=== PATIENT | male | born 1945 | race Caucasian/White ===

== ENCOUNTER 2017-01-02 07:23 | Inpatient (IN) | payer MEDICARE, OTHER ==
[~2017-01-02] VITALS: Ht 172.7 cm; Wt 106.6 kg
[2017-01-02] MEDS ORDERED: ONDANSETRON 4MG/2ML VIAL (J2405) As Ordered ONE (08:03)
[2017-01-02] MEDS ORDERED: KETOROLAC 30 MG/ML VIAL (J1885) As Ordered ONE (08:03)
[2017-01-02 08:34] LABS: BASO % 0.1 % (0.0-1.0); EOS # 0.1 K/mm3 (0.0-0.50); EOS % 0.4 % (0.0-3.0); LARGE UNSTAINED CELL # 0.1 K/mm3 (0.0-0.4); LARGE UNSTAINED CELL % 0.6 % (0.0-4.0); LYMPH # 1.7 K/mm3 (1.5-4.5); LYMPH % 7.5 % (24.0-44.0); MEAN CORPUSCULAR HEMOGLOBIN 30.2 pg (27.0-33.0); MEAN CORPUSCULAR HGB CONC 33.6 g/dl (32.0-36.5); MEAN CORPUSCULAR VOLUME 89.8 fl (80.0-96.0); MONO # 1.2 K/mm3 (0.0-0.8); MONO % 5.8 % (0.0-5.0); NEUTROPHILS # 17.9 K/mm3 (1.8-7.7); NEUTROPHILS % 85.6 % (36.0-66.0); PLATELET COUNT, AUTOMATED 173 k/mm3 (150-450); RED CELL DISTRIBUTION WIDTH 12.9 % (11.5-14.5); WHITE BLOOD COUNT 20.9 K/mm3 (4.0-10.0)
[2017-01-02] MEDS ORDERED: HEPARIN SOD (PORCINE) 5000 UNITS/ML VIAL SC SCH (09:00)
[2017-01-02 09:10] LABS: ALBUMIN 3.9 GM/DL (3.2-5.2); ALBUMIN/GLOBULIN RATIO 1.03 (1.00-1.93); ALKALINE PHOSPHATASE 72 U/L (45-117); ALT/SGPT 16 U/L (12-78); ANION GAP 11 MEQ/L (8-16); AST/SGOT 15 U/L (15-37); BILIRUBIN,DIRECT 0.5 MG/DL (0.0-0.2); BILIRUBIN,TOTAL 2.1 MG/DL (0.2-1.0); BLOOD UREA NITROGEN 15 MG/DL (7-18); CALCIUM LEVEL 9.3 MG/DL (8.8-10.2); CARBON DIOXIDE LEVEL 29 MEQ/L (21-32); CHLORIDE LEVEL 98 MEQ/L (98-107); CREATININE FOR GFR 0.97 MG/DL (0.70-1.30); GLOMERULAR FILTRATION RATE > 60.0 (>42); GLUCOSE, FASTING 150 MG/DL (83-110); MAGNESIUM LEVEL 1.6 MG/DL (1.8-2.4); POTASSIUM SERUM 3.4 MEQ/L (3.5-5.1); SODIUM LEVEL 138 MEQ/L (136-145); TOTAL PROTEIN 7.7 GM/DL (6.4-8.2)
[2017-01-02] MEDS ORDERED: ISOVUE-370 76% 100ML VIAL (Q9967) As Ordered ONE (09:25)
--- NOTE | 2017-01-02 09:57 | REP ---
Clinical: Abdominal pain. Technique: Axial contrast enhanced images from the thoracic inlet to the upper abdomen using 100 ml Isovue 370 intravenous contrast material with coronal and sagittal re-formations. Findings: Moderate peripancreatic inflammatory stranding is appreciated consistent with acute pancreatitis. Pancreatic tissue demonstrates normal homogeneous enhancement without evidence for necrosis and no associated fluid collection or pseudocyst. 3 cm hepatic cyst. Spleen, gallbladder, bilateral adrenal glands and kidneys are normal. 2.8 cm left renal cyst. The enteric system demonstrates diverticulosis without acute diverticulitis and no evidence for bowel obstruction or acute inflammatory process. Normal terminal ileum identified in the right lower quadrant. Pelvis demonstrates partially collapsed bladder and wall thickening cannot be excluded. Mild prominence to the prostate gland is also appreciated. No pelvic fluid. No ascites. No intraperitoneal or retroperitoneal adenopathy. Atherosclerotic changes of the aorta noted without aneurysm or dissection. Musculoskeletal structures demonstrate age-related changes without focal osseous abnormality. Lung bases clear. Cardiomegaly. Impression: 1. Acute pancreatitis without pseudocyst, free fluid, or drainable collection/abscess. 2. Solitary simple appearing hepatic and left renal cysts. 3. Scattered colonic diverticula without acute diverticulitis. 4. Asymmetric wall thickening to the bladder and mild prominence to the prostate gland cannot be excluded and may warrant urology consultation. Signed by Dustin Padilla MD 01/02/2017 09:48 A
[2017-01-02] MEDS ORDERED: METO50TA9 PO (10:22)
[2017-01-02] MEDS ORDERED: AMLO5TAB2 PO (10:22)
[2017-01-02] MEDS ORDERED: VITA500T88 PO (10:22)
[2017-01-02] MEDS ORDERED: ALBU17IN INH (10:22)
[2017-01-02] MEDS ORDERED: CALCTAB43 PO (10:22)
[2017-01-02] MEDS ORDERED: VITA20008 PO (10:22)
[2017-01-02] MEDS ORDERED: ASPI1TAB PO (10:22)
[2017-01-02] MEDS ORDERED: PRAV40TA2 PO (10:22)
[2017-01-02] MEDS ORDERED: BISACODYL 10 MG SUPP PR PRN (11:15)
[2017-01-02] MEDS ORDERED: ACETAMINOPHEN 650 MG SUPP PR PRN (11:15)
[2017-01-02] MEDS ORDERED: ONDANSETRON 4MG/2ML VIAL (J2405) IV PRN (11:15)
[2017-01-02] MEDS ORDERED: POTASSIUM CHLORIDE 10 MEQ SR TABLET As Ordered ONE (11:23)
[2017-01-02] MEDS ORDERED: MAGNESIUM OXIDE 400 MG TAB (MAG-OX) As Ordered ONE (11:24)
[2017-01-02] MEDS ORDERED: MAG SULF 1GM/100ML (MAG RUN) 1 GM in APPROPRIATE DILUENT 1 EA IV ONE (11:30)
[2017-01-02] MEDS ORDERED: ALBUTEROL 90 MCG/ACT 8GM HFA INHALER INH PRN (11:30)
--- NOTE | 2017-01-02 11:51 | HPE ---
DATE OF ADMISSION: 01/02/2017 HISTORY OF PRESENT ILLNESS: This is a 71-year-old male who had been vomiting with nausea over the last 24-36 hours. Also had some experience with diarrhea. Brought himself to the emergency room today. Workup proved patient had an elevated lipase indicating diagnosis of pancreatitis. CT abdomen and pelvis obtained shows acute pancreatitis with pseudocyst, free fluid or drainable collection abscess. Patient has an elevated white count of 20,000. Also noted to have some solitary simple appearing hepatic and left renal cysts, colonic diverticula without diverticulitis and asymmetric wall thickening to the bladder and mild prominence of the prostate gland cannot be excluded. Family Medicine Service was subsequently contacted to admit patient. His primary care physician is Carole Altman. PAST MEDICAL HISTORY: Significant for: Diet controlled diabetes with hemoglobin A1c last drawn shows 6.6. Hypertension. History of asthma. Nocturnal hypoxemia. Aortic valve disorder. Elevated liver enzymes with nonalcoholic steatohepatitis. Hyperlipidemia. Hypertension. Vitamin D deficiency. PAST SURGICAL HISTORY: Significant for: Colonoscopy [address] Kush Hess. Had multiple small and large amount diverticula in the entire colon. Two small polyps in the rectum. ALLERGIES: ATORVASTATIN, however, patient has tolerated pravastatin fine. CURRENT MEDICATIONS: - vitamin D3 2000 international units daily. - albuterol inhaler HFA two puffs every 4 hours as needed. - pravastatin 40 mg one by mouth daily - metoprolol with hydrochlorothiazide combination 50/25 mg, he takes half tablet daily - amlodipine 5 mg by mouth daily - aspirin 81 mg by mouth daily - calcium with vitamin D3 600/200 mg daily - vitamin C 500 mg daily - patient uses oxygen 2 liters nightly for what he states is low oxygen levels during sleep. PHYSICAL EXAMINATION: Vital signs are stable. Patient has been without a fever. Labs show white blood cell count 20,000, hemoglobin and hematocrit of 14 and 42, platelet count of 173 is noted. Urine does show 2+ protein, 1+ glucose, 2+ ketones. Urine ketones 2+ without hyperglycemia. CMP shows a sodium of 138 with potassium of 3.4. Patient also has a low magnesium level of 1.6. Total bilirubin is 2.1, direct bilirubin 0.5, AST and ALT are normal. Troponin negative. EKG shows questionable atrial fibrillation. PHYSICAL EXAMINATION: HEENT: Neck is supple without lymphadenopathy or jugular venous distention (JVD ). CARDIOVASCULAR: Heart rate and rhythm are regular. LUNGS: Clear to auscultation bilaterally. ABDOMEN: Distended. Positive bowel sounds throughout. Positive pain throughout the abdomen on palpation. ASSESSMENT: 1. Pancreatitis. 2. Hypokalemia. 3. Hypomagnesemia. 4. Hyperbilirubinemia. 5. Diabetes. 6. New onset atrial fibrillation. 7. Hypertension. 8. Hyperlipidemia. 9. Asymmetric wall thickening to the bladder. 10. History of asthma. 11. Nocturnal hypoxemia. PLAN: Patient will be admitted for at least two midnights. He will be admitted to progressive care unit (PCU) for further monitoring. Diet is nothing by mouth. Activity is as tolerated. We will maintain intravenous (IV) fluids with normal saline at 100 mL/hour. Routine medications were maintained. Heparin 5000 units subcutaneous twice a day was ordered. Attending physician is Dr. Lennox Escobar. Magnesium and potassium will be replaced. Labs will be repeated. Hemoglobin A1c, thyroid stimulating hormone (TSH), and lipid were also ordered for further evaluation of cause of pancreatitis, however it does appear that there is a pseudocyst. We will consider interventional consult as indicated as well. Patient verbalized understanding and agreement with plan and Dr. Escobar concurs with stated plan. Edited 01/02/2017 [facility] 1320 MTDD
[2017-01-02 11:57] VITALS: BP 159/75
[2017-01-02] MEDS ORDERED: amLODIPine 5 MG TAB PO ONE (12:00)
[2017-01-02] MEDS ORDERED: hydroCHLOROthiazide 12.5 MG CAPSULE PO ONE (12:00)
[2017-01-02] MEDS ORDERED: METOPROLOL SUCC *XL* 25MG TAB (TopROL *XL*) PO ONE (12:00)
[2017-01-02] MEDS ORDERED: GLUCAGON FOR INJ 1 MG VIAL (J1610) SC PRN ×2 (12:45→19:45)
[2017-01-02] MEDS ORDERED: GLUCOSE 4 GM CHEW TABLET PO PRN ×2 (12:45→19:45)
[2017-01-02] MEDS ORDERED: DEXTROSE 50% 50 ML SYRINGE IV PRN ×2 (12:45→19:45)
[2017-01-02] MEDS ORDERED: KCL 10MEQ IN 100ML SWI (KRUN) 10 MEQ in APPROPRIATE DILUENT 1 EA IV SCH ×4 (13:00)
[2017-01-02] MEDS ORDERED: KCL 10MEQ IN STERILE WATER 100ML As Ordered ONE (13:07)
--- NOTE | 2017-01-02 13:07 | REP ---
Clinical: Pancreatitis with elevated liver function tests . Technique: [place] scale ultrasound using curved array transducer. Findings: The liver is normal in contour, size, and echogenicity without focal hepatic lesion identified. Incidental hepatic cyst measures 3 cm and unchanged compared to 04/01/2015. The gallbladder is normal without gallstones, wall thickening or pericholecystic fluid. No biliary ductal dilatation is appreciated, and the common bile duct measures 2.7 mm diameter. The right kidney is normal in reniform shape without hydronephrosis and measures 12.7 x 5.2 x 5.6 cm cm. No ascites. Visualized portions of the abdominal aorta normal. Impression: Normal right upper quadrant and gallbladder abdominal ultrasound. Signed by Dustin Padilla MD 01/02/2017 12:59 P
[2017-01-02] MEDS ORDERED: HEPARIN 25,000 UNITS/250 ML D5W BAG (100 UNITS/ML) As Ordered ONE (13:36)
[2017-01-02] MEDS ORDERED: amLODIPine 5 MG TAB As Ordered ONE (13:39)
[2017-01-02] MEDS ORDERED: METOPROLOL SUCC *XL* 25MG TAB (TopROL *XL*) As Ordered ONE (13:40)
[2017-01-02] MEDS ORDERED: hydroCHLOROthiazide 12.5 MG CAPSULE As Ordered ONE (13:40)
[2017-01-02 13:41] LABS: MEAN CORPUSCULAR HEMOGLOBIN 30.6 pg (27.0-33.0); MEAN CORPUSCULAR HGB CONC 33.4 g/dl (32.0-36.5); MEAN CORPUSCULAR VOLUME 91.7 fl (80.0-96.0); RED CELL DISTRIBUTION WIDTH 12.9 % (11.5-14.5); WHITE BLOOD COUNT 16.8 K/mm3 (4.0-10.0)
[2017-01-02 13:51] LABS: ANION GAP 11 MEQ/L (8-16); BLOOD UREA NITROGEN 13 MG/DL (7-18); CALCIUM LEVEL 8.8 MG/DL (8.8-10.2); CARBON DIOXIDE LEVEL 29 MEQ/L (21-32); CHLORIDE LEVEL 99 MEQ/L (98-107); CREATININE FOR GFR 0.86 MG/DL (0.70-1.30); GLOMERULAR FILTRATION RATE > 60.0 (>42); GLUCOSE, FASTING 108 MG/DL (83-110); POTASSIUM SERUM 3.8 MEQ/L (3.5-5.1); SODIUM LEVEL 139 MEQ/L (136-145)
[2017-01-02 14:00] LABS: MAGNESIUM LEVEL 1.8 MG/DL (1.8-2.4)
[2017-01-02 14:19] VITALS: BP 163/88
--- NOTE | 2017-01-02 14:19 | EDDOCDS ---
Nurse's Notes [facility] Name: Bolivar Sharma Age: 71 yrs Sex: Male : 1945 Arrival Date: 01/02/2017 Time: 07:23 Bed 18 Private MD: Diagnosis: Acute pancreatitis;Hypokalemia;Hypomagnesemia;Nausea and vomiting Presentation: 01/02 07:36 Presenting complaint: Patient states: he has not felt good since Monday - yesterday kcs started vomiting and having abdominal pain. Today feels very weak. Adult Sepsis Screening: The patient does not have new or worsening altered mentation. Suicide/Homicide risk assessment- the patient denies having any suicidal and/or homicidal ideations and does not present with any other emotional, behavioral or mental health complaints. Status: Patient is not a construction services technician or dependent. Transition of care: patient was not received from another setting of care. 07:36 Acuity: LULU Level 3 kcs 07:36 Method Of Arrival: Walkin/Carried/Asstd kcs 07:45 Adult Sepsis Screening: Patient has a respiratory rate of greater than or equal to 22 kcs (1 point). Systolic blood pressure is greater than 100. Patient has a qSOFA score of 1- Negative Sepsis Screen. Triage Assessment: 07:45 General: Appears ill, well developed, well nourished, well groomed, Behavior is kcs cooperative, pleasant. Pain: Location: lower abdomen Pain currently is 6 out of 10 on a pain scale. Neurological: Level of Consciousness is awake, alert. Respiratory: Airway is patent Respiratory effort is even, unlabored, Respiratory pattern is regular, symmetrical. GI: Reports diarrhea, nausea, vomiting. Derm: Skin is intact, is healthy with good turgor, Skin is dry, Skin is normal. Historical: - Allergies: atorvastatinelevated LFTs; - Home Meds: 1. Vitamin D3 2000 units daily 2. Albuterol Inhl 2 puffs every 4 hours as needed 3. pravastatin 40 mg oral tab 1 tab once daily 4. metoprolol with HCTZ 50/25 mg 1/2 tab daily 5. amlodipine 5 mg Oral tab 1 tab once daily 6. aspirin 81 mg Oral tab 1 tab once daily 7. calcium with D3 600/200 daily 8. vitamin C 500 daily 9. Oxygen 2 liters nightly - PMHx: TIA; seborrheic keratosis; Asthma; nocturnal hypoxemia; aortic valve disorder; allergic rhinitis; elevated liver enzymes; gallstones; hyperlipidemia; Hypertension; vitamin D deficiency; sciatica; Diabetes - NIDDM: controlled; - PSHx: none; - Social history: Smoking status: Patient states was never smoker of tobacco. No barriers to communication noted, The patient speaks fluent Mexican. - Family history: Not pertinent. - : The pt / caregiver states he / she is not on anticoagulants. Home medication list is obtained from a discharge med list. - Exposure Risk Screening:: None identified. Screenin:01 Screening information is obtained from the patient. Fall risk: No risks identified. ja5 Assistance ADL's: requires no assistance with activities of daily living. Abuse/DV Screen: The patient / caregiver reports he/she is: not in a situation that causes fear, pain or injury. Nutritional screening: On no prescribed diet. Advance Directives: Currently, there is no health care proxy. There is no active DNR order. There is no living will. 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 home support is adequate. Assessment: 07:59 General: Appears uncomfortable, Behavior is appropriate for age, cooperative. Pain: ja5 Location: anterior aspect of left lateral abdomen Pain currently is 6 out of 10 on a pain scale. Neurological: Level of Consciousness is awake, alert, Oriented to person, place, time. Cardiovascular: Capillary refill < 3 seconds Heart tones S1 S2 present. Respiratory: Airway is patent Respiratory effort is even, unlabored, Breath sounds are clear bilaterally. GI: Abdomen is distended, patient states he is bloated Bowel sounds present X 4 quads. hypoactive in right upper quadrant, left upper quadrant, right lower quadrant and left lower quadrant Abd is soft X 4 quads Abd is non tender X 4 quads. Derm: Skin is intact, Skin is pink, warm & dry. 09:45 General: Patient back from CT scan, resting in stretcher, states "I feel much better" ja5 after receiving medication and some IV fluids. IV bolus is still infusing at this time. . 10:04 General: Appears in no apparent distress, comfortable, Behavior is appropriate for age, dsf cooperative. Pain: Pain currently is 3 out of 10 on a pain scale. Neurological: Level of Consciousness is awake, alert. Respiratory: Airway is patent Respiratory effort is even, unlabored, Respiratory pattern is regular, symmetrical. Derm: Skin is pink, warm & dry. 11:30 General: Appears in no apparent distress, Behavior is cooperative. Pain: Location: left jc4 upper quadrant Pain currently is 5 out of 10 on a pain scale. Neurological: Level of Consciousness is awake, alert, Oriented to person, place, time, Reports weakness. Respiratory: Airway is patent Respiratory effort is even, unlabored, Respiratory pattern is regular, symmetrical. Derm: Skin is pink, warm & dry. 12:15 Reassessment: patient having Echocardiogram and is off unit. kr3 13:02 Reassessment: Patient appears in no apparent distress at this time. Pain: Location: kr3 left lower quadrant Pain currently is 5 out of 10 on a pain scale. Quality of pain is described as GRABBING. Respiratory: Respiratory effort is even, unlabored. GI: Denies nausea, vomiting. Derm: Skin is pink, warm & dry. 14:06 Reassessment: Patient appears in no apparent distress at this time. General: Behavior kr3 is cooperative, pleasant. Pain: Location: left lower quadrant Pain currently is 5 out of 10 on a pain scale. Respiratory: Respiratory effort is even, unlabored. Derm: Skin is normal. Vital Signs: 07:45 BP 133 / 109; Pulse 98; Resp 22; Temp 99.7(TE); Pulse Ox 97% on R/A; Weight 104.33 kg [facility] (R); Height 5 ft. 8 in. (172.72 cm) (R); Pain 6/10; 10:04 BP 160 / 85; Pulse 92; Resp 20; Temp 96.3(O); Pulse Ox 95% on R/A; Pain 3/10; dsf 11:58 BP 159 / 75 (auto/); kr3 11:58 Pulse 86 MON; kr3 12:56 Pulse 84 MON; Temp 99.7(O); Pulse Ox 98% ; kr3 13:18 BP 165 / 85 (auto/); kr3 13:18 Pulse 90 MON; Pulse Ox 97% ; kr3 13:48 BP 159 / 95 (auto/); kr3 13:48 Pulse 86 MON; kr3 07:45 Body Mass Index 34.97 (104.33 kg, 172.72 cm) [facility] Vitals: 07:45 Log In Time: January 02, 2017 at 07:25. kcs ED Course: 07:25 Patient visited by Candy Aguilar, Reg. hs2 07:25 Patient moved to Waiting hs2 07:37 Triage Initiated kcs 07:50 Jessie Wan,RN is Primary Nurse. kcs 07:50 Lorraine Zamudio, RN is Primary Nurse. kcs 07:50 Alvarez Galarza PA-C is PHCP. cc10 07:50 Bertram Horner MD is Attending Physician. cc10 07:50 Patient visited by Alvarez Galarza PA-C. cc10 07:50 Patient visited by Alvarez Galarza PA-C. cc10 07:50 Patient moved to I5 / M5 kcs 08:20 Basic Metabolic Profile Sent. ja5 08:20 CBC with Diff Sent. ja5 08:20 Cardiac Injury Profile Sent. ja5 08:20 Lipase Sent. ja5 08:20 Liver Profile Sent. ja5 08:20 Troponin Sent. ja5 08:20 Urinalysis Sent. ja5 08:20 Inserted saline lock: 20 gauge in left antecubital area. ja5 08:24 Patient visited by Jessie Wan RN. ja5 08:24 MAGNESIUM LEVEL Sent. ja5 08:37 [facility] [place] into varinode and attached to record. mm15 09:05 Patient visited by Jessie Wan RN. ja5 10:05 Patient visited by María Elena Topete,LAMAR. dsf 10:09 Justino Samson is Hospitalizing Provider. cc10 10:19 Hospitalizing Provider role handed off by Justino Samson cc10 10:19 eLnnox Escobar MD is Hospitalizing Provider. cc10 10:21 CT ABD & PELVIS: IV Contrast Only Returned. EDMS 11:20 Patient moved to Admit Hold kpj 11:32 The patient / caregiver is instructed regarding the plan of care and ED course. jc4 11:38 Deja Rosario,RN is Primary Nurse. jc4 12:07 Patient moved to Ultrasound am17 12:52 Patient moved to 18 am17 13:17 LIVER US Returned. EDMS 13:22 Inserted saline lock: 20 gauge in right antecubital area. kr3 14:06 No procedures done that require assistance. kr3 Administered Medications: 08:19 Drug: NS 0.9% 1000 ml [sodium chloride 0.9 % intravenous solution] Route: IV; Rate: ja5 bolus; Site: left antecubital; 08:20 Drug: ketorolac 15 mg [ketorolac 30 mg/mL (1 mL) injection solution (0.5 mL)] Route: ja5 IVP; Site: left antecubital; 08:22 Drug: Ondansetron 4 mg [ondansetron HCl 2 mg/mL intravenous solution (2 mL)] Route: ja5 IVP; Site: left antecubital; 11:28 Drug: Magnesium Oxide 400 mg [magnesium oxide 400 mg tablet (1 tabs)] Route: PO; jc4 11:29 Drug: Potassium Chloride 40 mEq [potassium chloride ER 10 mEq tablet,extended release jc4 (4 tabs)] Route: PO; 13:15 Drug: Potassium Chloride in 100cc sterile water 10 mEq [potassium chloride 10 mEq/100 kr3 mL intravenous piggyback] {Co-Signature: dsf (María Elena Topete RN).} Route: IV; Rate: 100 mL/hr; Infused Over: 1 hrs; Site: right antecubital; 14:06 Follow up: IV Status: Infusion continued upon admit kr3 13:15 Drug: NS 0.9% 1000 ml [sodium chloride 0.9 % intravenous solution] Route: IV; Rate: 100 kr3 mL/hr; Site: right antecubital; 14:05 Follow up: IV Status: Infusion continued upon admit kr3 Order Results: Lab Order: Basic Metabolic Profile; [facility] 01/02/17 08:15 Test: GLUCOSE, FASTING; Value: 150; Range: 83-110; Abnormal: Above high normal; Units: MG/DL; Status: F Test: BLOOD UREA NITROGEN; Value: 15; Range: 7-18; Units: MG/DL; Status: F Test: CREATININE FOR GFR; Value: 0.97; Range: 0.70-1.30; Units: MG/DL; Status: F Test: GLOMERULAR FILTRATION RATE; Value: > 60.0; Range: >42; Status: F Test: SODIUM LEVEL; Value: 138; Range: 136-145; Units: MEQ/L; Status: F Test: POTASSIUM SERUM; Value: 3.4; Range: 3.5-5.1; Abnormal: Below low normal; Units: MEQ/L; Status: F Test: CHLORIDE LEVEL; Value: 98; Range: 98-107; Units: MEQ/L; Status: F Test: CARBON DIOXIDE LEVEL; Value: 29; Range: 21-32; Units: MEQ/L; Status: F Test: ANION GAP; Value: 11; Range: 8-16; Units: MEQ/L; Status: F Test: CALCIUM LEVEL; Value: 9.3; Range: 8.8-10.2; Units: MG/DL; Status: F Test Note: ; Units are mL/min/1.73 m2 Chronic Kidney Disease Staging per NKF: Stage I & II GFR >=60 Normal to Mildly Decreased Stage III GFR 30-59 Moderately Decreased Stage IV GFR 15-29 Severely Decreased Stage V GFR <15 Very Little GFR Left ESRD GFR <15 on PUMPING STATION SUPERVISOR Test: THYROID STIMULATING HORMONE; Range: 0.358-3.740; Units: uIU/ML; Status: I Lab Order: CBC with Diff; SPEC'M 01/02/17 08:15 Test: WHITE BLOOD COUNT; Value: 20.9; Range: 4.0-10.0; Abnormal: Above high normal; Units: K/mm3; Status: F Test: RED BLOOD COUNT; Value: 4.68; Range: 4.30-6.10; Units: M/mm3; Status: F Test: HEMOGLOBIN; Value: 14.1; Range: 14.0-18.0; Units: g/dl; Status: F Test: HEMATOCRIT; Value: 42.0; Range: 42.0-52.0; Units: %; Status: F Test: MEAN CORPUSCULAR VOLUME; Value: 89.8; Range: 80.0-96.0; Units: fl; Status: F Test: MEAN CORPUSCULAR HEMOGLOBIN; Value: 30.2; Range: 27.0-33.0; Units: pg; Status: F Test: MEAN CORPUSCULAR HGB CONC; Value: 33.6; Range: 32.0-36.5; Units: g/dl; Status: F Test: RED CELL DISTRIBUTION WIDTH; Value: 12.9; Range: 11.5-14.5; Units: %; Status: F Test: PLATELET COUNT, AUTOMATED; Value: 173; Range: 150-450; Units: k/mm3; Status: F Test: NEUTROPHILS %; Value: 85.6; Range: 36.0-66.0; Abnormal: Above high normal; Units: %; Status: F Test: LYMPH %; Value: 7.5; Range: 24.0-44.0; Abnormal: Below low normal; Units: %; Status: F Test: MONO %; Value: 5.8; Range: 0.0-5.0; Abnormal: Above high normal; Units: %; Status: F Test: EOS %; Value: 0.4; Range: 0.0-3.0; Units: %; Status: F Test: BASO %; Value: 0.1; Range: 0.0-1.0; Units: %; Status: F Test: LARGE UNSTAINED CELL %; Value: 0.6; Range: 0.0-4.0; Units: %; Status: F Test: NEUTROPHILS #; Value: 17.9; Range: 1.8-7.7; Abnormal: Above high normal; Units: K/mm3; Status: F Test: LYMPH #; Value: 1.7; Range: 1.5-4.5; Units: K/mm3; Status: F Test: MONO #; Value: 1.2; Range: 0.0-0.8; Abnormal: Above high normal; Units: K/mm3; Status: F Test: EOS #; Value: 0.1; Range: 0.0-0.50; Units: K/mm3; Status: F Test: BASO #; Value: 0.0; Range: 0.0-0.2; Units: K/mm3; Status: F Test: LARGE UNSTAINED CELL #; Value: 0.1; Range: 0.0-0.4; Units: K/mm3; Status: F Lab Order: Cardiac Injury Profile; SPEC'M 01/02/17 08:15 Test: CPK CREATINE PHOSPHOKINASE; Value: 87; Range: 39-308; Units: U/L; Status: F Test: CK-MB VALUE MASS; Value: 2.2; Range: 0.0-3.6; Units: NG/ML; Status: F Test: MB/CK RELATIVE INDEX; Value: 2.52; Range: < OR =4; Status: F Test Note: ; DIAGNOSIS CRITERIA MMB ng/ml Relative Index (RI) NON-AMI < or = 5 N/A MURRIETA ZONE > 5 < or = 4 AMI > 5 > 4 Lab Order: Lipase; [facility] 01/02/17 08:15 Test: LIPASE; Value: 676; Range: 73-393; Abnormal: Above high normal; Units: U/L; Status: F Lab Order: Liver Profile; [facility] 01/02/17 08:15 Test: AST/SGOT; Value: 15; Range: 15-37; Units: U/L; Status: F Test: ALT/SGPT; Value: 16; Range: 12-78; Units: U/L; Status: F Test: ALKALINE PHOSPHATASE; Value: 72; Range: 45-117; Units: U/L; Status: F Test: BILIRUBIN,TOTAL; Value: 2.1; Range: 0.2-1.0; Abnormal: Above high normal; Units: MG/DL; Status: F Test: BILIRUBIN,DIRECT; Value: 0.5; Range: 0.0-0.2; Abnormal: Above high normal; Units: MG/DL; Status: F Test: TOTAL PROTEIN; Value: 7.7; Range: 6.4-8.2; Units: GM/DL; Status: F Test: ALBUMIN; Value: 3.9; Range: 3.2-5.2; Units: GM/DL; Status: F Test: ALBUMIN/GLOBULIN RATIO; Value: 1.03; Range: 1.00-1.93; Status: F Lab Order: Troponin; [facility] 01/02/17 08:15 Test: TROPONIN I; Value: < 0.02; Range: < 0.10; Units: NG/ML; Status: F Test Note: ; Troponin I Reference Interval for Siemens Fon LOCI: 99th Percentile= 0.00-0.045 ng/ml Risk Stratification: <= 0.10 ng/ml Decreased Risk for Adverse Clinical Events. 0.10-1.50 ng/ml Increased Risk for Adverse Clinical Events. Evaluation of additional criterion and/or repeat testing in 2-6 hours is suggested to rule out myocardial damage. >= 1.50 ng/ml Indicative of Myocardial Injury. Lab Order: Urinalysis; [facility] 01/02/17 08:15 Test: APPEARANCE, URINE; Value: HAZY; Range: CLEAR; Status: F Test: COLOR, URINE; Value: SKIP; Range: YELLOW; Status: F Test: PH,URINE; Value: 5.0; Range: 5.0-9.0; Units: UNITS; Status: F Test: SPECIFIC GRAVITY URINE AUTO; Value: 1.025; Range: 1.002-1.035; Status: F Test: PROTEIN, URINE AUTO; Value: 2+; Range: NEGATIVE; Abnormal: Above high normal; Units: mg/dL; Status: F Test: GLUCOSE, URINE (UA) AUTO; Value: 1+; Range: NEGATIVE; Abnormal: Above high normal; Units: mg/dL; Status: F Test: KETONE, URINE AUTO; Value: 2+; Range: NEGATIVE; Abnormal: Above high normal; Units: mg/dL; Status: F Test: UROBILINOGEN, URINE AUTO; Value: 2.0; Range: 0.0-2.0; Abnormal: Above high normal; Units: mg/dL; Status: F Test: BILIRUBIN, URINE AUTO; Value: NEGATIVE; Range: NEGATIVE; Status: F Test: NITRITE, URINE AUTO; Value: NEGATIVE; Range: NEGATIVE; Status: F Test: LEUKOCYTE ESTERASE, URINE AUTO; Value: NEGATIVE; Range: NEGATIVE; Status: F Test: BLOOD, URINE BLOOD; Value: NEGATIVE; Range: NEGATIVE; Status: F Test: WBC, URINE AUTO; Value: 1; Range: 0-3; Units: /HPF; Status: F Test: RBC, URINE AUTO; Value: 7; Range: 0-3; Abnormal: Above high normal; Units: /HPF; Status: F Test: BACTERIA, URINE AUTO; Value: 1+; Range: NEGATIVE; Abnormal: Above high normal; Status: F Test: SQUAMOUS EPITHELIAL CELL UR AU; Value: 0; Range: 0-6; Units: /HPF; Status: F Test: MUCUS, URINE; Value: LARGE; Range: NEGATIVE; Status: F Test: HYALINE CAST, URINE AUTO; Value: 0; Range: 0-1; Units: /LPF; Status: F Lab Order: MAGNESIUM LEVEL; SPEC'M 01/02/17 08:15 Test: MAGNESIUM LEVEL; Value: 1.6; Range: 1.8-2.4; Abnormal: Below low normal; Units: MG/DL; Status: F Lab Order: THYROID STIMULATING HORMONE; SPEC' 01/02/17 08:15 Test: THYROID STIMULATING HORMONE; Value: 1.520; Range: 0.358-3.740; Units: uIU/ML; Status: F Lab Order: BASIC METABOLIC PROFILE; [facility]01/02/17 13:09 Test: GLUCOSE, FASTING; Value: 108; Range: 83-110; Units: MG/DL; Status: F Test: BLOOD UREA NITROGEN; Value: 13; Range: 7-18; Units: MG/DL; Status: F Test: CREATININE FOR GFR; Value: 0.86; Range: 0.70-1.30; Units: MG/DL; Status: F Test: GLOMERULAR FILTRATION RATE; Value: > 60.0; Range: >42; Status: F Test: SODIUM LEVEL; Value: 139; Range: 136-145; Units: MEQ/L; Status: F Test: POTASSIUM SERUM; Value: 3.8; Range: 3.5-5.1; Units: MEQ/L; Status: F Test: CHLORIDE LEVEL; Value: 99; Range: 98-107; Units: MEQ/L; Status: F Test: CARBON DIOXIDE LEVEL; Value: 29; Range: 21-32; Units: MEQ/L; Status: F Test: ANION GAP; Value: 11; Range: 8-16; Units: MEQ/L; Status: F Test: CALCIUM LEVEL; Value: 8.8; Range: 8.8-10.2; Units: MG/DL; Status: F Test Note: ; Units are mL/min/1.73 m2 Chronic Kidney Disease Staging per NKF: Stage I & II GFR >=60 Normal to Mildly Decreased Stage III GFR 30-59 Moderately Decreased Stage IV GFR 15-29 Severely Decreased Stage V GFR <15 Very Little GFR Left ESRD GFR <15 on PUMPING STATION SUPERVISOR Lab Order: COMPLETE BLOOD COUNT; SPEC01/02/17 13:09 Test: WHITE BLOOD COUNT; Value: 16.8; Range: 4.0-10.0; Abnormal: Above high normal; Units: K/mm3; Status: F Test: RED BLOOD COUNT; Value: 4.55; Range: 4.30-6.10; Units: M/mm3; Status: F Test: HEMOGLOBIN; Value: 13.9; Range: 14.0-18.0; Abnormal: Below low normal; Units: g/dl; Status: F Test: HEMATOCRIT; Value: 41.8; Range: 42.0-52.0; Abnormal: Below low normal; Units: %; Status: F Test: MEAN CORPUSCULAR VOLUME; Value: 91.7; Range: 80.0-96.0; Units: fl; Status: F Test: MEAN CORPUSCULAR HEMOGLOBIN; Value: 30.6; Range: 27.0-33.0; Units: pg; Status: F Test: MEAN CORPUSCULAR HGB CONC; Value: 33.4; Range: 32.0-36.5; Units: g/dl; Status: F Test: RED CELL DISTRIBUTION WIDTH; Value: 12.9; Range: 11.5-14.5; Units: %; Status: F Test: PLATELET COUNT, AUTOMATED; Value: 156; Range: 150-450; Units: k/mm3; Status: F Lab Order: PARTIAL THROMBOPLASTIN TIME; SPEC'M 01/02/17 13:09 Test: PARTIAL THROMBOPLASTIN TIME; Value: 26.6; Range: 26.6-37.1; Units: SECONDS; Status: F Lab Order: MAGNESIUM LEVEL; SPEC'M 01/02/17 13:09 Test: MAGNESIUM LEVEL; Value: 1.8; Range: 1.8-2.4; Units: MG/DL; Status: F Radiology Order: CT ABD & PELVIS: IV Contrast Only Test: CT ABD & PELVIS: IV Contrast Only REASON FOR EXAMINATION: Diverticulitis; Clinical: Abdominal pain.; ; Technique: Axial contrast enhanced images from the thoracic inlet to the upper; abdomen using 100 ml Isovue 370 intravenous contrast material with coronal and; sagittal re-formations.; ; Findings:; Moderate peripancreatic inflammatory stranding is appreciated consistent with; acute pancreatitis. Pancreatic tissue demonstrates normal homogeneous; enhancement without evidence for necrosis and no associated fluid collection or; pseudocyst.; ; 3 cm hepatic cyst. Spleen, gallbladder, bilateral adrenal glands and kidneys are; normal. 2.8 cm left renal cyst. The enteric system demonstrates diverticulosis; without acute diverticulitis and no evidence for bowel obstruction or acute; inflammatory process. Normal terminal ileum identified in the right lower; quadrant.; ; Pelvis demonstrates partially collapsed bladder and wall thickening cannot be; excluded. Mild prominence to the prostate gland is also appreciated. No pelvic; fluid. No ascites. No intraperitoneal or retroperitoneal adenopathy.; Atherosclerotic changes of the aorta noted without aneurysm or dissection.; Musculoskeletal structures demonstrate age-related changes without focal osseous; abnormality. Lung bases clear. Cardiomegaly.; ; Impression:; 1. Acute pancreatitis without pseudocyst, free fluid, or drainable; collection/abscess.; 2. Solitary simple appearing hepatic and left renal cysts.; 3. Scattered colonic diverticula without acute diverticulitis.; 4. Asymmetric wall thickening to the bladder and mild prominence to the prostate; gland cannot be excluded and may warrant urology consultation.; ; ; Signed by; Dustin Padilla MD 01/02/2017 09:48 A; Radiology Order: LIVER US Test: LIVER US REASON FOR EXAMINATION: Elevated LFT, pancreatitis; Clinical: Pancreatitis with elevated liver function tests .; ; Technique: [place] scale ultrasound using curved array transducer.; ; Findings: The liver is normal in contour, size, and echogenicity without focal; hepatic lesion identified. Incidental hepatic cyst measures 3 cm and unchanged; compared to 04/01/2015. The gallbladder is normal without gallstones, wall; thickening or pericholecystic fluid. No biliary ductal dilatation is; appreciated, and the common bile duct measures 2.7 mm diameter. The right kidney; is normal in reniform shape without hydronephrosis and measures 12.7 x 5.2 x 5.6; cm cm. No ascites. Visualized portions of the abdominal aorta normal.; ; Impression:; Normal right upper quadrant and gallbladder abdominal ultrasound.; ; ; Signed by; Dustin Padilla MD 01/02/2017 12:59 P; Outcome: 10:10 Decision to Hospitalize by Provider. cc10 13:06 CT Study completed. kr3 13:33 Admission hand-off: Report Faxed Fax receipt verified by received by Ashleigh on PCU who kr3 reports will contact ED when able to take patient. 14:06 Discharge Assessment: patient administered narcotics - no. The following High Risk kr3 Discharge criteria are identified: None. Admitted to PCU accompanied by nurse, accompanied by tech, via stretcher, on monitor, with chart. Condition: stable. Property :Personal belongings accompany Pt. 14:18 Patient left the ED. kr3 Signatures: Dispatcher [facility] Loida Mcclendon RN RN kcs Ashleigh Thapa, RN RN kpj Deja Rosario,RN RN kr3 Lorraine Zamudio, RN RN jc4 María Elena Topete RN RN dsf Manoj Corrales mm15 Suha Wilcox am17 Alvarez Galarza, PA-C PA-C cc10 Candy Aguilar, Reg Reg hs2 Jessie WanRN RN ja5 María Elena bergeronf MTDD
--- NOTE | 2017-01-02 14:19 | EDDOCDS ---
Physician Documentation [facility] Name: Bolivar Sharma Age: 71 yrs Sex: Male : 1945 Arrival Date: 01/02/2017 Time: 07:23 Bed 18 Private MD: Disposition: 01/02/17 10:10 Hospitalization ordered by Lennox Escobar for Observation. Preliminary diagnosis are Acute pancreatitis, Hypokalemia, Hypomagnesemia, Nausea and vomiting. - Bed requested for PCU. - Status is Observation. kr3 - Condition is Stable. - Problem is an ongoing problem. - Symptoms have improved. Historical: - Allergies: atorvastatinelevated LFTs; - Home Meds: 1. Vitamin D3 2000 units daily 2. Albuterol Inhl 2 puffs every 4 hours as needed 3. pravastatin 40 mg oral tab 1 tab once daily 4. metoprolol with HCTZ 50/25 mg 1/2 tab daily 5. amlodipine 5 mg Oral tab 1 tab once daily 6. aspirin 81 mg Oral tab 1 tab once daily 7. calcium with D3 600/200 daily 8. vitamin C 500 daily 9. Oxygen 2 liters nightly - PMHx: TIA; seborrheic keratosis; Asthma; nocturnal hypoxemia; aortic valve disorder; allergic rhinitis; elevated liver enzymes; gallstones; hyperlipidemia; Hypertension; vitamin D deficiency; sciatica; Diabetes - NIDDM: controlled; - PSHx: none; - Social history: Smoking status: Patient states was never smoker of tobacco. No barriers to communication noted, The patient speaks fluent Urdu. - Family history: Not pertinent. - : The pt / caregiver states he / she is not on anticoagulants. Home medication list is obtained from a discharge med list. - Exposure Risk Screening:: None identified. Vital Signs: 01/02 07:45 BP 133 / 109; Pulse 98; Resp 22; Temp 99.7(TE); Pulse Ox 97% on R/A; Weight 104.33 kg / kcs 230.01 lbs (R); Height 5 ft. 8 in. (172.72 cm) (R); Pain 6/10; 10:04 BP 160 / 85; Pulse 92; Resp 20; Temp 96.3(O); Pulse Ox 95% on R/A; Pain 3/10; dsf 11:58 BP 159 / 75 (auto/); kr3 11:58 Pulse 86 MON; kr3 12:56 Pulse 84 MON; Temp 99.7(O); Pulse Ox 98% ; kr3 13:18 BP 165 / 85 (auto/); kr3 13:18 Pulse 90 MON; Pulse Ox 97% ; kr3 13:48 BP 159 / 95 (auto/); kr3 13:48 Pulse 86 MON; kr3 07:45 Body Mass Index 34.97 (104.33 kg, 172.72 cm) kcs MDM: 07:56 NS 0.9% 1000 ml IV at bolus once ordered. cc10 07:56 Ondansetron 4 mg IVP once ordered. cc10 07:56 IV Saline Lock ordered. cc10 07:56 Undress patient appropriately for examination ordered. cc10 07:56 ketorolac 15 mg IVP once ordered. cc10 07:56 Basic Metabolic Profile Ordered. EDMS 07:56 CBC with Diff Ordered. EDMS 07:56 Cardiac Injury Profile Ordered. EDMS 07:56 Lipase Ordered. EDMS 07:56 Liver Profile Ordered. EDMS 07:56 Troponin Ordered. EDMS 07:56 Urinalysis Ordered. EDMS 07:57 ECG WITH READING ER PHYS+CARDIAG ordered. EDMS 07:57 CT ABD & PELVIS: IV Contrast Only Ordered. EDMS 07:57 NOTHING BY MOUTH+DIET ordered. EDMS 08:01 MAGNESIUM LEVEL Ordered. EDMS 08:11 Financial registration complete. mm15 08:12 Undo -Financial registration. mm15 08:28 Financial registration complete. mm15 08:37 [facility] Payment Agreement was scanned into [employer]IM[employer] and attached to record. mm15 09:27 Basic Metabolic Profile Reviewed. cc10 09:27 CBC with Diff Reviewed. cc10 09:27 Lipase Reviewed. cc10 09:27 Liver Profile Reviewed. cc10 09:27 Urinalysis Reviewed. cc10 09:27 MAGNESIUM LEVEL Reviewed. cc10 09:27 Cardiac Injury Profile Reviewed. cc10 09:27 Troponin Reviewed. cc10 09:51 BED REQUEST+ADM ordered. EDMS 09:58 Vital Signs ordered. cc10 10:29 CT ABD & PELVIS: IV Contrast Only Reviewed. ml 11:12 Magnesium Oxide 400 mg PO once ordered. cc10 11:12 Potassium Chloride Extended Release Tablet 40 mEq PO once ordered. cc10 11:15 Admission / Observation Status ordered. EDMS 11:15 NPO DIET ordered. EDMS 11:27 HEMOGLOBIN A1C Ordered. EDMS 11:43 THYROID STIMULATING HORMONE Ordered. EDMS 11:50 LIVER US Ordered. EDMS 11:52 ECHOCARD,DOPPLER/COLOR FLOW ordered. EDMS 11:58 BASIC METABOLIC PROFILE Ordered. EDMS 12:01 COMPLETE BLOOD COUNT Ordered. EDMS 12:01 PARTIAL THROMBOPLASTIN TIME Ordered. EDMS 12:02 PARTIAL THROMBOPLASTIN TIME Ordered. EDMS 12:02 PARTIAL THROMBOPLASTIN TIME Ordered. EDMS 12:04 BLOOD CULTURES Ordered. EDMS 12:04 BLOOD CULTURES Ordered. EDMS 12:39 MRI ABDOMEN WITHOUT CONTRAST Ordered. EDMS 13:23 Potassium Chloride in 100cc sterile water 10 mEq IV at 100 mL/hr once over 1 hrs kr3 ordered. 13:25 MAGNESIUM LEVEL Ordered. EDMS 13:26 NS 0.9% 1000 ml IV at 100 mL/hr continuous ordered. kr3 Administered Medications: 08:19 Drug: NS 0.9% 1000 ml [sodium chloride 0.9 % intravenous solution] Route: IV; Rate: ja5 bolus; Site: left antecubital; 08:20 Drug: ketorolac 15 mg [ketorolac 30 mg/mL (1 mL) injection solution (0.5 mL)] Route: ja5 IVP; Site: left antecubital; 08:22 Drug: Ondansetron 4 mg [ondansetron HCl 2 mg/mL intravenous solution (2 mL)] Route: ja5 IVP; Site: left antecubital; 11:28 Drug: Magnesium Oxide 400 mg [magnesium oxide 400 mg tablet (1 tabs)] Route: PO; jc4 11:29 Drug: Potassium Chloride 40 mEq [potassium chloride ER 10 mEq tablet,extended release jc4 (4 tabs)] Route: PO; 13:15 Drug: Potassium Chloride in 100cc sterile water 10 mEq [potassium chloride 10 mEq/100 kr3 mL intravenous piggyback] {Co-Signature: dsf (María Elena Topete RN).} Route: IV; Rate: 100 mL/hr; Infused Over: 1 hrs; Site: right antecubital; 14:06 Follow up: IV Status: Infusion continued upon admit kr3 13:15 Drug: NS 0.9% 1000 ml [sodium chloride 0.9 % intravenous solution] Route: IV; Rate: 100 kr3 mL/hr; Site: right antecubital; 14:05 Follow up: IV Status: Infusion continued upon admit kr3 Signatures: Dispatcher [employer] EDMS Bertram Horner MD MD ml Sleeman, Kacey, RN RN kcs Ashleigh Thapa RN Deja Conway,LAMAR RN kr3 Lorraine Zamudio, RN RN jc4 Manoj Corrales mm15 Alvarez Galarza PA-C PA-C Jessie Avendano RN5 María Elena Topete RN dsf The chart was reviewed and I authenticate all verbal orders and agree with the evaluation and treatment provided.Corrections: (The following items were deleted from the chart) 08:01 07:57 MAGNESIUM LEVEL+LAB ordered. EDMS EDMS 11:43 11:13 THYROID STIMULATING HORMONE ordered. EDMS EDMS 13:20 13:10 MAGNESIUM LEVEL ordered. EDMS EDMS 13:25 12:02 MAGNESIUM LEVEL ordered. EDMS EDMS Attachments: 08:37 [facility] Payment Agreement mm15 MTDD
[2017-01-02] MEDS: HumaLOG INSULIN (NovoLOG) PER UNIT SC SCH ×3 (14:25→18:00)
[2017-01-02] MEDS: HEPARIN DRIP 25,000 UNITS in APPROPRIATE DILUENT 1 EA IV SCH (14:59)
[2017-01-02] MEDS: amLODIPine 5 MG TAB PO SCH (15:00)
[2017-01-02] MEDS: METOPROLOL SUCC *XL* 25MG TAB (TopROL *XL*) PO SCH (15:00)
[2017-01-02] MEDS: PANTOPRAZOLE 40MG INJ (PROTONIX) (C9113) IV SCH (15:00)
[2017-01-02] MEDS: ASPIRIN 81 MG ENTERIC TAB PO SCH (15:00)
[2017-01-02] MEDS: NS 1,000 ML IV SCH (15:01)
[2017-01-02] MEDS: PIPERACILLIN/TAZOBACTAM SOD 3.375 GM in D5W MINI-BAG PLUS 50 ML IV SCH ×2 (17:07→20:07)
--- NOTE | 2017-01-02 19:12 | REP ---
MRCP EXAM: MRCP exam was accomplished utilizing multiple heavily T2 weighted sequences in the axial and coronal plane with MIP reconstruction images. There is no evidence of intrahepatic or extrahepatic biliary dilatation. Common bile duct measures approximately 3 mm in diameter. There is no definite filling defect in the common bile duct. I do not see evidence of pancreatic duct dilatation. The gallbladder is filled with calculi. There is a cyst in the dome of the liver measuring approximately 2.8 cm in maximum diameter. Edema surrounds the pancreas compatible with pancreatitis. Cyst in the upper pole of the left kidney measures about 2.3 cm in diameter. I see no adenopathy. There is no lamar ascites seen. IMPRESSION: No definite evidence of stone in the common bile duct. Common bile duct is normal in caliber. Gallbladder is filled with calculi. There are findings compatible with pancreatitis. Signed by Micha Murrieta MD 01/03/2017 09:29 A
[2017-01-02 19:49] VITALS: BP 153/85
[2017-01-02] MEDS: PRAVASTATIN 20 MG TAB PO SCH (20:06)
[2017-01-02] MEDS: MORPHINE 2 MG/ML 1ML SYRINGE IV PRN (20:06)
[2017-01-02] MEDS ORDERED: HumaLOG INSULIN (NovoLOG) PER UNIT SC SCH (21:00)
[2017-01-02] MEDS: HEPARIN SOD (PORCINE) 5000 UNITS/ML VIAL IV PRN (22:25)
[2017-01-02 23:59] VITALS: BP 112/67
[2017-01-03] MEDS: HumaLOG INSULIN (NovoLOG) PER UNIT SC SCH ×5 (00:30→23:53)
[2017-01-03] MEDS: PIPERACILLIN/TAZOBACTAM SOD 3.375 GM in D5W MINI-BAG PLUS 50 ML IV SCH ×4 (03:51→20:24)
[2017-01-03] MEDS: NS 1,000 ML IV SCH ×2 (03:51→14:42)
[2017-01-03 03:54] VITALS: BP 148/81
[2017-01-03] MEDS: MORPHINE 2 MG/ML 1ML SYRINGE IV PRN ×2 (04:04→14:42)
[2017-01-03 05:14] LABS: BASO % 0.2 % (0.0-1.0); EOS # 0.1 K/mm3 (0.0-0.50); EOS % 0.6 % (0.0-3.0); LARGE UNSTAINED CELL # 0.2 K/mm3 (0.0-0.4); LARGE UNSTAINED CELL % 1.1 % (0.0-4.0); LYMPH # 1.7 K/mm3 (1.5-4.5); LYMPH % 8.9 % (24.0-44.0); MEAN CORPUSCULAR HEMOGLOBIN 30.2 pg (27.0-33.0); MEAN CORPUSCULAR HGB CONC 33.2 g/dl (32.0-36.5); MEAN CORPUSCULAR VOLUME 91.2 fl (80.0-96.0); NEUTROPHILS # 14.1 K/mm3 (1.8-7.7); NEUTROPHILS % 83.2 % (36.0-66.0); PLATELET COUNT, AUTOMATED 144 k/mm3 (150-450)
[2017-01-03] MEDS: HEPARIN DRIP 25,000 UNITS in APPROPRIATE DILUENT 1 EA IV SCH ×2 (05:50→17:27)
[2017-01-03 06:26] LABS: ALBUMIN 3.1 GM/DL (3.2-5.2); ALBUMIN/GLOBULIN RATIO 1.03 (1.00-1.93); ALKALINE PHOSPHATASE 62 U/L (45-117); ALT/SGPT 12 U/L (12-78); AMYLASE 52 U/L (25-115); ANION GAP 13 MEQ/L (8-16); AST/SGOT 17 U/L (15-37); BILIRUBIN,TOTAL 1.7 MG/DL (0.2-1.0); BLOOD UREA NITROGEN 11 MG/DL (7-18); CALCIUM LEVEL 7.8 MG/DL (8.8-10.2); CARBON DIOXIDE LEVEL 25 MEQ/L (21-32); CHLORIDE LEVEL 101 MEQ/L (98-107); CHOLESTEROL LEVEL 105 MG/DL (<200); CREATININE FOR GFR 0.77 MG/DL (0.70-1.30); GLOMERULAR FILTRATION RATE > 60.0 (>42); GLUCOSE, FASTING 109 MG/DL (83-110); MAGNESIUM LEVEL 1.8 MG/DL (1.8-2.4); POTASSIUM SERUM 3.4 MEQ/L (3.5-5.1); SODIUM LEVEL 139 MEQ/L (136-145); TOTAL PROTEIN 6.1 GM/DL (6.4-8.2); TRIGLYCERIDES LEVEL 65 MG/DL (<150)
[2017-01-03 08:00] VITALS: BP 125/74
[2017-01-03] MEDS: PANTOPRAZOLE 40MG INJ (PROTONIX) (C9113) IV SCH (09:25)
[2017-01-03] MEDS: amLODIPine 5 MG TAB PO SCH (09:25)
[2017-01-03] MEDS: METOPROLOL SUCC *XL* 25MG TAB (TopROL *XL*) PO SCH (09:26)
[2017-01-03] MEDS: ASPIRIN 81 MG ENTERIC TAB PO SCH (09:26)
[2017-01-03] MEDS ORDERED: MOM 30ML SUSPENSION UDC PO PRN (11:00)
[2017-01-03 11:01] LABS: INR 1.24
--- NOTE | 2017-01-03 11:11 | IPNPDOC ---
Subjective General Date Seen The patient was seen on 01/03/17. Subjective Chief Complaint/HPI The patient is a 71-year-old male admitted with a reason for visit of Acute Pancreatitis. Events since last encounter abdominal pain resolved, nausea and vomiting resolved. New onset afib noted, rate controlled on tele. MRCP completed: CBD normal, no stone obstruction. Constitutional: Denies: Chills, Fever, Night Sweats Eyes: Denies: Pain, Vision change Skin: Denies: Breakdown, Lesions, Rash Pulmonary: Denies: Cough, Dyspnea Cardiovascular: Denies: Chest Pain, Lt Headedness, Orthopnea, Palpitations, Paroxysmal Noc. Dyspnea Gastrointestinal: Reports: Constipation, Denies: Abdominal Pain, Diarrhea, Nausea, Vomiting Genitourinary: Denies: Dysuria, Frequency, Incontinence, Retention Musculoskeletal: Denies: Back Pain, Joint Pain, Muscle Pain, Neck Pain, Spasms Psych: Reports: Anxiety Objective Physical Examination General Exam: Positive: Alert, No Acute Distress Neck Exam: Positive: Supple, Negative: JVD, thyromegaly Chest Exam: Positive: Clear to auscultation, Normal air movement Heart Exam: Positive: Irregular Rhythm, Rate Normal, Negative: Murmurs, Rubs Telemetry: Positive: Atrial fibrillation Abdomen Exam: Positive: Normal bowel sounds, Soft, Negative: Tenderness Skin Exam: Positive: Nl turgor and temperature Psych Exam: Positive: Anxiety, Oriented x 3 Assessment /Plan Problems Problems: (1) Atrial fibrillation Status: Acute Problem Text: new onset. rate controlled. Heparin gtt-transition to DOAC when diet advanced INR ordered for today. Echo pending for today. (2) Pancreatitis Status: Acute Response to Treatment: Improving Problem Text: 01/03 trial clears today, total bili 1.7 (01/02 2.1, but baseline 0.7) 01/02/17 MRCP s obvious CBD stone, normal CBD caliber, but multiple choleliths- ask Reindl opinion re ERCP prior to cholecystectomy (3) Cholelithiasis Status: Acute Problem Text: potential for choledocholithiasis. may need surgical consult after discharge. (4) Fatty liver Status: Chronic Response to Treatment: Stable Problem Specific Plan: Monitor Clinically (5) Diabetes Status: Chronic Response to Treatment: Stable Problem Specific Plan: Monitor Clinically Problem Text: hgba1c 6.5 (6) Hyperlipidemia Status: Chronic Response to Treatment: Stable Problem Specific Plan: Consult Specialist Problem Text: trigs WNL (7) Asthma Status: Chronic (8) HTN (hypertension) Status: Chronic Response to Treatment: Stable Problem Specific Plan: Monitor Clinically (9) Nocturnal hypoxemia Status: Chronic Problem Text: may needs sleep apnea testing as an outpatient. Plan/VTE VTE Prophylaxis Ordered?: Yes (heparin gtt) VS, I&O, 24H, Fishbone Vital Signs/I&O Vital Signs Date Time Temp Pulse Resp B/P Pulse Ox O2 Delivery O2 Flow Rate FiO2 01/03/17 09:25 74 136/74 01/03/17 08:00 98.3 18 95 Room Air I&O- Last 24 Hours up to 6 AM 01/03/17 06:00 Intake Total 1380 ml Output Total 0 ml Balance 1380 ml Laboratory Data 24H LABS Laboratory Tests 2 01/02/17 13:09: Activated Partial Thromboplast Time 26.6, Anion Gap 11, Blood Urea Nitrogen 13, Creatinine 0.86, Sodium Level 139, Potassium Level 3.8, Chloride Level 99, Carbon Dioxide Level 29, Calcium Level 8.8, Glomerular Filtration Rate > 60.0, Magnesium Level 1.8 01/02/17 17:01: Bedside Glucose (Misc Panel) 111H 01/02/17 20:05: Bedside Glucose (Misc Panel) 117H 01/02/17 20:57: Activated Partial Thromboplast Time 37.6H 01/03/17 00:23: Bedside Glucose (Misc Panel) 117H 01/03/17 04:59: Activated Partial Thromboplast Time 93.0H, Blood Urea Nitrogen 11, Creatinine 0.77, Sodium Level 139, Potassium Level 3.4L, Chloride Level 101, Carbon Dioxide Level 25, Calcium Level 7.8L, Aspartate Amino Transf (AST/SGOT) 17, Alanine Aminotransferase (ALT/SGPT) 12, Alkaline Phosphatase 62, Total Bilirubin 1.7H, Triglycerides Level 65, Cholesterol Level 105, HDL Cholesterol 60, LDL Cholesterol 32.0, Total Protein 6.1#L, Albumin 3.1#L, Albumin/Globulin Ratio 1.03, Amylase Level 52, Anion Gap 13, White Blood Count 17.0H, Red Blood Count 4.15L, Hemoglobin 12.6L, Hematocrit 37.9L, Mean Corpuscular Volume 91.2, Mean Corpuscular Hemoglobin 30.2, Mean Corpuscular Hemoglobin Concent 33.2, Red Cell Distribution Width 13.0, Platelet Count 144L, Neutrophils (%) (Auto) 83.2H , Lymphocytes (%) (Auto) 8.9L, Monocytes (%) (Auto) 6.0H, Eosinophils (%) (Auto ) 0.6, Basophils (%) (Auto) 0.2, Neutrophils # (Auto) 14.1H, Lymphocytes # (Auto ) 1.7, Monocytes # (Auto) 1.0H, Eosinophils # (Auto) 0.1, Basophils # (Auto) 0.0 , Cholesterol/HDL Ratio 1.750, Glomerular Filtration Rate > 60.0, Large Unclassified Cells # 0.2, Large Unclassified Cells % 1.1, Magnesium Level 1.8, Non-HDL Cholesterol (LDL + VLDL) 45 01/03/17 10:32: Prothromb Time International Ratio 1.24, Prothrombin Time 15.7H CBC/BMP Laboratory Tests 01/02/17 13:09 Calcium Level 8.8, Red Blood Count 4.55, Mean Corpuscular Volume 91.7, Mean Corpuscular Hemoglobin 30.6, Mean Corpuscular Hemoglobin Concent 33.4, Red Cell Distribution Width 12.9 01/03/17 04:59 Calcium Level 7.8 L, Red Blood Count 4.15 L, Mean Corpuscular Volume 91.2, Mean Corpuscular Hemoglobin 30.2, Mean Corpuscular Hemoglobin Concent 33.2, Red Cell Distribution Width 13.0, Aspartate Amino Transf (AST/SGOT) 17, Alanine Aminotransferase (ALT/SGPT) 12, Alkaline Phosphatase 62, Total Bilirubin 1.7 H, Triglycerides Level 65, Cholesterol Level 105, HDL Cholesterol 60, LDL Cholesterol 32.0, Total Protein 6.1 #L, Albumin 3.1 #L, Neutrophils (%) (Auto) 83.2 H, Lymphocytes (%) (Auto) 8.9 L, Monocytes (%) (Auto) 6.0 H, Eosinophils (% ) (Auto) 0.6, Basophils (%) (Auto) 0.2, Neutrophils # (Auto) 14.1 H, Lymphocytes # (Auto) 1.7, Monocytes # (Auto) 1.0 H, Eosinophils # (Auto) 0.1, Basophils # (Auto) 0.0 Microbiology Microbiology 01/02/17 Blood Culture, Received Pending 01/02/17 Blood Culture, Received Pending Diane Davidson Jan 03, 2017 11:11 Lennox Escobar M.D. Jan 03, 2017 15:39
[2017-01-03 12:00] VITALS: BP 121/68
[2017-01-03 16:00] VITALS: BP 142/72
[2017-01-03] MEDS ORDERED: POTASSIUM CHLORIDE 10 MEQ SR TABLET PO ONE (16:00)
[2017-01-03] MEDS: KCL 40MEQ in NS 1000ML 1,000 ML IV SCH (18:03)
[2017-01-03 20:11] VITALS: BP 134/69
[2017-01-03] MEDS: PRAVASTATIN 20 MG TAB PO SCH (20:24)
[2017-01-03 23:44] VITALS: BP 131/81
[2017-01-04 03:17] VITALS: BP 126/77
[2017-01-04] MEDS: PIPERACILLIN/TAZOBACTAM SOD 3.375 GM in D5W MINI-BAG PLUS 50 ML IV SCH ×4 (03:21→20:59)
[2017-01-04 06:05] LABS: BASO % 0.4 % (0.0-1.0); EOS # 0.1 K/mm3 (0.0-0.50); EOS % 1.2 % (0.0-3.0); LARGE UNSTAINED CELL # 0.1 K/mm3 (0.0-0.4); LARGE UNSTAINED CELL % 1.4 % (0.0-4.0); LYMPH # 1.6 K/mm3 (1.5-4.5); LYMPH % 14.5 % (24.0-44.0); MEAN CORPUSCULAR HEMOGLOBIN 29.7 pg (27.0-33.0); MEAN CORPUSCULAR HGB CONC 32.7 g/dl (32.0-36.5); MEAN CORPUSCULAR VOLUME 90.9 fl (80.0-96.0); MONO # 0.6 K/mm3 (0.0-0.8); MONO % 6.1 % (0.0-5.0); NEUTROPHILS # 7.6 K/mm3 (1.8-7.7); NEUTROPHILS % 76.4 % (36.0-66.0); PLATELET COUNT, AUTOMATED 159 k/mm3 (150-450); RED CELL DISTRIBUTION WIDTH 12.8 % (11.5-14.5); WHITE BLOOD COUNT 9.9 K/mm3 (4.0-10.0)
[2017-01-04 06:18] LABS: ALBUMIN 2.6 GM/DL (3.2-5.2); ALBUMIN/GLOBULIN RATIO 0.72 (1.00-1.93); ALKALINE PHOSPHATASE 60 U/L (45-117); ALT/SGPT 14 U/L (12-78); AMYLASE 26 U/L (25-115); ANION GAP 7 MEQ/L (8-16); AST/SGOT 13 U/L (15-37); BILIRUBIN,TOTAL 1.1 MG/DL (0.2-1.0); BLOOD UREA NITROGEN 10 MG/DL (7-18); CALCIUM LEVEL 8.3 MG/DL (8.8-10.2); CARBON DIOXIDE LEVEL 31 MEQ/L (21-32); CHLORIDE LEVEL 102 MEQ/L (98-107); GLOMERULAR FILTRATION RATE > 60.0 (>42); GLUCOSE, FASTING 113 MG/DL (83-110); MAGNESIUM LEVEL 2.1 MG/DL (1.8-2.4); POTASSIUM SERUM 3.8 MEQ/L (3.5-5.1); SODIUM LEVEL 140 MEQ/L (136-145); TOTAL PROTEIN 6.2 GM/DL (6.4-8.2)
[2017-01-04] MEDS: HumaLOG INSULIN (NovoLOG) PER UNIT SC SCH ×4 (06:41→23:51)
[2017-01-04] MEDS: HEPARIN SOD (PORCINE) 5000 UNITS/ML VIAL IV PRN (07:04)
[2017-01-04] MEDS: HEPARIN DRIP 25,000 UNITS in APPROPRIATE DILUENT 1 EA IV SCH ×2 (07:06→18:50)
[2017-01-04 08:00] VITALS: BP 133/83
--- NOTE | 2017-01-04 08:00 | REP ---
Clinical: Bladder abnormality by CT. Comparison: CT dated 01/02/2017. Findings: The bladder wall appears normal and the bladder itself is unremarkable. No bladder mass lesions or contour abnormalities are appreciated. Prevoid bladder measures 11.1 x 8.4 x 6.9 cm (420 ml) Postvoid bladder measures 3.2 x 4.5 x 1.9 cm (18 ml) Postvoid residual equals 4%. Impression: Normal sonographic appearance of the bladder. Signed by Dustin Padilla MD 01/04/2017 07:52 A
--- NOTE | 2017-01-04 08:04 | ECGEPIP ---
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 RBBB MINIMAL ST DEPRESSION, INFERIOR T WAVE INVERSION CONSIDER ISCHEMIA NO PRIORS Electronically Signed On 01-04-2017 8:04:42 EST by Ramses Moran
[2017-01-04] MEDS: KCL 40MEQ in NS 1000ML 1,000 ML IV SCH ×2 (08:27→20:58)
[2017-01-04] MEDS: ASPIRIN 81 MG ENTERIC TAB PO SCH (08:27)
[2017-01-04] MEDS: amLODIPine 5 MG TAB PO SCH (08:27)
[2017-01-04] MEDS: METOPROLOL SUCC *XL* 25MG TAB (TopROL *XL*) PO SCH (08:28)
[2017-01-04] MEDS: PANTOPRAZOLE 40MG INJ (PROTONIX) (C9113) IV SCH (08:28)
[2017-01-04] MEDS ORDERED: APIXABAN 5 MG TAB (ELIQUIS) PO SCH (09:00)
--- NOTE | 2017-01-04 09:12 | ECHO ---
DATE OF PROCEDURE: 01/03/2017 AGE: 71 GENDER: Male REFERRING PHYSICIAN: Lorraine Davidson. HEIGHT: 68 inches. WEIGHT: 229 pounds. BODY SURFACE AREA: 2.17 sq m. INPATIENT: PCU Room 3224. INDICATION: Abnormal EKG. MEASUREMENTS: 2D MEASUREMENTS: RV - 3.6 cm LV- 4.4 cm Septum - 1.3 cm Posterior wall - 1.3 cm Aortic root - 3.3 cm Proximal ascending aorta - 3.8 cm LA - 4.6 cm LVEF - 75% DOPPLER MEASUREMENTS: AV - 1.0 m/s LVOT - 0.8 m/s LVOT diameter - 2.1 cm MV-E: 86 Early mitral deacceleration time - 208 ms E-prime - 4.4 E/E prime ratio - 19.6 PV - 0.7 m/s Pulmonary artery acceleration time - 102 ms RVSP - 50-55 mmHg IVC - 2.3 cm COMMENTS: Underlying atrial fibrillation with controlled ventricular response. No intraventricular conduction disturbance. Technically challenging study in light of the patient's body habitus but diagnostically useful information was still obtained. Moderately dilated left atrium but normal left ventricular size. Right heart chamber sizes appear to be normal. LV wall thickness was mildly increased symmetrically. On real-time imaging from the parasternal and apical projections, wall motion was symmetrical and hyperkinetic. Slightly thickened mitral annulus but normal leaflet thickness and excursion with no posterior systolic buckling. Three equal size aortic cusps with mildly thickened cusp edges but adequate cusp separation. Normal aortic root size with marginally dilated proximal ascending aorta. No apparent intracardiac mass or pericardial effusion. Color flow Doppler study taken from the parasternal and apical projection showed very mild aortic, no apparent mitral and moderate tricuspid insufficiency. There was also mild pulmonic insufficiency. Guided continuous wave Doppler of his aortic valve showed a normal peak systolic velocity against LV outflow tract obstruction. Pulsed and continuous wave Doppler of his LV inflow tract taken from the apical four-chamber projection showed normal diastolic filling velocities against mitral stenosis. There was only early diastolic/passive filling as we would expect with atrial fibrillation. Using pulsed and tissue Doppler of his mitral annulus, his mean left atrial pressure was elevated. Pulsed and continuous wave Doppler of his pulmonary trunk showed a normal peak systolic velocity against RV outflow tract obstruction. His pulmonary artery acceleration time was abbreviated consistent with an elevated pulmonary vascular resistance. Guided continuous wave Doppler of his tricuspid valve allowed our estimation of his right ventricular systolic pressure (at least moderately increased). His inferior vena cava was at least mildly dilated. CONCLUSIONS: Mild concentric left ventricular hypertrophy with hyperkinetic wall motion. Moderately dilated left atrium with current estimated mean left atrial pressure that was elevated. Normal right heart chamber sizes with Doppler evidence of at least moderate pulmonary hypertension. Mildly dilated IVC consistent with an elevated central venous pressure. Aortic valvular sclerosis without stenosis but mild insufficiency. Mild mitral annular calcification without functional valvular abnormality. Comparing the above test findings with prior study 07/20/2012, left ventricular size, wall thickness and systolic function is preserved but left atrial size has increased with the development of atrial fibrillation and significant secondary pulmonary hypertension. Valvular findings and aortic dimensions unchanged.
[2017-01-04 13:50] VITALS: BP 132/87
[2017-01-04 14:00] VITALS: BP 137/68
--- NOTE | 2017-01-04 14:25 | IPNPDOC ---
Subjective General Date Seen The patient was seen on 01/04/17. Subjective Chief Complaint/HPI The patient is a 71-year-old male admitted with a reason for visit of Acute Pancreatitis. Events since last encounter Patient is tolerating clear liquid diet and has no pain, nausea, or vomiting. He is very hungry and is requesting food. General: Denies: Chills, Fatigue Skin: Denies: Rash Pulmonary: Denies: Cough, Dyspnea Cardiovascular: Denies: Chest Pain, Lt Headedness, Orthopnea, Palpitations Gastrointestinal: Denies: Abdominal Pain, Constipation, Diarrhea, Nausea, Vomiting Genitourinary: Denies: Dysuria Neurological: Denies: Weakness Psych: Reports: Mood Normal Objective Physical Examination General Exam: Positive: Alert, No Acute Distress Neck Exam: Positive: Supple, Negative: JVD, thyromegaly Chest Exam: Positive: Clear to auscultation, Normal air movement Heart Exam: Positive: Rate Normal, Regular Rhythm, Negative: Murmurs, Rubs Abdomen Exam: Positive: Normal bowel sounds, Soft, Negative: Hepatospenomegaly, Tenderness Skin Exam: Positive: Nl turgor and temperature Psych Exam: Positive: Oriented x 3 Assessment /Plan Problems Problems: (1) Atrial fibrillation Status: Acute Problem Text: New onset. Rate controlled; regular rhythm at time of my exam. Echocardiogram completed - showed left atrium dilatation; no significant valvular disease/. I had an extensive discussion of risks/benefits of warfarin vs. NOAC with patient, and he elected to start NOAC. Will start Eliquis 5 mg BID this evening and stop heparin gtts once first dose is given. PFS confirmed that Eliquis will be covered by his insurance. (2) Pancreatitis Status: Acute Response to Treatment: Improving Problem Text: 01/04/17 Tolerating clears well and requesting food; will advance to a low fat diet as tolerated today. Transferred to Med/Surg Floor as he is now stable. 01/03/17 trial clears today, total bili 1.7 (01/02 2.1, but baseline 0.7) 01/02/17 MRCP s obvious CBD stone, normal CBD caliber, but multiple choleliths- ask Reindl opinion re ERCP prior to cholecystectomy (3) Cholelithiasis Status: Acute Problem Text: Potential for choledocholithiasis. may need surgical consult after discharge. (4) Fatty liver Status: Chronic Response to Treatment: Stable Problem Specific Plan: Monitor Clinically (5) Diabetes Status: Chronic Response to Treatment: Stable Problem Specific Plan: Monitor Clinically Problem Text: hgba1c 6.5 (6) Hyperlipidemia Status: Chronic Response to Treatment: Stable Problem Specific Plan: Consult Specialist Problem Text: trigs WNL (7) Asthma Status: Chronic (8) HTN (hypertension) Status: Chronic Response to Treatment: Stable Problem Specific Plan: Monitor Clinically (9) Nocturnal hypoxemia Status: Chronic Problem Text: may needs sleep apnea testing as an outpatient. Plan/VTE VTE Prophylaxis Ordered?: Yes VS, I&O, 24H, Fishbone Vital Signs/I&O Vital Signs Date Time Temp Pulse Resp B/P Pulse Ox O2 Delivery O2 Flow Rate FiO2 01/04/17 13:50 97.2 87 18 132/87 98 Room Air I&O- Last 24 Hours up to 6 AM 01/04/17 06:00 Intake Total 1668 ml Output Total 525 ml Balance 1143 ml Laboratory Data 24H LABS Laboratory Tests 2 01/03/17 16:57: Bedside Glucose (Misc Panel) 126H 01/03/17 23:49: Bedside Glucose (Misc Panel) 124H 01/04/17 05:47: Activated Partial Thromboplast Time 52.4H, Blood Urea Nitrogen 10, Creatinine 0.90, Sodium Level 140, Potassium Level 3.8, Chloride Level 102, Carbon Dioxide Level 31, Calcium Level 8.3L, Aspartate Amino Transf (AST/SGOT) 13L, Alanine Aminotransferase (ALT/SGPT) 14, Alkaline Phosphatase 60, Total Bilirubin 1.1H, Total Protein 6.2L, Albumin 2.6L, Albumin/Globulin Ratio 0.72L, Amylase Level 26 , Anion Gap 7L, White Blood Count 9.9, Red Blood Count 4.10L, Hemoglobin 12.2L, Hematocrit 37.3L, Mean Corpuscular Volume 90.9, Mean Corpuscular Hemoglobin 29.7 , Mean Corpuscular Hemoglobin Concent 32.7, Red Cell Distribution Width 12.8, Platelet Count 159, Neutrophils (%) (Auto) 76.4H, Lymphocytes (%) (Auto) 14.5L, Monocytes (%) (Auto) 6.1H, Eosinophils (%) (Auto) 1.2, Basophils (%) (Auto) 0.4 , Neutrophils # (Auto) 7.6, Lymphocytes # (Auto) 1.6, Monocytes # (Auto) 0.6, Eosinophils # (Auto) 0.1, Basophils # (Auto) 0.0, Glomerular Filtration Rate > 60.0, Large Unclassified Cells # 0.1, Large Unclassified Cells % 1.4, Lipase 105 , Magnesium Level 2.1 01/04/17 11:22: Bedside Glucose (Misc Panel) 103 01/04/17 12:52: Activated Partial Thromboplast Time 75.7H CBC/BMP Laboratory Tests 01/04/17 05:47 Calcium Level 8.3 L, Aspartate Amino Transf (AST/SGOT) 13 L, Alanine Aminotransferase (ALT/SGPT) 14, Alkaline Phosphatase 60, Total Bilirubin 1.1 H, Total Protein 6.2 L, Albumin 2.6 L, Red Blood Count 4.10 L, Mean Corpuscular Volume 90.9, Mean Corpuscular Hemoglobin 29.7, Mean Corpuscular Hemoglobin Concent 32.7, Red Cell Distribution Width 12.8, Neutrophils (%) (Auto) 76.4 H, Lymphocytes (%) (Auto) 14.5 L, Monocytes (%) (Auto) 6.1 H, Eosinophils (%) (Auto ) 1.2, Basophils (%) (Auto) 0.4, Neutrophils # (Auto) 7.6, Lymphocytes # (Auto) 1.6, Monocytes # (Auto) 0.6, Eosinophils # (Auto) 0.1, Basophils # (Auto) 0.0 Microbiology Microbiology 01/02/17 Blood Culture - Preliminary, Resulted No Growth after 48 hours. All Specime... 01/02/17 Blood Culture - Preliminary, Resulted No Growth after 48 hours. All Specime... RAJESH NORRIS MD Jan 04, 2017 14:25
--- NOTE | 2017-01-04 15:19 | EDDOCDS ---
Physician Documentation [facility] Name: Bolivar Sharma Age: 71 yrs Sex: Male : 1945 Arrival Date: 01/02/2017 Time: 07:23 Bed 18 Private MD: Disposition: 01/02/17 10:10 Hospitalization ordered by Lennox Escobar for Observation. Preliminary diagnosis are Acute pancreatitis, Hypokalemia, Hypomagnesemia, Nausea and vomiting. - Bed requested for PCU. - Status is Observation. kr3 - Condition is Stable. - Problem is an ongoing problem. - Symptoms have improved. Historical: - Allergies: atorvastatinelevated LFTs; - Home Meds: 1. Vitamin D3 2000 units daily 2. Albuterol Inhl 2 puffs every 4 hours as needed 3. pravastatin 40 mg oral tab 1 tab once daily 4. metoprolol with HCTZ 50/25 mg 1/2 tab daily 5. amlodipine 5 mg Oral tab 1 tab once daily 6. aspirin 81 mg Oral tab 1 tab once daily 7. calcium with D3 600/200 daily 8. vitamin C 500 daily 9. Oxygen 2 liters nightly - PMHx: TIA; seborrheic keratosis; Asthma; nocturnal hypoxemia; aortic valve disorder; allergic rhinitis; elevated liver enzymes; gallstones; hyperlipidemia; Hypertension; vitamin D deficiency; sciatica; Diabetes - NIDDM: controlled; - PSHx: none; - Social history: Smoking status: Patient states was never smoker of tobacco. No barriers to communication noted, The patient speaks fluent Chinese. - Family history: Not pertinent. - : The pt / caregiver states he / she is not on anticoagulants. Home medication list is obtained from a discharge med list. - Exposure Risk Screening:: None identified. Vital Signs: 01/02 07:45 BP 133 / 109; Pulse 98; Resp 22; Temp 99.7(TE); Pulse Ox 97% on R/A; Weight 104.33 kg / kcs 230.01 lbs (R); Height 5 ft. 8 in. (172.72 cm) (R); Pain 6/10; 10:04 BP 160 / 85; Pulse 92; Resp 20; Temp 96.3(O); Pulse Ox 95% on R/A; Pain 3/10; dsf 11:58 BP 159 / 75 (auto/); kr3 11:58 Pulse 86 MON; kr3 12:56 Pulse 84 MON; Temp 99.7(O); Pulse Ox 98% ; kr3 13:18 BP 165 / 85 (auto/); kr3 13:18 Pulse 90 MON; Pulse Ox 97% ; kr3 13:48 BP 159 / 95 (auto/); kr3 13:48 Pulse 86 MON; kr3 07:45 Body Mass Index 34.97 (104.33 kg, 172.72 cm) kcs MDM: 07:56 NS 0.9% 1000 ml IV at bolus once ordered. cc10 07:56 Ondansetron 4 mg IVP once ordered. cc10 07:56 IV Saline Lock ordered. cc10 07:56 Undress patient appropriately for examination ordered. cc10 07:56 ketorolac 15 mg IVP once ordered. cc10 07:56 Basic Metabolic Profile Ordered. EDMS 07:56 CBC with Diff Ordered. EDMS 07:56 Cardiac Injury Profile Ordered. EDMS 07:56 Lipase Ordered. EDMS 07:56 Liver Profile Ordered. EDMS 07:56 Troponin Ordered. EDMS 07:56 Urinalysis Ordered. EDMS 07:57 ECG WITH READING ER PHYS+CARDIAG ordered. EDMS 07:57 CT ABD & PELVIS: IV Contrast Only Ordered. EDMS 07:57 NOTHING BY MOUTH+DIET ordered. EDMS 08:01 MAGNESIUM LEVEL Ordered. EDMS 08:11 Financial registration complete. mm15 08:12 Undo -Financial registration. mm15 08:28 Financial registration complete. mm15 08:37 [facility] Payment Agreement was scanned into [employer] and attached to record. mm15 09:27 Basic Metabolic Profile Reviewed. cc10 09:27 CBC with Diff Reviewed. cc10 09:27 Lipase Reviewed. cc10 09:27 Liver Profile Reviewed. cc10 09:27 Urinalysis Reviewed. cc10 09:27 MAGNESIUM LEVEL Reviewed. cc10 09:27 Cardiac Injury Profile Reviewed. cc10 09:27 Troponin Reviewed. cc10 09:51 BED REQUEST+ADM ordered. EDMS 09:58 Vital Signs ordered. cc10 10:29 CT ABD & PELVIS: IV Contrast Only Reviewed. ml 11:12 Magnesium Oxide 400 mg PO once ordered. cc10 11:12 Potassium Chloride Extended Release Tablet 40 mEq PO once ordered. cc10 11:15 Admission / Observation Status ordered. EDMS 11:15 NPO DIET ordered. EDMS 11:27 HEMOGLOBIN A1C Ordered. EDMS 11:43 THYROID STIMULATING HORMONE Ordered. EDMS 11:50 LIVER US Ordered. EDMS 11:52 ECHOCARD,DOPPLER/COLOR FLOW ordered. EDMS 11:58 BASIC METABOLIC PROFILE Ordered. EDMS 12:01 COMPLETE BLOOD COUNT Ordered. EDMS 12:01 PARTIAL THROMBOPLASTIN TIME Ordered. EDMS 12:02 PARTIAL THROMBOPLASTIN TIME Ordered. EDMS 12:02 PARTIAL THROMBOPLASTIN TIME Ordered. EDMS 12:04 BLOOD CULTURES Ordered. EDMS 12:04 BLOOD CULTURES Ordered. EDMS 12:39 MRI ABDOMEN WITHOUT CONTRAST Ordered. EDMS 13:23 Potassium Chloride in 100cc sterile water 10 mEq IV at 100 mL/hr once over 1 hrs kr3 ordered. 13:25 MAGNESIUM LEVEL Ordered. EDMS 13:26 NS 0.9% 1000 ml IV at 100 mL/hr continuous ordered. kr3 01/03 12:20 T-Sheet-- Draft Copy was scanned into [employer] and attached to record. gb 12:20 ECG/EKG was scanned into [employer] and attached to record. gb Administered Medications: 01/02 08:19 Drug: NS 0.9% 1000 ml [sodium chloride 0.9 % intravenous solution] Route: IV; Rate: ja5 bolus; Site: left antecubital; 08:20 Drug: ketorolac 15 mg [ketorolac 30 mg/mL (1 mL) injection solution (0.5 mL)] Route: ja5 IVP; Site: left antecubital; 08:22 Drug: Ondansetron 4 mg [ondansetron HCl 2 mg/mL intravenous solution (2 mL)] Route: ja5 IVP; Site: left antecubital; 11:28 Drug: Magnesium Oxide 400 mg [magnesium oxide 400 mg tablet (1 tabs)] Route: PO; jc4 11:29 Drug: Potassium Chloride 40 mEq [potassium chloride ER 10 mEq tablet,extended release jc4 (4 tabs)] Route: PO; 13:15 Drug: Potassium Chloride in 100cc sterile water 10 mEq [potassium chloride 10 mEq/100 kr3 mL intravenous piggyback] {Co-Signature: machelle (María Elena Topete RN).} Route: IV; Rate: 100 mL/hr; Infused Over: 1 hrs; Site: right antecubital; 14:06 Follow up: IV Status: Infusion continued upon admit kr3 13:15 Drug: NS 0.9% 1000 ml [sodium chloride 0.9 % intravenous solution] Route: IV; Rate: 100 kr3 mL/hr; Site: right antecubital; 14:05 Follow up: IV Status: Infusion continued upon admit kr3 Signatures: Dispatcher [employer] EDMS Bertram Horner MD MD ml Sleeman, Kacey, RN RN kcs Ashleigh Thapa RN RN kpj Magali Adkins, Richy Reg gb Deja Rosario RN RN kr3 Lorraine Zamudio RN RN jc4 Manoj Corrales mm15 Alvarez Galarza PA-C PA-Jessie Rosado RN5 María Elena Topete RN dsf The chart was reviewed and I authenticate all verbal orders and agree with the evaluation and treatment provided.Corrections: (The following items were deleted from the chart) 08:01 07:57 MAGNESIUM LEVEL+LAB ordered. EDMS EDMS 11:43 11:13 THYROID STIMULATING HORMONE ordered. EDMS EDMS 13:20 13:10 MAGNESIUM LEVEL ordered. EDMS EDMS 13:25 12:02 MAGNESIUM LEVEL ordered. EDMS EDMS Attachments: 08:37 [facility] Payment Agreement mm15 01/03 12:20 T-Sheet-- Draft Copy gb 12:20 ECG/EKG Chart Complete MTDD
--- NOTE | 2017-01-04 15:19 | EDDOCDS ---
Nurse's Notes [facility] Name: Bolivar Sharma Age: 71 yrs Sex: Male : 1945 Arrival Date: 01/02/2017 Time: 07:23 Bed 18 Private MD: Diagnosis: Acute pancreatitis;Hypokalemia;Hypomagnesemia;Nausea and vomiting Presentation: 01/02 07:36 Presenting complaint: Patient states: he has not felt good since Monday - yesterday kcs started vomiting and having abdominal pain. Today feels very weak. Adult Sepsis Screening: The patient does not have new or worsening altered mentation. Suicide/Homicide risk assessment- the patient denies having any suicidal and/or homicidal ideations and does not present with any other emotional, behavioral or mental health complaints. Status: Patient is not a social service liaison or dependent. Transition of care: patient was not received from another setting of care. 07:36 Acuity: LULU Level 3 kcs 07:36 Method Of Arrival: Walkin/Carried/Asstd kcs 07:45 Adult Sepsis Screening: Patient has a respiratory rate of greater than or equal to 22 kcs (1 point). Systolic blood pressure is greater than 100. Patient has a qSOFA score of 1- Negative Sepsis Screen. Triage Assessment: 07:45 General: Appears ill, well developed, well nourished, well groomed, Behavior is kcs cooperative, pleasant. Pain: Location: lower abdomen Pain currently is 6 out of 10 on a pain scale. Neurological: Level of Consciousness is awake, alert. Respiratory: Airway is patent Respiratory effort is even, unlabored, Respiratory pattern is regular, symmetrical. GI: Reports diarrhea, nausea, vomiting. Derm: Skin is intact, is healthy with good turgor, Skin is dry, Skin is normal. Historical: - Allergies: atorvastatinelevated LFTs; - Home Meds: 1. Vitamin D3 2000 units daily 2. Albuterol Inhl 2 puffs every 4 hours as needed 3. pravastatin 40 mg oral tab 1 tab once daily 4. metoprolol with HCTZ 50/25 mg 1/2 tab daily 5. amlodipine 5 mg Oral tab 1 tab once daily 6. aspirin 81 mg Oral tab 1 tab once daily 7. calcium with D3 600/200 daily 8. vitamin C 500 daily 9. Oxygen 2 liters nightly - PMHx: TIA; seborrheic keratosis; Asthma; nocturnal hypoxemia; aortic valve disorder; allergic rhinitis; elevated liver enzymes; gallstones; hyperlipidemia; Hypertension; vitamin D deficiency; sciatica; Diabetes - NIDDM: controlled; - PSHx: none; - Social history: Smoking status: Patient states was never smoker of tobacco. No barriers to communication noted, The patient speaks fluent Cymro. - Family history: Not pertinent. - : The pt / caregiver states he / she is not on anticoagulants. Home medication list is obtained from a discharge med list. - Exposure Risk Screening:: None identified. Screenin:01 Screening information is obtained from the patient. Fall risk: No risks identified. ja5 Assistance ADL's: requires no assistance with activities of daily living. Abuse/DV Screen: The patient / caregiver reports he/she is: not in a situation that causes fear, pain or injury. Nutritional screening: On no prescribed diet. Advance Directives: Currently, there is no health care proxy. There is no active DNR order. There is no living will. There is no Power of Biomedical Specialist. home support is adequate. Assessment: 07:59 General: Appears uncomfortable, Behavior is appropriate for age, cooperative. Pain: ja5 Location: anterior aspect of left lateral abdomen Pain currently is 6 out of 10 on a pain scale. Neurological: Level of Consciousness is awake, alert, Oriented to person, place, time. Cardiovascular: Capillary refill < 3 seconds Heart tones S1 S2 present. Respiratory: Airway is patent Respiratory effort is even, unlabored, Breath sounds are clear bilaterally. GI: Abdomen is distended, patient states he is bloated Bowel sounds present X 4 quads. hypoactive in right upper quadrant, left upper quadrant, right lower quadrant and left lower quadrant Abd is soft X 4 quads Abd is non tender X 4 quads. Derm: Skin is intact, Skin is pink, warm & dry. 09:45 General: Patient back from CT scan, resting in stretcher, states "I feel much better" ja5 after receiving medication and some IV fluids. IV bolus is still infusing at this time. . 10:04 General: Appears in no apparent distress, comfortable, Behavior is appropriate for age, dsf cooperative. Pain: Pain currently is 3 out of 10 on a pain scale. Neurological: Level of Consciousness is awake, alert. Respiratory: Airway is patent Respiratory effort is even, unlabored, Respiratory pattern is regular, symmetrical. Derm: Skin is pink, warm & dry. 11:30 General: Appears in no apparent distress, Behavior is cooperative. Pain: Location: left jc4 upper quadrant Pain currently is 5 out of 10 on a pain scale. Neurological: Level of Consciousness is awake, alert, Oriented to person, place, time, Reports weakness. Respiratory: Airway is patent Respiratory effort is even, unlabored, Respiratory pattern is regular, symmetrical. Derm: Skin is pink, warm & dry. 12:15 Reassessment: patient having Echocardiogram and is off unit. kr3 13:02 Reassessment: Patient appears in no apparent distress at this time. Pain: Location: kr3 left lower quadrant Pain currently is 5 out of 10 on a pain scale. Quality of pain is described as GRABBING. Respiratory: Respiratory effort is even, unlabored. GI: Denies nausea, vomiting. Derm: Skin is pink, warm & dry. 14:06 Reassessment: Patient appears in no apparent distress at this time. General: Behavior kr3 is cooperative, pleasant. Pain: Location: left lower quadrant Pain currently is 5 out of 10 on a pain scale. Respiratory: Respiratory effort is even, unlabored. Derm: Skin is normal. Vital Signs: 07:45 BP 133 / 109; Pulse 98; Resp 22; Temp 99.7(TE); Pulse Ox 97% on R/A; Weight 104.33 kg [facility] (R); Height 5 ft. 8 in. (172.72 cm) (R); Pain 6/10; 10:04 BP 160 / 85; Pulse 92; Resp 20; Temp 96.3(O); Pulse Ox 95% on R/A; Pain 3/10; dsf 11:58 BP 159 / 75 (auto/); kr3 11:58 Pulse 86 MON; kr3 12:56 Pulse 84 MON; Temp 99.7(O); Pulse Ox 98% ; kr3 13:18 BP 165 / 85 (auto/); kr3 13:18 Pulse 90 MON; Pulse Ox 97% ; kr3 13:48 BP 159 / 95 (auto/); kr3 13:48 Pulse 86 MON; kr3 07:45 Body Mass Index 34.97 (104.33 kg, 172.72 cm) [facility] Vitals: 07:45 Log In Time: January 02, 2017 at 07:25. kcs ED Course: 07:25 Patient visited by Candy Aguilar, Reg. hs2 07:25 Patient moved to Waiting hs2 07:37 Triage Initiated kcs 07:50 Jessie Wan,RN is Primary Nurse. kcs 07:50 Lorraine Zamudio, RN is Primary Nurse. kcs 07:50 Alvarez Galarza PA-C is PHCP. cc10 07:50 Bertram Horner MD is Attending Physician. cc10 07:50 Patient visited by Alvarez Galarza PA-C. cc10 07:50 Patient visited by Alvarez Galarza PA-C. cc10 07:50 Patient moved to I5 / M5 kcs 08:20 Basic Metabolic Profile Sent. ja5 08:20 CBC with Diff Sent. ja5 08:20 Cardiac Injury Profile Sent. ja5 08:20 Lipase Sent. ja5 08:20 Liver Profile Sent. ja5 08:20 Troponin Sent. ja5 08:20 Urinalysis Sent. ja5 08:20 Inserted saline lock: 20 gauge in left antecubital area. ja5 08:24 Patient visited by Jessie Wan RN. ja5 08:24 MAGNESIUM LEVEL Sent. ja5 08:37 [facility] Payment Agreement was scanned into [employer] and attached to record. mm15 09:05 Patient visited by Jessie Wan RN. ja5 10:05 Patient visited by María Elena Topete,LAMAR. dsf 10:09 Justino Samson is Hospitalizing Provider. cc10 10:19 Hospitalizing Provider role handed off by Justino Samson cc10 10:19 Lnenox Escobar MD is Hospitalizing Provider. cc10 10:21 CT ABD & PELVIS: IV Contrast Only Returned. EDMS 11:20 Patient moved to Admit Hold kpj 11:32 The patient / caregiver is instructed regarding the plan of care and ED course. jc4 11:38 Deja Rosario,RN is Primary Nurse. jc4 12:07 Patient moved to Ultrasound am17 12:52 Patient moved to 18 am17 13:17 LIVER US Returned. EDMS 13:22 Inserted saline lock: 20 gauge in right antecubital area. kr3 14:06 No procedures done that require assistance. kr3 01/03 12:20 T-Sheet-- Draft Copy was scanned into [employer] and attached to record. gb 12:20 ECG/EKG was scanned into [employer] and attached to record. gb Administered Medications: 01/02 08:19 Drug: NS 0.9% 1000 ml [sodium chloride 0.9 % intravenous solution] Route: IV; Rate: ja5 bolus; Site: left antecubital; 08:20 Drug: ketorolac 15 mg [ketorolac 30 mg/mL (1 mL) injection solution (0.5 mL)] Route: ja5 IVP; Site: left antecubital; 08:22 Drug: Ondansetron 4 mg [ondansetron HCl 2 mg/mL intravenous solution (2 mL)] Route: ja5 IVP; Site: left antecubital; 11:28 Drug: Magnesium Oxide 400 mg [magnesium oxide 400 mg tablet (1 tabs)] Route: PO; jc4 11:29 Drug: Potassium Chloride 40 mEq [potassium chloride ER 10 mEq tablet,extended release jc4 (4 tabs)] Route: PO; 13:15 Drug: Potassium Chloride in 100cc sterile water 10 mEq [potassium chloride 10 mEq/100 kr3 mL intravenous piggyback] {Co-Signature: dsf (María Elena Topete RN).} Route: IV; Rate: 100 mL/hr; Infused Over: 1 hrs; Site: right antecubital; 14:06 Follow up: IV Status: Infusion continued upon admit kr3 13:15 Drug: NS 0.9% 1000 ml [sodium chloride 0.9 % intravenous solution] Route: IV; Rate: 100 kr3 mL/hr; Site: right antecubital; 14:05 Follow up: IV Status: Infusion continued upon admit kr3 Order Results: Lab Order: Basic Metabolic Profile; SPEC'M 01/02/17 08:15 Test: GLUCOSE, FASTING; Value: 150; Range: 83-110; Abnormal: Above high normal; Units: MG/DL; Status: F Test: BLOOD UREA NITROGEN; Value: 15; Range: 7-18; Units: MG/DL; Status: F Test: CREATININE FOR GFR; Value: 0.97; Range: 0.70-1.30; Units: MG/DL; Status: F Test: GLOMERULAR FILTRATION RATE; Value: > 60.0; Range: >42; Status: F Test: SODIUM LEVEL; Value: 138; Range: 136-145; Units: MEQ/L; Status: F Test: POTASSIUM SERUM; Value: 3.4; Range: 3.5-5.1; Abnormal: Below low normal; Units: MEQ/L; Status: F Test: CHLORIDE LEVEL; Value: 98; Range: 98-107; Units: MEQ/L; Status: F Test: CARBON DIOXIDE LEVEL; Value: 29; Range: 21-32; Units: MEQ/L; Status: F Test: ANION GAP; Value: 11; Range: 8-16; Units: MEQ/L; Status: F Test: CALCIUM LEVEL; Value: 9.3; Range: 8.8-10.2; Units: MG/DL; Status: F Test Note: ; Units are mL/min/1.73 m2 Chronic Kidney Disease Staging per NKF: Stage I & II GFR >=60 Normal to Mildly Decreased Stage III GFR 30-59 Moderately Decreased Stage IV GFR 15-29 Severely Decreased Stage V GFR <15 Very Little GFR Left ESRD GFR <15 on MOLD MAKER PLASTIC MOLDS Test: THYROID STIMULATING HORMONE; Range: 0.358-3.740; Units: uIU/ML; Status: I Lab Order: CBC with Diff; SPEC'M 01/02/17 08:15 Test: WHITE BLOOD COUNT; Value: 20.9; Range: 4.0-10.0; Abnormal: Above high normal; Units: K/mm3; Status: F Test: RED BLOOD COUNT; Value: 4.68; Range: 4.30-6.10; Units: M/mm3; Status: F Test: HEMOGLOBIN; Value: 14.1; Range: 14.0-18.0; Units: g/dl; Status: F Test: HEMATOCRIT; Value: 42.0; Range: 42.0-52.0; Units: %; Status: F Test: MEAN CORPUSCULAR VOLUME; Value: 89.8; Range: 80.0-96.0; Units: fl; Status: F Test: MEAN CORPUSCULAR HEMOGLOBIN; Value: 30.2; Range: 27.0-33.0; Units: pg; Status: F Test: MEAN CORPUSCULAR HGB CONC; Value: 33.6; Range: 32.0-36.5; Units: g/dl; Status: F Test: RED CELL DISTRIBUTION WIDTH; Value: 12.9; Range: 11.5-14.5; Units: %; Status: F Test: PLATELET COUNT, AUTOMATED; Value: 173; Range: 150-450; Units: k/mm3; Status: F Test: NEUTROPHILS %; Value: 85.6; Range: 36.0-66.0; Abnormal: Above high normal; Units: %; Status: F Test: LYMPH %; Value: 7.5; Range: 24.0-44.0; Abnormal: Below low normal; Units: %; Status: F Test: MONO %; Value: 5.8; Range: 0.0-5.0; Abnormal: Above high normal; Units: %; Status: F Test: EOS %; Value: 0.4; Range: 0.0-3.0; Units: %; Status: F Test: BASO %; Value: 0.1; Range: 0.0-1.0; Units: %; Status: F Test: LARGE UNSTAINED CELL %; Value: 0.6; Range: 0.0-4.0; Units: %; Status: F Test: NEUTROPHILS #; Value: 17.9; Range: 1.8-7.7; Abnormal: Above high normal; Units: K/mm3; Status: F Test: LYMPH #; Value: 1.7; Range: 1.5-4.5; Units: K/mm3; Status: F Test: MONO #; Value: 1.2; Range: 0.0-0.8; Abnormal: Above high normal; Units: K/mm3; Status: F Test: EOS #; Value: 0.1; Range: 0.0-0.50; Units: K/mm3; Status: F Test: BASO #; Value: 0.0; Range: 0.0-0.2; Units: K/mm3; Status: F Test: LARGE UNSTAINED CELL #; Value: 0.1; Range: 0.0-0.4; Units: K/mm3; Status: F Lab Order: Cardiac Injury Profile; SPEC'M 01/02/17 08:15 Test: CPK CREATINE PHOSPHOKINASE; Value: 87; Range: 39-308; Units: U/L; Status: F Test: CK-MB VALUE MASS; Value: 2.2; Range: 0.0-3.6; Units: NG/ML; Status: F Test: MB/CK RELATIVE INDEX; Value: 2.52; Range: < OR =4; Status: F Test Note: ; DIAGNOSIS CRITERIA MMB ng/ml Relative Index (RI) NON-AMI < or = 5 N/A MURRIETA ZONE > 5 < or = 4 AMI > 5 > 4 Lab Order: Lipase; [facility]' 01/02/17 08:15 Test: LIPASE; Value: 676; Range: 73-393; Abnormal: Above high normal; Units: U/L; Status: F Lab Order: Liver Profile; SPEC' 01/02/17 08:15 Test: AST/SGOT; Value: 15; Range: 15-37; Units: U/L; Status: F Test: ALT/SGPT; Value: 16; Range: 12-78; Units: U/L; Status: F Test: ALKALINE PHOSPHATASE; Value: 72; Range: 45-117; Units: U/L; Status: F Test: BILIRUBIN,TOTAL; Value: 2.1; Range: 0.2-1.0; Abnormal: Above high normal; Units: MG/DL; Status: F Test: BILIRUBIN,DIRECT; Value: 0.5; Range: 0.0-0.2; Abnormal: Above high normal; Units: MG/DL; Status: F Test: TOTAL PROTEIN; Value: 7.7; Range: 6.4-8.2; Units: GM/DL; Status: F Test: ALBUMIN; Value: 3.9; Range: 3.2-5.2; Units: GM/DL; Status: F Test: ALBUMIN/GLOBULIN RATIO; Value: 1.03; Range: 1.00-1.93; Status: F Lab Order: Troponin; SPEC' 01/02/17 08:15 Test: TROPONIN I; Value: < 0.02; Range: < 0.10; Units: NG/ML; Status: F Test Note: ; Troponin I Reference Interval for UCAN LOCI: 99th Percentile= 0.00-0.045 ng/ml Risk Stratification: <= 0.10 ng/ml Decreased Risk for Adverse Clinical Events. 0.10-1.50 ng/ml Increased Risk for Adverse Clinical Events. Evaluation of additional criterion and/or repeat testing in 2-6 hours is suggested to rule out myocardial damage. >= 1.50 ng/ml Indicative of Myocardial Injury. Lab Order: Urinalysis; SPEC'M 01/02/17 08:15 Test: APPEARANCE, URINE; Value: HAZY; Range: CLEAR; Status: F Test: COLOR, URINE; Value: SKIP; Range: YELLOW; Status: F Test: PH,URINE; Value: 5.0; Range: 5.0-9.0; Units: UNITS; Status: F Test: SPECIFIC GRAVITY URINE AUTO; Value: 1.025; Range: 1.002-1.035; Status: F Test: PROTEIN, URINE AUTO; Value: 2+; Range: NEGATIVE; Abnormal: Above high normal; Units: mg/dL; Status: F Test: GLUCOSE, URINE (UA) AUTO; Value: 1+; Range: NEGATIVE; Abnormal: Above high normal; Units: mg/dL; Status: F Test: KETONE, URINE AUTO; Value: 2+; Range: NEGATIVE; Abnormal: Above high normal; Units: mg/dL; Status: F Test: UROBILINOGEN, URINE AUTO; Value: 2.0; Range: 0.0-2.0; Abnormal: Above high normal; Units: mg/dL; Status: F Test: BILIRUBIN, URINE AUTO; Value: NEGATIVE; Range: NEGATIVE; Status: F Test: NITRITE, URINE AUTO; Value: NEGATIVE; Range: NEGATIVE; Status: F Test: LEUKOCYTE ESTERASE, URINE AUTO; Value: NEGATIVE; Range: NEGATIVE; Status: F Test: BLOOD, URINE BLOOD; Value: NEGATIVE; Range: NEGATIVE; Status: F Test: WBC, URINE AUTO; Value: 1; Range: 0-3; Units: /HPF; Status: F Test: RBC, URINE AUTO; Value: 7; Range: 0-3; Abnormal: Above high normal; Units: /HPF; Status: F Test: BACTERIA, URINE AUTO; Value: 1+; Range: NEGATIVE; Abnormal: Above high normal; Status: F Test: SQUAMOUS EPITHELIAL CELL UR AU; Value: 0; Range: 0-6; Units: /HPF; Status: F Test: MUCUS, URINE; Value: LARGE; Range: NEGATIVE; Status: F Test: HYALINE CAST, URINE AUTO; Value: 0; Range: 0-1; Units: /LPF; Status: F Lab Order: MAGNESIUM LEVEL; SPEC'M 01/02/17 08:15 Test: MAGNESIUM LEVEL; Value: 1.6; Range: 1.8-2.4; Abnormal: Below low normal; Units: MG/DL; Status: F Lab Order: THYROID STIMULATING HORMONE; 01/02/17 08:15 Test: THYROID STIMULATING HORMONE; Value: 1.520; Range: 0.358-3.740; Units: uIU/ML; Status: F Lab Order: BASIC METABOLIC PROFILE; 01/02/17 13:09 Test: GLUCOSE, FASTING; Value: 108; Range: 83-110; Units: MG/DL; Status: F Test: BLOOD UREA NITROGEN; Value: 13; Range: 7-18; Units: MG/DL; Status: F Test: CREATININE FOR GFR; Value: 0.86; Range: 0.70-1.30; Units: MG/DL; Status: F Test: GLOMERULAR FILTRATION RATE; Value: > 60.0; Range: >42; Status: F Test: SODIUM LEVEL; Value: 139; Range: 136-145; Units: MEQ/L; Status: F Test: POTASSIUM SERUM; Value: 3.8; Range: 3.5-5.1; Units: MEQ/L; Status: F Test: CHLORIDE LEVEL; Value: 99; Range: 98-107; Units: MEQ/L; Status: F Test: CARBON DIOXIDE LEVEL; Value: 29; Range: 21-32; Units: MEQ/L; Status: F Test: ANION GAP; Value: 11; Range: 8-16; Units: MEQ/L; Status: F Test: CALCIUM LEVEL; Value: 8.8; Range: 8.8-10.2; Units: MG/DL; Status: F Test Note: ; Units are mL/min/1.73 m2 Chronic Kidney Disease Staging per NKF: Stage I & II GFR >=60 Normal to Mildly Decreased Stage III GFR 30-59 Moderately Decreased Stage IV GFR 15-29 Severely Decreased Stage V GFR <15 Very Little GFR Left ESRD GFR <15 on MOLD MAKER PLASTIC MOLDS Lab Order: COMPLETE BLOOD COUNT; [facility] 01/02/17 13:09 Test: WHITE BLOOD COUNT; Value: 16.8; Range: 4.0-10.0; Abnormal: Above high normal; Units: K/mm3; Status: F Test: RED BLOOD COUNT; Value: 4.55; Range: 4.30-6.10; Units: M/mm3; Status: F Test: HEMOGLOBIN; Value: 13.9; Range: 14.0-18.0; Abnormal: Below low normal; Units: g/dl; Status: F Test: HEMATOCRIT; Value: 41.8; Range: 42.0-52.0; Abnormal: Below low normal; Units: %; Status: F Test: MEAN CORPUSCULAR VOLUME; Value: 91.7; Range: 80.0-96.0; Units: fl; Status: F Test: MEAN CORPUSCULAR HEMOGLOBIN; Value: 30.6; Range: 27.0-33.0; Units: pg; Status: F Test: MEAN CORPUSCULAR HGB CONC; Value: 33.4; Range: 32.0-36.5; Units: g/dl; Status: F Test: RED CELL DISTRIBUTION WIDTH; Value: 12.9; Range: 11.5-14.5; Units: %; Status: F Test: PLATELET COUNT, AUTOMATED; Value: 156; Range: 150-450; Units: k/mm3; Status: F Lab Order: PARTIAL THROMBOPLASTIN TIME; SPEC'M 01/02/17 13:09 Test: PARTIAL THROMBOPLASTIN TIME; Value: 26.6; Range: 26.6-37.1; Units: SECONDS; Status: F Lab Order: MAGNESIUM LEVEL; SPEC'M 01/02/17 13:09 Test: MAGNESIUM LEVEL; Value: 1.8; Range: 1.8-2.4; Units: MG/DL; Status: F Radiology Order: CT ABD & PELVIS: IV Contrast Only Test: CT ABD & PELVIS: IV Contrast Only REASON FOR EXAMINATION: Diverticulitis; Clinical: Abdominal pain.; ; Technique: Axial contrast enhanced images from the thoracic inlet to the upper; abdomen using 100 ml Isovue 370 intravenous contrast material with coronal and; sagittal re-formations.; ; Findings:; Moderate peripancreatic inflammatory stranding is appreciated consistent with; acute pancreatitis. Pancreatic tissue demonstrates normal homogeneous; enhancement without evidence for necrosis and no associated fluid collection or; pseudocyst.; ; 3 cm hepatic cyst. Spleen, gallbladder, bilateral adrenal glands and kidneys are; normal. 2.8 cm left renal cyst. The enteric system demonstrates diverticulosis; without acute diverticulitis and no evidence for bowel obstruction or acute; inflammatory process. Normal terminal ileum identified in the right lower; quadrant.; ; Pelvis demonstrates partially collapsed bladder and wall thickening cannot be; excluded. Mild prominence to the prostate gland is also appreciated. No pelvic; fluid. No ascites. No intraperitoneal or retroperitoneal adenopathy.; Atherosclerotic changes of the aorta noted without aneurysm or dissection.; Musculoskeletal structures demonstrate age-related changes without focal osseous; abnormality. Lung bases clear. Cardiomegaly.; ; Impression:; 1. Acute pancreatitis without pseudocyst, free fluid, or drainable; collection/abscess.; 2. Solitary simple appearing hepatic and left renal cysts.; 3. Scattered colonic diverticula without acute diverticulitis.; 4. Asymmetric wall thickening to the bladder and mild prominence to the prostate; gland cannot be excluded and may warrant urology consultation.; ; ; Signed by; Dustin Padilla MD 01/02/2017 09:48 A; Radiology Order: LIVER US Test: LIVER US REASON FOR EXAMINATION: Elevated LFT, pancreatitis; Clinical: Pancreatitis with elevated liver function tests .; ; Technique: [place] scale ultrasound using curved array transducer.; ; Findings: The liver is normal in contour, size, and echogenicity without focal; hepatic lesion identified. Incidental hepatic cyst measures 3 cm and unchanged; compared to 04/01/2015. The gallbladder is normal without gallstones, wall; thickening or pericholecystic fluid. No biliary ductal dilatation is; appreciated, and the common bile duct measures 2.7 mm diameter. The right kidney; is normal in reniform shape without hydronephrosis and measures 12.7 x 5.2 x 5.6; cm cm. No ascites. Visualized portions of the abdominal aorta normal.; ; Impression:; Normal right upper quadrant and gallbladder abdominal ultrasound.; ; ; Signed by; Dustin Padilla MD 01/02/2017 12:59 P; Outcome: 10:10 Decision to Hospitalize by Provider. cc10 13:06 CT Study completed. kr3 13:33 Admission hand-off: Report Faxed Fax receipt verified by received by Ashleigh on PCU who kr3 reports will contact ED when able to take patient. 14:06 Discharge Assessment: patient administered narcotics - no. The following High Risk kr3 Discharge criteria are identified: None. Admitted to PCU accompanied by nurse, accompanied by tech, via stretcher, on monitor, with chart. Condition: stable. Property :Personal belongings accompany Pt. 14:18 Patient left the ED. kr3 Signatures: Dispatcher [employer] EDLoida Lugo, RN RN Ashleigh Saavedra, RN RN patrick Adkins, Magali, Reg Reg gb Deja RosarioRN RN kr3 Lorraine Zamudio RN RN María Elena Pryor RN RN dsf Manoj Corrales mm15 Suha Wilcox am17 Alvarez Galarza, PA-C PA-C cc10 Candy Aguilar, Reg Reg hs2 Jessie WanRN RN ja5 María Elena carty Chart Complete MTDD
--- NOTE | 2017-01-04 15:19 | EDDOCDS ---
Physician Documentation [facility] Name: Bolivar Sharma Age: 71 yrs Sex: Male : 1945 Arrival Date: 01/02/2017 Time: 07:23 Bed 18 Private MD: Disposition: 01/02/17 10:10 Hospitalization ordered by Lennox Escobar for Observation. Preliminary diagnosis are Acute pancreatitis, Hypokalemia, Hypomagnesemia, Nausea and vomiting. - Bed requested for PCU. - Status is Observation. kr3 - Condition is Stable. - Problem is an ongoing problem. - Symptoms have improved. Historical: - Allergies: atorvastatinelevated LFTs; - Home Meds: 1. Vitamin D3 2000 units daily 2. Albuterol Inhl 2 puffs every 4 hours as needed 3. pravastatin 40 mg oral tab 1 tab once daily 4. metoprolol with HCTZ 50/25 mg 1/2 tab daily 5. amlodipine 5 mg Oral tab 1 tab once daily 6. aspirin 81 mg Oral tab 1 tab once daily 7. calcium with D3 600/200 daily 8. vitamin C 500 daily 9. Oxygen 2 liters nightly - PMHx: TIA; seborrheic keratosis; Asthma; nocturnal hypoxemia; aortic valve disorder; allergic rhinitis; elevated liver enzymes; gallstones; hyperlipidemia; Hypertension; vitamin D deficiency; sciatica; Diabetes - NIDDM: controlled; - PSHx: none; - Social history: Smoking status: Patient states was never smoker of tobacco. No barriers to communication noted, The patient speaks fluent Welsh. - Family history: Not pertinent. - : The pt / caregiver states he / she is not on anticoagulants. Home medication list is obtained from a discharge med list. - Exposure Risk Screening:: None identified. Vital Signs: 01/02 07:45 BP 133 / 109; Pulse 98; Resp 22; Temp 99.7(TE); Pulse Ox 97% on R/A; Weight 104.33 kg / kcs 230.01 lbs (R); Height 5 ft. 8 in. (172.72 cm) (R); Pain 6/10; 10:04 BP 160 / 85; Pulse 92; Resp 20; Temp 96.3(O); Pulse Ox 95% on R/A; Pain 3/10; dsf 11:58 BP 159 / 75 (auto/); kr3 11:58 Pulse 86 MON; kr3 12:56 Pulse 84 MON; Temp 99.7(O); Pulse Ox 98% ; kr3 13:18 BP 165 / 85 (auto/); kr3 13:18 Pulse 90 MON; Pulse Ox 97% ; kr3 13:48 BP 159 / 95 (auto/); kr3 13:48 Pulse 86 MON; kr3 07:45 Body Mass Index 34.97 (104.33 kg, 172.72 cm) kcs MDM: 07:56 NS 0.9% 1000 ml IV at bolus once ordered. cc10 07:56 Ondansetron 4 mg IVP once ordered. cc10 07:56 IV Saline Lock ordered. cc10 07:56 Undress patient appropriately for examination ordered. cc10 07:56 ketorolac 15 mg IVP once ordered. cc10 07:56 Basic Metabolic Profile Ordered. EDMS 07:56 CBC with Diff Ordered. EDMS 07:56 Cardiac Injury Profile Ordered. EDMS 07:56 Lipase Ordered. EDMS 07:56 Liver Profile Ordered. EDMS 07:56 Troponin Ordered. EDMS 07:56 Urinalysis Ordered. EDMS 07:57 ECG WITH READING ER PHYS+CARDIAG ordered. EDMS 07:57 CT ABD & PELVIS: IV Contrast Only Ordered. EDMS 07:57 NOTHING BY MOUTH+DIET ordered. EDMS 08:01 MAGNESIUM LEVEL Ordered. EDMS 08:11 Financial registration complete. mm15 08:12 Undo -Financial registration. mm15 08:28 Financial registration complete. mm15 08:37 [facility] Payment Agreement was scanned into [employer] and attached to record. mm15 09:27 Basic Metabolic Profile Reviewed. cc10 09:27 CBC with Diff Reviewed. cc10 09:27 Lipase Reviewed. cc10 09:27 Liver Profile Reviewed. cc10 09:27 Urinalysis Reviewed. cc10 09:27 MAGNESIUM LEVEL Reviewed. cc10 09:27 Cardiac Injury Profile Reviewed. cc10 09:27 Troponin Reviewed. cc10 09:51 BED REQUEST+ADM ordered. EDMS 09:58 Vital Signs ordered. cc10 10:29 CT ABD & PELVIS: IV Contrast Only Reviewed. ml 11:12 Magnesium Oxide 400 mg PO once ordered. cc10 11:12 Potassium Chloride Extended Release Tablet 40 mEq PO once ordered. cc10 11:15 Admission / Observation Status ordered. EDMS 11:15 NPO DIET ordered. EDMS 11:27 HEMOGLOBIN A1C Ordered. EDMS 11:43 THYROID STIMULATING HORMONE Ordered. EDMS 11:50 LIVER US Ordered. EDMS 11:52 ECHOCARD,DOPPLER/COLOR FLOW ordered. EDMS 11:58 BASIC METABOLIC PROFILE Ordered. EDMS 12:01 COMPLETE BLOOD COUNT Ordered. EDMS 12:01 PARTIAL THROMBOPLASTIN TIME Ordered. EDMS 12:02 PARTIAL THROMBOPLASTIN TIME Ordered. EDMS 12:02 PARTIAL THROMBOPLASTIN TIME Ordered. EDMS 12:04 BLOOD CULTURES Ordered. EDMS 12:04 BLOOD CULTURES Ordered. EDMS 12:39 MRI ABDOMEN WITHOUT CONTRAST Ordered. EDMS 13:23 Potassium Chloride in 100cc sterile water 10 mEq IV at 100 mL/hr once over 1 hrs kr3 ordered. 13:25 MAGNESIUM LEVEL Ordered. EDMS 13:26 NS 0.9% 1000 ml IV at 100 mL/hr continuous ordered. kr3 01/03 12:20 T-Sheet-- Draft Copy was scanned into [employer] and attached to record. gb 12:20 ECG/EKG was scanned into [employer] and attached to record. gb Administered Medications: 01/02 08:19 Drug: NS 0.9% 1000 ml [sodium chloride 0.9 % intravenous solution] Route: IV; Rate: ja5 bolus; Site: left antecubital; 08:20 Drug: ketorolac 15 mg [ketorolac 30 mg/mL (1 mL) injection solution (0.5 mL)] Route: ja5 IVP; Site: left antecubital; 08:22 Drug: Ondansetron 4 mg [ondansetron HCl 2 mg/mL intravenous solution (2 mL)] Route: ja5 IVP; Site: left antecubital; 11:28 Drug: Magnesium Oxide 400 mg [magnesium oxide 400 mg tablet (1 tabs)] Route: PO; jc4 11:29 Drug: Potassium Chloride 40 mEq [potassium chloride ER 10 mEq tablet,extended release jc4 (4 tabs)] Route: PO; 13:15 Drug: Potassium Chloride in 100cc sterile water 10 mEq [potassium chloride 10 mEq/100 kr3 mL intravenous piggyback] {Co-Signature: machelle (María Elena Topete RN).} Route: IV; Rate: 100 mL/hr; Infused Over: 1 hrs; Site: right antecubital; 14:06 Follow up: IV Status: Infusion continued upon admit kr3 13:15 Drug: NS 0.9% 1000 ml [sodium chloride 0.9 % intravenous solution] Route: IV; Rate: 100 kr3 mL/hr; Site: right antecubital; 14:05 Follow up: IV Status: Infusion continued upon admit kr3 Signatures: Dispatcher [employer] EDMS Bertram Horner MD MD ml Sleeman, Kacey, RN RN kcs Ashleigh Thapa RN RN kpj Magali Adkins, Richy Reg gb Deja Rosario RN RN kr3 Lorraine Zamudio RN RN jc4 Manoj Corrales mm15 Alvarez Galarza PA-C PA-Jessie Rosado RN5 María Elena Topete RN dsf The chart was reviewed and I authenticate all verbal orders and agree with the evaluation and treatment provided.Corrections: (The following items were deleted from the chart) 08:01 07:57 MAGNESIUM LEVEL+LAB ordered. EDMS EDMS 11:43 11:13 THYROID STIMULATING HORMONE ordered. EDMS EDMS 13:20 13:10 MAGNESIUM LEVEL ordered. EDMS EDMS 13:25 12:02 MAGNESIUM LEVEL ordered. EDMS EDMS Attachments: 08:37 [facility] Payment Agreement mm15 01/03 12:20 T-Sheet-- Draft Copy gb 12:20 ECG/EKG Chart Complete MTDD
[2017-01-04] MEDS: PRAVASTATIN 20 MG TAB PO SCH (20:58)
[2017-01-04] MEDS: APIXABAN 5 MG TAB (ELIQUIS) PO SCH (20:59)
[2017-01-04 22:00] VITALS: BP 137/79
[2017-01-05] MEDS: PIPERACILLIN/TAZOBACTAM SOD 3.375 GM in D5W MINI-BAG PLUS 50 ML IV SCH ×2 (02:23→09:27)
[2017-01-05] MEDS: HumaLOG INSULIN (NovoLOG) PER UNIT SC SCH ×2 (05:45→12:01)
[2017-01-05 06:00] VITALS: BP 139/82
[2017-01-05 06:29] LABS: BASO % 0.4 % (0.0-1.0); EOS # 0.1 K/mm3 (0.0-0.50); EOS % 1.6 % (0.0-3.0); LARGE UNSTAINED CELL # 0.2 K/mm3 (0.0-0.4); LYMPH # 1.5 K/mm3 (1.5-4.5); LYMPH % 21.2 % (24.0-44.0); MEAN CORPUSCULAR HEMOGLOBIN 30.2 pg (27.0-33.0); MEAN CORPUSCULAR HGB CONC 33.9 g/dl (32.0-36.5); MEAN CORPUSCULAR VOLUME 89.3 fl (80.0-96.0); MONO # 0.5 K/mm3 (0.0-0.8); MONO % 6.6 % (0.0-5.0); NEUTROPHILS # 4.8 K/mm3 (1.8-7.7); NEUTROPHILS % 67.2 % (36.0-66.0); PLATELET COUNT, AUTOMATED 168 k/mm3 (150-450); RED CELL DISTRIBUTION WIDTH 12.3 % (11.5-14.5); WHITE BLOOD COUNT 7.2 K/mm3 (4.0-10.0)
[2017-01-05 06:52] LABS: ALBUMIN 2.8 GM/DL (3.2-5.2); ALKALINE PHOSPHATASE 62 U/L (45-117); ALT/SGPT 19 U/L (12-78); AMYLASE 21 U/L (25-115); ANION GAP 9 MEQ/L (8-16); AST/SGOT 15 U/L (15-37); BILIRUBIN,TOTAL 0.9 MG/DL (0.2-1.0); BLOOD UREA NITROGEN 11 MG/DL (7-18); CALCIUM LEVEL 8.4 MG/DL (8.8-10.2); CARBON DIOXIDE LEVEL 28 MEQ/L (21-32); CHLORIDE LEVEL 106 MEQ/L (98-107); CREATININE FOR GFR 0.85 MG/DL (0.70-1.30); GLOMERULAR FILTRATION RATE > 60.0 (>42); GLUCOSE, FASTING 112 MG/DL (83-110); MAGNESIUM LEVEL 2.1 MG/DL (1.8-2.4); POTASSIUM SERUM 3.7 MEQ/L (3.5-5.1); SODIUM LEVEL 143 MEQ/L (136-145); TOTAL PROTEIN 6.3 GM/DL (6.4-8.2)
[2017-01-05] MEDS: PANTOPRAZOLE 40MG INJ (PROTONIX) (C9113) IV SCH (09:27)
[2017-01-05 09:28] VITALS: BP 138/78
[2017-01-05] MEDS: amLODIPine 5 MG TAB PO SCH (09:28)
[2017-01-05] MEDS: APIXABAN 5 MG TAB (ELIQUIS) PO SCH (09:28)
[2017-01-05] MEDS: METOPROLOL SUCC *XL* 25MG TAB (TopROL *XL*) PO SCH (09:28)
[2017-01-05] MEDS: ASPIRIN 81 MG ENTERIC TAB PO SCH (09:28)
[2017-01-05] MEDS ORDERED: METO25TA74 PO (10:40)
[2017-01-05] MEDS ORDERED: ELIQ5TAB PO (10:40)
[2017-01-05] MEDS: KCL 40MEQ in NS 1000ML 1,000 ML IV SCH (10:48)
--- NOTE | 2017-01-05 21:47 | DSES ---
DATE OF ADMISSION: 01/02/2017 DATE OF DISCHARGE: 01/05/2017 PRIMARY CARE PHYSICIAN: Carole Altman, nurse practitioner HISTORY OF PRESENT ILLNESS: A 71-year-old male presented to [facility] with nausea and vomiting for approximately 36 hours prior to presentation. CT abdomen and pelvis obtained showed acute pancreatitis with questionable pseudocyst and a white count of 20,000. On workup, patient was also noted to have new-onset atrial fibrillation. Subsequently family medicine service was called to admit patient. HOSPITAL COURSE: Patient was placed on rate-controlling medication, metoprolol succinate 25 mg by mouth daily, and started on a heparin drip for anticoagulation. Patient was held nothing by mouth. An magnetic resonance cholangiopancreatography (MRCP) was completed. No evidence of stone in the common bile duct was noted; however, patient had a significant calculous gallbladder. Patient's diet was slowly advanced and has tolerated well. Patient agreed to Eliquis versus warfarin treatment and opted for Eliquis, which is noted to be covered through his health insurance. Patient is anxious to go home today. He has been rate controlled. Vital signs have remained stable. Labs have improved, and white count is stable 7,000, hemoglobin and hematocrit of 12 and 36. Chemistries have remained stable throughout hospitalization. IMAGIN. CT abdomen and pelvis. 2. Liver ultrasound. 3. Tunnel MRI, as previously stated. 4. Bladder ultrasound was completed due to a questionable bladder wall abnormality on CT. Ultrasound shows normal sonographic appearance of the bladder. CONSULTATIONS: None. PROCEDURES: None. PHYSICAL EXAMINATION: Today, patient was alert and oriented times three. Is resting comfortable. HEENT: Neck is supple without lymphadenopathy or jugular venous distention (JVD). CARDIOVASCULAR: Heart rate and rhythm are regular. PULMONARY: Lungs clear to auscultation bilaterally. ABDOMEN: Soft and nontender. Positive bowel sounds times all four quadrants. Bilateral lower extremities are without edema. NEUROLOGIC: Patient has no resting tremor. Cranial nerves II-XII are grossly intact. PSYCHIATRIC: Affect is appropriate, and conversation is congruent. Patient maintains eye contact. ASSESSMENT: 1. Pancreatitis. 2. Cholelithiasis. 3. New-onset atrial fibrillation. 4. Hypertension. 5. Hyperlipidemia. 6. Diabetes. 7. Nocturnal hypoxemia. 8. Nonalcoholic steatohepatitis. PLAN: Patient will be discharged to home. Diet is low-fat, low-sodium. Activity as tolerated. He needs referral for general surgery for evaluation of the gallbladder, as this is the probable cause of the pancreatitis with a choledocholithiasis. New-onset atrial fibrillation. Patient may need further evaluation with cardiology. He did have an echocardiogram completed while inpatient with mild left ventricular hypertrophy (LVH), moderate dilated left atrium, and stable-appearing aortic valvular sclerosis. Patient is also noted to have significant secondary pulmonary hypertension. MEDICATIONS: - apixaban 5 mg by mouth twice a day - metoprolol succinate 25 mg by mouth daily - albuterol two puffs every 4 hours as needed for shortness of breath - amlodipine 5 mg by mouth daily - vitamin C 500 mg by mouth daily - aspirin 81 mg by mouth daily - calcium with vitamin D one tablet by mouth at bedtime - vitamin D3 at 2000 international units by mouth daily - pravastatin 40 mg by mouth daily Patient's metoprolol and hydrochlorothiazide combination medication was stopped. He will followup with his primary care physician (PCP) as already indicated. Patient is discharged in stable and satisfactory condition with no further questions at time of discharge.
== END 2017-01-05 12:20 | disposition home or self-care (01) | DRG 440 ==
LOC: M ED 07:23 → M ED INP 11:04 → M PCU 14:11 → M MSPAV 01-04 13:34
PROVIDERS: ADMIT Family Medicine; ATTEND Family Medicine
DX: K85.90 Acute pancreatitis without necrosis or infection, unspecified (principal); E87.6 Hypokalemia; E83.42 Hypomagnesemia; E11.9 Type 2 diabetes mellitus without complications; I48.91 Unspecified atrial fibrillation; I10 Essential (primary) hypertension; E78.5 Hyperlipidemia, unspecified; J45.909 Unspecified asthma, uncomplicated; G47.36 Sleep related hypoventilation in conditions classified elsewhere; E80.6 Other disorders of bilirubin metabolism; Z79.51 Long term (current) use of inhaled steroids; Z79.82 Long term (current) use of aspirin; Z99.81 Dependence on supplemental oxygen; Z79.899 Other long term (current) drug therapy; K76.0 Fatty (change of) liver, not elsewhere classified; K80.70 Calculus of gallbladder and bile duct without cholecystitis without obstruction

== ENCOUNTER 2017-02-02 12:51 | Day surgery (SDC) | payer MEDICARE, OTHER ==
[~2017-02-02] VITALS: Ht 172.7 cm; Wt 104.1 kg
[~2017-02-02 12:51] MED LIST: ALBU17IN INH; AMLO5TAB2 PO; ASPI1TAB PO; CALCTAB43 PO; ELIQ5TAB PO; LIDOCAINE 2% INJ 100 MG/5 ML SDV (FOR ANES.) As Ordered ONE; LIDOCAINE VISCOUS 2% SOLN 15ML UDC As Ordered ONE; METO25TA74 PO; METO50TA9 PO; MIDAZOLAM INJ 2 MG/2 ML VIAL (J2250) As Ordered ONE; PRAV40TA2 PO; PROPOFOL 200 MG/20 ML VIAL As Ordered ONE; VITA20008 PO; VITA500T88 PO
[2017-02-02] MEDS ORDERED: LIDOCAINE 1% SDV INJ 30 ML VIAL As Ordered ONE (13:41)
[2017-02-02] MEDS ORDERED: ISOVUE-300 61% 50ML VIAL (Q9967) As Ordered ONE (13:41)
[2017-02-02] MEDS ORDERED: AMIODARONE 150MG/3ML INJ (J0282) As Ordered ONE (13:43)
[2017-02-02] MEDS ORDERED: BACITRACIN PWD 50,000 UNITS VIAL As Ordered ONE (14:33)
[2017-02-02] MEDS ORDERED: MIDAZOLAM INJ 2 MG/2 ML VIAL (J2250) As Ordered ONE (15:02)
[2017-02-02] MEDS ORDERED: fentaNYL 100 MCG/2 ML INJECTION (J3010) As Ordered ONE (15:05)
[2017-02-02] MEDS ORDERED: PROPOFOL 200 MG/20 ML VIAL As Ordered ONE (15:08)
[2017-02-02] MEDS ORDERED: ceFAZolin 2 GM/D5W 50 ML IV BAG (J0690) As Ordered ONE (15:13)
[2017-02-02] MEDS ORDERED: ONDANSETRON 4MG/2ML VIAL (J2405) As Ordered ONE (15:46)
--- NOTE | 2017-02-02 16:37 | REP ---
Portable chest post pacemaker, single AP view, the patient semi upright: Comparison is a 09/08/2012. There is a single lead pacemaker entering from left as an interval change. Surgical staple line is noted adjacent to the pacemaker in the left upper chest. There is no pneumothorax or pleural fluid collection. The lung katz are clear. Cardiac size appears enlarged, however, there has magnification from portable positioning. Signed by Micha Kapadia MD 02/02/2017 04:29 P
[2017-02-02] MEDS ORDERED: ONDANSETRON 4MG/2ML VIAL (J2405) IV PRN (16:45)
[2017-02-02] MEDS ORDERED: LR 1,000 ML IV SCH (16:45)
[2017-02-02] MEDS ORDERED: fentaNYL 100 MCG/2 ML INJECTION (J3010) IV PRN (16:45)
[2017-02-02] MEDS: PERCOCET 5MG/325MG TAB PO PRN ×3 (16:50→17:56)
[2017-02-02] MEDS ORDERED: PERCOCET 5MG/325MG TAB As Ordered ONE (16:54)
[2017-02-02] MEDS ORDERED: ACETAMINOPHEN TAB 650MG DOSE (2X325MG) PO PRN (17:00)
[2017-02-02 17:30] VITALS: BP 166/80
[2017-02-02 18:00] VITALS: BP 160/62
[2017-02-02] MEDS: ATENOLOL 50 MG TAB PO SCH (18:06)
[2017-02-02] MEDS ORDERED: SLF 3 ML SYR IV PRN (18:30)
--- NOTE | 2017-02-02 18:45 | ECGEPIP ---
Stationary ECG Study [facility] Test Date: 2017-02-02 Pat Name: RENA VACA Department: Room: - Gender: M Information Security Specialist: : 1945 Requested By: Prince Giron Order Number: [id number] Reading MD: Cheng Loja Measurements Intervals [place] Rate: 62 P: [place]: 0 QRS: -48 QRSD: 183 T: 66 QT: 500 QTc: 511 Interpretive Statements ELECTRONIC VENTRICULAR PACEMAKER ABNORMAL RHYTHM ECG LAST TRACING ON 01/02/2017 AT 10:50:59, PACEMAKER ACTIVITY IS NEW. PATIENT THEN WAS IN ATRIAL FIBRILLATION Electronically Signed On 02-02-2017 18:45:20 EDT by Cheng Loja
[2017-02-02 20:00] VITALS: BP 152/58
[2017-02-02 21:00] VITALS: BP 136/85
[2017-02-02] MEDS ORDERED: PRAVASTATIN 20 MG TAB PO SCH (21:00)
[2017-02-02] MEDS: ceFAZolin SOD 1 GM in D5W MINI-BAG PLUS 50 ML IV SCH (21:38)
[2017-02-02] MEDS: amLODIPine 5 MG TAB PO SCH (21:38)
[2017-02-02] MEDS: SLF 3 ML SYR IV SCH (21:39)
[2017-02-02 22:00] VITALS: BP 138/82
--- NOTE | 2017-02-02 23:21 | RO ---
DATE OF PROCEDURE: 02/02/2017 PREOPERATIVE DIAGNOSES 1. Intermittent high-grade AV block. 2. Chronic atrial fibrillation. 3. Hypertensive heart disease (benign without heart failure). POSTOPERATIVE DIAGNOSES 1. Intermittent high-grade AV block. 2. Chronic atrial fibrillation. 3. Hypertensive heart disease (benign without heart failure). OPERATIVE PROCEDURE: Implantation of permanent single chamber/ventricular demand pacemaker. IMPLANTING TAILING MACHINE OPERATOR: Prince Giron MD JETTING MACHINE OPERATOR: ANESTHESIOLOGIST: Dr. Weaver ANESTHESIA: Monitored local anesthesia. 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 Underwent preoperative testing for tentative cholecystectomy for the near future. EKG showed a marginal repolarization abnormalities, so he underwent treadmill stress testing February 01, 2017. This showed fair exercise tolerance limited by dyspnea and knee pain, but no chest pain or EKG changes. Ventricular rate reached 150 beats per minute with normal blood pressure response. Holter monitor study performed January 27, 2017, but reported yesterday shows atrial fibrillation with a ventricular response that varied between 31 and 141 beats per minute, averaging 66 beats per minute. He had heart rates in the 30s intermittently for 14 of 24 hours of monitoring with 547 pauses greater than 2.5 seconds, longest measuring 3 seconds. There were rare isolated PVCs. Curiously, the patient did not report any symptoms. In light of his intermittent AV block, the patient was advised to undergo permanent single chamber pacemaker implant and arrangements were made for this procedure under monitored local anesthesia today. He is a pleasant slightly overweight barrel-chested elderly male laying comfortably. Heart rate 54 beats per minute and irregularly irregular, blood pressure 114/80, respiratory rate 18 per minute, BMI 35. No pallor or icterus. Trachea midline. Neck veins were at the sternal angle. Increased anteroposterior chest diameter with good air entry over both lung katz and no adventitious sounds. Apical impulse not palpable. Heart sounds distant. No audible murmur. Normal carotid upstrokes and variable volume related to his arrhythmia. Pedal pulses were symmetrical and normal with only plus/minus distal lower extremity pitting. His abdomen was soft. EKG as mentioned showed atrial fibrillation with controlled ventricular response at [address]/T-wave abnormalities at III and aVF was otherwise normal. OPERATIVE DESCRIPTION: In the fasting state, following informed consent and Ancef 2 grams IV premedication, the patient was taken to the operating theater. Numerous skin electrodes were applied to facilitate continuous electrocardiographic monitoring. The left subclavian region was prepped and draped in the usual fashion and the skin was infiltrated with 1% Xylocaine. The left axillary vein was catheterized using a micropuncture technique. A 5-cm linear incision was then made 2 cm below and parallel to the left clavicle. Dissection was carried down to the level of the pectoralis fascia and a pocket was fashioned below the level of incision line. A single bipolar active fixation screw-in steroid eluting lead that is MRI compatible was then advanced to the right ventricular apex under fluoroscopic and electrocardiographic control. The ventricular lead ([employer], model number [id number], serial number [id number]) measurements were: Stimulation threshold 0.6V/0.4 ms/impedance 1202 ohms. The R wave amplitude measured 11.7 mV. This lead was secured in position with a sleeve suture at its insertion site. It was then connected to a single chamber pulse generator ([employer], model number [id number], serial number [id number]) and appropriate VVI pacing was documented. The device was placed and the pocket was secured in position with a suture through the upper right-hand corner of the epoxy header. The subcutaneous tissues were then approximated using a running chromic suture and the skin was closed using tee and a dry dressing was applied. The patient was returned to the recovery room in good condition. Estimated blood loss less than 50 mL. No apparent complications. His postoperative portable upright chest x-ray showed good lead position with no pneumothorax. PLAN: Our plan is to monitor the patient on telemetry overnight and he will receive an additional three doses of Ancef 1 gram IV every 8 hours. Followup PA and lateral chest x-ray and EKG will be obtained in the morning along with repeat pacemaker interrogation. We anticipate he will be able to be discharged before noon tomorrow. FINAL DIAGNOSES: 1. Intermittent high-grade AV block. 2. Chronic atrial fibrillation. 3. Hypertensive heart disease (benign without heart failure). DISCHARGE MEDICATIONS AND RECOMMENDATIONS: The patient will be discharged tomorrow on the same no added salt diet with no concentrated sweets. Activity will be as tolerated with the exception of light activity with his left arm and avoiding getting his incision wet until his tee are removed in my office. He has a followup appointment for a wound check and staple removal February 07 at 11:15 a.m. His medications will currently be atenolol 50 mg by mouth daily, amlodipine 5 mg twice a day, aspirin 81 mg daily, pravastatin 40 mg at bedtime and his Eliquis 5 mg twice a day will be restarted tomorrow evening. Should he notice any abnormal erythema, swelling or discharge we have encouraged him to contact our office promptly.
[2017-02-02 23:47] VITALS: BP 117/80
[2017-02-03] MEDS: ceFAZolin SOD 1 GM in D5W MINI-BAG PLUS 50 ML IV SCH ×2 (03:45→08:55)
[2017-02-03] MEDS: SLF 3 ML SYR IV SCH ×2 (03:45→14:00)
[2017-02-03 04:00] VITALS: BP 134/89
[2017-02-03 05:50] LABS: ALBUMIN 3.5 GM/DL (3.2-5.2); ALBUMIN/GLOBULIN RATIO 1.13 (1.00-1.93); ALKALINE PHOSPHATASE 65 U/L (45-117); ALT/SGPT 16 U/L (12-78); ANION GAP 9 MEQ/L (8-16); AST/SGOT 17 U/L (15-37); BILIRUBIN,TOTAL 0.6 MG/DL (0.2-1.0); BLOOD UREA NITROGEN 20 MG/DL (7-18); CALCIUM LEVEL 8.6 MG/DL (8.8-10.2); CARBON DIOXIDE LEVEL 28 MEQ/L (21-32); CHLORIDE LEVEL 105 MEQ/L (98-107); CREATININE FOR GFR 0.95 MG/DL (0.70-1.30); GLOMERULAR FILTRATION RATE > 60.0 (>42); GLUCOSE, FASTING 105 MG/DL (83-110); POTASSIUM SERUM 4.1 MEQ/L (3.5-5.1); SODIUM LEVEL 142 MEQ/L (136-145); TOTAL PROTEIN 6.6 GM/DL (6.4-8.2)
[2017-02-03 05:58] LABS: MEAN CORPUSCULAR HEMOGLOBIN 30.3 pg (27.0-33.0); MEAN CORPUSCULAR HGB CONC 32.7 g/dl (32.0-36.5); MEAN CORPUSCULAR VOLUME 92.7 fl (80.0-96.0); RED CELL DISTRIBUTION WIDTH 12.9 % (11.5-14.5); WHITE BLOOD COUNT 8.1 K/mm3 (4.0-10.0)
[2017-02-03 06:03] LABS: INR 1.08
[2017-02-03 08:00] VITALS: BP 132/90
--- NOTE | 2017-02-03 08:55 | REP ---
Chest x-ray: Two views. History: Pacemaker. Comparison study February 02, 2017. Findings: PA and lateral views demonstrate a unipolar pacemaker installed via the left side with an intact right heart lead. Moderate cardiac enlargement is seen. The aorta is tortuous, ectatic and calcific as before. The lungs are symmetrically aerated and clear. There is no evidence of pneumothorax or hydrothorax. No significant bony abnormality is seen. Impression: Cardiomegaly with pacemaker. Skin tee are seen adjacent to the power plant. No complication is identified. Signed by Darrin Chang MD 02/03/2017 01:56 P
[2017-02-03 08:56] VITALS: BP 132/90
[2017-02-03] MEDS: ATENOLOL 50 MG TAB PO SCH (08:56)
[2017-02-03] MEDS: amLODIPine 5 MG TAB PO SCH (08:56)
[2017-02-03] MEDS ORDERED: ASPIRIN 81 MG ENTERIC TAB PO SCH (09:00)
[2017-02-03 12:00] VITALS: BP 128/88
[2017-02-03] MEDS ORDERED: ATEN50TA2 PO (15:05)
--- NOTE | 2017-02-03 16:00 | IPN ---
DATE: 02/03/2017 CARDIOLOGY PROGRESS NOTE SUBJECTIVE: Has been up in the room without lightheadedness or other cardiovascular complaint. Continues to have some incisional discomfort. Appears to be tolerating his current beta sae therapy. OBJECTIVE: Pleasant slightly barrel-chested, overweight elderly male lying comfortably. Heart rate 64 beats per minute (BPM), blood pressure 128/88, respiratory rate18, O2 saturation 96% on room air. Afebrile. No pallor or central cyanosis. Increased anteroposterior chest diameter with left subclavian pacer incision healing well. LOCOMOTIVE OBSERVER: This shows underlying atrial fibrillation with mostly paced ventricular complexes at 60 beats per minute. Appropriate VVI pacing behavior. Chest x-ray PA left lateral study was reviewed this morning independently and shows at least borderline cardiomegaly with unfolded thoracic aorta. Normal pulmonary vasculature. Single chamber pacemaker with tip terminating in the right ventricular apex, pulse generator left subclavian region. Clear lung katz with no pneumothorax or pleural effusion. EKG today again shows underlying atrial fibrillation with controlled ventricular response averaging 65 BPM. Appropriate VVI pacemaker function with sensing and pacing. Otherwise normal-appearing EKG. LABORATORY DATA Hemoglobin 13.7 with normal white blood cell count and platelet count. PT/INR 14/1.1. Electrolytes were normal. BUN 20, creatinine 0.95, fasting glucose 105. Liver function studies were normal. PACEMAKER INTERROGATION: [employer] model number [id number]. Excellent intracardiac electrograms and pacing thresholds with estimated battery longevity 11 years. No program changes were deemed necessary today. IMPRESSION/PLAN: 1. Atrial fibrillation (chronic): On his atenolol negative chronotropic therapy, his ventricular response is controlled. He will be resuming his Eliquis oral anticoagulant later today. 2. Atrioventricular (AV) block (unspecified)/single chamber pacemaker in situ: As mentioned above his pacemaker incision appears to be healing fine. Chest x-ray, electrocardiogram (EKG) and device interrogation confirmed appropriate device function with no apparent complications. He will be seen for staple removal in one week in my office. 3. Hypertensive heart disease (benign without heart failure): Current blood pressure would be considered acceptably controlled on his dietary measures, amlodipine and atenolol. We will be reevaluating this as an outpatient next week. Blood work today shows electrolyte balance with only slight prerenal azotemia. We will be letting him go home today and he should be able to proceed with his tentative laparoscopic cholecystectomy 02/09/2017, with Dr. Okeefe. He has been requested to perform only light activities of daily living with his left arm and avoid getting his incision wet until his tee are removed in my office on February 08 at 11:15 a.m. His diet will be [id number], and his medications will include: - atenolol 50 mg daily - amlodipine 5 mg daily - Eliquis 5 mg twice a day - aspirin 81 mg daily - albuterol inhaler two puffs every four hours as needed for dyspnea - calcium with vitamin D one tablet daily - vitamin D3 2000 units daily - pravastatin 40 mg at bedtime Should he have any abnormal erythema, swelling or discharge, we have encouraged him to contact us promptly.
--- NOTE | 2017-02-03 18:31 | ECGEPIP ---
Stationary ECG Study [facility] Test Date: 2017-02-03 Pat Name: RENA VACA Department: Room: [place] [address] Gender: M [place]: DERICK : 1945 Requested By: Prince Giron Order Number: [id number] Reading MD: Cheng Loja Measurements Intervals [place] Rate: 65 P: [place]: 0 QRS: 7 QRSD: 90 T: 6 QT: 408 QTc: 426 Interpretive Statements UNCERTAIN IRREGULAR RHYTHM ELECTRONIC VENTRICULAR PACEMAKER -- CONTOUR ANALYSIS BASED ON INTRINSIC RHYTHM ABNORMAL RHYTHM ECG LAST TRACING ON 02/02/2017 AT 16:49:06, NO SIGNIFICANT CHANGES Electronically Signed On 02-03-2017 18:31:23 EDT by Cheng Loja
== END 2017-02-03 16:35 | disposition home or self-care (01) ==
LOC: M SDC 12:51 → M PCU 17:12 → M SDC 02-03 16:35
PROVIDERS: ATTEND Internal Medicine Cardiovascular Disease
DX: I44.2 Atrioventricular block, complete (principal); I48.2 Chronic atrial fibrillation; I11.9 Hypertensive heart disease without heart failure; E78.4 Other hyperlipidemia; J45.909 Unspecified asthma, uncomplicated; E11.9 Type 2 diabetes mellitus without complications; Z79.899 Other long term (current) drug therapy; Z79.82 Long term (current) use of aspirin; Z79.02 Long term (current) use of antithrombotics/antiplatelets
CPT/HCPCS: 33207; 36415; 71010; 71020; 76000; 80053; 85027; 85610; 93005; 96374; 96376; C1786; C1898; J0690; J2250; J2405; J3010

== ENCOUNTER → 2017-03-07 | Outpatient (REF) | payer MEDICARE, OTHER ==
[~2017-03-07] MED LIST changes: +ATEN50TA2 PO; -LIDOCAINE 2% INJ 100 MG/5 ML SDV (FOR ANES.) As Ordered ONE; -LIDOCAINE VISCOUS 2% SOLN 15ML UDC As Ordered ONE; -MIDAZOLAM INJ 2 MG/2 ML VIAL (J2250) As Ordered ONE; -PROPOFOL 200 MG/20 ML VIAL As Ordered ONE
[2017-03-07 11:39] LABS: ALBUMIN 3.8 GM/DL (3.2-5.2); ALBUMIN/GLOBULIN RATIO 1.36 (1.00-1.93); ALKALINE PHOSPHATASE 71 U/L (45-117); ALT/SGPT 21 U/L (12-78); ANION GAP 6 MEQ/L (8-16); AST/SGOT 15 U/L (15-37); BILIRUBIN,TOTAL 0.7 MG/DL (0.2-1.0); BLOOD UREA NITROGEN 17 MG/DL (7-18); CALCIUM LEVEL 8.7 MG/DL (8.8-10.2); CARBON DIOXIDE LEVEL 30 MEQ/L (21-32); CHLORIDE LEVEL 106 MEQ/L (98-107); CREATININE FOR GFR 0.97 MG/DL (0.70-1.30); GLOMERULAR FILTRATION RATE > 60.0 (>42); GLUCOSE, FASTING 141 MG/DL (83-110); POTASSIUM SERUM 4.5 MEQ/L (3.5-5.1); SODIUM LEVEL 142 MEQ/L (136-145); TOTAL PROTEIN 6.6 GM/DL (6.4-8.2)
== END ==
LOC: M SFHCPLAZ 07:31
PROVIDERS: ATTEND Nurse Practitioner Family
DX: I11.9 Hypertensive heart disease without heart failure (principal); E55.9 Vitamin D deficiency, unspecified

== ENCOUNTER → 2017-03-12 | Outpatient (CLI) | payer MEDICARE, OTHER ==
--- NOTE | 2017-03-16 13:36 | SLEEPCENT ---
DATE OF STUDY: 03/12/2017 ORDERING PROVIDER: Osiris Mccall NP Nocturnal polysomnography was performed for evaluation of sleep apnea syndrome symptoms in this patient with a history of excessive daytime somnolence, comorbidities of cardiac dysrhythmias. 7 hours and 3 minutes of data were reviewed. There were 307 minutes of sleep identified. Sleep latency was normal at 34 minutes. Rapid eye movement (REM) latency was short at 59 minutes. Sleep architecture showed fragmentation. Sleep progression was fair. There were two REM periods appreciated. Overall efficiency was 73%. The patient's electrocardiogram (EKG) showed an irregular rhythm with frequent ectopic beats. Underlying rhythm atrial fibrillation. Ventricular response rate was 58 beats per minute. Electroencephalogram (EEG) showed reasonably normal waveforms for awake and sleep. There were 81 respiratory events identified of 10 seconds in duration or greater for an apnea-hypopnea index of 15.8. 24 of these events were central or mixed in description. Respiratory events were not exclusive to sleep stage nor body posture. Arousals from respiratory events occurred 10.6 times per hour when arousals from snoring were included, and oxygen desaturations were seen into the 70s. Remaining measures of sleep physiology were normal. IMPRESSION: Obstructive sleep apnea syndrome (G47.33). Apnea-hypopnea index 15.8. RECOMMENDATION: The patient should be encouraged to return to the sleep disorder center for pressure therapy. In the interim, alcohol and sedative avoidance should be practiced and caution exercised during the operation of motor vehicles.
== END ==
LOC: M SLEEP 21:45
PROVIDERS: ATTEND Nurse Practitioner Adult Health
DX: G47.33 Obstructive sleep apnea (adult) (pediatric) (principal)

== ENCOUNTER 2017-03-21 13:08 | Day surgery (SDC) | payer MEDICARE, OTHER ==
[~2017-03-21] VITALS: Ht 172.7 cm; Wt 103.9 kg
[2017-03-21] MEDS ORDERED: LR 1,000 ML IV SCH ×2 (13:15→21:15)
[2017-03-21] MEDS ORDERED: BUPIVACAINE HCL 0.25% 30 ML VIAL As Ordered ONE (18:21)
[2017-03-21] MEDS ORDERED: PROPOFOL 200 MG/20 ML VIAL As Ordered ONE (19:19)
[2017-03-21] MEDS ORDERED: LIDOCAINE 2% INJ 100 MG/5 ML SDV (FOR ANES.) As Ordered ONE (19:19)
[2017-03-21] MEDS ORDERED: ONDANSETRON 4MG/2ML VIAL (J2405) As Ordered ONE (19:19)
[2017-03-21] MEDS ORDERED: fentaNYL 250 MCG/5 ML INJECTION (J3010) As Ordered ONE (19:19)
[2017-03-21] MEDS ORDERED: ROCURONIUM BROMIDE 50 MG/5 ML VIAL As Ordered ONE ×2 (19:19→19:46)
[2017-03-21] MEDS ORDERED: dexameTHASONE 4 MG/ML 1ML VIAL (J1100) As Ordered ONE (19:19)
[2017-03-21] MEDS ORDERED: MIDAZOLAM INJ 2 MG/2 ML VIAL (J2250) As Ordered ONE (19:19)
[2017-03-21] MEDS ORDERED: KETOROLAC 60 MG/2 ML VIAL (J1885) As Ordered ONE (19:20)
[2017-03-21] MEDS ORDERED: PHENYLephrine HCL 500 MCG/5 ML (100MCG/ML) SYRINGE (J2370) As Ordered ONE (19:33)
[2017-03-21] MEDS ORDERED: NEOSTIGMINE 1MG/ML 5 ML SYRINGE (J2710) As Ordered ONE (19:46)
[2017-03-21] MEDS ORDERED: GLYCOPYRROLATE INJ 0.2 MG/ML 2 ML VIAL As Ordered ONE (19:46)
[2017-03-21] MEDS ORDERED: PRAVASTATIN 20 MG TAB PO SCH (21:00)
[2017-03-21] MEDS ORDERED: METOCLOPRAMIDE INJ 10MG/2ML VIAL (J2765) IV PRN (21:15)
[2017-03-21] MEDS ORDERED: PERCOCET 5MG/325MG TAB PO PRN (21:15)
[2017-03-21] MEDS ORDERED: ONDANSETRON 4MG/2ML VIAL (J2405) IV PRN (21:15)
[2017-03-21] MEDS ORDERED: fentaNYL 100 MCG/2 ML INJECTION (J3010) IV PRN (21:15)
[2017-03-21] MEDS ORDERED: MEPERIDINE INJ 25 MG/ML VIAL (J2175) IV PRN (21:15)
[2017-03-21] MEDS ORDERED: ALBUTEROL 90 MCG/ACT 8GM HFA INHALER INH PRN (21:30)
[2017-03-21 22:30] VITALS: BP 134/78
[2017-03-21] MEDS ORDERED: NORCO, ANEXSIA 5/325MG TABLET (HYDROcodone/ACETAMINOPHEN) PO PRN (22:45)
[2017-03-21 23:00] VITALS: BP 150/78
[2017-03-22] VITALS (9 sets, daily range): BP systolic 107–148; BP diastolic 72–85
[2017-03-22] MEDS: NORCO, ANEXSIA 5/325MG TABLET (HYDROcodone/ACETAMINOPHEN) PO PRN ×3 (00:18→13:25)
--- NOTE | 2017-03-22 07:55 | RO ---
DATE OF PROCEDURE: 03/21/2017 PREOPERATIVE DIAGNOSIS: Cholelithiasis and recent pancreatitis. POSTOPERATIVE DIAGNOSIS: Cholelithiasis with marked chronic cholecystitis. PROCEDURE PERFORMED: Laparoscopic cholecystectomy. SURGEON: Dr. Alfonso Okeefe. PATTERN VAULT CLERK: Brandin. ANESTHESIA: General. ESTIMATED BLOOD LOSS: INDICATIONS FOR PROCEDURE: Patient is a 71-year-old man who was admitted to the hospital in mid December with some upper abdominal pain and some mild elevations of his lipase suggestive of pancreatitis. He was found to have gallstones. The patient is now for a laparoscopic cholecystectomy. OPERATIVE PROCEDURE: The patient was placed on the operating table in a supine position. He was placed under general endotracheal anesthesia. The patient's abdomen was prepped and draped in sterile fashion. Thromboembolic deterrent stockings (TEDS) and sequential were utilized. 0.25% Marcaine was infiltrated at each of the trocar sites. A short supraumbilical midline incision was made and deepened into the abdomen without difficulty. A Real cannula was inserted and the abdomen was insufflated with carbon dioxide gas. The laparoscope was inserted and initial examination showed abundant omental fat folded up over the right side of the liver completely obscuring the liver. It was also noted that he had a long distance from the umbilicus to the level of the gallbladder. The patient was tilted to a reverse Trendelenburg position and rolled to the left. A 5 mm trocar was placed in the left upper quadrant. The omentum was pulled down off of the right lobe of the liver. The gallbladder could be identified. The gallbladder was found to be quite pale and obviously thick-walled with some filmy adhesions to the surrounding omentum. The gallbladder was hard consistent with either extensive fibrosis or extensive gallstone disease. Two 5 mm trocars were placed in the right upper quadrant. It was very difficult to grasp the gallbladder but there were several spots where it was softer and the gallbladder could be grasped. The filmy adhesions about the gallbladder were lysed. There were more extensive adhesions around the gallbladder neck and proximal body. The gallbladder was obviously thickly fibrotic. With careful dissection of the gallbladder neck, the cystic duct was identified. Dissection was carried through the scar tissue around the neck of the gallbladder very carefully. No significant blood vessels were identified in the tissues adjacent to the gallbladder. After clearly identifying the cystic duct, this was doubly clipped with hemoclips and divided. The dissection of the gallbladder proceeded. The wall was quite thickened and fibrotic. As the gallbladder was peeled off of the gallbladder bed, an opening was made in the gallbladder wall. The gallbladder had no liquid contents but had extensive pale yellow gold angular stones packing the lumen of the gallbladder. Several were released into the subhepatic space but most remained within the gallbladder. Dissection proceeded up along the gallbladder to free it from the gallbladder bed. The gallbladder was then placed in an Endopouch. Several loose stones were identified and placed within the Endopouch as well. The right upper quadrant was copiously irrigated and inspected. Inspection showed no evidence of bile leak and there was no bleeding. No residual loose stones were identified. The patient was returned to a flat position. The abdomen was deflated and the trocars were removed. The gallbladder was recovered through the Acosta site after incising the fascia an additional 5-10 mm. The fascia at the Acosta site was closed with interrupted simple sutures of #2-0 Vicryl. The skin incisions were all closed with buried #5-0 Vicryl and Steri-Strips. Light dressings were applied. The patient tolerated the procedure well without apparent complication. He was awakened in the operating room, extubated and moved to the recovery room in stable condition.
[2017-03-22] MEDS ORDERED: amLODIPine 5 MG TAB PO SCH (09:00)
== END 2017-03-22 17:45 | disposition home or self-care (01) ==
LOC: M SDC 13:08 → UNDOADMIN 22:03 → M PED 22:03 → M SDC 03-22 17:45
PROVIDERS: ATTEND Surgery
DX: K80.18 Calculus of gallbladder with other cholecystitis without obstruction (principal); I48.91 Unspecified atrial fibrillation; Z95.0 Presence of cardiac pacemaker; Z79.82 Long term (current) use of aspirin; Z79.899 Other long term (current) drug therapy; I10 Essential (primary) hypertension; J44.9 Chronic obstructive pulmonary disease, unspecified; E78.5 Hyperlipidemia, unspecified
CPT/HCPCS: 47562; 88304; J1100; J1885; J2250; J2370; J2405; J2710; J3010

== ENCOUNTER → 2017-04-16 | Outpatient (CLI) | payer MEDICARE, OTHER ==
--- NOTE | 2017-05-01 07:54 | SLEEPCENT ---
DATE OF STUDY: 04/16/2017 REQUESTING PROVIDER: Osiris Mccall NP INTERPRETATION: Nocturnal polysomnography was performed for the titration of pressure therapy in this patient with obstructive sleep apnea syndrome, apnea hypopnea index of 16. For testing, a ResMed Quattro full face mask of medium size was used 4 cm of water pressure were initially applied to the circuit and the lights were extinguished. 7 hours and 53 minutes of data were reviewed. There were 334 minutes of sleep identified. Sleep latency was normal at 8.5 minutes. Rapid eye movement (REM) latency was normal at 81 minutes. Sleep architecture was fairly good. There were two periods of wake identified which reduced. The sleep efficiency is 71%, but 5 REM periods were also seen. The patient's EKG showed a sinus rhythm with PVCs and an interventricular conduction delay. Average heart rate of 58 beats per minute. EEG showed normal waveforms for awake and sleep. Respiratory events were fully palliated with CPAP at pressure of +9. CPAP tolerance was good. Remaining measures of sleep physiology were normal. IMPRESSION: Obstructive sleep apnea syndrome (G47.33). RECOMMENDATION: Nightly use of pressure therapy 9 cm of water. cc: Carole Altman NP
== END ==
LOC: M SLEEP 19:30
PROVIDERS: ATTEND Nurse Practitioner Adult Health
DX: G47.33 Obstructive sleep apnea (adult) (pediatric) (principal)

== ENCOUNTER → 2017-04-18 | Outpatient (REF) | payer MEDICARE, OTHER ==
[2017-04-18 11:03] LABS: MEAN CORPUSCULAR HEMOGLOBIN 30.3 pg (27.0-33.0); MEAN CORPUSCULAR HGB CONC 33.1 g/dl (32.0-36.5); MEAN CORPUSCULAR VOLUME 91.5 fl (80.0-96.0); RED CELL DISTRIBUTION WIDTH 13.2 % (11.5-14.5); WHITE BLOOD COUNT 7.4 K/mm3 (4.0-10.0)
[2017-04-18 11:08] LABS: ANION GAP 6 MEQ/L (8-16); BLOOD UREA NITROGEN 18 MG/DL (7-18); CALCIUM LEVEL 9.1 MG/DL (8.8-10.2); CARBON DIOXIDE LEVEL 32 MEQ/L (21-32); CHLORIDE LEVEL 104 MEQ/L (98-107); CREATININE FOR GFR 1.08 MG/DL (0.70-1.30); GLOMERULAR FILTRATION RATE > 60.0 (>42); GLUCOSE, FASTING 101 MG/DL (83-110); MAGNESIUM LEVEL 1.9 MG/DL (1.8-2.4); PHOSPHORUS LEVEL 2.9 MG/DL (2.5-4.9); POTASSIUM SERUM 4.2 MEQ/L (3.5-5.1); SODIUM LEVEL 142 MEQ/L (136-145)
== END ==
LOC: M LABDRAWP 10:49
PROVIDERS: ATTEND Internal Medicine Cardiovascular Disease
DX: I48.1 Persistent atrial fibrillation (principal); I50.33 Acute on chronic diastolic (congestive) heart failure

== ENCOUNTER → 2017-08-08 | Outpatient (REF) | payer MEDICARE, OTHER ==
[~2017-08-08] MED LIST changes: -CALCTAB43 PO; +CALCTAB74 PO; +METO1TAB32 PO; -METO25TA74 PO
[2017-08-08 16:28] LABS: ALBUMIN/GLOBULIN RATIO 1.38 (1.00-1.93); ALKALINE PHOSPHATASE 69 U/L (45-117); ALT/SGPT 27 U/L (12-78); ANION GAP 8 MEQ/L (8-16); AST/SGOT 15 U/L (15-37); BILIRUBIN,TOTAL 0.5 MG/DL (0.2-1.0); BLOOD UREA NITROGEN 20 MG/DL (7-18); CALCIUM LEVEL 9.2 MG/DL (8.8-10.2); CARBON DIOXIDE LEVEL 32 MEQ/L (21-32); CHLORIDE LEVEL 104 MEQ/L (98-107); CREATININE FOR GFR 0.92 MG/DL (0.70-1.30); GLOMERULAR FILTRATION RATE > 60.0 (>42); GLUCOSE, FASTING 97 MG/DL (83-110); POTASSIUM SERUM 4.1 MEQ/L (3.5-5.1); SODIUM LEVEL 144 MEQ/L (136-145); TOTAL PROTEIN 6.9 GM/DL (6.4-8.2)
[2017-08-08 16:49] LABS: BASO % 0.6 % (0.0-1.0); EOS # 0.1 K/mm3 (0.0-0.50); EOS % 0.9 % (0.0-3.0); LYMPH # 2.9 K/mm3 (1.5-4.5); MEAN CORPUSCULAR HEMOGLOBIN 30.4 pg (27.0-33.0); MEAN CORPUSCULAR HGB CONC 32.8 g/dl (32.0-36.5); MEAN CORPUSCULAR VOLUME 92.8 fl (80.0-96.0); MONO # 0.6 K/mm3 (0.0-0.8); MONO % 6.4 % (0.0-5.0); NEUTROPHILS # 5.1 K/mm3 (1.8-7.7); NEUTROPHILS % 58.9 % (36.0-66.0); RED CELL DISTRIBUTION WIDTH 13.3 % (11.5-14.5); WHITE BLOOD COUNT 8.7 K/mm3 (4.0-10.0)
== END ==
LOC: M LABDRAW1 13:07
PROVIDERS: ATTEND Internal Medicine Cardiovascular Disease
DX: R42 Dizziness and giddiness (principal); R94.31 Abnormal electrocardiogram [ECG] [EKG]

== ENCOUNTER → 2017-09-05 | Outpatient (REF) | payer MEDICARE, OTHER ==
[2017-09-05 12:51] LABS: ALBUMIN/GLOBULIN RATIO 1.25 (1.00-1.93); ALKALINE PHOSPHATASE 75 U/L (45-117); ALT/SGPT 26 U/L (12-78); ANION GAP 8 MEQ/L (8-16); AST/SGOT 18 U/L (15-37); BILIRUBIN,TOTAL 0.8 MG/DL (0.2-1.0); BLOOD UREA NITROGEN 15 MG/DL (7-18); CALCIUM LEVEL 9.3 MG/DL (8.8-10.2); CARBON DIOXIDE LEVEL 31 MEQ/L (21-32); CHLORIDE LEVEL 105 MEQ/L (98-107); CHOLESTEROL LEVEL 131 MG/DL (<200); CREATININE FOR GFR 0.98 MG/DL (0.70-1.30); GLOMERULAR FILTRATION RATE > 60.0 (>42); GLUCOSE, FASTING 108 MG/DL (83-110); SODIUM LEVEL 144 MEQ/L (136-145); TOTAL PROTEIN 7.2 GM/DL (6.4-8.2); TRIGLYCERIDES LEVEL 66 MG/DL (<150)
== END ==
LOC: M SFHCPLAZ 07:20
PROVIDERS: ATTEND Nurse Practitioner Family
DX: E78.2 Mixed hyperlipidemia (principal); I11.9 Hypertensive heart disease without heart failure; E11.9 Type 2 diabetes mellitus without complications; Z12.5 Encounter for screening for malignant neoplasm of prostate; E55.9 Vitamin D deficiency, unspecified
CPT/HCPCS: 36415; 80053; 80061; 82043; 82306; 83036; G0103

== ENCOUNTER → 2018-03-02 | Outpatient (REF) | payer MEDICARE, OTHER ==
[2018-03-02 11:13] LABS: BASO % 0.6 % (0.0-1.0); EOS % 0.6 % (0.0-3.0); HEMATOCRIT 42.7 % (42.0-52.0); HEMOGLOBIN 14.5 g/dl (13.5-17.5); IMMATURE GRANULOCYTE % 0.3 % (0-3.0); LYMPH # 1.9 10^3/uL (1.5-4.5); LYMPH % 26.6 % (24.0-44.0); MEAN CORPUSCULAR HEMOGLOBIN 30.9 pg (27.0-33.0); MONO # 0.5 10^3/uL (0.0-0.8); MONO % 7.3 % (0.0-5.0); NEUTROPHILS # 4.6 10^3/uL (1.8-7.7); NEUTROPHILS % 64.6 % (36.0-66.0); PLATELET COUNT, AUTOMATED 197 10^3/uL (150-450); RED BLOOD COUNT 4.69 10^6/uL (4.30-6.10); RED CELL DISTRIBUTION WIDTH 12.9 % (11.5-14.5); WHITE BLOOD COUNT 7.1 10^3/uL (4.0-10.0)
[2018-03-02 11:31] LABS: ALBUMIN 4.1 GM/DL (3.2-5.2); ALBUMIN/GLOBULIN RATIO 1.37 (1.00-1.93); ALKALINE PHOSPHATASE 79 U/L (45-117); ALT/SGPT 24 U/L (12-78); ANION GAP 7 MEQ/L (8-16); AST/SGOT 16 U/L (7-37); BLOOD UREA NITROGEN 20 MG/DL (7-18); CALCIUM LEVEL 9.6 MG/DL (8.8-10.2); CARBON DIOXIDE LEVEL 30 MEQ/L (21-32); CHLORIDE LEVEL 105 MEQ/L (98-107); CREATININE FOR GFR 1.12 MG/DL (0.70-1.30); GLOMERULAR FILTRATION RATE > 60.0 (>42); GLUCOSE, FASTING 146 MG/DL (70-100); POTASSIUM SERUM 4.1 MEQ/L (3.5-5.1); SODIUM LEVEL 142 MEQ/L (136-145); TOTAL PROTEIN 7.1 GM/DL (6.4-8.2)
== END ==
LOC: M LABDRAW1 10:44
DX: I48.2 Chronic atrial fibrillation (principal); R94.31 Abnormal electrocardiogram [ECG] [EKG]; I50.32 Chronic diastolic (congestive) heart failure
CPT/HCPCS: 80053

== ENCOUNTER → 2018-03-14 | Outpatient (REF) | payer MEDICARE, OTHER ==
[2018-03-14 11:43] LABS: ALBUMIN 3.8 GM/DL (3.2-5.2); ALBUMIN/GLOBULIN RATIO 1.31 (1.00-1.93); ALKALINE PHOSPHATASE 72 U/L (45-117); ALT/SGPT 19 U/L (12-78); ANION GAP 6 MEQ/L (8-16); AST/SGOT 18 U/L (7-37); BILIRUBIN,TOTAL 0.7 MG/DL (0.2-1.0); BLOOD UREA NITROGEN 20 MG/DL (7-18); CALCIUM LEVEL 9.1 MG/DL (8.8-10.2); CARBON DIOXIDE LEVEL 30 MEQ/L (21-32); CHLORIDE LEVEL 107 MEQ/L (98-107); CREATININE FOR GFR 1.14 MG/DL (0.70-1.30); GLOMERULAR FILTRATION RATE > 60.0 (>42); GLUCOSE, FASTING 117 MG/DL (70-100); SODIUM LEVEL 143 MEQ/L (136-145); TOTAL PROTEIN 6.7 GM/DL (6.4-8.2)
[2018-03-14 12:36] LABS: ESTIMATED AVERAGE GLUCOSE 151 MG/DL (60-110); HEMOGLOBIN A1c 6.9 %
== END ==
LOC: M SFHCPLAZ 07:08
DX: E11.9 Type 2 diabetes mellitus without complications (principal)
CPT/HCPCS: 80053

== ENCOUNTER → 2018-09-11 | Outpatient (REF) | payer MEDICARE, OTHER ==
[2018-09-11 11:13] LABS: BASO % 0.5 % (0.0-1.0); EOS # 0.1 10^3/uL (0.0-0.50); EOS % 0.8 % (0.0-3.0); HEMATOCRIT 41.5 % (42.0-52.0); HEMOGLOBIN 13.5 g/dl (13.5-17.5); IMMATURE GRANULOCYTE % 0.3 % (0-3.0); LYMPH # 1.9 10^3/uL (1.5-4.5); LYMPH % 29.2 % (24.0-44.0); MEAN CORPUSCULAR HEMOGLOBIN 30.8 pg (27.0-33.0); MEAN CORPUSCULAR HGB CONC 32.5 g/dl (32.0-36.5); MEAN CORPUSCULAR VOLUME 94.5 fl (80.0-96.0); MONO # 0.5 10^3/uL (0.0-0.8); MONO % 8.1 % (0.0-5.0); NEUTROPHILS % 61.1 % (36.0-66.0); PLATELET COUNT, AUTOMATED 195 10^3/uL (150-450); RED BLOOD COUNT 4.39 10^6/uL (4.30-6.10); RED CELL DISTRIBUTION WIDTH 12.7 % (11.5-14.5); WHITE BLOOD COUNT 6.6 10^3/uL (4.0-10.0)
[2018-09-11 11:26] LABS: ALBUMIN 3.6 GM/DL (3.2-5.2); ALBUMIN/GLOBULIN RATIO 1.29 (1.00-1.93); ALKALINE PHOSPHATASE 76 U/L (45-117); ALT/SGPT 20 U/L (12-78); ANION GAP 6 MEQ/L (8-16); AST/SGOT 16 U/L (7-37); BILIRUBIN,TOTAL 0.7 MG/DL (0.2-1.0); BLOOD UREA NITROGEN 19 MG/DL (7-18); CALCIUM LEVEL 8.6 MG/DL (8.8-10.2); CARBON DIOXIDE LEVEL 31 MEQ/L (21-32); CHLORIDE LEVEL 105 MEQ/L (98-107); CHOLESTEROL LEVEL 125 MG/DL (<200); CHOLESTEROL RISK RATIO 3.048 (<5); CREATININE FOR GFR 1.01 MG/DL (0.70-1.30); GLOMERULAR FILTRATION RATE > 60.0 (>42); GLUCOSE, FASTING 107 MG/DL (70-100); HDL CHOLESTEROL 41 MG/DL (>40); LDL CHOLESTEROL 65 MG/DL (<100); NON-HDL-C 84 MG/DL; NT-PRO BNP 639 PG/ML (<450); SODIUM LEVEL 142 MEQ/L (136-145); TOTAL PROTEIN 6.4 GM/DL (6.4-8.2); TRIGLYCERIDES LEVEL 93 MG/DL (<150)
[2018-09-11 11:34] LABS: GOLD SPEC TUBE RECIEVED
== END ==
LOC: M LABDRAW1 10:55
DX: I50.32 Chronic diastolic (congestive) heart failure (principal); I48.2 Chronic atrial fibrillation; Z68.35 Body mass index [BMI] 35.0-35.9, adult; R94.31 Abnormal electrocardiogram [ECG] [EKG]; I11.0 Hypertensive heart disease with heart failure
CPT/HCPCS: 80053

== ENCOUNTER → 2018-09-12 | Outpatient (REF) | payer MEDICARE, OTHER ==
[2018-09-12 12:03] LABS: ESTIMATED AVERAGE GLUCOSE 137 MG/DL (60-110); HEMOGLOBIN A1c 6.4 %
[2018-09-12 12:07] LABS: PSA SCREENING 3.62 NG/ML (< 4.0)
[2018-09-12 12:07] LABS: TOTAL 25(OH) VITAMIN D 33.9 NG/ML (30.0-100.0)
[2018-09-12 12:57] LABS: MALB URINE SIEMENS 42.7 MG/L; MAU/CREAT RATIO 17.9 MCG/MG (0.0-30.0)
== END ==
LOC: M SFHCPLAZ 08:19
DX: E11.9 Type 2 diabetes mellitus without complications (principal); Z12.5 Encounter for screening for malignant neoplasm of prostate; E55.9 Vitamin D deficiency, unspecified; E66.01 Morbid (severe) obesity due to excess calories; Z68.35 Body mass index [BMI] 35.0-35.9, adult; Z23 Encounter for immunization
CPT/HCPCS: 83036

== ENCOUNTER → 2019-03-05 | Outpatient (REF) | payer MEDICARE, OTHER ==
[~2019-03-05] MED LIST changes: -AMLO5TAB2 PO; +AMLO5TAB6 PO; -ASPI1TAB PO; +ASPI81TA26 PO
[2019-03-05 16:02] LABS: ALT/SGPT 18 U/L (12-78); BILIRUBIN,TOTAL 0.7 MG/DL (0.2-1.0); BLOOD UREA NITROGEN 20 MG/DL (7-18); CALCIUM LEVEL 9.1 MG/DL (8.8-10.2); CARBON DIOXIDE LEVEL 29 MEQ/L (21-32); CHLORIDE LEVEL 106 MEQ/L (98-107); CREATININE FOR GFR 1.09 MG/DL (0.70-1.30); GLOMERULAR FILTRATION RATE > 60.0 (>42); GLUCOSE, FASTING 105 MG/DL (70-100); POTASSIUM SERUM 4.5 MEQ/L (3.5-5.1); SODIUM LEVEL 141 MEQ/L (136-145); TOTAL PROTEIN 6.8 GM/DL (6.4-8.2)
[2019-03-05 16:19] LABS: HEMOGLOBIN A1c 6.5 %
== END ==
LOC: M LABDRAW1 15:36
PROVIDERS: ATTEND Nurse Practitioner Family
DX: E11.9 Type 2 diabetes mellitus without complications (principal)

== ENCOUNTER → 2019-07-10 | Outpatient (REF) | payer MEDICARE, OTHER ==
[2019-07-10 11:07] LABS: ALT/SGPT 21 U/L (12-78); BILIRUBIN,TOTAL 1.1 MG/DL (0.2-1.0); BLOOD UREA NITROGEN 17 MG/DL (7-18); CALCIUM LEVEL 9.4 MG/DL (8.8-10.2); CARBON DIOXIDE LEVEL 32 MEQ/L (21-32); CHLORIDE LEVEL 105 MEQ/L (98-107); CHOLESTEROL LEVEL 115 MG/DL (<200); CHOLESTEROL RISK RATIO 2.738 (<5); CREATININE FOR GFR 1.05 MG/DL (0.70-1.30); GLOMERULAR FILTRATION RATE > 60.0 (>42); GLUCOSE, FASTING 115 MG/DL (70-100); HDL CHOLESTEROL 42 MG/DL (>40); LDL CHOLESTEROL 54 MG/DL (<100); NON-HDL-C 73 MG/DL; POTASSIUM SERUM 3.8 MEQ/L (3.5-5.1); SODIUM LEVEL 142 MEQ/L (136-145); TRIGLYCERIDES LEVEL 96 MG/DL (<150)
[2019-07-10 11:13] LABS: TOTAL 25(OH) VITAMIN D 33.7 NG/ML (30.0-100.0)
[2019-07-10 11:17] LABS: HEMOGLOBIN A1c 6.8 %
[2019-07-10 11:51] LABS: MALB URINE SIEMENS 16.3 MG/L
== END ==
LOC: M SFHCPLAZ 07:17
PROVIDERS: ATTEND Nurse Practitioner Family
DX: Z12.5 Encounter for screening for malignant neoplasm of prostate (principal); E11.9 Type 2 diabetes mellitus without complications; E78.2 Mixed hyperlipidemia; E55.9 Vitamin D deficiency, unspecified; Z79.82 Long term (current) use of aspirin; Z79.899 Other long term (current) drug therapy
CPT/HCPCS: 36415; 80053; 80061; 82043; 82306; 83036; G0103

== ENCOUNTER → 2020-02-18 | Outpatient (REF) | payer MEDICARE, OTHER ==
[2020-02-18 10:14] LABS: BASO # 0.1 10^3/uL (0.0-0.2); BASO % 0.6 % (0.0-1.0); EOS # 0.1 10^3/uL (0.0-0.5); EOS % 0.7 % (0.0-3.0); HEMATOCRIT 46.7 % (42.0-52.0); HEMOGLOBIN 15.4 g/dl (13.5-17.5); LYMPH # 3.2 10^3/uL (1.5-5.0); LYMPH % 35.4 % (24.0-44.0); MEAN CORPUSCULAR HEMOGLOBIN 30.7 pg (27.0-33.0); MEAN CORPUSCULAR VOLUME 93.2 fl (80.0-96.0); MONO # 0.7 10^3/uL (0.0-0.8); MONO % 7.6 % (0.0-5.0); NEUTROPHILS % 55.4 % (36.0-66.0); PLATELET COUNT, AUTOMATED 220 10^3/uL (150-450); RED BLOOD COUNT 5.01 10^6/uL (4.30-6.10); WHITE BLOOD COUNT 9.1 10^3/uL (4.0-10.0)
[2020-02-18 10:43] LABS: ALBUMIN 4.2 GM/DL (3.2-5.2); ALT/SGPT 21 U/L (12-78); BILIRUBIN,TOTAL 0.8 MG/DL (0.2-1.0); BLOOD UREA NITROGEN 25 MG/DL (7-18); CALCIUM LEVEL 10.2 MG/DL (8.8-10.2); CARBON DIOXIDE LEVEL 33 MEQ/L (21-32); CHLORIDE LEVEL 103 MEQ/L (98-107); CREATININE FOR GFR 1.13 MG/DL (0.70-1.30); GLOMERULAR FILTRATION RATE > 60.0 (>42); GLUCOSE, FASTING 125 MG/DL (70-100); NT-PRO BNP 307 PG/ML (<450); POTASSIUM SERUM 4.2 MEQ/L (3.5-5.1); SODIUM LEVEL 143 MEQ/L (136-145); TOTAL PROTEIN 7.6 GM/DL (6.4-8.2)
== END ==
LOC: M LABDRAW1 08:50
PROVIDERS: ATTEND Internal Medicine Cardiovascular Disease
DX: I50.32 Chronic diastolic (congestive) heart failure (principal); I48.21 Permanent atrial fibrillation

== ENCOUNTER → 2020-03-18 | Outpatient (REF) | payer MEDICARE, OTHER ==
[~2020-03-18] MED LIST changes: +AMLO1TAB24 PO; -AMLO5TAB6 PO
[2020-03-18 10:50] LABS: ALT/SGPT 34 U/L (12-78); BILIRUBIN,TOTAL 0.8 MG/DL (0.2-1.0); BLOOD UREA NITROGEN 22 MG/DL (7-18); CALCIUM LEVEL 9.6 MG/DL (8.8-10.2); CARBON DIOXIDE LEVEL 33 MEQ/L (21-32); CHLORIDE LEVEL 104 MEQ/L (98-107); GLOMERULAR FILTRATION RATE > 60.0 (>42); GLUCOSE, FASTING 115 MG/DL (70-100); POTASSIUM SERUM 4.3 MEQ/L (3.5-5.1); SODIUM LEVEL 142 MEQ/L (136-145); TOTAL PROTEIN 7.3 GM/DL (6.4-8.2)
[2020-03-18 10:55] LABS: TOTAL 25(OH) VITAMIN D 30.4 NG/ML (30.0-100.0)
== END ==
LOC: M SFHCPLAZ 08:44
PROVIDERS: ATTEND Family Medicine
DX: I11.9 Hypertensive heart disease without heart failure (principal); E11.9 Type 2 diabetes mellitus without complications; E55.9 Vitamin D deficiency, unspecified
CPT/HCPCS: 80053; 82306; 83036; G0463

== ENCOUNTER → 2021-03-26 | Outpatient (REF) | payer MEDICARE, OTHER ==
[2021-03-26 12:20] LABS: ALT/SGPT 23 U/L (12-78); BILIRUBIN,TOTAL 1.2 MG/DL (0.2-1.0); BLOOD UREA NITROGEN 19 MG/DL (7-18); CALCIUM LEVEL 9.4 MG/DL (8.8-10.2); CARBON DIOXIDE LEVEL 30 MEQ/L (21-32); CHLORIDE LEVEL 105 MEQ/L (98-107); CHOLESTEROL LEVEL 130 MG/DL (<200); CREATININE FOR GFR 0.96 MG/DL (0.70-1.30); GLOMERULAR FILTRATION RATE > 60.0 (>42); GLUCOSE, FASTING 133 MG/DL (70-100); HDL CHOLESTEROL 46 MG/DL (>40); POTASSIUM SERUM 4.1 MEQ/L (3.5-5.1); SODIUM LEVEL 140 MEQ/L (136-145); TRIGLYCERIDES LEVEL 102 MG/DL (<150)
[2021-03-26 12:21] LABS: ALBUMIN 4.2 GM/DL (3.2-5.2); CHOLESTEROL RISK RATIO 2.826 (<5); FREE T4 1.06 NG/DL (0.76-1.46); LDL CHOLESTEROL 64 MG/DL (<100); NON-HDL-C 84 MG/DL; TOTAL 25(OH) VITAMIN D 32.4 NG/ML (30.0-100.0); TOTAL PROTEIN 7.1 GM/DL (6.4-8.2)
[2021-03-26 12:24] LABS: MALB URINE SIEMENS 32.3 MG/L; MAU/CREAT RATIO 13.5 MCG/MG (0.0-30.0)
[2021-03-26 12:37] LABS: HEMOGLOBIN A1c 6.5 %
== END ==
LOC: M PLALAB 08:54
PROVIDERS: ATTEND Nurse Practitioner Family
DX: E11.9 Type 2 diabetes mellitus without complications (principal); Z12.5 Encounter for screening for malignant neoplasm of prostate; E78.2 Mixed hyperlipidemia; E55.9 Vitamin D deficiency, unspecified
CPT/HCPCS: 36415; 80053; 80061; 82043; 82306; 83036; 84439; 84443; G0103

== ENCOUNTER → 2021-08-24 | Outpatient (CLI) | payer MEDICARE, OTHER ==
[2021-08-24 10:56] LABS: ALBUMIN 3.8 GM/DL (3.2-5.2); ALT/SGPT 38 U/L (12-78); BILIRUBIN,TOTAL 0.9 MG/DL (0.2-1.0); BLOOD UREA NITROGEN 21 MG/DL (7-18); CALCIUM LEVEL 9.5 MG/DL (8.8-10.2); CARBON DIOXIDE LEVEL 33 MEQ/L (21-32); CHLORIDE LEVEL 104 MEQ/L (98-107); CREATININE FOR GFR 1.06 MG/DL (0.70-1.30); GLOMERULAR FILTRATION RATE > 60.0 (>42); GLUCOSE, FASTING 142 MG/DL (70-100); POTASSIUM SERUM 4.1 MEQ/L (3.5-5.1); SODIUM LEVEL 141 MEQ/L (136-145); TOTAL PROTEIN 6.9 GM/DL (6.4-8.2)
[2021-08-24 11:01] LABS: TOTAL 25(OH) VITAMIN D 32.4 NG/ML (30.0-100.0)
[2021-08-24 11:41] LABS: CREATININE, URINE 30.2 MG/DL; MALB URINE SIEMENS 5.7 MG/L; MAU/CREAT RATIO 18.8 MCG/MG (0.0-30.0)
[2021-08-24 11:58] LABS: HEMOGLOBIN A1c 6.6 %
== END ==
LOC: M PLALAB 08:07
PROVIDERS: ATTEND Nurse Practitioner Family
DX: I11.0 Hypertensive heart disease with heart failure (principal); E11.9 Type 2 diabetes mellitus without complications; E55.9 Vitamin D deficiency, unspecified

== ENCOUNTER 2021-10-30 18:59 | Inpatient (IN) | payer MEDICARE, OTHER ==
[~2021-10-30] VITALS: Ht 172.7 cm; Wt 89.5 kg
--- OUTSIDE RECORDS SUMMARY | 2021-10-30 19:04 | CCD ---
Author Author [facility] Organization [facility] Address Unknown Phone Unavailable Support Name Relationship Address Phone RE Next Of Kin Unknown Unavailable ANTONY HIGH Next Of Kin PAM ARREDONDO [place], [place] [id number] RETIRED Next Of Kin [address] [place] [address] NONE, NONE Next Of Kin [address] [place], [place] [phone] Re-disclosure Warning The records that you are about to access may contain information from federally-assisted alcohol or drug abuse programs. If such information is present, then the following federally mandated warning applies: This information has been disclosed to you from records protected by federal confidentiality rules (42 CFR part 2). The federal rules prohibit you from making any further disclosure of this information unless further disclosure is expressly permitted by the written consent of the person to whom it pertains or as otherwise permitted by 42 CFR part 2. A general authorization for the release of medical or other information is NOT sufficient for this purpose. The Federal rules restrict any use of the information to criminally investigate or prosecute any alcohol or drug abuse patient.The records that you are about to access may contain highly sensitive health information, the redisclosure of which is protected by Article 27-F of the [facility] Public Health law. If you continue you may have access to information: Regarding HIV / AIDS; Provided by facilities licensed or operated by the [facility] Office of Mental Health; or Provided by the [facility] Office for People With Developmental Disabilities. If such information is present, then the following [facility] mandated warning applies: This information has been disclosed to you from confidential records which are protected by state law. State law prohibits you from making any further disclosure of this information without the specific written consent of the person to whom it pertains, or as otherwise permitted by law. Any unauthorized further disclosure in violation of state law may result in a fine or [place] [facility] sentence or both. A general authorization for the release of medical or other information is NOT sufficient authorization for further disc losure. Family History Family Member Name Family Member Gender Family Member Status Date o f Status Description Data Source(s) Unknown Unknown Problem [facility] ([facility]) Unknown Male Problem [facility] ([facility] Unknown Male Problem [facility] ([facility] ) Unknown Male Problem [facility] ([facility] Unknown Female Encounters Encounter Providers Location Date Indications Data Source(s ) Outpatient [address] [place] [address] [place] [id number] 09/09/2021 12:00:00 AM EDT eCW1 ([facility]) Unknown [address] [facility] [place] [id number] 08/28/2021 12:00:00 AM EDT eCW1 ([facility]) Unknown [address] [place] [address] [place] [id number] 05/17/2021 12:00:00 AM EDT eCW1 ([facility]) Outpatient [address] [facility] Y [id number] 04/02/2021 12:00:00 AM EDT eCW1 ([facility]) Outpatient [address] [place] [address] Y [id number] 01/01/2021 12:00:00 AM EST eCW1 ([facility]) Unknown [address] [facility] [place] [id number] 12/10/2020 12:00:00 AM EST eCW1 ([facility]) Immunizations Vaccine Date Status Description Data Source(s) influenza, recombinant, quadrIvalent,injectable, prese rvative free 09/09/2021 01:44:00 PM EDT completed eCW1 ([facility]) COVID-19 dose #1 given elsewhere Unspecified 04/02/2021 07:2 8:00 AM EDT completed eCW1 ([facility]) COVID-19 dose #2 given elsewhere Unspecified 04/02/2021 07:2 8:00 AM EDT completed eCW1 ([facility]) COVID-19 dose #2 given elsewhere Unspecified 04/02/2021 07:2 8:00 AM EDT completed eCW1 ([facility]) COVID-19 dose #1 given elsewhere Unspecified 04/02/2021 07:2 8:00 AM EDT completed eCW1 ([facility]) COVID-19 dose #1 given elsewhere Unspecified 04/02/2021 07:2 8:00 AM EDT completed eCW1 ([facility]) COVID-19 dose #2 given elsewhere Unspecified 04/02/2021 07:2 8:00 AM EDT completed eCW1 ([facility]) COVID-19 dose #1 given elsewhere Unspecified 04/02/2021 07:2 8:00 AM EDT completed eCW1 ([facility]) COVID-19 dose #2 given elsewhere Unspecified 04/02/2021 07:2 8:00 AM EDT completed eCW1 ([facility]) COVID-19 VACCINE Moderna 03/02/2021 12:00:00 AM EDT completed [facility] Vaccine Series Complete: YESThis Data wa s Submitted to [facility]. COVID-19 VACCINE Moderna 02/02/2021 12:00:00 AM EDT completed [facility] Vaccine Series Complete: NOThis Data was Submitted to [facility]. INFLUENZA VACCINE QUADRIVALENT (65 YR UP)/MF59 C.1/PF 09/27/2020 12:00:00 AM EST completed [facility] Medications Medication Brand Name Start Date Product Form Dose Route Admi nistrative Instructions Pharmacy Instructions Status Indications Reaction Description Data Source(s) 100 mcg/0.5 mL 09/28/2021 12:00:00 AM EST suspension 0 INJECT DIRECTED (THIRD DOSE) INJECT DIRECTED (THIRD DOSE) SOLD: 09/28/2021 [facility] 50 mg 09/28/2021 12:00:00 AM EST tablet 90 TAKE ONE TABLET BY MOUTH EVERY DAY TAKE ONE TABLET BY MOUTH EVERY DAY SOLD: 09/28/2021 [facility] 40 mg 09/28/2021 12:00:00 AM EST tablet 90 TAKE ONE TABLET BY MOUTH EVERY DAY TAKE ONE TABLET BY MOUTH EVERY DAY SOLD: 09/28/2021 [facility] 40 mg 07/11/2021 12:00:00 AM EDT tablet 90 TAKE ONE TABLET BY MOUTH EVERY DAY FOR HOME WEIGHT >224LBS TAKE ONE TABLET BY MOUTH EVERY DAY FOR H OME WEIGHT >224LBS SOLD: 07/11/2021 [facility] 25 mg 07/11/2021 12:00:00 AM EDT tablet 45 TAKE ONE-HALF TABLET BY MOUTH EVERY DAY TAKE ONE-HALF TABLET BY MOUTH EVERY DAY SOLD: 07/11/2021 [facility] 5 mg 06/18/2021 12:00:00 AM EDT tablet 180 TAKE ONE TABLET BY MOUTH TWICE A DAY TAKE ONE TABLET BY MOUTH TWICE A DAY SOLD: 06/18/2021 [facility] 5 mg 06/08/2021 12:00:00 AM EDT tablet 180 TAKE ONE TABLET BY MOUTH EVERY 12 HOURS TAKE ONE TABLET BY MOUTH EVERY 12 HOURS SOLD: 06/18/2021 [facility] 5 mg 06/08/2021 12:00:00 AM EDT tablet 180 TAKE ONE TABLET BY MOUTH EVERY 12 HOURS TAKE ONE TABLET BY MOUTH EVERY 12 HOURS SOLD: 09/28/2021 [facility] 5 mg 05/17/2021 12:00:00 AM EDT tablet 60 TAKE 1 TABLET BY MOUTH EVERY 12 HOURS TAKE 1 TABLET BY MOUTH EVERY 12 HOURS SOLD: 05/19/2021 [facility] 50 mg 04/02/2021 12:00:00 AM EDT tablet 90 TAKE ONE TABLET BY MOUTH EVERY DAY TAKE ONE TABLET BY MOUTH EVERY DAY SOLD: 04/02/2021 [facility] 50 mg 04/02/2021 12:00:00 AM EDT tablet 90 TAKE ONE TABLET BY MOUTH EVERY DAY TAKE ONE TABLET BY MOUTH EVERY DAY SOLD: 06/30/2021 [facility] 50 mcg (2,000 unit) 04/02/2021 12:00:00 AM EDT tablet 90 TAKE ONE TABLET BY MOUTH EVERY DAY WITH A MEAL TAKE ONE TABLET BY MOUTH EVERY DAY WITH A MEAL SOLD: 09/28/2021 [facility] 40 mg 04/02/2021 12:00:00 AM EDT tablet 90 TAKE ONE TABLET BY MOUTH EVERY DAY TAKE ONE TABLET BY MOUTH EVERY DAY SOLD: 07/06/2021 [facility] 25 mg 04/02/2021 12:00:00 AM EDT tablet 45 TAKE ONE-HALF TABLET BY MOUTH EVERY DAY TAKE ONE-HALF TABLET BY MOUTH EVERY DAY SOLD: 10/22/2021 [facility] 40 mg 04/02/2021 12:00:00 AM EDT tablet 90 TAKE ONE TABLET BY MOUTH EVERY DAY FOR HOME WEIGHT GREATER THAN 224LBS TAKE ONE TABLET BY MOUTH EVERY DAY FOR HOME WEIGHT GREATER THAN 224LBS SOLD: 04/02/2021 [facility] 25 mg 04/02/2021 12:00:00 AM EDT tablet 45 TAKE ONE-HALF TABLET BY MOUTH EVERY DAY TAKE ONE-HALF TABLET BY MOUTH EVERY DAY SOLD: 04/02/2021 [facility] 40 mg 04/02/2021 12:00:00 AM EDT tablet 90 TAKE ONE TABLET BY MOUTH EVERY DAY FOR HOME WEIGHT GREATER THAN 224LBS TAKE ONE TABLET BY MOUTH EVERY DAY FOR HOME WEIGHT GREATER THAN 224LBS SOLD: 10/22/2021 [facility] 50 mcg (2,000 unit) 04/02/2021 12:00:00 AM EDT tablet 90 TAKE ONE TABLET BY MOUTH EVERY DAY WITH A MEAL TAKE ONE TABLET BY MOUTH EVERY DAY WITH A MEAL SOLD: 04/02/2021 [facility] 40 mg 04/02/2021 12:00:00 AM EDT tablet 90 TAKE ONE TABLET BY MOUTH EVERY DAY TAKE ONE TABLET BY MOUTH EVERY DAY SOLD: 04/02/2021 [facility] 600 mg(1,500mg) -200 unit 04/02/2021 12:00:00 AM EDT tablet 90 TAKE ONE TABLET BY MOUTH EVERY DAY WITH A MEAL TAKE ONE TABLET BY MOUTH EVERY DAY WITH A MEAL SOLD: 04/02/2021 [facility] 600 mg-5 mcg (200 unit) 04/02/2021 12:00:00 AM EDT tablet 90 TAKE ONE TABLET BY MOUTH EVERY DAY WITH A MEAL TAKE ONE TABLET BY MOUTH EVERY DAY WITH A MEAL SOLD: 10/22/2021 [facility] Atenolol 50 MG Oral Tablet ATENOLOL 12/29/2020 12:00:00 AM EST tablet 90 TAKE ONE TABLET BY MOUTH EVERY DAY TAKE ONE TABLET BY MOUTH EVERY DAY SOLD: 12/29/2020 [facility] 40 mg 12/29/2020 12:00:00 AM EST tablet 90 TAKE ONE TABLET BY MOUTH EVERY DAY TAKE ONE TABLET BY MOUTH EVERY DAY SOLD: 12/29/2020 [facility] 25 mg 12/10/2020 12:00:00 AM EST tablet 45 TAKE ONE-HALF TABLET BY MOUTH EVERY DAY TAKE ONE-HALF TABLET BY MOUTH EVERY DAY SOLD: 12/11/2020 [facility] 40 mg 12/10/2020 12:00:00 AM EST tablet 90 TAKE ONE TABLET BY MOUTH EVERY DAY FOR HOME WEIGHT GREATER THAN 224 POUNDS TAKE ONE TABLET BY MOUTH EVERY DAY FOR HOME WEIGHT GREATER THAN 224 POUNDS SOLD: 12/11/2020 [facility] 5 mg 12/10/2020 12:00:00 AM EST tablet 180 TAKE ONE TABLET BY MOUTH TWICE A DAY TAKE ONE TABLET BY MOUTH TWICE A DAY SOLD: 12/11/2020 [facility] 5 mg 11/24/2020 12:00:00 AM EST tablet 180 TAKE ONE TABLET BY MOUTH EVERY 12 HOURS TAKE ONE TABLET BY MOUTH EVERY 12 HOURS SOLD: 11/24/2020 [facility] 5 mg 09/27/2020 12:00:00 AM EST tablet 60 TAKE ONE TABLET BY MOUTH EVERY 12 HOURS TAKE ONE TABLET BY MOUTH EVERY 12 HOURS SOLD: 09/27/2020 [facility] 500 mg 08/27/2020 12:00:00 AM EDT tablet 180 TAKE ONE TO TWO TABLETS BY MOUTH EVERY 8 HOURS TAKE ONE TO TWO TABLETS BY MOUTH EVERY 8 HOURS SOLD: 09/08/2020 [facility] 25 mg 08/27/2020 12:00:00 AM EDT tablet 45 TAKE ONE HALF TABLET BY MOUTH ONCE A DAY TAKE ONE HALF TABLET BY MOUTH ONCE A DAY SOLD: 09/08/2020 [facility] 40 mg 08/27/2020 12:00:00 AM EDT tablet 90 TAKE ONE TABLET BY MOUTH EVERY DAY FOR HOME WEIGHT GREATER THAN 224LBS TAKE ONE TABLET BY MOUTH EVERY DAY FOR HOME WEIGHT GREATER THAN 224LBS SOLD: 09/08/2020 [facility] Atenolol 50 MG Oral Tablet ATENOLOL 12/31/2019 12:00:00 AM EST tablet 90 TAKE ONE TABLET BY MOUTH EVERY DAY TAKE ONE TABLET BY MOUTH EVERY DAY SOLD: 09/27/2020 [facility] 40 mg 12/20/2019 12:00:00 AM EST tablet 90 TAKE ONE TABLET BY MOUTH EVERY DAY TAKE ONE TABLET BY MOUTH EVERY DAY SOLD: 09/27/2020 [facility] Insurance Providers Payer name Policy type / Coverage type Policy ID Covered alliance party ID Covered alliance party's relationship to mcknight Policy Mcknight Plan Information [employer]OM[employer] [id number] SP [id number] MEDICARE [id number] SP [id number] A MEDICARE [id number] SP [id number] A [facility] Ppo Medigap Part B [id number] 2..[id number]. [id number] Self [id number] r Medigap Part B [id number] 2..[id number] 375.0 Self [id number] Medicare (Part B) Medicare Primary [id number] 2..[id number] Self 1 [id number] ANSI-Medicare Part B [id number] ANSI-Commercial [id number] ANSI-Commercial [id number] [employer] Ppo Medigap Part B [id number] 2..1.661799.3.227. 99.572.90165.0 Self [id number] r Medigap Part B [id number] 2..1.181276.3.227.99.572.26 375.0 Self [id number] Medicare (Part B) Medicare Primary [id number] 2.0.1.356425.3.227.99.572.49840.0 Self 1 [id number] [facility] PHCS Ppo Medigap Part B [id number] 2.16.840.1.531325.3.227. 99.572.02996.0 Self [id number] [facility] Part B [id number] 2.16.0.1.448298.3.227.99.572.26 375.0 Self [id number] Medicare (Part B) Medicare Primary [id number] 2.16.840.1.566546.3.227.99.572.57925.0 Self 1 [id number] ANSI-Commercial [id number] ANSI-Medicare Part B [id number] ANSI-Commercial [id number] [facility] PH[facility] o [facility] Part B [id number] 2.0..406549.3.227. 99.572.99334.0 Self [id number] [facility] Part B [id number] 2.160.1.524633.3.227.99.572.26 375.0 Self [id number] Medicare (Part B) Medicare Primary [id number] 2.160.1.801308.3.227.99.572.45204.0 Self 1 [id number] ANSI-Medicare Part B [id number] ANSI-Commercial [id number] ANSI-Commercial [id number] ANSI-Medicare Part B [id number] ANSI-Commercial [id number] ANSI-Commercial [id number] ANSI-Medicare Part B [id number] ANSI-Commercial [id number] ANSI-Commercial [id number] [employer] [id number] SP [id number] [facility] Ppo Medigap Part B [id number] .1.578872.3.227. 99.572.36720.0 Self [id number] [facility] Medigap Part B [id number] ..1.831585.3.227.99.572.26 375.0 Self [id number] Medicare (Part B) Medicare Primary [id number] ..1.228549.3.227.99.572.09584.0 Self 1 [id number] [facility] PHCS Ppo Medigap Part B [id number] .1.935481.3.227. 99.572.83055.0 Self [id number] r Medigap Part B [id number] 2.0.1.270546.3.227.99.572.26 375.0 Self [id number] Medicare (Part B) Medicare Primary [id number] 2.0.1.244451.3.227.99.572.16420.0 Self 1 [id number] ANSI-Commercial [id number] ANSI-Medicare Part B [id number] ANSI-Commercial [id number] ANSI-Medicare Part B [id number] ANSI-Commercial [id number] ANSI-Commercial [id number] [facility] Ppo Medigap Part B [id number] 2..1.429358.3.227. 99.572.65675.0 Self [id number] Umr Medigap Part B [id number] 2..1.421586.3.227.99.572.26 375.0 Self [id number] Medicare (Part B) Medicare Primary [id number] 2.16.840.1.421729.3.227.99.572.92235.0 Self 1 [id number] [facility] PH[facility] Ppo Medigap Part B [id number] 2.16.840.1.538186.3.227. 99.572.19964.0 Self [id number] Umr Medigap Part B [id number] 2.16.840.1.514790.3.227.99.572.26 375.0 Self [id number] Medicare (Part B) Medicare Primary [id number] 2.16.840.1.803342.3.227.99.572.88856.0 Self 1 [id number] [facility] PHCS Ppo Medigap Part B [id number] 2.16.840.1.562596.3.227. 99.572.32038.0 Self [id number] Medicare (Part B) Medicare Primary [id number] 2.16.840.1.141349.3.227.99.572.22328.0 Self 1 [id number] Medicare - NGS Medicare Primary [id number] 2.16.840.1.372584.3.227.99.177.05423.0 Self 1 [id number] [facility] Pos Commercial [id number] 2.16.840.1.425604.3.227.99.177.48356.0 Self [id number] Medicare - NGS Medicare Primary [id number] 2.16.840.1.462814.3.227.99.177.75029.0 Self 1 [id number] [facility] PHCS Ppo Medigap Part B [id number] 2.16.840.1.900006.3.227. 99.572.89902.0 Self [id number] Medicare (Part B) Medicare Primary [id number] 2.16.840.1.062401.3.227.99.572.43701.0 Self 1 [id number] [facility] Medigap Part B [id number] 2.16.840.1.155738.3.227.99.8646.678 12.0 Self [id number] [place] Medicare Primary [id number] 2.16.840.1.129340.3.227.99.8646.28065.0 Self [id number] [facility] PHCS Ppo Medigap Part B [id number] 2.16.840.1.485411.3.227. 99.572.52783.0 Self [id number] Medicare (Part B) Medicare Primary [id number] 2.16.840.1.126259.3.227.99.572.22391.0 Self 1 [id number] [facility] PHCS Ppo Medigap Part B [id number] 2.16.840.1.693802.3.227. 99.572.41377.0 Self [id number] Medicare (Part B) Medicare Primary [id number] 2.16.840.1.801895.3.227.99.572.91299.0 Self 1 [id number] [employer] PPO O [id number] S [id number] MEDICARE C [id number] S [id number] A [facility] PHCS Ppo Medigap Part B [id number] 2.16.840.1.527331.3.227. 99.572.50802.0 Self [id number] Medicare (Part B) Medicare Primary [id number] 2.16.840.1.855854.3.227.99.572.42120.0 Self 1 [id number] [facility] PHCS Ppo Medigap Part B [id number] 2.16.840.1.356540.3.227. 99.572.28254.0 Self [id number] Medicare (Part B) Medicare Primary [id number] 2.16.840.1.663765.3.227.99.572.84177.0 Self 1 [id number] [facility] Medigap Part B [id number] 2.16.840.1.020229.3.227.99.8646.678 12.0 Self [id number] [place] Medicare Primary [id number] 2.16.840.1.767023.3.227.99.8646.55541.0 Self [id number] [facility] PHCS Ppo Medigap Part B [id number] 2.16.840.1.195059.3.227. 99.572.14680.0 Self [id number] Medicare (Part B) Medicare Primary [id number] 2.16.840.1.831808.3.227.99.572.57701.0 Self 1 [id number] [facility] PHCS Ppo Medigap Part B [id number] 2.16.840.1.980169.3.227. 99.572.72724.0 Self [id number] Medicare (Part B) Medicare Primary [id number] 2.16.840.1.339051.3.227.99.572.26774.0 Self 1 [id number] [facility] PH[facility] Ppo Medigap Part B [id number] 2.16.840.1.285823.3.227. 99.572.96813.0 Self [id number] Medicare (Part B) Medicare Primary [id number] 2.16.840.1.864571.3.227.99.572.79493.0 Self 1 [id number] [employer] PPO O [id number] S [id number] [facility] Medigap Part B [id number] Self Medicare Medicare Primary [id number] Self [employer]OMCO [id number] SP [id number] [facility] Commercial [id number] Self [place] Primary [id number] Self MEDICARE [id number] SP [id number] [facility] [id number] SP [id number] Problems, Conditions, and Diagnoses Code Display Name Description Problem Type Effective Dates Data Source(s) I48.21 Permanent atrial fibrillation Permanent atrial fibrill ation Problem 08/02/2021 12:00:00 AM EDT [facility] ([facility]) I27.81 Chronic cor pulmonale Chronic cor pulmonale Problem 08/02/2021 12:00:00 AM EDT [facility] ([facility]) I50.32 [id number] Chronic diastolic heart failure Problem 04/02/2021 12:00:00 AM EDT eCW1 ([facility]) Z86.010 [id number] Hx of adenomatous colonic polyps Problem 01/01/2021 12:00:00 AM EST eCW1 ([facility]) Surgeries/Procedures Procedure Description Date Indications Data Source(s) Imm: Flublok Quadrivalent 18 years & older 0.5mL IM Influenz a 09/09/2021 12:00:00 AM EDT eCW1 ([facility]) INTERROGATION EVAL IN PERSON 1/DUAL/MOVIE STAR LEAD PM 2020 12:00:00 AM EDT [facility] ([facility]) INTERROGATION EVAL REMOTE </90 D 1/2/MOVIE STAR LEAD PM 05/31 12:00:00 AM EDT [facility] ([facility]) INTERROGATION REMOTE </90 D LICENSED PHARMACIST REVIEW 05/31/20 12:00:00 AM EDT [facility] ([facility]) INTERROGATION EVAL REMOTE </90 D 1/2/MOVIE STAR LEAD PM 02/18 12:00:00 AM EDT [facility] ([facility]) INTERROGATION REMOTE </90 D LICENSED PHARMACIST REVIEW 02/19/20 12:00:00 AM EDT [facility] ([facility]) Results ID Date Data Source 9007/31/2021 12:00:00 AM EDT [facility] Name Value Range Interpretation Code Description Data Marie rce(s) Supporting Document(s) SARS-CoV2 Rapid Antigen Positive [facility] This lab was ordered by [facility] and reported by [facility]. ID Date Data Source [id number] 03/20/2021 03:10:00 PM EDT [facility] Name Value Range Interpretation Code Description Data Marie rce(s) Supporting Document(s) Free T4 1.06 [facility] ([facility] Thyroid Stimulating Hormone 2.680 ME DENT ([facility]) Hemoglobin A1c/Hemoglobin.total in Blood 6.5 [facility] ([facility]) ID Date Data Source [id number] 03/20/2021 03:10:00 PM EDT [facility] Name Value Range Interpretation Code Description Data Marie rce(s) Supporting Document(s) Triglycerides 102 [facility] Cholesterol 130 [facility] HDL 46 [facility] [place] Chol/HDL Ratio 2.826 [facility] ([facility] Cholesterol in LDL [Mass/volume] in Serum or Plasma by calculation 64 [facility] ([facility]) ID Date Data Source [id number] 03/20/2021 03:10:00 PM EDT [facility] ([facility]) Name Value Range Interpretation Code Description Data Marie rce(s) Supporting Document(s) Alanine aminotransferase [Enzymatic activity/volume] in Serum or Pl asma 23 [facility] Albumin [Mass/volume] in Serum or Plasma 4.2 [facility] ([facility]) Chloride [Moles/volume] in Serum or Plasma 105 [facility] ([facility]) Calcium [Mass/volume] in Serum or Plasma 9.4 [facility] ([facility]) Carbon dioxide, total [Moles/volume] in Serum or Plasma 30 [facility] ([facility]) Protein [Mass/volume] in Serum or Plasma 7.1 [facility] ([facility]) Potassium [Moles/volume] in Serum or Plasma 4.1 [facility] ([facility]) Alkaline phosphatase [Enzymatic activity/volume] in Serum or Plasma 7 7 [facility] ([facility]) Aspartate aminotransferase [Enzymatic activity/volume] in Se rum or Plasma 9.4 [facility] ([facility]) Sodium 140 [facility] Urea nitrogen [Mass/volume] in Serum or Plasma 19 [facility] ([facility]) Glucose 133 70-100 [facility] Creatinine For GFR 0.96 [facility] ([facility] Procedure Social History Code Duration Value Status Description Data Source(s ) Smoking 09/09/2021 12:00:00 AM EDT Never Smoker completed Never S moker eCW1 ([facility]) Smoking 04/02/2021 12:00:00 AM EDT Never Smoker completed Never S moker eCW1 ([facility]) Smoking 04/02/2021 12:00:00 AM EDT Never Smoker completed Never S moker eCW1 ([facility]) Smoking 04/02/2021 12:00:00 AM EDT Never Smoker completed Never S moker eCW1 ([facility]) Smoking 01/01/2021 12:00:00 AM EST Never Smoker completed Never S moker eCW1 ([facility]) Vital Signs ID Date Data Source UNK Name Value Range Interpretation Code Description Data Source(s) Body weight 229 [lb_av] 229 [lb_av] eCW1 ([facility]) Body height 68 [in_i] 68 [in_i] eCW1 ([facility]) Body mass index (BMI) [Ratio] 34.82 kg/m2 34.82 kg/m2 eCW1 ([facility]) Heart rate 66 /min 66 /min eCW1 ([facility]) Respiratory rate 20 /min 20 /min eCW1 ([facility]) Body temperature 98 [degF] 98 [degF] eCW1 ([facility]) Systolic blood pressure 120 mm[Hg] 120 mm[Hg] e CW1 ([facility]) Diastolic blood pressure 82 mm[Hg] 82 mm[Hg] eCW1 ([facility]) Body weight 235 [lb_av] 235 [lb_av] eCW1 ([facility]) Body height 68 [in_i] 68 [in_i] eCW1 ([facility]) Diastolic blood pressure 80 mm[Hg] 80 mm[Hg] eCW1 ([facility]) Body mass index (BMI) [Ratio] 35.73 kg/m2 35.73 kg/m2 eCW1 ([facility]) Heart rate 77 /min 77 /min eCW1 ([facility]) Respiratory rate 20 /min 20 /min eCW1 ([facility]) Body temperature 97.9 [degF] 97.9 [degF] eCW1 ( [facility]) Systolic blood pressure 120 mm[Hg] 120 mm[Hg] e CW1 ([facility]) Body weight 233 [lb_av] 233 [lb_av] eCW1 ([facility]) Body height 68 [in_i] 68 [in_i] eCW1 ([facility]) Body mass index (BMI) [Ratio] 35.42 kg/m2 35.42 kg/m2 eCW1 ([facility]) Heart rate 97 /min 97 /min eCW1 ([facility]) Respiratory rate 20 /min 20 /min eCW1 ([facility]) Body temperature 98.3 [degF] 98.3 [degF] eCW1 ( [facility]) Systolic blood pressure 120 mm[Hg] 120 mm[Hg] e CW1 ([facility]) Diastolic blood pressure 70 mm[Hg] 70 mm[Hg] eCW1 ([facility])
--- OUTSIDE RECORDS SUMMARY | 2021-10-30 19:04 | CCD ---
Author Author [facility] Organization [facility] Address Unknown Phone Unavailable Care Team Providers Care Margarine Churn Operator Name Role Phone Carole Altman Unavailable PROBLEMS Type Condition ICD9-CM Code [id number] Code Onset Dates Condition S tatus W/U Status Risk SNOMED Code Notes Problem Hx TIA/stroke w/o resid Z86.73 Active confirmed 137573584 Problem Other dermatitis due to solar radiation L57.8 Active confirmed 25736365 Solar elastosis Problem Other seborrheic keratosis L82.1 Active confirmed 028378950 Asured benign Problem Aortic valve disorder I35.9 Active confirmed 5990409 Problem Nocturnal hypoxemia due to asthma R09.02 Active confirmed 234014062 Problem Actinic keratoses L57.0 Active confirmed 40 3179970 Pt would like to treat . Cryosurgery documented on the lesion documentation form Problem Vitamin D deficiency E55.9 Active confirmed 72066654 Problem Allergic rhinitis, cause unspecified J30.9 Act johann confirmed 73611326 Problem Asthma, intermittent J45.20 Active confirmed 473726659 Problem Chronic left-sided low back pain with left-sided sciatica M54.42 Active confirmed 733528637 Problem Atrial fibrillation, unspecified type I48.91 Ac tive confirmed 13914548 Problem Hx of adenomatous colonic polyps Z86.010 Active confirmed 002075315 Problem Type II or unspecified type diabetes mellitus without mention of complication, not stated as uncontrolled E11.9 Active confirm ed 16193565 Problem Chronic diastolic heart failure I50.32 Active confi rmed 378890773 Problem Mixed hyperlipidemia E78.2 Active confirmed 751348908 Problem LVH (left ventricular hypertrophy) I51.7 Activ e confirmed 83486434 Problem MAGO (obstructive sleep apnea) G47.33 Active confirm ed 35601402 Problem Hypertensive heart disease with heart failure I11. 0 Active confirmed 09739658 Problem Osteoarthritis of right knee, unspecified osteoarthrit is type M17.11 Active confirmed [id number] ALLERGIES Allergen (clinical drug ingredient) Drug/Non Drug Allergy do cumented on EMR Reaction Allergy Type Onset Date Status atorvastatin Atorvastatin Calcium([facility] Code:[address]-06) angelina vated LFTs Drug Allergy Active ENCOUNTERS from 1945 to 2021-08-31 Encounter Location Date Provider Diagnosis [address] [phone] [place] [address] Aug, 2021 [facility] IMMUNIZATIONS Vaccine Route Administration Date Status Influenza 18 yrs & older Flublok IM Intramuscular Sep 20, 2019 Administered Influenza 18 yrs & older Flublok IM Intramuscular Sep 12, 2018 Administered Influenza (High Dose 65 & up) IM Intramuscular Sep 12, 2017 A dministered Influenza (High Dose 65 & up) IM Intramuscular Sep 13, 2016 A dministered Influenza (High Dose 65 & up) IM Intramuscular Oct 13, 2015 A dministered Influenza (High Dose 65 & up) IM Intramuscular Aug 27, 2014 A dministered COVID-19 dose #1 given elsewhere Unspecified Unknown April 02, 2021 Administered Pneumococcal Adult 0.5mL Pneumovax 23 IM Intramuscular March 30 017 Administered COVID-19 dose #2 given elsewhere Unspecified Unknown April 02, 2021 Administered Pneumococcal 0.5mL Prevnar 13 IM Intramuscular Oct 20, 2015 A dministered Influenza 6mo & up Fluzone IM Intramuscular Sep 19, 2012 Admi nistered SOCIAL HISTORY Tobacco Use: Social History Observation Description Date Details (start date - stop date) Never Smoker Sex Assigned At : Social History Observation Description Sex Assigned At Unknown Audit Question Answer Notes Total Score: 0 Interpretation: Alcohol Education Language: Question Answer Notes Languages spoken: Kyrgyz Domestic Violence: Question Answer Notes Status: Single Sexual Hx: Question Answer Notes Had sex in the last 12 months (vaginal, oral, or anal)? No Have you ever had an STD? No Drug and Alcohol Question Answer Notes Total Score: 0 Interpretation: No problems reported Alcohol Screening: Question Answer Notes Did you have a drink containing alcohol in the past year? No Points 0 Interpretation Negative BMI Care Goal Follow-Up Question Answer Notes Above Normal BMI Follow-Up Giving encouragement to exercise Tobacco Use: Question Answer Notes Are you a: never smoker REASON FOR REFERRAL No Information VITAL SIGNS No information MEDICATIONS Medication SIG (Take, Route, Frequency, Duration) Notes Start Da te End Date Status Amlodipine 5mg 1 tab oral twice daily for 90 Active Eliquis 5 MG 1 tab Orally every 12 hours for 90 Active Pravastatin Sodium 40 MG 1 tablet Orally Once a day for 90 day(s) Active Furosemide 40 MG 1 tablet Orally Daily for home weight >224lbs for 90 Active Aspir-81 81 MG 1 tablet Orally Once a day Active Acetaminophen 500 MG 1 -2 tablets as needed Orally every 8 hrs f or 30 day(s) Active Albuterol Sulfate HFA 108 (90 Base) MCG/ACT 2 puffs In halation Every 4 hours as needed for 30 days Active Vitamin D3 2000 UNIT 1 tab Orally Once a day with meal for 90 day(s) Active Calcium + D3 600-200 MG-UNIT 1 tab with meal Orally daily for 90 day( s) Active Atenolol 50 MG 1 tablet Orally Once a day for 90 Active Spironolactone 25 mg 1/2 tablet Orally Daily for 90 Active PROCEDURES No Information RESULTS No Results REASON FOR VISIT lab results/ needs appt MEDICAL (GENERAL) HISTORY Type Description Date Medical History Hypertension Medical History TIA Medical History Abdominal pain Medical History BPH Medical History degenerative disc disease Medical History neuropathy, brachial Medical History hyperlipidemia Medical History asthma, mild intermittent Medical History constipation Medical History Blurred vision Medical History Sleep related hypoventilation/hypoxemia Medical History hypertensive heart disease - Dr Giron (EKG 01/06, Holter 02/03, NST 09/05, pacemaker 02/03) Medical History aortic valve disease - Dr Lynette shine, echo 01/06: mild AV Sclerosis, LVH, EF 75% Medical History allergic rhinitis Medical History Diabetes mellitus without me ntion of complication, type II, diet controlled Medical History MAGO (obstructive sleep apnea) Medical History Chronic atrial fibrillation Medical History CHF, diastolic dysfunction - [facility] Surgical History Right knee repair 1970s Surgical History colonoscopy with polyp - tub ular adenoma (repeat 4yrs), Deshawn 5-15 Surgical History cardiac pacemaker - [facility] 02/03 Surgical History lap cholecystectomy - urmila 02/03 Hospitalization History acute pancreatitis, cholelithiasis, atrial-fib 01/02- 01/05/17 Goals Section No Information Health Concerns No Information MEDICAL EQUIPMENT No Information MENTAL STATUS No Information FUNCTIONAL STATUS No Information ASSESSMENTS No Information PLAN OF TREATMENT Medication Medication Name Sig Start Date Stop Date Amlodipine 5mg 1 tab oral twice daily for 90 Calcium + D3 600-200 MG-UNIT 1 tab with meal Orally daily for 90 day(s) Atenolol 50 MG 1 tablet Orally Once a day for 90 Vitamin D3 2000 UNIT 1 tab Orally Once a day with meal for 90 da y(s) Pravastatin Sodium 40 MG 1 tablet Orally Once a day for 90 day(s ) Spironolactone 25 mg 1/2 tablet Orally Daily for 90 Aspir-81 81 MG 1 tablet Orally Once a day Furosemide 40 MG 1 tablet Orally Daily for home weight >224lbs f or 90 Eliquis 5 MG 1 tab Orally every 12 hours for 90 Next Appt Details Provider Name:Carole Agapito, 2021-09-09 02:0 0:00 PM, [address] [place] [address], , [place], [address], Provider Name:Jayne Garcia, 09:00:00 AM, [address] [place] [address], , [place], [address], Insurance Providers Payer Name Payer Address Payer Phone Insured Name Patient Relati onship to Insured Coverage Start Date Coverage End Date MEDICARE Part A and B [address] [facility] [id number] [phone] RENA VACA [facility] [address] [address] [facility] [id number] RENA VACA self
--- OUTSIDE RECORDS SUMMARY | 2021-10-30 19:04 | CCD | Continuity of Care Document ---
Author Author Bolivar PATEL PA-C Organization Unknown Address [address] [place] [address], [place] [address] Phone [phone] Care Team Providers Care Photo Specialist Name Role Phone Carole Altman AYAANC AUTM [phone] Alfonso Okeefe MD AUTM [phone] Osiris Altamirano [employer] EX[employer] ADMINISTRATOR AUTM [phone] Tino Puckett DO AUTM [phone] Clifton Salazar MD AUTM [phone] Problems Active Problems Provider Date Conduction disorder of the heart Prince Giron MD Onset: 06/21/2013 Electrocardiogram abnormal Prince Giron MD Onset: 2012 Benign hypertensive heart disease without congestive h eart failure Prince Giron MD Onset: 06/21/2013 Aortic valve disorder Prince Giron MD Onset: 06/21/2013 Aneurysm of thoracic aorta Prince Giron MD Onset: 2012 Persistent atrial fibrillation Prince Giron MD Onset: Disturbance in sleep behavior Prince Giron MD Onset: 07/2017 Body mass index 30+ - obesity Prince Giron MD Onset: 07/2017 Preoperative cardiovascular examination Prince Giron MD Onset: 02/01/2017 Atrioventricular block Prince Giron MD Onset: 02/01/2017 Cardiac pacemaker in situ Prince Giron MD Onset: 017 Acute on chronic diastolic heart failure Prince Giron MD Onset: 03/30/2017 Chronic pulmonary heart disease Prince Giron MD Onset: 0 03/30/2017 Benign hypertensive heart disease with congestive hear t failure Prince Giron MD Onset: 03/30/2017 Chronic atrial fibrillation Prince Giron MD Onset: 04/19 Chronic diastolic heart failure Prince Giron MD Onset: 0 04/19/2017 Dizziness and giddiness Prince Giron MD Onset: 7 Chronic cor pulmonale Prince Giron MD Onset: 08/02/2021 Permanent atrial fibrillation Prince Giron MD Onset: Social History Type Date Description Comments Sex Unknown ETOH Use Does not consume alcohol Tobacco Use Start: Unknown Patient has never smoked Exercise Type/Frequency Bikes daily 2 miles Exercise Type/Frequency Shovels Snow Exercise Type/Frequency Walks sporadically Exercise Type/Frequency Snow Shoes Exercise Type/Frequency Hunting Exercise Limitations Orthopedic Problem Allergies and adverse reactions Description No Known Drug Allergies Medications Active Medications SIG Qnty Indications Ordering Provide r Date Acetaminophen 500mg Tablets 1-2 by mouth every 6 hours as needed Unknown 03/18/20 19 Ventolin HFA 108(90Base) mcg/Act A erosol 2 puffs as needed Unknown 12/16/2018 Mucinex 600mg Tablets ER 12HR 1 by mouth twice daily as needed Unknown 09/09/2018 Eliquis 5mg Tablets 1 by mouth twice a day Unknown 04/18/2017 Spironolactone 25mg Tablets 1/2 by mouth every day 45tabs I50.32 Prince Giron MD 03/30/2017 Furosemide 40mg Tablets 1 by mouth every day, for home weight greater than 224 pounds 90tabs I50.33 Laureano Giron MD 03/30/2017 Atenolol 50mg Tablets Take One Tablet By Mouth Every Day 90tabs Prince Giron MD 02/01/2017 Pravastatin Sodium 40mg Tablets 1 by mouth every day Unknown 01/25/2017 Calcium 600+D 600-800 Tablets 2 tabs daily Unknown 01/25/2017 Amlodipine Besylate 5mg Tablets 1 po bid 30tabs Destiny Lopez GNP 06/20/2013 Vitamin C CR 500mg Tablets ER 2 po qd Unknown 06/20/2013 Vitamin D3 1000Unit Capsules 1 po qd Destiny Lopez GNP 06/20/2013 Immunizations Description No Information Available Vital Signs Date Vital Result Comment 02/24/2020 12:03pm Weight 225.00 lb Home Weight 225lb Height 68 inches 5'8" BMI (Body Mass Index) 34.2 kg/m2 Heart Rate 60 /min regular Respiratory Rate 16 /min BP Systolic Sitting 124 mmHg Medium cuff, Ra BP Diastolic Sitting 75 mmHg Medium cuff, Ra BP Systolic Lying Down 128 mmHg BP Diastolic Lying Down 76 mmHg 09/19/2019 9:06am Weight 221.00 lb Home Weight 226lb Height 68 inches 5'8" BMI (Body Mass Index) 33.6 kg/m2 Heart Rate 60 /min regular Respiratory Rate 16 /min BP Systolic Sitting 118 mmHg Ra BP Diastolic Sitting 70 mmHg Ra BP Systolic Lying Down 124 mmHg BP Diastolic Lying Down 76 mmHg Results Test Acquired Date Facility Test Result H/L Range Note CMP 03/20/2021 [facility] - not interfaced (315)- - Albumin Serum/Plasma 4.2 Alt - SGPT 23 Calcium Ser/Plasma Mass/Vol 9.4 Carbon Dioxide Ser/Plasm 30 Chloride Serum/Plasma 105 Alkaline Phosphatase 77 Potassium 4.1 Protein Total 7.1 Sodium 140 Ast - Sgot 9.4 BUN - Urea Nitrogen 19 Glucose 133 High 70-100 Creatinine For GFR 0.96 Lipid Profile/Cardiac Risk Pro 03/20/2021 [facility] - not interfaced (315)- - Triglycerides 102 <150 Cholesterol 130 <200 HDL 46 >40.0 LDL Cholesterol 64 Chol/HDL Ratio 2.826 <5 Laboratory test finding 03/20/2021 [facility] - not interf aced (315)- - Thyroid Stimulating Hormone 2.680 Free T4 1.06 Hemoglobin A1c 6.5 Procedures Date Code Description Status 09/01/2021 68404 Pacer Interrogation Any Leads Co mpleted 05/31/2021 18004 Remote Pacemaker/Cardio-Defibril lator Data Acquistion Completed 05/31/2021 93823 Remote Interrogation Device Eval Pacemaker System Up To 90 Days Completed Medical Devices Description No Information Available Encounters Description No Information Available Assessments Date Code Description Provider 09/01/2021 I44.30 Unspecified atrioventricular blo ck Sheri Patel PA-C 08/02/2021 I50.32 Chronic diastolic (congestive) h eart failure Prince Giron MD 08/02/2021 I48.21 Permanent atrial fibrillation James Giron MD 08/02/2021 I44.30 Unspecified atrioventricular blo ck Prince Giron MD 08/02/2021 R94.31 Abnormal electrocardiogram [ECG] [EKG] Prince Giron MD 08/02/2021 I11.0 Hypertensive heart disease with heart failure Prince Giron MD 08/02/2021 I27.81 Cor pulmonale (chronic) Prince Giron MD 08/02/2021 I35.1 Nonrheumatic aortic (valve) insu fficiency Prince Giron MD 08/02/2021 I71.2 Thoracic aortic aneurysm, withou t rupture Prince Giron MD 05/31/2021 Z95.0 Presence of cardiac pacemaker Pa cer/[facility] Plan of Treatment Future Appointment(s):* 11/08/2021 9:30 am - Prince Giron MD at Main Office * 09/05/2022 7:45 am - Sheri Patel PA-C at Main Office 02/24/2020 - Prince Giron MD* I50.32 Chronic diastolic (congestive) heart failure* New Labs:* Renal Profile, Scheduled: 06/19/20 * NT Probnp QN Ser/Plas, Scheduled: 06/19/20 * Recommendations:* We will obtain followup chemistry in 3 months . Continue modest salt, fluid and caloric restriction along with his regular activities. No change has been made to his furosemide and spironolactone. I've encouraged him to contact us should he notice increasing shortness of breath or lower leg swelling. * I48.21 Permanent atrial fibrillation* Recommendations:* No change was made to his current atenolol and Eliquis therapies. Have encouraged him to contact us promptly for any abnormal bleeding. 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 Continues with remote John pacer checks every 90 days. * R94.31 Abnormal electrocardiogram [ECG] [EKG]* Recommendations:* Dietary measures and activity as mentioned above. Continues to receive protective combination atenolol, amlodipine, pravastatin, and Eliquis. Requested he conta ct us should he develop effort related chest, jaw, or arm discomfort. * I11.0 Hypertensive heart disease with heart failure* Recommendations:* As per assessment #1. No change was made to his combination atenolol, amlodipine, furosemide and spironolactone. Should he develop lightheadedness, we have req uested that he temporarily withhold his amlodipine. * I27.81 Cor pulmonale (chronic)* Recommendations:* Encouraged continued compliance with CPAP therapy as per pulmonary medicine. * I35.1 Nonrheumatic aortic (valve) insufficiency* Recommendations:* No special measures are deemed necessary beyond optimal blood pressure control. SBE antibiotic prophylaxis prior to dental or surgical procedures, is not neces [place] for this lesion according to the [place] [employer] guidelines February 2007. * I71.2 Thoracic aortic aneurysm, without rupture* Recommendations:* As per assessment #7 A followup echocardiogram will be planned February 2021. * All * Comments:* I will ensure that the aforementioned test findings are reported to you along with any further recommendations. Thank you for allowing me to participate in the care of your patient. Best regards. * Follow up:* Requested follow-up fasting blood work in 3 months and we will see him again in the office with EKG in 6 months. We would be pleased to reassess the patient at any time. Functional Status Functional Condition Comment Date Status Independent with all ADL's Activ e Mental Status Description No Information Available Referrals Description No Information Available
--- OUTSIDE RECORDS SUMMARY | 2021-10-30 19:04 | CCD ---
Author Author [facility] Organization [facility] Address Unknown Phone Unavailable Care Team Providers Care Draw Machine Operator Name Role Phone Carole Altman Unavailable PROBLEMS Type Condition ICD9-CM Code [id number] Code Onset Dates Condition S tatus W/U Status Risk SNOMED Code Notes Problem Hx TIA/stroke w/o resid Z86.73 Active confirmed 526494241 Problem Other dermatitis due to solar radiation L57.8 Active confirmed 57305319 Solar elastosis Problem Other seborrheic keratosis L82.1 Active confirmed 401921838 Asured benign Problem Aortic valve disorder I35.9 Active confirmed 5720587 Problem Nocturnal hypoxemia due to asthma R09.02 Active confirmed 817155350 Problem Actinic keratoses L57.0 Active confirmed 40 4765991 Pt would like to treat . Cryosurgery documented on the lesion documentation form Problem Vitamin D deficiency E55.9 Active confirmed 35011554 Problem Allergic rhinitis, cause unspecified J30.9 Act johann confirmed 75205151 Problem Asthma, intermittent J45.20 Active confirmed 206641248 Problem Chronic left-sided low back pain with left-sided sciatica M54.42 Active confirmed 859914551 Problem Atrial fibrillation, unspecified type I48.91 Ac tive confirmed 94048082 Problem Hx of adenomatous colonic polyps Z86.010 Active confirmed 424146993 Problem Type II or unspecified type diabetes mellitus without mention of complication, not stated as uncontrolled E11.9 Active confirm ed 67669172 Problem Chronic diastolic heart failure I50.32 Active confi rmed 398677841 Problem Mixed hyperlipidemia E78.2 Active confirmed 519884221 Problem LVH (left ventricular hypertrophy) I51.7 Activ e confirmed 34458569 Problem MAGO (obstructive sleep apnea) G47.33 Active confirm ed 08083112 Problem Hypertensive heart disease with heart failure I11. 0 Active confirmed 40985856 Problem Osteoarthritis of right knee, unspecified osteoarthrit is type M17.11 Active confirmed [id number] ALLERGIES Allergen (clinical drug ingredient) Drug/Non Drug Allergy do cumented on EMR Reaction Allergy Type Onset Date Status atorvastatin Atorvastatin Calcium([facility] Code:[address]-91) angelina vated LFTs Drug Allergy Active ENCOUNTERS from 1945 to 2021-09-14 Encounter Location Date Provider Diagnosis [place] [id number] [facility] [phone] [place] [address] Aug, Carole Altman Hypertensive heart disease w ith heart failure I11.0 ; Chronic diastolic heart failure I50.32 ; Type II or unspecified type diabetes mellitus without mention of complication, not stated as uncontrolled E11.9 ; Vitamin D deficiency E55.9 ; Mixed hyperlipidemia E78.2 ; MAGO (obstructive sleep apnea) G47.33 ; Atrial fibrillation, unspecified type I48.91 and Encounter for immunization Z23 IMMUNIZATIONS Vaccine Route Administration Date Status Influenza (High Dose 65 & up) IM Intramuscular Sep 12, 2017 A dministered Influenza (High Dose 65 & up) IM Intramuscular Sep 13, 2016 A dministered COVID-19 dose #2 given elsewhere Unspecified Unknown April 02, 2021 Administered COVID-19 dose #1 given elsewhere Unspecified Unknown April 02, 2021 Administered Influenza (High Dose 65 & up) IM Intramuscular Oct 13, 2015 A dministered Influenza (High Dose 65 & up) IM Intramuscular Aug 27, 2014 A dministered Influenza 18 yrs & older Flublok IM Intramuscular Sep 12, 2018 Administered Pneumococcal Adult 0.5mL Pneumovax 23 IM Intramuscular March 30 017 Administered Influenza 18 yrs & older Flublok IM Intramuscular Sep 20, 2019 Administered Pneumococcal 0.5mL Prevnar 13 IM Intramuscular Oct 20, 2015 A dministered Influenza 18 yrs & older Flublok IM Intramuscular Sep 09, 2021 Administered Influenza 6mo & up Fluzone IM Intramuscular Sep 19, 2012 Admi nistered SOCIAL HISTORY Tobacco Use: Social History Observation Description Date Details (start date - stop date) Never Smoker Sex Assigned At : Social History Observation Description Sex Assigned At Unknown Audit Question Answer Notes Total Score: 0 Interpretation: Alcohol Education Language: Question Answer Notes Languages spoken: Scottish Domestic Violence: Question Answer Notes Status: Single [...] REASON FOR REFERRAL No Information VITAL SIGNS Weight 229 lbs Aug, Height 68 in Aug, BMI 34.82 kg/m2 Aug, Heart Rate 66 /min Aug, Respiratory Rate 20 /min Aug, Temperature 98 degrees Fahrenheit Aug, Oximetry 99 Aug, Blood pressure systolic 120 mm Hg Aug, Blood pressure diastolic 82 mm Hg Aug, MEDICATIONS Medication SIG (Take, Route, Frequency, Duration) Notes Start Da te End Date Status Spironolactone 25 mg 1/2 tablet Orally Daily for 90 day(s) Active Pravastatin Sodium 40 MG 1 tablet Orally Once a day for 90 day(s) Active Acetaminophen 500 MG 1 -2 tablets as needed Orally every 8 hrs f or 30 day(s) Active Amlodipine 5mg 1 tab oral twice daily for 90 Active Eliquis 5 MG 1 tab Orally every 12 hours for 90 Active Atenolol 50 MG 1 tablet Orally Once a day for 90 Active Spironolactone 25 mg 1/2 tablet Orally Daily for 90 Active Calcium + D3 600-200 MG-UNIT 1 tab with meal Orally daily for 90 day( s) Active Albuterol Sulfate HFA 108 (90 Base) MCG/ACT 2 puffs In halation Every 4 hours as needed for 30 days Active Furosemide 40 MG 1 tablet Orally Daily for home weight >224lbs f or 90 day(s) Active Aspir-81 81 MG 1 tablet Orally Once a day Active Eliquis 5 MG 1 tab Orally every 12 hours for 90 day(s) Active Furosemide 40 MG 1 tablet Orally Daily for home weight >224lbs for 90 Active Vitamin D3 2000 UNIT 1 tab Orally Once a day with meal for 90 day(s) Active Atenolol 50 MG 1 tablet Orally Once a day for 90 day(s) Active PROCEDURES from 1945 to 2021-09-14 Procedure Date Ordered Result Body Site Imm: Flublok Quadrivalent 18 years & older 0.5mL IM Influenza 09-09-21 N/A RESULTS No Results REASON FOR VISIT 5 MONTH f/up labs MEDICAL (GENERAL) HISTORY Type Description Date Medical [...] No Information FUNCTIONAL STATUS No Information ASSESSMENTS Encounter Date Diagnosis Assessment Notes Treatment Notes Treatm ent Clinical Notes Aug, Hypertensive heart disease with heart failure (I CD-10 - I11.0) Aug, Chronic diastolic heart failure (ICD-10 - I50.32 ) over-due for f/up with Dr Giron - due for echo Aug, Type II or unspecified type diabetes mellitus without mention of complication, not stated as uncontrolled (ICD-10 - E11.9) labs good - diet controlled Aug, Vitamin D deficiency (ICD-10 - E55.9) Aug, Mixed hyperlipidemia (ICD-10 - E78.2) Aug, MAGO (obstructive sleep apnea) (ICD-10 - G47.33) continue CPAP at night Aug, Atrial fibrillation, unspecified type (ICD-10 - I48.91) Aug, Encounter for immunization (ICD-10 - Z23) PLAN OF TREATMENT Medication Medication Name Sig Start Date Stop Date Aspir-81 81 MG 1 tablet Orally Once a day Vitamin D3 2000 UNIT 1 tab Orally Once a day with meal for 90 da y(s) Calcium + D3 600-200 MG-UNIT 1 tab with meal Orally daily for 90 day(s) Pravastatin Sodium 40 MG 1 tablet Orally Once a day for 90 day(s ) Furosemide 40 MG 1 tablet Orally Daily for home weight >224lbs f or 90 day(s) Eliquis 5 MG 1 tab Orally every 12 hours for 90 day(s) Spironolactone 25 mg 1/2 tablet Orally Daily for 90 day(s) Atenolol 50 MG 1 tablet Orally Once a day for 90 day(s) Treatment Notes Assessment Notes Clinical Notes Chronic diastolic heart failure over-due for f/up with Dr Lynette dotyis - due for echo Type II or unspecified type diabetes lesa litus without mention of complication, not stated as uncontrolled labs good - diet controlled MAGO (obstructive sleep apnea) continue CPAP at night Next Appt Details as sched Reason: Provider Name:Jayne Garcia, 09:00:00 AM, [address] [facility], , [place], [address], Insurance Providers Payer Name Payer Address Payer Phone Insured Name Patient Relati onship to Insured Coverage Start Date Coverage End Date MEDICARE Part A and B [address] [facility] [phone] RENA VACA [facility] [id number] [facility] [id number] [phone] RENA VACA self
[2021-10-30 19:35] LABS: BASO # 0.1 10^3/uL (0.0-0.2); BASO % 0.4 % (0.0-1.0); EOS # 0.1 10^3/uL (0.0-0.5); EOS % 0.6 % (0.0-3.0); HEMATOCRIT 38.8 % (42.0-52.0); HEMOGLOBIN 12.5 g/dl (13.5-17.5); LYMPH # 4.1 10^3/uL (1.5-5.0); LYMPH % 36.1 % (24.0-44.0); MEAN CORPUSCULAR HEMOGLOBIN 30.3 pg (27.0-33.0); MEAN CORPUSCULAR HGB CONC 32.2 g/dl (32.0-36.5); MEAN CORPUSCULAR VOLUME 93.9 fl (80.0-96.0); MONO # 0.9 10^3/uL (0.0-0.8); MONO % 7.6 % (2.0-8.0); NEUTROPHILS # 6.1 10^3/uL (1.5-8.5); PLATELET COUNT, AUTOMATED 196 10^3/uL (150-450); RED BLOOD COUNT 4.13 10^6/uL (4.30-6.10); WHITE BLOOD COUNT 11.3 10^3/uL (4.0-10.0)
[2021-10-30] MEDS ORDERED: ONDANSETRON 4MG/2ML VIAL IV ONE (19:35)
[2021-10-30] MEDS ORDERED: MORPHINE 4 MG/ML 1ML VIAL/SYRINGE (J2270) IV ONE ×2 (19:35→22:25)
[2021-10-30 19:48] LABS: INR 1.13; PARTIAL THROMBOPLASTIN TIME 24.8 SECONDS (25.9-37.0); PROTHROMBIN TIME 14.9 SECONDS (12.7-14.5)
[2021-10-30 20:09] LABS: ALBUMIN 3.7 GM/DL (3.2-5.2); BILIRUBIN,TOTAL 0.5 MG/DL (0.2-1.0); CALCIUM LEVEL 9.2 MG/DL (8.8-10.2); CREATININE FOR GFR 1.28 MG/DL (0.70-1.30); GLOMERULAR FILTRATION RATE 57.9 (>42); POTASSIUM SERUM 3.7 MEQ/L (3.5-5.1); TOTAL PROTEIN 6.5 GM/DL (6.4-8.2)
[2021-10-30] MEDS ORDERED: ISOVUE-370 76% 100ML VIAL As Ordered ONE (20:13)
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
--- OUTSIDE RECORDS SUMMARY | 2021-10-30 22:42 | CCD ---
Author Author [facility] Organization [facility] Address Unknown Phone Unavailable Support Name Relationship Address Phone RE Next Of Kin Unknown Unavailable ANTONY HIGH Next Of Kin PAM ARREDONDO [place], [place] [address] RETIRED Next Of Kin [address] [place], [place] [phone] NONE, NONE Next Of Kin [address] [place], [place] [phone] Re-disclosure Warning The records that you are [...] is protected by Article 27-F of the [facility] Public Health law. If you continue you may have access to information: Regarding HIV / AIDS; Provided by facilities licensed or operated by the [facility] Office of Mental Health; or Provided by the [facility] Office for People With Developmental Disabilities. If such information is present, then the following [facility] mandated warning applies: This information has [...] law may result in a fine or skilled nursing sentence or both. A general authorization for the release of medical or other information is NOT sufficient authorization for further disc losure. Family History Family Member Name Family Member Gender Family Member Status Date o f Status Description Data Source(s) Unknown Unknown Problem [facility] ([facility]) Unknown Male Problem [facility] ([facility] Unknown Male Problem MEDENT ([facility], ) Unknown Male Problem MEDENT ([facility] Unknown Female Encounters Encounter Providers Location Date Indications Data Source(s ) Outpatient [address] [place] [address] [place] [id number] 09/09/2021 12:00:00 AM EDT eCW1 ([facility]) Unknown [address] [facility] [place] [address] 08/28/2021 12:00:00 AM EDT eCW1 ([facility]) Unknown [address] [place] [address] Y [id number] 05/17/2021 12:00:00 AM EDT eCW1 ([facility]) Outpatient [address] [facility] [place] [address] 04/02/2021 12:00:00 AM EDT eCW1 ([facility]) Outpatient [address] [place] [address] Y [address] 01/01/2021 12:00:00 AM EST eCW1 ([facility]) Unknown [address] [facility] [place] [address] 12/10/2020 12:00:00 AM EST eCW1 ([facility]) Immunizations Vaccine Date Status Description Data Source(s) influenza, recombinant, quadrIvalent,injectable, prese rvative free 09/09/2021 01:44:00 PM EDT completed eCW1 ([facility]) COVID-19 dose #1 given elsewhere Unspecified 04/02/2021 07:2 8:00 AM EDT completed eCW1 ([facility]) COVID-19 dose #2 given elsewhere Unspecified 04/02/2021 07:2 8:00 AM EDT completed eCW1 ([facility]) COVID-19 dose #2 given elsewhere Unspecified 04/02/2021 07:2 8:00 AM EDT completed eCW1 ([facility]) COVID-19 dose #1 given elsewhere Unspecified 04/02/2021 07:2 8:00 AM EDT completed eCW1 ([facility]) COVID-19 dose #1 given elsewhere Unspecified 04/02/2021 07:2 8:00 AM EDT completed eCW1 ([facility]) COVID-19 dose #2 given elsewhere Unspecified 04/02/2021 07:2 8:00 AM EDT completed eCW1 ([facility]) COVID-19 dose #1 given elsewhere Unspecified 04/02/2021 07:2 8:00 AM EDT completed eCW1 ([facility]) COVID-19 dose #2 given elsewhere Unspecified 04/02/2021 07:2 8:00 AM EDT completed eCW1 ([facility]) COVID-19 VACCINE Moderna 03/02/2021 12:00:00 AM EDT completed [facility] Vaccine Series Complete: YESThis Data wa s Submitted to [facility] Via iAgree. COVID-19 VACCINE Moderna 02/02/2021 12:00:00 AM EDT completed [facility] Vaccine Series Complete: NOThis Data was Submitted to [facility] Via i[employer]gree. INFLUENZA VACCINE QUADRIVALENT (65 YR UP)/MF59 C.1/PF [...] FOR H OME WEIGHT >224LBS SOLD: 07/11/2021 [facility] 25 mg 07/11/2021 12:00:00 AM [...] BY MOUTH EVERY DAY SOLD: 09/27/2020 [facility] Insurance Providers Payer name Policy type / Coverage type Policy ID Covered democrat ID Covered democrat's relationship to mcknight Policy Mcknight Plan Information [employer] [id number] SP [id number] MEDICARE [id number] SP [id number] A MEDICARE [id number] SP [id number] A [employer] PHCS Ppo Medigap Part B [id number] 2..1.420428.3.227. 99.572.21574.0 Self [id number] r Medigap Part B [id number] 2..1.482249.3.227.99.572.26 375.0 Self [id number] Medicare (Part B) Medicare Primary [id number] 2..1.269728.3.227.99.572.36671.0 Self 1 [id number] ANSI-Medicare Part B [id number] ANSI-Commercial [id number] ANSI-Commercial [id number] [employer] PHCS Ppo Medigap Part B [id number] 2..1.981570.3.227. 99.572.77415.0 Self [id number] r Medigap Part B [id number] 2..1.468401.3.227.99.572.26 375.0 Self [id number] Medicare (Part B) Medicare Primary [id number] 2.0.1.598196.3.227.99.572.56956.0 Self 1 [id number] [employer] PHCS Ppo Medigap Part B [id number] 2.16.840.1.467492.3.227. 99.572.39267.0 Self [id number] [facility] Part B [id number] 2.16.0.1.788043.3.227.99.572.26 375.0 Self [id number] Medicare (Part B) Medicare Primary [id number] 2.16.840.1.061598.3.227.99.572.04452.0 Self 1 [id number] ANSI-Commercial [id number] ANSI-Medicare Part B [id number] ANSI-Commercial [id number] [employer] PHCS o [facility] Part B [id number] 2.0..778281.3.227. 99.572.88828.0 Self [id number] [facility] Part B [id number] 2.160.1.480429.3.227.99.572.26 375.0 Self [id number] Medicare (Part B) Medicare Primary [id number] 2.160.1.227281.3.227.99.572.79101.0 Self 1 [id number] ANSI-Medicare Part B [id number] ANSI-Commercial [id number] ANSI-Commercial [id number] ANSI-Medicare Part B [id number] ANSI-Commercial [id number] ANSI-Commercial [id number] ANSI-Medicare Part B [id number] ANSI-Commercial [id number] ANSI-Commercial [id number] [employer]OM[employer] [id number] SP [id number] [employer] PHCS Ppo Medigap Part B [id number] .1.860351.3.227. 99.572.60381.0 Self [id number] Umr Medigap Part B [id number] ..1.122808.3.227.99.572.26 375.0 Self [id number] Medicare (Part B) Medicare Primary [id number] ..1.891627.3.227.99.572.34594.0 Self 1 [id number] [employer] PHCS Ppo Medigap Part B [id number] .1.576639.3.227. 99.572.42745.0 Self [id number] r Medigap Part B [id number] 2.0.1.933109.3.227.99.572.26 375.0 Self [id number] Medicare (Part B) Medicare Primary [id number] 2.0.1.314037.3.227.99.572.81271.0 Self 1 [id number] ANSI-Commercial [id number] ANSI-Medicare Part B [id number] ANSI-Commercial [id number] ANSI-Medicare Part B [id number] ANSI-Commercial [id number] ANSI-Commercial [id number] [facility] PH[facility] Ppo Medigap Part B [id number] 2..1.875765.3.227. 99.572.90775.0 Self [id number] Umr Medigap Part B [id number] 2..1.353881.3.227.99.572.26 375.0 Self [id number] Medicare (Part B) Medicare Primary [id number] 2.16.840.1.603393.3.227.99.572.45701.0 Self 1 [id number] [employer] PHCS Ppo Medigap Part B [id number] 2.16.840.1.405544.3.227. 99.572.42651.0 Self [id number] Umr Medigap Part B [id number] 2.16.840.1.935026.3.227.99.572.26 375.0 Self [id number] Medicare (Part B) Medicare Primary [id number] 2.16.840.1.076057.3.227.99.572.11565.0 Self 1 [id number] [employer] PHCS Ppo Medigap Part B [id number] 2.16.840.1.948948.3.227. 99.572.45128.0 Self [id number] Medicare (Part B) Medicare Primary [id number] 2.16.840.1.411834.3.227.99.572.97553.0 Self 1 [id number] Medicare - NGS Medicare Primary [id number] 2.16.840.1.891494.3.227.99.177.01140.0 Self 1 [id number] [employer] Pos Commercial [id number] 2.16.840.1.282170.3.227.99.177.40915.0 Self [id number] Medicare - NGS Medicare Primary [id number] 2.16.840.1.694717.3.227.99.177.43270.0 Self 1 [id number] [employer] PHCS Ppo Medigap Part B [id number] 2.16.840.1.977299.3.227. 99.572.23014.0 Self [id number] Medicare (Part B) Medicare Primary [id number] 2.16.840.1.970020.3.227.99.572.08337.0 Self 1 [id number] [employer] Medigap Part B [id number] 2.16.840.1.502146.3.227.99.8646.678 12.0 Self [id number] [place] Medicare Primary [id number] 2.16.840.1.884810.3.227.99.8646.01906.0 Self [id number] [employer] PHCS Ppo Medigap Part B [id number] 2.16.840.1.798792.3.227. 99.572.70448.0 Self [id number] Medicare (Part B) Medicare Primary [id number] 2.16.840.1.980599.3.227.99.572.70109.0 Self 1 [id number] [employer] PHCS Ppo Medigap Part B [id number] 2.16.840.1.594804.3.227. 99.572.54515.0 Self [id number] Medicare (Part B) Medicare Primary [id number] 2.16.840.1.704535.3.227.99.572.99628.0 Self 1 [id number] [employer] PPO O [id number] S [id number] MEDICARE C [id number] S [id number] A [employer] PHCS Ppo Medigap Part B [id number] 2.16.840.1.238174.3.227. 99.572.02215.0 Self [id number] Medicare (Part B) Medicare Primary [id number] 2.16.840.1.657106.3.227.99.572.31225.0 Self 1 [id number] [employer] PHCS Ppo Medigap Part B [id number] 2.16.840.1.782273.3.227. 99.572.74373.0 Self [id number] Medicare (Part B) Medicare Primary [id number] 2.16.840.1.164034.3.227.99.572.81279.0 Self 1 [id number] [employer] Medigap Part B [id number] 2.16.840.1.825910.3.227.99.8646.678 12.0 Self [id number] [place] Medicare Primary [id number] 2.16.840.1.132797.3.227.99.8646.93263.0 Self [id number] [employer] PHCS Ppo Medigap Part B [id number] 2.16.840.1.023069.3.227. 99.572.69370.0 Self [id number] Medicare (Part B) Medicare Primary [id number] 2.16.840.1.380688.3.227.99.572.65183.0 Self 1 [id number] [employer] PHCS Ppo Medigap Part B [id number] 2.16.840.1.665646.3.227. 99.572.69699.0 Self [id number] Medicare (Part B) Medicare Primary [id number] 2.16.840.1.902109.3.227.99.572.71220.0 Self 1 [id number] [employer] PHCS Ppo Medigap Part B [id number] 2.16.840.1.978121.3.227. 99.572.42650.0 Self [id number] Medicare (Part B) Medicare Primary [id number] 2.16.840.1.710720.3.227.99.572.55700.0 Self 1 [id number] [employer] PPO O [id number] S [id number] [employer] Medigap Part B [id number] Self Medicare Medicare Primary [id number] Self POMCO [id number] SP [id number] [employer] Commercial [id number] Self [place] Primary [id number] Self MEDICARE [id number] SP [id number] [facility] [id number] SP [id number] Problems, Conditions, and Diagnoses Code Display Name Description Problem Type Effective Dates Data Source(s) I48.21 Permanent atrial fibrillation Permanent atrial fibrill ation Problem 08/02/2021 12:00:00 AM EDT MEDENT ([facility]) I27.81 Chronic cor pulmonale Chronic cor pulmonale Problem 08/02/2021 12:00:00 AM EDT MEDENT ([facility]) I50.32 [id number] Chronic diastolic heart failure Problem 04/02/2021 12:00:00 AM EDT eCW1 ([facility]) Z86.010 [id number] Hx of adenomatous colonic polyps Problem 01/01/2021 12:00:00 AM EST eCW1 ([facility]) Surgeries/Procedures Procedure Description Date Indications Data Source(s) Imm: Flublok Quadrivalent 18 years & older 0.5mL IM Influenz a 09/09/2021 12:00:00 AM EDT eCW1 ([facility]) INTERROGATION EVAL IN PERSON 1/DUAL/SUGARCANE RESEARCH TECHNICIAN LEAD PM 2020 12:00:00 AM EDT MEDENT ([facility]) INTERROGATION EVAL REMOTE </90 D 1/2/SUGARCANE RESEARCH TECHNICIAN LEAD PM 05/31 12:00:00 AM EDT MEDENT ([facility]) INTERROGATION REMOTE </90 D CRUCIBLE PACKER REVIEW 05/31/20 12:00:00 AM EDT MEDENT ([facility]) INTERROGATION EVAL REMOTE </90 D 1/2/SUGARCANE RESEARCH TECHNICIAN LEAD PM 02/18 12:00:00 AM EDT MEDENT ([facility]) INTERROGATION REMOTE </90 D CRUCIBLE PACKER REVIEW 02/19/20 12:00:00 AM EDT MEDENT ([facility]) Results ID Date Data Source 9007/31/2021 12:00:00 AM EDT [facility] Name Value Range Interpretation Code Description Data Marie rce(s) Supporting Document(s) SARS-CoV2 Rapid Antigen Positive [facility] This lab was ordered by [facility] and reported by [facility]. ID Date Data Source [id number] 03/20/2021 03:10:00 PM EDT [facility] Name Value Range Interpretation Code Description Data Marie rce(s) Supporting Document(s) Free T4 1.06 [facility] ([facility]) Thyroid Stimulating Hormone 2.680 ME DENT ([facility]) Hemoglobin A1c/Hemoglobin.total in Blood 6.5 MEDENT ([facility]) ID Date Data Source [id number] 03/20/2021 03:10:00 PM EDT [facility] ([facility] Name Value Range Interpretation Code Description Data Marie rce(s) Supporting Document(s) Triglycerides 102 [facility] Cholesterol 130 [facility]) HDL 46 [facility] [place] Chol/HDL Ratio 2.826 [facility] ([facility] Cholesterol in LDL [Mass/volume] in Serum or Plasma by calculation 64 MEDENT ([facility]) ID Date Data Source [id number] 03/20/2021 03:10:00 PM EDT MEDENT ([facility]) Name Value Range Interpretation Code Description Data Marie rce(s) Supporting Document(s) Alanine aminotransferase [Enzymatic activity/volume] in Serum or Pl asma 23 [facility] ([facility]) Albumin [Mass/volume] in Serum or Plasma 4.2 [facility] ([facility]) Chloride [Moles/volume] in Serum or Plasma 105 MEDENT ([facility]) Calcium [Mass/volume] in Serum or Plasma 9.4 MEDENT ([facility]) Carbon dioxide, total [Moles/volume] in Serum or Plasma 30 MEDENT ([facility]) Protein [Mass/volume] in Serum or Plasma 7.1 [facility] ([facility]) Potassium [Moles/volume] in Serum or Plasma 4.1 [facility] ([facility]) Alkaline phosphatase [Enzymatic activity/volume] in Serum or Plasma 7 7 MEDENT ([facility]) Aspartate aminotransferase [Enzymatic activity/volume] in Se rum or Plasma 9.4 MEDENT ([facility]) Sodium 140 [facility] ([facility] Urea nitrogen [Mass/volume] in Serum or Plasma 19 MEDENT ([facility]) Glucose 133 70-100 [facility] Creatinine For GFR 0.96 MEDENT ([facility]) Procedure Social History Code Duration Value Status Description Data Source(s ) Smoking 09/09/2021 12:00:00 AM EDT Never Smoker completed Never S moker eCW1 ([facility]) Smoking 04/02/2021 12:00:00 AM EDT Never Smoker completed Never S moker eCW1 ([facility]) Smoking 04/02/2021 12:00:00 AM EDT Never Smoker completed Never S moker eCW1 ([facility]) Smoking 04/02/2021 12:00:00 AM EDT Never Smoker completed Never S moker eCW1 ([facility]) Smoking 01/01/2021 12:00:00 AM EST Never Smoker completed Never S moker eCW1 ([facility]) Vital Signs ID Date Data Source UNK Name Value Range Interpretation Code Description Data Source(s) Body weight 229 [lb_av] 229 [lb_av] eCW1 ([facility]) Body height 68 [in_i] 68 [in_i] eCW1 ([facility]) Body mass index (BMI) [Ratio] 34.82 kg/m2 34.82 kg/m2 eCW1 ([facility]) Heart rate 66 /min 66 /min eCW1 ([facility]) Respiratory rate 20 /min 20 /min eCW1 ([facility]) Body temperature 98 [degF] 98 [degF] eCW1 ([facility]) Systolic blood pressure 120 mm[Hg] 120 mm[Hg] e CW1 ([facility]) Diastolic blood pressure 82 mm[Hg] 82 mm[Hg] eCW1 ([facility]) Diastolic blood pressure 80 mm[Hg] 80 mm[Hg] eCW1 ([facility]) Body weight 235 [lb_av] 235 [lb_av] eCW1 ([facility]) Body height 68 [in_i] 68 [in_i] eCW1 ([facility]) Body mass index (BMI) [Ratio] 35.73 kg/m2 35.73 kg/m2 eCW1 ([facility]) Heart rate 77 /min 77 /min eCW1 ([facility]) Respiratory rate 20 /min 20 /min eCW1 ([facility]) Body temperature 97.9 [degF] 97.9 [degF] eCW1 ( [facility]) Systolic blood pressure 120 mm[Hg] 120 mm[Hg] e CW1 ([facility]) Body weight 233 [lb_av] 233 [lb_av] eCW1 ([facility]) Body height 68 [in_i] 68 [in_i] eCW1 ([facility]) Body mass index (BMI) [Ratio] 35.42 kg/m2 35.42 kg/m2 eCW1 ([facility]) Heart rate 97 /min 97 /min eCW1 ([facility]) Respiratory rate 20 /min 20 /min eCW1 ([facility]) Body temperature 98.3 [degF] 98.3 [degF] eCW1 ( [facility]) Systolic blood pressure 120 mm[Hg] 120 mm[Hg] e CW1 ([facility]) Diastolic blood pressure 70 mm[Hg] 70 mm[Hg] eCW1 ([facility])
--- NOTE | 2021-10-30 22:51 | REPVR ---
PROCEDURE INFORMATION: Exam: CT Right Upper Extremity Without Contrast, Shoulder Exam date and time: 10/30/2021 9:51 PM Age: 76 years old Clinical indication: Injury or trauma; Fall; Fracture, traumatic injury; Nondisplaced; Scapula; Right TECHNIQUE: Imaging protocol: CT of the Right upper extremity without contrast was performed. Exam focused on the shoulder. Radiation optimization: All CT scans at this facility use at least one of these dose optimization techniques: automated exposure control; mA and/or kV adjustment per patient size (includes targeted exams where dose is matched to clinical indication); or iterative reconstruction. COMPARISON: CR Shoulder, complete RIGHT 10/30/2021 7:24 PM FINDINGS: Bones/joints: Acute comminuted fracture involving the right scapula is noted. There is an intra-articular comminuted fracture involving the anterior superior glenoid, with a component through the base of the coracoid process, and comminuted component of the anterior scapular body. No involvement of the scapular spine or acromion. No subluxation of the humeral head relative to the osseous glenoid. No acute humeral head or neck fracture. Degenerative joint space narrowing and marginal osteophyte formation with subchondral sclerosis is seen within the glenohumeral joint. No osseous lesion. Soft tissues: No soft tissue defect to indicate an open injury. The extra thoracic neck base and anterior chest wall soft tissue air is related to the rib fractures and pneumothorax present, discussed on the chest CT report IMPRESSION: Acute comminuted anterior glenoid intra-articular fracture with only mild articular surface incongruity, and associated fractures through the base of the coracoid and the anterior scapular body. Glenohumeral joint degenerative osteoarthrosis Electronically signed by: Maksim Oconnor On 10/30/2021 22:51:13 PM
--- NOTE | 2021-10-30 22:53 | REPVR ---
PROCEDURE INFORMATION: Exam: CT Right Upper Extremity Without Contrast, Upper Arm Exam date and time: 10/30/2021 9:51 PM Age: 76 years old Clinical indication: Injury or trauma; Fall; Fracture, traumatic injury; Nondisplaced; Scapula; Right TECHNIQUE: Imaging protocol: CT of the Right upper extremity without contrast was performed. Exam focused on the upper arm. Radiation optimization: All CT scans at this facility use at least one of these dose optimization techniques: automated exposure control; mA and/or kV adjustment per patient size (includes targeted exams where dose is matched to clinical indication); or iterative reconstruction. COMPARISON: CR Wrist, complete BILATERAL 10/30/2021 7:30 PM FINDINGS: Bones/joints: Acute glenoid and scapular fractures were discussed on the shoulder CT report. Humeral head and neck show no acute fracture. Humeral shaft and distal humerus to the level of the elbow joint shows no fracture. No osseous lesion.. Soft tissues: No soft tissue defect or organized soft tissue hematoma.. IMPRESSION: No acute fracture involving the humerus, in a patient with comminuted glenoid, coracoid and lateral scapular fractures. Electronically signed by: Maksim Oconnor On 10/30/2021 22:53:20 PM
[2021-10-30] MEDS ORDERED: PERCOCET 5MG/325MG TAB PO PRN (23:00)
[2021-10-30] MEDS ORDERED: ONDANSETRON 4MG/2ML VIAL IV PRN (23:00)
[2021-10-30] MEDS ORDERED: ACETAMINOPHEN TAB 650MG DOSE (2X325MG) PO PRN (23:00)
--- OUTSIDE RECORDS SUMMARY | 2021-10-30 23:11 | CCD ---
Author Author [facility] Organization [facility] Address Unknown Phone Unavailable Support Name Relationship Address Phone RE Next Of Kin Unknown Unavailable ANTONY HIGH Next Of Kin PAM ARREDONDO [place], [place] [id number] RETIRED Next Of Kin [address] [place], [place] [phone] NONE, NONE Next Of Kin [address] [place], [place] [id number] Re-disclosure Warning The records that you are [...] is protected by Article 27-F of the [facility] Public Health law. If you continue you may have access to information: Regarding HIV / AIDS; Provided by facilities licensed or operated by the [facility] Office of Mental Health; or Provided by the [facility] Office for People With Developmental Disabilities. If such information is present, then the following [facility] mandated warning applies: This information has been [...] law may result in a fine or fdc sentence or both. A general authorization for the release of medical or other information is NOT sufficient authorization for further disc losure. Family History Family Member Name Family Member Gender Family Member Status Date o f Status Description Data Source(s) Unknown Unknown Problem [facility] ([facility]) Unknown Male Problem [facility] ([facility] Unknown Male Problem MEDENT ([facility], ) Unknown Male Problem MEDENT ([facility] Unknown Female Encounters Encounter Providers Location Date Indications Data Source(s ) Outpatient [address] [place] [address] Y [id number] 09/09/2021 12:00:00 AM EDT eCW1 ([facility]) Unknown [address] [facility] [place] [id number] 08/28/2021 12:00:00 AM EDT eCW1 ([facility]) Unknown [address] [place] [address] Y [id number] 05/17/2021 12:00:00 AM EDT eCW1 ([facility]) Outpatient [address] [facility] [place] [id number] 04/02/2021 12:00:00 AM EDT eCW1 ([facility]) Outpatient [address] [place] [address] Y [id number] 01/01/2021 12:00:00 AM EST eCW1 ([facility]) Unknown [address] [facility] [place] [id number] 12/10/2020 12:00:00 AM EST eCW1 ([facility]) Immunizations Vaccine Date Status Description Data Source(s) influenza, recombinant, quadrIvalent,injectable, prese rvative free 09/09/2021 01:44:00 PM EDT completed eCW1 ([facility]) COVID-19 dose #1 given elsewhere Unspecified 04/02/2021 07:2 8:00 AM EDT completed eCW1 ([facility]) COVID-19 dose #2 given elsewhere Unspecified 04/02/2021 07:2 8:00 AM EDT completed eCW1 ([facility]) COVID-19 dose #2 given elsewhere Unspecified 04/02/2021 07:2 8:00 AM EDT completed eCW1 ([facility]) COVID-19 dose #1 given elsewhere Unspecified 04/02/2021 07:2 8:00 AM EDT completed eCW1 ([facility]) COVID-19 dose #1 given elsewhere Unspecified 04/02/2021 07:2 8:00 AM EDT completed eCW1 ([facility]) COVID-19 dose #2 given elsewhere Unspecified 04/02/2021 07:2 8:00 AM EDT completed eCW1 ([facility]) COVID-19 dose #1 given elsewhere Unspecified 04/02/2021 07:2 8:00 AM EDT completed eCW1 ([facility]) COVID-19 dose #2 given elsewhere Unspecified 04/02/2021 07:2 8:00 AM EDT completed eCW1 ([facility]) COVID-19 VACCINE Moderna 03/02/2021 12:00:00 AM EDT completed [facility] Vaccine Series Complete: YESThis Data wa s Submitted to [facility] Via [employer]. COVID-19 VACCINE Moderna 02/02/2021 12:00:00 AM EDT completed [facility] Vaccine Series Complete: NOThis Data was Submitted to [facility] Via [employer]. INFLUENZA VACCINE QUADRIVALENT (65 YR UP)/MF59 C.1/PF [...] MOUTH EVERY DAY SOLD: 09/27/2020 [facility] Insurance Providers Payer name Policy type / Coverage type Policy ID Covered republican ID Covered republican's relationship to mcknight Policy Mcknight Plan Information [employer] [id number] SP [id number] MEDICARE [id number] SP [id number] A MEDICARE [id number] SP [id number] A [employer] PHCS Ppo Medigap Part B [id number] 2..1.808053.3.227. 99.572.88781.0 Self [id number] r Medigap Part B [id number] 2..1.924313.3.227.99.572.26 375.0 Self [id number] Medicare (Part B) Medicare Primary [id number] 2..1.407513.3.227.99.572.16461.0 Self 1 [id number] ANSI-Medicare Part B [id number] ANSI-Commercial [id number] ANSI-Commercial [id number] [employer] PHCS Ppo Medigap Part B [id number] 2..1.353456.3.227. 99.572.08466.0 Self [id number] r Medigap Part B [id number] 2..1.999876.3.227.99.572.26 375.0 Self [id number] Medicare (Part B) Medicare Primary [id number] 2.0.1.741871.3.227.99.572.72210.0 Self 1 [id number] [employer] PHCS Ppo Medigap Part B [id number] 2.16.840.1.029633.3.227. 99.572.89773.0 Self [id number] [facility] Part B [id number] 2.16.0.1.160651.3.227.99.572.26 375.0 Self [id number] Medicare (Part B) Medicare Primary [id number] 2.16.840.1.058037.3.227.99.572.43017.0 Self 1 [id number] ANSI-Commercial [id number] ANSI-Medicare Part B [id number] ANSI-Commercial [id number] [employer] PHCS o [facility] Part B [id number] 2.0..951476.3.227. 99.572.52535.0 Self [id number] [facility] Part B [id number] 2.160.1.696837.3.227.99.572.26 375.0 Self [id number] Medicare (Part B) Medicare Primary [id number] 2.160.1.915593.3.227.99.572.35253.0 Self 1 [id number] ANSI-Medicare Part B [id number] ANSI-Commercial [id number] ANSI-Commercial [id number] ANSI-Medicare Part B [id number] ANSI-Commercial [id number] ANSI-Commercial [id number] ANSI-Medicare Part B [id number] ANSI-Commercial [id number] ANSI-Commercial [id number] [employer] [id number] SP [id number] [employer] PHCS Ppo Medigap Part B [id number] .1.021920.3.227. 99.572.37998.0 Self [id number] Umr Medigap Part B [id number] ..1.752701.3.227.99.572.26 375.0 Self [id number] Medicare (Part B) Medicare Primary [id number] ..1.654526.3.227.99.572.02919.0 Self 1 [id number] [employer] PHCS Ppo Medigap Part B [id number] .1.170905.3.227. 99.572.81387.0 Self [id number] r Medigap Part B [id number] 2.0.1.805254.3.227.99.572.26 375.0 Self [id number] Medicare (Part B) Medicare Primary [id number] 2.0.1.633392.3.227.99.572.53444.0 Self 1 [id number] ANSI-Commercial [id number] ANSI-Medicare Part B [id number] ANSI-Commercial [id number] ANSI-Medicare Part B [id number] ANSI-Commercial [id number] ANSI-Commercial [id number] [facility] Ppo Medigap Part B [id number] 2..1.821208.3.227. 99.572.02574.0 Self [id number] Umr Medigap Part B [id number] 2..1.974037.3.227.99.572.26 375.0 Self [id number] Medicare (Part B) Medicare Primary [id number] 2.16.840.1.613347.3.227.99.572.68487.0 Self 1 [id number] [employer] PHCS Ppo Medigap Part B [id number] 2.16.840.1.515507.3.227. 99.572.34670.0 Self [id number] Umr Medigap Part B [id number] 2.16.840.1.498448.3.227.99.572.26 375.0 Self [id number] Medicare (Part B) Medicare Primary [id number] 2.16.840.1.886046.3.227.99.572.37430.0 Self 1 [id number] [employer] PHCS Ppo Medigap Part B [id number] 2.16.840.1.519227.3.227. 99.572.69741.0 Self [id number] Medicare (Part B) Medicare Primary [id number] 2.16.840.1.784982.3.227.99.572.28014.0 Self 1 [id number] Medicare - NGS Medicare Primary [id number] 2.16.840.1.043864.3.227.99.177.09015.0 Self 1 [id number] [employer] Pos Commercial [id number] 2.16.840.1.300498.3.227.99.177.74356.0 Self [id number] Medicare - NGS Medicare Primary [id number] 2.16.840.1.482307.3.227.99.177.70136.0 Self 1 [id number] [employer] PHCS Ppo Medigap Part B [id number] 2.16.840.1.725518.3.227. 99.572.38139.0 Self [id number] Medicare (Part B) Medicare Primary [id number] 2.16.840.1.939227.3.227.99.572.70671.0 Self 1 [id number] [employer] Medigap Part B [id number] 2.16.840.1.842100.3.227.99.8646.678 12.0 Self [id number] [place] Medicare Primary [id number] 2.16.840.1.797643.3.227.99.8646.42139.0 Self [id number] [employer] PHCS Ppo Medigap Part B [id number] 2.16.840.1.936571.3.227. 99.572.50932.0 Self [id number] Medicare (Part B) Medicare Primary [id number] 2.16.840.1.889805.3.227.99.572.17418.0 Self 1 [id number] [employer] PHCS Ppo Medigap Part B [id number] 2.16.840.1.257475.3.227. 99.572.74238.0 Self [id number] Medicare (Part B) Medicare Primary [id number] 2.16.840.1.466208.3.227.99.572.79083.0 Self 1 [id number] [employer] PPO O [id number] S [id number] MEDICARE C [id number] S [id number] A [employer] PHCS Ppo Medigap Part B [id number] 2.16.840.1.213648.3.227. 99.572.29672.0 Self [id number] Medicare (Part B) Medicare Primary [id number] 2.16.840.1.773107.3.227.99.572.92166.0 Self 1 [id number] [employer] PHCS Ppo Medigap Part B [id number] 2.16.840.1.440318.3.227. 99.572.66547.0 Self [id number] Medicare (Part B) Medicare Primary [id number] 2.16.840.1.034640.3.227.99.572.86878.0 Self 1 [id number] [employer] Medigap Part B [id number] 2.16.840.1.475484.3.227.99.8646.678 12.0 Self [id number] [place] Medicare Primary [id number] 2.16.840.1.492917.3.227.99.8646.62427.0 Self [id number] [employer] PHCS Ppo Medigap Part B [id number] 2.16.840.1.207790.3.227. 99.572.50615.0 Self [id number] Medicare (Part B) Medicare Primary [id number] 2.16.840.1.202785.3.227.99.572.58133.0 Self 1 [id number] [employer] PHCS Ppo Medigap Part B [id number] 2.16.840.1.165202.3.227. 99.572.17578.0 Self [id number] Medicare (Part B) Medicare Primary [id number] 2.16.840.1.008584.3.227.99.572.71237.0 Self 1 [id number] [employer] PHCS Ppo Medigap Part B [id number] 2.16.840.1.170489.3.227. 99.572.08106.0 Self [id number] Medicare (Part B) Medicare Primary [id number] 2.16.840.1.059383.3.227.99.572.76328.0 Self 1 [id number] [employer] PPO O [id number] S [id number] [employer] Medigap Part B [id number] Self Medicare Medicare Primary [id number] Self [employer] [id number] SP [id number] [employer] Commercial [id number] Self [place] Primary [id number] Self MEDICARE [id number] SP [id number] [facility] [id number] SP [id number] Problems, Conditions, and Diagnoses Code Display Name Description Problem Type Effective Dates Data Source(s) I48.21 Permanent atrial fibrillation Permanent atrial fibrill ation Problem 08/02/2021 12:00:00 AM EDT MEDENT ([facility]) I27.81 Chronic cor pulmonale Chronic cor pulmonale Problem 08/02/2021 12:00:00 AM EDT MEDENT ([facility]) I50.32 [id number] Chronic diastolic heart failure Problem 04/02/2021 12:00:00 AM EDT eCW1 ([facility]) Z86.010 [id number] Hx of adenomatous colonic polyps Problem 01/01/2021 12:00:00 AM EST eCW1 ([facility]) Surgeries/Procedures Procedure Description Date Indications Data Source(s) Imm: Flublok Quadrivalent 18 years & older 0.5mL IM Influenz a 09/09/2021 12:00:00 AM EDT eCW1 ([facility]) INTERROGATION EVAL IN PERSON 1/DUAL/QUALITY IMPROVEMENT ENGINEER LEAD PM 2020 12:00:00 AM EDT MEDENT ([facility]) INTERROGATION EVAL REMOTE </90 D 1/2/QUALITY IMPROVEMENT ENGINEER LEAD PM 05/31 12:00:00 AM EDT MEDENT ([facility]) INTERROGATION REMOTE </90 D RENTAL SALES AGENT REVIEW 05/31/20 12:00:00 AM EDT MEDENT ([facility]) INTERROGATION EVAL REMOTE </90 D 1/2/QUALITY IMPROVEMENT ENGINEER LEAD PM 02/18 12:00:00 AM EDT MEDENT ([facility]) INTERROGATION REMOTE </90 D RENTAL SALES AGENT REVIEW 02/19/20 12:00:00 AM EDT MEDENT ([facility]) Results ID Date Data Source 9007/31/2021 12:00:00 AM EDT [facility] Name Value Range Interpretation Code Description Data Marie rce(s) Supporting Document(s) SARS-CoV2 Rapid Antigen Positive [facility] This lab was ordered by [facility] and reported by [facility]. ID Date Data Source [id number] 03/20/2021 03:10:00 PM EDT [facility] ([facility]) Name Value Range Interpretation Code Description Data Marie rce(s) Supporting Document(s) Free T4 1.06 [facility] ([facility] Thyroid Stimulating Hormone 2.680 ME DENT ([facility]) Hemoglobin A1c/Hemoglobin.total in Blood 6.5 MEDENT ([facility]) ID Date Data Source [id number] 03/20/2021 03:10:00 PM EDT [facility] ([facility]) Name Value Range Interpretation Code Description Data Marie rce(s) Supporting Document(s) Triglycerides 102 [facility] Cholesterol 130 [facility]) HDL 46 [facility] [place] Chol/HDL Ratio 2.826 [facility] ([facility]) Cholesterol in LDL [Mass/volume] in Serum or Plasma by calculation 64 MEDENT ([facility]) ID Date Data Source [id number] 03/20/2021 03:10:00 PM EDT MEDENT ([facility]) Name Value Range Interpretation Code Description Data Marie rce(s) Supporting Document(s) Alanine aminotransferase [Enzymatic activity/volume] in Serum or Pl asma 23 [facility] ([facility]) Albumin [Mass/volume] in Serum or Plasma 4.2 [facility] ([facility]) Chloride [Moles/volume] in Serum or Plasma 105 [facility] ([facility]) Calcium [Mass/volume] in Serum or Plasma 9.4 MEDENT ([facility]) Carbon dioxide, total [Moles/volume] in Serum or Plasma 30 MEDENT ([facility]) Protein [Mass/volume] in Serum or Plasma 7.1 [facility] ([facility]) Potassium [Moles/volume] in Serum or Plasma 4.1 [facility] ([facility]) Alkaline phosphatase [Enzymatic activity/volume] in Serum or Plasma 7 7 MEDENT ([facility]) Aspartate aminotransferase [Enzymatic activity/volume] in Se rum or Plasma 9.4 MEDENT ([facility]) Sodium 140 [facility] ([facility] Urea nitrogen [Mass/volume] in Serum or Plasma 19 MEDENT ([facility]) Glucose 133 70-100 [facility] ([facility] Creatinine For GFR 0.96 MEDENT ([facility]) Procedure Social History Code Duration Value Status Description Data Source(s ) Smoking 09/09/2021 12:00:00 AM EDT Never Smoker completed Never S moker eCW1 ([facility]) Smoking 04/02/2021 12:00:00 AM EDT Never Smoker completed Never S moker eCW1 ([facility]) Smoking 04/02/2021 12:00:00 AM EDT Never Smoker completed Never S moker eCW1 ([facility]) Smoking 04/02/2021 12:00:00 AM EDT Never Smoker completed Never S moker eCW1 ([facility]) Smoking 01/01/2021 12:00:00 AM EST Never Smoker completed Never S moker eCW1 ([facility]) Vital Signs ID Date Data Source UNK Name Value Range Interpretation Code Description Data Source(s) Body weight 229 [lb_av] 229 [lb_av] eCW1 ([facility]) Body height 68 [in_i] 68 [in_i] eCW1 ([facility]) Body mass index (BMI) [Ratio] 34.82 kg/m2 34.82 kg/m2 eCW1 ([facility]) Heart rate 66 /min 66 /min eCW1 ([facility]) Respiratory rate 20 /min 20 /min eCW1 ([facility]) Body temperature 98 [degF] 98 [degF] eCW1 ([facility]) Systolic blood pressure 120 mm[Hg] 120 mm[Hg] e CW1 ([facility]) Diastolic blood pressure 82 mm[Hg] 82 mm[Hg] eCW1 ([facility]) Body weight 235 [lb_av] 235 [lb_av] eCW1 ([facility]) Body height 68 [in_i] 68 [in_i] eCW1 ([facility]) Body mass index (BMI) [Ratio] 35.73 kg/m2 35.73 kg/m2 eCW1 ([facility]) Diastolic blood pressure 80 mm[Hg] 80 mm[Hg] eCW1 ([facility]) Heart rate 77 /min 77 /min eCW1 ([facility]) Respiratory rate 20 /min 20 /min eCW1 ([facility]) Body temperature 97.9 [degF] 97.9 [degF] eCW1 ( [facility]) Systolic blood pressure 120 mm[Hg] 120 mm[Hg] e CW1 ([facility]) Body weight 233 [lb_av] 233 [lb_av] eCW1 ([facility]) Body height 68 [in_i] 68 [in_i] eCW1 ([facility]) Body mass index (BMI) [Ratio] 35.42 kg/m2 35.42 kg/m2 eCW1 ([facility]) Heart rate 97 /min 97 /min eCW1 ([facility]) Respiratory rate 20 /min 20 /min eCW1 ([facility]) Body temperature 98.3 [degF] 98.3 [degF] eCW1 ( [facility]) Systolic blood pressure 120 mm[Hg] 120 mm[Hg] e CW1 ([facility]) Diastolic blood pressure 70 mm[Hg] 70 mm[Hg] eCW1 ([facility])
[2021-10-30] MEDS ORDERED: FURO40TA2 PO (23:19)
[2021-10-30] MEDS ORDERED: SPIR-10 PO (23:19)
[2021-10-30] MEDS ORDERED: ELIQ5TAB PO (23:21)
[2021-10-30] MEDS ORDERED: ASPI81TA26 PO (23:21)
[2021-10-30] MEDS ORDERED: ATEN50TA2 PO (23:21)
[2021-10-30] MEDS ORDERED: CALC1CAP39 PO (23:29)
[2021-10-30] MEDS ORDERED: D31000TA2 PO (23:29)
[2021-10-30] MEDS ORDERED: HOME MED LIST COMPLETE! XX SCH (23:30)
[2021-10-31 00:13] LABS: RSV AMPLIFICATION NEGATIVE (NEGATIVE)
[2021-10-31 01:31] VITALS: BP 133/79
[2021-10-31] MEDS: KETOROLAC 30 MG/ML 1ML VIAL IV PRN ×2 (01:56→16:26)
[2021-10-31 04:00] VITALS: BP 126/65
[2021-10-31 05:19] LABS: BASO % 0.2 % (0.0-1.0); HEMATOCRIT 38.8 % (42.0-52.0); HEMOGLOBIN 12.3 g/dl (13.5-17.5); LYMPH # 1.2 10^3/uL (1.5-5.0); LYMPH % 7.2 % (24.0-44.0); MEAN CORPUSCULAR HEMOGLOBIN 30.1 pg (27.0-33.0); MEAN CORPUSCULAR HGB CONC 31.7 g/dl (32.0-36.5); MEAN CORPUSCULAR VOLUME 94.9 fl (80.0-96.0); MONO # 1.3 10^3/uL (0.0-0.8); NEUTROPHILS # 13.5 10^3/uL (1.5-8.5); PLATELET COUNT, AUTOMATED 189 10^3/uL (150-450); RED BLOOD COUNT 4.09 10^6/uL (4.30-6.10); WHITE BLOOD COUNT 16.1 10^3/uL (4.0-10.0)
--- NOTE | 2021-10-31 05:33 | ECGEPIP ---
[facility] - ED Test Date: 2021-10-30 Pat Name: RENA VACA Department: Room: - Gender: Male Psychodramatist: EVELIO : 1945 Requested By: ANTONY Newton Order Number: [id number] Reading MD: Ramses Moran Measurements Intervals [place] Rate: 61 P: PA: QRS: 7 QRSD: 86 T: -48 QT: 448 QTc: 450 Interpretive Statements Atrial fibrillation with frequent ventricular-paced complexes ST & T wave abnormality, consider anterolateral ischemia SIMILAR TO 02/03/17 Electronically Signed on 10-31-2021 5:33:28 EST by Ramses Moran
[2021-10-31 05:53] LABS: CALCIUM LEVEL 8.5 MG/DL (8.8-10.2); CREATININE FOR GFR 1.74 MG/DL (0.70-1.30); GLOMERULAR FILTRATION RATE 40.6 (>42); POTASSIUM SERUM 4.7 MEQ/L (3.5-5.1)
--- NOTE | 2021-10-31 08:03 | REP ---
INDICATION: chest contusion, pneumothorax. COMPARISON: Comparison chest CT study October 30, 2021 chest x-ray February 03, 2017.. TECHNIQUE: Two views.. FINDINGS: There is extensive extra thoracic soft tissue emphysema about the right chest. Pneumomediastinum is visible most conspicuously on the lateral radiograph. There is no definite pneumothorax. Heart is enlarged. Pacemaker remains in place. Oxygen delivery tubing and EKG monitoring electrodes are seen. IMPRESSION: Extensive right-sided extra thoracic soft tissue emphysema. No definite pneumothorax seen. Cardiomegaly with pacemaker. <Electronically signed by Kevin Chang > 10/31/21 0753
[2021-10-31 08:49] VITALS: BP 150/77
[2021-10-31] MEDS: amLODIPine 5 MG TAB PO SCH (09:26)
[2021-10-31] MEDS: ENOXAPARIN 40MG/0.4ML SYRINGE (J1650 PER 10MG) SC SCH (09:26)
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
[2021-10-31] MEDS: PERCOCET 5MG/325MG TAB PO PRN (12:14)
[2021-10-31 12:37] VITALS: BP 137/67
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
[2021-10-31 16:30] VITALS: BP 140/71
[2021-11-01] VITALS (20 sets, daily range): BP systolic 107–138; BP diastolic 55–80
[2021-11-01] MEDS: PERCOCET 5MG/325MG TAB PO PRN ×3 (00:17→19:48)
--- NOTE | 2021-11-01 09:11 | REP ---
INDICATION: chest contusion, pneumothorax COMPARISON: 10/31/2021 TECHNIQUE: PA and lateral. FINDINGS: Extensive right-sided subcutaneous emphysema relatively unchanged from prior examination. Mediastinum and cardiac silhouette are stable. No obvious underlying focal consolidation or effusion. No definite pneumothorax identified. IMPRESSION: No significant change from prior examination. <Electronically signed by Dustin Padilla > 11/01/21 0908
[2021-11-01] MEDS: ENOXAPARIN 40MG/0.4ML SYRINGE (J1650 PER 10MG) SC SCH (10:00)
[2021-11-01] MEDS: amLODIPine 5 MG TAB PO SCH (10:00)
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
[2021-11-01] MEDS ORDERED: GLUCOSE 4GM CHEW TABLET PO PRN (14:10)
[2021-11-01] MEDS ORDERED: GLUCAGON INJ 1MG VIAL SC PRN (14:10)
[2021-11-01] MEDS ORDERED: DEXTROSE 50% 50 ML SYRINGE IV PRN (14:10)
[2021-11-01] MEDS: FUROSEMIDE 40 MG TAB PO SCH (14:31)
[2021-11-01] MEDS: ASPIRIN 81MG ENTERIC TABLET PO SCH (14:32)
[2021-11-01] MEDS: SPIRONOLACTONE 25 MG TAB PO SCH (14:32)
[2021-11-01] MEDS: TAMSULOSIN 0.4 MG CAP PO SCH ×2 (14:32→21:23)
[2021-11-01] MEDS: atenoloL 50 MG TAB PO SCH (14:33)
[2021-11-01] MEDS ORDERED: ALBUTEROL 90 MCG/ACT 8GM HFA INHALER INH PRN (14:40)
[2021-11-01] MEDS: COMBIVENT RESPIMAT 100-20MCG INHALER 4GM INH SCH ×2 (15:15→20:00)
[2021-11-01 15:33] LABS: BASO # 0.1 10^3/uL (0.0-0.2); BASO % 0.4 % (0.0-1.0); EOS % 0.3 % (0.0-3.0); HEMATOCRIT 35.1 % (42.0-52.0); HEMOGLOBIN 11.3 g/dl (13.5-17.5); LYMPH # 2.2 10^3/uL (1.5-5.0); LYMPH % 15.4 % (24.0-44.0); MEAN CORPUSCULAR HEMOGLOBIN 30.4 pg (27.0-33.0); MEAN CORPUSCULAR HGB CONC 32.2 g/dl (32.0-36.5); MEAN CORPUSCULAR VOLUME 94.4 fl (80.0-96.0); MONO # 1.2 10^3/uL (0.0-0.8); MONO % 8.4 % (2.0-8.0); NEUTROPHILS # 10.6 10^3/uL (1.5-8.5); NEUTROPHILS % 74.9 % (36.0-66.0); PLATELET COUNT, AUTOMATED 163 10^3/uL (150-450); RED BLOOD COUNT 3.72 10^6/uL (4.30-6.10); WHITE BLOOD COUNT 14.1 10^3/uL (4.0-10.0)
[2021-11-01] MEDS: PANTOPRAZOLE 40MG TAB (PROTONIX) PO SCH (16:54)
[2021-11-01] MEDS: VITAMIN D 1,000 INTERNATIONAL UNITS TABLET PO SCH (16:54)
[2021-11-01 18:52] LABS: ALBUMIN 3.7 GM/DL (3.2-5.2); CALCIUM LEVEL 9.4 MG/DL (8.8-10.2); CREATININE FOR GFR 1.81 MG/DL (0.70-1.30); GLOMERULAR FILTRATION RATE 38.8 (>42); POTASSIUM SERUM 4.2 MEQ/L (3.5-5.1); TOTAL PROTEIN 6.7 GM/DL (6.4-8.2)
[2021-11-01] MEDS ORDERED: diphenhydrAMINE 50MG/ML VIAL (J1200) IV ONE (19:05)
[2021-11-01 19:11] LABS: NT-PRO BNP 277 PG/ML (<450)
[2021-11-01] MEDS: ADVAIR HFA 230/21MCG INHALER INH SCH (20:00)
[2021-11-01] MEDS: HumaLOG INSULIN (NovoLOG) PER UNIT SC SCH ×2 (21:00)
--- NOTE | 2021-11-01 21:11 | REPVR ---
PROCEDURE INFORMATION: Exam: CT Chest Without Contrast; Diagnostic Exam date and time: 11/01/2021 8:09 PM Age: 76 years old Clinical indication: Condition or disease; Lung condition and disease; Pneumothorax; Additional info: Assess pneumothorax TECHNIQUE: Imaging protocol: Diagnostic computed tomography of the chest without contrast. 3D rendering (Not supervised by radiologist): MIP and/or 3D reconstructed images were created by the technologist. Radiation optimization: All CT scans at this facility use at least one of these dose optimization techniques: automated exposure control; mA and/or kV adjustment per patient size (includes targeted exams where dose is matched to clinical indication); or iterative reconstruction. COMPARISON: 1. CT ANGIO CHEST 10/30/2021 8:24 PM 2. CR Chest, 2 view PA, Lat 11/01/2021 8:20:45 AM (The report from this study was not available for review at the time of this interpretation.) FINDINGS: Limitations: Respiratory motion artifact degrades the image quality. Tubes, catheters and devices: A left subclavian pacemaker device is noted with its single lead in the right ventricle. Lungs: There is compressive atelectasis in the right lower lobe. There is no lung consolidation or mass. No emphysematous changes are noted. Pleural spaces: There is a small right pneumothorax, which has increased in size compared to the CTA chest on 10/30/2021, but still measures less than 10%. There is a moderate right hemothorax, which has increased in size compared to the CTA chest on 10/30/2021. Heart: The heart is enlarged and similar in size compared to the CTA chest on 10/30/2021. Coronary artery calcifications are present. No pericardial effusion is noted. Mediastinal space: There is a large amount of gas in the mediastinum, which has increased since the CTA chest on 10/30/2021. No mediastinal fluid collection is noted. Aorta: There is no thoracic aortic aneurysm or intramural hematoma. Extensive atherosclerotic calcifications are present. Lymph nodes: No enlarged lymph nodes. Liver: Unremarkable. No liver lesion is identified. The contour of the liver is smooth. No hepatomegaly is noted. Pancreas: The pancreas is atrophic. The head of the pancreas was not fully imaged. Spleen: Unremarkable. No splenomegaly is noted. Adrenal glands: Normal. No adrenal mass is noted. Intestine: There is colonic diverticulosis. The bowel was not fully imaged. Bones/joints: There is an acute nondisplaced longitudinal fracture involving the right side of the manubrium, which is similar in appearance compared to the CTA chest on 10/30/2021. There is a persistent acute fracture of the right scapula involving the superior border, base of the coracoid process, and anterosuperior portion of the glenoid, which is similar in appearance compared to the CTA chest on 10/30/2021. There are persistent acute fractures of the right anterior 1st rib, right anterior and posterior 2nd rib, right posterior and anterolateral 3rd rib, right posterior, lateral, and anterior 4th rib, right posterior and lateral 5th rib, right posterior and anterior 6th rib, right posterior 7th rib, right posteromedial and posterior 8th rib, and right posterior 9th rib, without significant change compared to the CTA chest on 10/30/2021. There is an old healed fracture of the left anterior 3rd rib that is unchanged compared to the CTA chest on 10/30/2021. There are chronic mild anterior wedge compression deformities of T1, T5, and T6, which are stable compared to the CTA chest on 10/30/2021. Degenerative changes are present in the thoracic spine. There is severe osteoarthritis of both glenohumeral joints. Soft tissues: There is a large amount of soft tissue gas in the neck, right chest wall, supraclavicular regions, and right arm, which has increased compared to the CTA chest on 10/30/2021. IMPRESSION: 1. Small right pneumothorax, which has increased in size compared to the CTA chest on 10/30/2021, but still measures less than 10%. 2. Moderate right hemothorax, which has increased in size compared to the CTA chest on 10/30/2021. 3. Large amount of gas in the mediastinum, which has increased since the CTA chest on 10/30/2021. 4. Large amount of soft tissue gas in the neck, right chest wall, supraclavicular regions, and right arm, which has increased compared to the CTA chest on 10/30/2021. 5. Acute nondisplaced longitudinal fracture involving the right side of the manubrium, which is similar in appearance compared to the CTA chest on 10/30/2021. 6. Acute fracture of the right scapula involving the superior border, base of the coracoid process, and anterosuperior portion of the glenoid, which is similar in appearance compared to the CTA chest on 10/30/2021. 7. Multiple acute right 1st through 9th rib fractures, without significant change compared to the CTA chest on 10/30/2021. 8. Cardiomegaly, which is stable compared to the CTA chest on 10/30/2021. 9. Colonic diverticulosis. Electronically signed by: Rhett Suarez On 11/01/2021 21:11:42 PM
[2021-11-01] MEDS: APIXABAN 5 MG TAB (ELIQUIS) PO SCH (21:23)
[2021-11-01] MEDS: PRAVASTATIN 20 MG TAB PO SCH (21:23)
--- NOTE | 2021-11-01 22:28 | REPVR ---
PROCEDURE INFORMATION: Exam: CT Neck Without Contrast Exam date and time: 11/01/2021 8:09 PM Age: 76 years old Clinical indication: Injury or trauma; Fall; Mass, lump, or swelling in neck; Bilateral; Blunt trauma (contusions or hematomas); Additional info: Facial swelling S/P trauma TECHNIQUE: Imaging protocol: Computed tomography images of the neck without contrast. Radiation optimization: All CT scans at this facility use at least one of these dose optimization techniques: automated exposure control; mA and/or kV adjustment per patient size (includes targeted exams where dose is matched to clinical indication); or iterative reconstruction. COMPARISON: 1. CT Spine,cervical w/o contrast 10/30/2021 8:[address] Chest without contrast 11/01/2021 8:06:[address] ANGIO CHEST 10/30/2021 8:24:[address]-Shoulder WITHOUT CONTRAST RIGHT 10/30/2021 9:56:39 PM FINDINGS: Limitations: Motion artifact degrades the image quality. Orbital cavity: There is a large amount of soft tissue gas along the inferior aspect of the right globe. The globes are intact. Mastoid air cells: The mastoid air cells are well aerated. Auditory system: Unremarkable. The middle ear spaces are clear. Paranasal sinuses: The sinuses are well-aerated. No air-fluid levels are noted in the sinuses. Nasal cavity: Unremarkable. Nasopharynx: Unremarkable. Oral Cavity: Unremarkable. Dental: Several teeth are missing. There is a periapical abscess involving the remaining right lower molar (image 37 of the sagittal series 303). Oropharynx: There is gas in the parapharyngeal spaces. Hypopharynx: Unremarkable. Larynx: Unremarkable. No swelling of the epiglottis. No mass. Retropharyngeal space: There is gas in the retropharyngeal space. No fluid collection is noted in the retropharyngeal space. Submandibular/Parotid glands: There is extensive soft tissue gas in the parotid and submandibular spaces. Thyroid: Unremarkable. Lymph nodes: No enlarged lymph nodes. Trachea: No defect in the wall of the trachea is noted. Lungs: There is a small right pneumothorax measuring less than 10% and a moderate right hemothorax, which are better visualized in the CT chest on 11/01/2021. Refer to the CT chest report on 11/01/2021 for further details. Bones/joints: Allowing for motion artifact, no fracture is identified in the cervical spine. There is a chronic mild anterior wedge compression fracture of T1, which is stable compared to the CT cervical spine on 10/30/2021. Degenerative changes are present in the cervical spine with loss of disc height, endplate spurs, posterior disc osteophyte complexes, uncovertebral hypertrophy, and osteoarthritis of the facet joints at several levels. There is a grade 1 anterolisthesis of C7 on T1 secondary to severe osteoarthritis of the C7-T1 facet joints that is similar in appearance compared to the CT cervical spine on 10/30/2021. There is a partially imaged acute nondisplaced longitudinal fracture involving the right side of the manubrium, which is similar in appearance compared to the CTA chest on 10/30/2021. There is an acute fracture of the right scapula involving the superior portion, base of the coracoid process, and superior portion of the glenoid, which is similar in appearance compared to the CTA chest on 10/30/2021. There is a partially imaged acute nondisplaced fracture involving the distal end of the right clavicle, which is similar in appearance compared to the CT right shoulder on 10/30/2021. There are acute fractures 1st through 5th ribs, which are stable compared to the CTA chest on 10/30/2021. The ribs were not fully imaged. Refer to the CT chest report on 11/01/2021 for further details. Vasculature: There are atherosclerotic calcifications. Soft tissues: There is extensive gas in the soft tissues of the neck and imaged chest wall. No drainable soft tissue fluid collection is noted. Other findings: A left subclavian pacemaker device was partially imaged. There is gas in the mediastinum, which has increased since the CT cervical spine on 10/30/2021. IMPRESSION: 1. Small right pneumothorax measuring less than 10% and a moderate right hemothorax, which are better visualized in the CT chest on 11/01/2021. Refer to the CT chest report on 11/01/2021 for further details. 2. Extensive gas in the soft tissues of the face, neck, and chest wall. 3. Pneumomediastinum, which has progressed compared to the CT cervical spine on 10/30/2021. 4. Acute fracture of the right scapula, which is similar in appearance compared to the CTA chest on 10/30/2021. 5. Partially imaged acute nondisplaced fracture involving the distal end of the right clavicle, which is similar in appearance compared to the CT right shoulder on 10/30/2021. 6. Partially imaged acute nondisplaced longitudinal fracture involving the right side of the manubrium, which is similar in appearance compared to the CTA chest on 10/30/2021. 7. Acute fractures 1st through 5th ribs, which are stable compared to the CTA chest on 10/30/2021. The ribs were not fully imaged. Refer to the CT chest report on 11/01/2021 for further details. 8. Periapical abscess involving the remaining right lower molar tooth. Electronically signed by: Rhett Suarez On 11/01/2021 22:28:28 PM
--- NOTE | 2021-11-01 22:29 | REPVR ---
PROCEDURE INFORMATION: Exam: CT Head Without Contrast Exam date and time: 11/01/2021 8:09 PM Age: 76 years old Clinical indication: Injury or trauma; Fall; Blunt trauma (contusions or hematomas); Additional info: Facial swelling S/P trauma TECHNIQUE: Imaging protocol: Computed tomography of the head without contrast. Radiation optimization: All CT scans at this facility use at least one of these dose optimization techniques: automated exposure control; mA and/or kV adjustment per patient size (includes targeted exams where dose is matched to clinical indication); or iterative reconstruction. COMPARISON: CT Head without contrast 10/30/2021 8:21 PM FINDINGS: Brain: There is no CT evidence for an acute large vessel territorial infarct. No acute intracranial hemorrhage is seen. There are non-specific foci of low attenuation in the periventricular and subcortical white matter, which are likely the sequela of chronic small vessel ischemic injury and are similar in appearance compared to the prior CT head on 10/30/2021. No mass effect, midline shift, or herniation is noted. Cerebral ventricles: The ventricles are mildly dilated in proportion to the sulci, which is compatible with mild generalized cerebral and cerebellar volume loss that is similar in appearance compared to the prior CT head on 10/30/2021. Paranasal sinuses: The imaged portions of the sinuses are well aerated. No air-fluid levels are noted in the sinuses. Mastoid air cells: The mastoid air cells are well aerated. Orbital cavity: The globes and orbits are intact. There is a large amount of soft tissue gas along the inferior aspect of the right globe. Vasculature: There are atherosclerotic calcifications of the intracranial portion of the left vertebral artery and both internal carotid arteries. Bones/joints: The skull is intact. No suspicious osteolytic or osteoblastic lesion. Soft tissues: There is a large amount of soft tissue gas in the face and neck and facial swelling, which have developed since the CT head on 10/30/2021. IMPRESSION: 1. Large amount of soft tissue gas in the face and neck and facial swelling, which have developed since the CT head on 10/30/2021. 2. No acute intracranial abnormality. Electronically signed by: Rhett Suarez On 11/01/2021 22:28:50 PM
[2021-11-01] MEDS ORDERED: flumazeniL 0.5 MG/5 ML VIAL As Ordered ONE (22:55)
[2021-11-01] MEDS ORDERED: MIDAZOLAM INJ 2MG/2ML VIAL (J2250 PER 1MG) As Ordered ONE ×2 (22:56→23:35)
[2021-11-01] MEDS ORDERED: LIDOCAINE 1% MDV 20ML VIAL As Ordered ONE ×2 (22:56→23:36)
[2021-11-01] MEDS ORDERED: LIDOCAINE 1% MDV 20ML VIAL SC ONE (23:09)
[2021-11-01] MEDS ORDERED: MORPHINE 10 MG/ML 1ML VIAL (J2270) IV ONE (23:20)
[2021-11-01] MEDS ORDERED: MORPHINE 2 MG/ML 1ML VIAL (J2270) As Ordered ONE (23:20)
[2021-11-02] VITALS: BP 105/55
[2021-11-02] MEDS ORDERED: NORCO, ANEXSIA 5/325MG TABLET (HYDROcodone/ACETAMINOPHEN) PO PRN (00:15)
[2021-11-02] MEDS ORDERED: LEVALBUTEROL 1.25 MG/0.5 ML CONCENTRATE NEB NEB PRN (00:15)
[2021-11-02] MEDS ORDERED: BISACODYL 10 MG SUPP PR PRN (00:15)
--- NOTE | 2021-11-02 00:21 | REPVR ---
PROCEDURE INFORMATION: Exam: XR Chest Exam date and time: 11/01/2021 11:44 PM Age: 76 years old Clinical indication: Device placement; Chest tube; Additional info: S/P chest tube placement TECHNIQUE: Imaging protocol: XR of the chest. Views: 1 view. COMPARISON: 1. CR PORTABLE CHEST X-RAY 11/01/2021 11:[address] Chest without contrast 11/01/2021 8:06:[address]-Shoulder WITHOUT CONTRAST RIGHT 10/30/2021 9:56:39 PM FINDINGS: Tubes, catheters and devices: An additional right chest tube has been placed since the prior chest x-ray on 11/01/2021 11:19 PM, which terminates in the superior aspect of the right hemithorax. No significant change is noted in the position of the other right chest tube, which projects over the inferomedial aspect of the right hemithorax. Lungs: There is bibasilar atelectasis. Pleural spaces: The tiny right pneumothorax seen in the chest x-ray on 11/01/2021 11:19 PM is no longer visualized. Heart/Mediastinum: There is a persistent pneumomediastinum. There is persistent cardiomegaly. Bones/joints: There are persistent acute fractures of the right ribs, manubrium, distal end of the right clavicle, and right scapula, which are better visualized in the CT chest on 11/01/[address] right shoulder on 10/30/2021. Soft tissues: Persistent extensive soft tissue gas is noted in the chest wall and neck. IMPRESSION: 1. Additional right chest tube that has been placed since the prior chest x-ray on 11/01/2021 11:19 PM, and the tiny right pneumothorax seen in the chest x-ray on 11/01/2021 11:19 PM is no longer visualized. 2. Persistent acute fractures of the right ribs, manubrium, distal end of the right clavicle, and right scapula, which are better visualized in the CT chest on 11/01/[address] right shoulder on 10/30/2021. 3. Persistent pneumomediastinum. 4. Persistent extensive soft tissue gas in the neck and chest wall. 5. Persistent cardiomegaly. Electronically signed by: Rhett Suarez On 11/02/2021 00:21:23 AM
--- NOTE | 2021-11-02 00:22 | REPVR ---
PROCEDURE INFORMATION: Exam: XR Chest Exam date and time: 11/01/2021 11:33 PM Age: 76 years old Clinical indication: Device placement; Chest tube; Additional info: Post chest tube placement TECHNIQUE: Imaging protocol: XR of the chest. Views: 1 view. COMPARISON: CT Chest without contrast 11/01/2021 8:06 PM FINDINGS: Tubes, catheters and devices: There is a right-sided chest tube that has been placed since the prior CT Chest without contrast on 11/01/2021 8:06 PM, which projects over the inferomedial aspect of the right hemithorax. A left subclavian pacemaker device is noted with its single intact lead located in the right ventricle. Lungs: There is bibasilar atelectasis. Pleural spaces: There is a tiny residual right pneumothorax. Heart/Mediastinum: A persistent pneumomediastinum is present. The heart is enlarged. Bones/joints: There are multiple persistent right-sided rib fractures and a right scapular fracture, which are better visualized in the CT Chest without contrast on 11/01/2021 8:06 PM. The fracture of the right side of the manubrium is also better visualized in the CT Chest without contrast on 11/01/2021 8:06 PM. Soft tissues: Persistent extensive soft tissue gas is noted in the neck and chest wall. IMPRESSION: 1. Right-sided chest tube that has been placed since the prior CT Chest without contrast on 11/01/2021 8:06 PM, and there is a tiny residual right pneumothorax. 2. Persistent right-sided rib fractures, a right scapular fracture, and manubrial fracture, which are better visualized in the CT Chest without contrast on 11/01/2021 8:06 PM. 3. Persistent pneumomediastinum. 4. Persistent extensive soft tissue gas in the neck and chest wall. 5. Cardiomegaly. Electronically signed by: Rhett Suarez On 11/02/2021 00:21:55 AM
[2021-11-02] MEDS: DOCUSATE SODIUM 100MG CAPSULE PO SCH ×3 (00:36→21:13)
[2021-11-02 00:39] LABS: LDH LACTATE DEHYDROGENASE 377 U/L (87-241)
[2021-11-02 00:43] LABS: PH BODY FLUID 7.604 UNITS (NOT ESTABLISHED); SOURCE, BODY FLUID pH PLEURAL
[2021-11-02 01:18] LABS: APPEARANCE, BODY FLUID TURBID (CLEAR); PLEURAL FL COLOR RED (COLORLESS); SOURCE, BODY FLUID PLEURAL
[2021-11-02] MEDS: LEVALBUTEROL 1.25 MG/0.5 ML CONCENTRATE NEB NEB SCH ×4 (02:00→20:00)
[2021-11-02 02:17] LABS: AMYLASE, BODY FLUID 13 U/L (NOT ESTABLISHED); CHOLESTEROL, BODY FLUID 54 MG/DL (NOT ESTABLISHED); LDH, BODY FLUID 2865 U/L (NOT ESTABLISHED); SOURCE, BODY FLUID ALBUMIN PLEURAL; SOURCE, BODY FLUID AMYLASE PLEURAL; SOURCE, BODY FLUID CHOL PLEURAL; SOURCE, BODY FLUID GLUCOSE PLEURAL; SOURCE, BODY FLUID LDH PLEURAL; SOURCE, BODY FLUID TOT PROTEIN PLEURAL; SOURCE, BODY FLUID TRIG PLEURAL; TOTAL PROTEIN, BODY FLUID 4.4 G/DL (NOT ESTABLISHED); TRIGLYCERIDE, BODY FLUID 129 MG/DL (NOT ESTABLISHED)
[2021-11-02] MEDS: COMBIVENT RESPIMAT 100-20MCG INHALER 4GM INH SCH ×4 (02:36→20:00)
[2021-11-02] MEDS ORDERED: hydrOXYzine 25 MG TAB PO ONE (03:25)
[2021-11-02] MEDS: PERCOCET 5MG/325MG TAB PO PRN ×2 (03:33→13:22)
[2021-11-02] MEDS ORDERED: MIDAZOLAM INJ 2MG/2ML VIAL (J2250 PER 1MG) IV ONE ×3 (03:55)
[2021-11-02] MEDS ORDERED: LIDOCAINE 1% MDV 20ML VIAL SC ONE ×3 (03:55)
[2021-11-02 04:00] VITALS: BP 135/60
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
[2021-11-02 05:39] LABS: BASO # 0.1 10^3/uL (0.0-0.2); BASO % 0.4 % (0.0-1.0); EOS # 0.1 10^3/uL (0.0-0.5); EOS % 0.8 % (0.0-3.0); HEMATOCRIT 32.8 % (42.0-52.0); HEMOGLOBIN 10.4 g/dl (13.5-17.5); LYMPH # 1.2 10^3/uL (1.5-5.0); LYMPH % 10.1 % (24.0-44.0); MEAN CORPUSCULAR HEMOGLOBIN 29.9 pg (27.0-33.0); MEAN CORPUSCULAR HGB CONC 31.7 g/dl (32.0-36.5); MEAN CORPUSCULAR VOLUME 94.3 fl (80.0-96.0); MONO # 1.2 10^3/uL (0.0-0.8); MONO % 9.8 % (2.0-8.0); NEUTROPHILS # 9.2 10^3/uL (1.5-8.5); NEUTROPHILS % 78.1 % (36.0-66.0); PLATELET COUNT, AUTOMATED 144 10^3/uL (150-450); RED BLOOD COUNT 3.48 10^6/uL (4.30-6.10); WHITE BLOOD COUNT 11.8 10^3/uL (4.0-10.0)
[2021-11-02] MEDS: D5W/0.9% SODIUM CHLORIDE 1,000 ML IV SCH ×2 (05:55→19:05)
[2021-11-02 06:12] LABS: CALCIUM LEVEL 8.9 MG/DL (8.8-10.2); CREATININE FOR GFR 1.35 MG/DL (0.70-1.30); GLOMERULAR FILTRATION RATE 54.4 (>42); POTASSIUM SERUM 4.1 MEQ/L (3.5-5.1)
[2021-11-02] MEDS: traMADol 50 MG TAB PO PRN (06:29)
[2021-11-02] MEDS: HumaLOG INSULIN (NovoLOG) PER UNIT SC SCH ×4 (07:30→21:00)
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
--- NOTE | 2021-11-02 07:39 | RO ---
OPERATIVE NOTE DATE OF OPERATION: 11/01/2021 PREOPERATIVE DIAGNOSIS: Pneumothorax, massive subcutaneous emphysema. POSTOPERATIVE DIAGNOSIS: Pneumothorax, massive subcutaneous emphysema. PROCEDURE: Insertion of anterior superior right chest tube. SURGEON: ALYSSA ROMANO M.D. DESCRIPTION OF PROCEDURE: Under satisfactory moderate sedation with 2 additional mg of Versed, the patient was prepped and draped in the usual sterile fashion. The skin, subcutaneous and pleura were infiltrated with 1% Lidocaine. An incision was made and a tunnel was created in the chest. A #20 chest tube was placed without difficulty and aimed towards the apex and the cupola. It was connected to the Pleur-Evac and secured to the chest wall with #2 Tevdek suture. The patient tolerated the procedure well. Post-procedure x-ray showed the tube to be in the cupola, ideally positioned.
[2021-11-02 08:00] VITALS: BP 123/67
[2021-11-02] MEDS: ADVAIR HFA 230/21MCG INHALER INH SCH ×2 (08:27→20:22)
[2021-11-02] MEDS: APIXABAN 5 MG TAB (ELIQUIS) PO SCH (09:00)
--- NOTE | 2021-11-02 09:25 | REP ---
INDICATION: chest contusion, pneumothorax COMPARISON: 11/01/2021 TECHNIQUE: PA and lateral. FINDINGS: Chest tubes extends to the right apex and right base in stable position. Bilateral pleuroparenchymal changes and extensive subcutaneous emphysema unchanged from prior examination. IMPRESSION: No change from prior examination. <Electronically signed by Dustin Padilla > 11/02/21 0906
[2021-11-02] MEDS: MOM 30ML SUSPENSION UDC PO SCH (09:43)
[2021-11-02] MEDS: ASPIRIN 81MG ENTERIC TABLET PO SCH (09:43)
[2021-11-02] MEDS: FUROSEMIDE 40 MG TAB PO SCH (09:44)
[2021-11-02] MEDS: PANTOPRAZOLE 40MG TAB (PROTONIX) PO SCH (09:44)
[2021-11-02] MEDS: VITAMIN D 1,000 INTERNATIONAL UNITS TABLET PO SCH (09:44)
[2021-11-02] MEDS: CALCIUM/VITAMIN D 500 MG TAB PO SCH (09:44)
[2021-11-02] MEDS: TAMSULOSIN 0.4 MG CAP PO SCH ×2 (09:44→21:13)
[2021-11-02] MEDS: SPIRONOLACTONE 25 MG TAB PO SCH (09:44)
[2021-11-02] MEDS: atenoloL 50 MG TAB PO SCH (09:45)
[2021-11-02] MEDS: amLODIPine 5 MG TAB PO SCH (09:45)
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
[2021-11-02 12:00] VITALS: BP 116/57
[2021-11-02] MEDS ORDERED: MORPHINE 1MG/ML IN 0.9% NACL 100ML IV BAG IV PRN (13:55)
[2021-11-02] MEDS ORDERED: NS 1,000 ML IV SCH (13:55)
[2021-11-02] MEDS ORDERED: EPIDURAL/PCA KEYS XX PRN (13:55)
[2021-11-02] MEDS ORDERED: diphenhydrAMINE 50MG/ML VIAL (J1200) IV PRN (13:55)
[2021-11-02] MEDS ORDERED: NALOXONE INJ 0.4MG/1ML VIAL (J2310 PER 1MG) IV PRN (13:55)
--- NOTE | 2021-11-02 15:46 | RO ---
OPERATIVE NOTE DATE OF OPERATION: 11/01/2021 PREOPERATIVE DIAGNOSIS: Hemopneumothorax, right side. POSTOPERATIVE DIAGNOSIS: PROCEDURE: Insertion of a right lateral posterior chest tube to drain the hemothorax. SURGEON: Dr. Alfonso Bustillos DESCRIPTION OF PROCEDURE: Under satisfactory moderate sedation achieved with 4 mg of Versed, patient was prepped and draped in the usual sterile fashion. A site was chosen in the midaxillary line at approximately the 6th intercostal space. Patient is obese and has massive subcutaneous emphysema, making the procedure all that more difficult. Skin, subcutaneous tissue, and muscles were infiltrated with 1% lidocaine. Because of his obesity and his subcutaneous emphysema, I could not get the needle through the pleura before making the incision. Incision was made and tissues were spread. A tunnel was created into the chest, and a #24 chest tube was placed without difficulty. It drained 400 mL of blood. It was sent for the requisite studies of hematologies, cytologies, bacteriologies, and chemistries. Chest tube was secured to the chest wall with a #2 Tevdek suture and connected to the Pleur-evac at -40 cm of water. Patient tolerated the procedure well. Chest x-ray showed the chest tube to be indeed by inferior and into the medial costophrenic angle.
[2021-11-02 16:00] VITALS: BP 123/59
[2021-11-02] MEDS: PIPERACILLIN/TAZOBACTAM SOD 3.375 GM in D5W MINI-BAG PLUS 50 ML IV SCH ×3 (16:00→21:14)
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
[2021-11-02 20:00] VITALS: BP 113/58
[2021-11-02] MEDS: PRAVASTATIN 20 MG TAB PO SCH (21:13)
[2021-11-02] MEDS: HEPARIN SOD (PORCINE) 5000UNITS/ML 1ML VIAL/SYRINGE SQ SCH (21:14)
[2021-11-02 21:45] LABS: MAGNESIUM LEVEL 2.3 MG/DL (1.8-2.4); POTASSIUM SERUM 4.5 MEQ/L (3.5-5.1)
[2021-11-03] VITALS: BP 111/58
[2021-11-03] MEDS: COMBIVENT RESPIMAT 100-20MCG INHALER 4GM INH SCH ×4 (01:36→19:30)
[2021-11-03] MEDS: LEVALBUTEROL 1.25 MG/0.5 ML CONCENTRATE NEB NEB SCH ×4 (01:37→19:30)
[2021-11-03] MEDS: PIPERACILLIN/TAZOBACTAM SOD 3.375 GM in D5W MINI-BAG PLUS 50 ML IV SCH ×4 (03:39→22:20)
[2021-11-03 04:00] VITALS: BP 118/63
[2021-11-03 05:55] LABS: BASO % 0.3 % (0.0-1.0); EOS # 0.2 10^3/uL (0.0-0.5); EOS % 1.8 % (0.0-3.0); HEMOGLOBIN 9.9 g/dl (13.5-17.5); LYMPH # 1.4 10^3/uL (1.5-5.0); LYMPH % 14.4 % (24.0-44.0); MEAN CORPUSCULAR HEMOGLOBIN 30.7 pg (27.0-33.0); MEAN CORPUSCULAR HGB CONC 31.9 g/dl (32.0-36.5); MONO # 1.1 10^3/uL (0.0-0.8); MONO % 11.7 % (2.0-8.0); NEUTROPHILS % 71.3 % (36.0-66.0); PLATELET COUNT, AUTOMATED 141 10^3/uL (150-450); RED BLOOD COUNT 3.23 10^6/uL (4.30-6.10); WHITE BLOOD COUNT 9.8 10^3/uL (4.0-10.0)
[2021-11-03] MEDS: D5W/0.9% SODIUM CHLORIDE 1,000 ML IV SCH ×2 (07:52→17:02)
[2021-11-03] MEDS: ADVAIR HFA 230/21MCG INHALER INH SCH ×2 (07:55→19:29)
[2021-11-03 08:08] VITALS: BP 111/62
[2021-11-03] MEDS: MOM 30ML SUSPENSION UDC PO SCH (09:00)
[2021-11-03] MEDS: DOCUSATE SODIUM 100MG CAPSULE PO SCH ×2 (09:00→21:06)
[2021-11-03] MEDS: HEPARIN SOD (PORCINE) 5000UNITS/ML 1ML VIAL/SYRINGE SQ SCH ×2 (09:17→21:06)
[2021-11-03] MEDS: HumaLOG INSULIN (NovoLOG) PER UNIT SC SCH ×4 (09:17→20:40)
[2021-11-03] MEDS: FUROSEMIDE 40 MG TAB PO SCH (09:18)
[2021-11-03] MEDS: atenoloL 50 MG TAB PO SCH (09:18)
[2021-11-03] MEDS: amLODIPine 5 MG TAB PO SCH (09:19)
[2021-11-03] MEDS: PANTOPRAZOLE 40MG TAB (PROTONIX) PO SCH (09:19)
[2021-11-03] MEDS: TAMSULOSIN 0.4 MG CAP PO SCH ×2 (09:19→21:06)
[2021-11-03] MEDS: CALCIUM/VITAMIN D 500 MG TAB PO SCH (09:19)
[2021-11-03] MEDS: VITAMIN D 1,000 INTERNATIONAL UNITS TABLET PO SCH (09:19)
--- NOTE | 2021-11-03 09:19 | REP ---
INDICATION: chest tube. COMPARISON: Multiple the latest yesterday at 7:50 a.m. TECHNIQUE: Portable FINDINGS: The technique utilized in obtaining the radiograph has magnified the cardiac silhouette and accentuated the interstitial markings. Cardiomediastinal silhouette lung katz are unchanged. Right-sided thoracotomy tube status quo. Pacemaker device status quo. Subcutaneous emphysema status quo. Osseous structures unchanged. IMPRESSION: No change <Electronically signed by Yony Harrison > 11/03/21 0906
[2021-11-03] MEDS: ASPIRIN 81MG ENTERIC TABLET PO SCH (09:20)
[2021-11-03] MEDS: SPIRONOLACTONE 25 MG TAB PO SCH (09:20)
[2021-11-03 11:47] LABS: ALBUMIN 2.9 GM/DL (3.2-5.2); BILIRUBIN,TOTAL 1.1 MG/DL (0.2-1.0); CALCIUM LEVEL 8.8 MG/DL (8.8-10.2); CREATININE FOR GFR 1.26 MG/DL (0.70-1.30); GLOMERULAR FILTRATION RATE 58.9 (>42); PHOSPHORUS LEVEL 3.1 MG/DL (2.5-4.9); TOTAL PROTEIN 5.9 GM/DL (6.4-8.2)
[2021-11-03 12:00] VITALS: BP 118/67
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
[2021-11-03 16:00] VITALS: BP 124/60
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
[2021-11-03 20:00] VITALS: BP 108/57
[2021-11-03] MEDS: PRAVASTATIN 20 MG TAB PO SCH (21:06)
[2021-11-04] VITALS (27 sets, daily range): BP systolic 94–175; BP diastolic 52–110; O2SAT 96–97
--- NOTE | 2021-11-04 00:21 | ECGEPIP ---
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 No remarkable changes Electronically Signed on 11-04-2021 0:21:33 EST by Cheng Loja
[2021-11-04] MEDS: COMBIVENT RESPIMAT 100-20MCG INHALER 4GM INH SCH ×4 (02:00→19:46)
[2021-11-04] MEDS: LEVALBUTEROL 1.25 MG/0.5 ML CONCENTRATE NEB NEB SCH ×4 (02:40→19:46)
[2021-11-04] MEDS: PIPERACILLIN/TAZOBACTAM SOD 3.375 GM in D5W MINI-BAG PLUS 50 ML IV SCH ×4 (04:20→21:00)
[2021-11-04 05:14] LABS: BASO % 0.2 % (0.0-1.0); EOS # 0.2 10^3/uL (0.0-0.5); EOS % 2.4 % (0.0-3.0); HEMATOCRIT 29.7 % (42.0-52.0); HEMOGLOBIN 9.3 g/dl (13.5-17.5); LYMPH # 1.3 10^3/uL (1.5-5.0); LYMPH % 15.1 % (24.0-44.0); MEAN CORPUSCULAR HEMOGLOBIN 30.3 pg (27.0-33.0); MEAN CORPUSCULAR HGB CONC 31.3 g/dl (32.0-36.5); MEAN CORPUSCULAR VOLUME 96.7 fl (80.0-96.0); MONO # 0.9 10^3/uL (0.0-0.8); MONO % 10.6 % (2.0-8.0); NEUTROPHILS # 5.9 10^3/uL (1.5-8.5); NEUTROPHILS % 71.1 % (36.0-66.0); PLATELET COUNT, AUTOMATED 146 10^3/uL (150-450); RED BLOOD COUNT 3.07 10^6/uL (4.30-6.10); WHITE BLOOD COUNT 8.3 10^3/uL (4.0-10.0)
[2021-11-04 05:42] LABS: BLOOD UREA NITROGEN 28 MG/DL (7-18); CALCIUM LEVEL 8.8 MG/DL (8.8-10.2); CARBON DIOXIDE LEVEL 31 MEQ/L (21-32); CHLORIDE LEVEL 106 MEQ/L (98-107); CREATININE FOR GFR 1.07 MG/DL (0.70-1.30); GLOMERULAR FILTRATION RATE > 60.0 (>42); GLUCOSE, FASTING 147 MG/DL (70-100); POTASSIUM SERUM 3.9 MEQ/L (3.5-5.1); SODIUM LEVEL 143 MEQ/L (136-145)
[2021-11-04] MEDS: ADVAIR HFA 230/21MCG INHALER INH SCH ×2 (07:39→19:46)
[2021-11-04] MEDS: HEPARIN SOD (PORCINE) 5000UNITS/ML 1ML VIAL/SYRINGE SQ SCH (07:43)
[2021-11-04] MEDS: CALCIUM/VITAMIN D 500 MG TAB PO SCH (07:43)
[2021-11-04] MEDS: FUROSEMIDE 40 MG TAB PO SCH (07:43)
[2021-11-04] MEDS: DOCUSATE SODIUM 100MG CAPSULE PO SCH ×2 (07:44→20:56)
[2021-11-04] MEDS: SPIRONOLACTONE 25 MG TAB PO SCH (07:44)
[2021-11-04] MEDS: HumaLOG INSULIN (NovoLOG) PER UNIT SC SCH ×4 (07:44→20:51)
[2021-11-04] MEDS: TAMSULOSIN 0.4 MG CAP PO SCH ×2 (07:44→20:56)
[2021-11-04] MEDS: ASPIRIN 81MG ENTERIC TABLET PO SCH (07:44)
[2021-11-04] MEDS: VITAMIN D 1,000 INTERNATIONAL UNITS TABLET PO SCH (07:48)
[2021-11-04] MEDS: amLODIPine 5 MG TAB PO SCH (07:48)
[2021-11-04] MEDS: atenoloL 50 MG TAB PO SCH (07:49)
[2021-11-04] MEDS: MOM 30ML SUSPENSION UDC PO SCH (07:54)
--- NOTE | 2021-11-04 09:18 | REP ---
INDICATION: hemopneumothorax COMPARISON: 11/03/2021 at 8:45 a.m. TECHNIQUE: PA and lateral. FINDINGS: Two right-sided chest tubes are in stable position. Diffuse bilateral subcutaneous emphysema is again noted and similar to prior examination. Underlying pulmonary parenchymal opacities primarily involving the right hemithorax and to a lesser extent the left base are again suggested and similar to prior examination. IMPRESSION: No significant change from prior examination. As above. <Electronically signed by Dustin Padilla > 11/04/21 0991
[2021-11-04] MEDS ORDERED: CHLORASEPTIC SPRAY MT PRN (10:40)
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
[2021-11-04] MEDS: PANTOPRAZOLE 40MG TAB (PROTONIX) PO SCH (11:03)
[2021-11-04] MEDS: LIDOCAINE 5% (LIDODERM) PATCH TD SCH (11:04)
[2021-11-04] MEDS: D5W/0.9% SODIUM CHLORIDE 1,000 ML IV SCH (12:12)
[2021-11-04] MEDS ORDERED: FUROSEMIDE 40MG/4ML VIAL (J1940) IV ONE (12:30)
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
[2021-11-04] MEDS: KETOROLAC 30 MG/ML 1ML VIAL IV SCH ×2 (13:15→18:48)
[2021-11-04] MEDS: PRAVASTATIN 20 MG TAB PO SCH (20:56)
[2021-11-04] MEDS: **NOTE PATIENT COMMENT** MISC XX SCH (20:57)
[2021-11-04] MEDS ORDERED: EPIDURAL/PCA KEYS XX PRN (22:00)
[2021-11-04] MEDS ORDERED: WALLBOXKEY XX PRN (22:00)
[2021-11-04] MEDS ORDERED: METOCLOPRAMIDE INJ 10MG/2ML VIAL (J2765 PER 1) IV PRN (22:00)
[2021-11-04] MEDS ORDERED: NALOXONE INJ 0.4MG/1ML VIAL (J2310 PER 1MG) IV PRN (22:00)
[2021-11-04] MEDS ORDERED: diphenhydrAMINE 50MG/ML VIAL (J1200) IV PRN (22:00)
[2021-11-04] MEDS ORDERED: ONDANSETRON 4MG/2ML VIAL IV PRN (22:00)
[2021-11-04] MEDS: FENTANYL/BUPIVACAINE/NACL BAG 250 ML EPIDURAL SCH (22:09)
[2021-11-05] VITALS (13 sets, daily range): BP systolic 98–117; BP diastolic 54–60; O2SAT 93–96
[2021-11-05] MEDS: KETOROLAC 30 MG/ML 1ML VIAL IV SCH ×2 (00:23→06:19)
[2021-11-05] MEDS: HEPARIN SOD (PORCINE) 5000UNITS/ML 1ML VIAL/SYRINGE SQ SCH ×3 (00:25→23:53)
[2021-11-05] MEDS: COMBIVENT RESPIMAT 100-20MCG INHALER 4GM INH SCH ×2 (00:55→07:12)
[2021-11-05] MEDS: LEVALBUTEROL 1.25 MG/0.5 ML CONCENTRATE NEB NEB SCH ×4 (00:56→19:49)
[2021-11-05] MEDS: PIPERACILLIN/TAZOBACTAM SOD 3.375 GM in D5W MINI-BAG PLUS 50 ML IV SCH ×4 (03:42→21:50)
[2021-11-05 03:58] LABS: BASO % 0.3 % (0.0-1.0); EOS # 0.2 10^3/uL (0.0-0.5); EOS % 2.2 % (0.0-3.0); HEMATOCRIT 28.4 % (42.0-52.0); LYMPH # 1.6 10^3/uL (1.5-5.0); LYMPH % 20.4 % (24.0-44.0); MEAN CORPUSCULAR HEMOGLOBIN 30.5 pg (27.0-33.0); MEAN CORPUSCULAR HGB CONC 31.7 g/dl (32.0-36.5); MEAN CORPUSCULAR VOLUME 96.3 fl (80.0-96.0); MONO # 0.8 10^3/uL (0.0-0.8); MONO % 9.8 % (2.0-8.0); NEUTROPHILS # 5.1 10^3/uL (1.5-8.5); NEUTROPHILS % 66.8 % (36.0-66.0); PLATELET COUNT, AUTOMATED 160 10^3/uL (150-450); RED BLOOD COUNT 2.95 10^6/uL (4.30-6.10); WHITE BLOOD COUNT 7.7 10^3/uL (4.0-10.0)
[2021-11-05 04:06] LABS: CALCIUM LEVEL 8.8 MG/DL (8.8-10.2); CREATININE FOR GFR 1.43 MG/DL (0.70-1.30); GLOMERULAR FILTRATION RATE 50.9 (>42); POTASSIUM SERUM 3.7 MEQ/L (3.5-5.1)
[2021-11-05] MEDS: ADVAIR HFA 230/21MCG INHALER INH SCH ×2 (07:12→19:49)
[2021-11-05] MEDS: HumaLOG INSULIN (NovoLOG) PER UNIT SC SCH ×4 (07:30→20:11)
--- NOTE | 2021-11-05 09:37 | REP ---
INDICATION: hemopneumothorax COMPARISON: 11/04/2021 TECHNIQUE: PA and lateral. FINDINGS: Right-sided chest tubes are in stable position. Stable cardiomegaly and pacemaker. Diffuse predominately right-sided subcutaneous emphysema along with underlying pleuroparenchymal changes are similar to prior examination. Increased opacity at the left base cannot be excluded. IMPRESSION: 1. Increased opacity at the left base suggesting consolidation/partial collapse and or effusion cannot be excluded. 2. Remainder of the examination is relatively stable. <Electronically signed by Dustin Padilla > 11/05/21 0953
[2021-11-05] MEDS: ASPIRIN 81MG ENTERIC TABLET PO SCH (10:13)
[2021-11-05] MEDS: atenoloL 50 MG TAB PO SCH (10:13)
[2021-11-05] MEDS: amLODIPine 5 MG TAB PO SCH (10:13)
[2021-11-05] MEDS: SPIRONOLACTONE 25 MG TAB PO SCH (10:14)
[2021-11-05] MEDS: FUROSEMIDE 40 MG TAB PO SCH (10:14)
[2021-11-05] MEDS: TAMSULOSIN 0.4 MG CAP PO SCH ×2 (10:14→20:19)
[2021-11-05] MEDS: VITAMIN D 1,000 INTERNATIONAL UNITS TABLET PO SCH (10:14)
[2021-11-05] MEDS: CALCIUM/VITAMIN D 500 MG TAB PO SCH (10:14)
[2021-11-05] MEDS: DOCUSATE SODIUM 100MG CAPSULE PO SCH ×2 (10:14→20:19)
[2021-11-05] MEDS: MOM 30ML SUSPENSION UDC PO SCH (10:15)
[2021-11-05] MEDS: LIDOCAINE 5% (LIDODERM) PATCH TD SCH (10:15)
[2021-11-05] MEDS: PANTOPRAZOLE 40MG TAB (PROTONIX) PO SCH (10:15)
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
[2021-11-05] MEDS: PRAVASTATIN 20 MG TAB PO SCH (20:19)
[2021-11-05] MEDS: **NOTE PATIENT COMMENT** MISC XX SCH (20:20)
[2021-11-05] MEDS: FENTANYL/BUPIVACAINE/NACL BAG 250 ML EPIDURAL SCH (23:40)
[2021-11-06] VITALS: BP 111/58
[2021-11-06] MEDS: LEVALBUTEROL 1.25 MG/0.5 ML CONCENTRATE NEB NEB SCH ×4 (01:13→19:30)
[2021-11-06] MEDS: PIPERACILLIN/TAZOBACTAM SOD 3.375 GM in D5W MINI-BAG PLUS 50 ML IV SCH ×4 (03:47→22:13)
[2021-11-06 04:00] VITALS: BP 111/55
[2021-11-06 06:31] LABS: BASO % 0.2 % (0.0-1.0); EOS # 0.2 10^3/uL (0.0-0.5); EOS % 2.1 % (0.0-3.0); HEMATOCRIT 27.4 % (42.0-52.0); HEMOGLOBIN 8.9 g/dl (13.5-17.5); LYMPH # 1.1 10^3/uL (1.5-5.0); LYMPH % 13.6 % (24.0-44.0); MEAN CORPUSCULAR HGB CONC 32.5 g/dl (32.0-36.5); MEAN CORPUSCULAR VOLUME 95.5 fl (80.0-96.0); MONO # 0.7 10^3/uL (0.0-0.8); MONO % 8.7 % (2.0-8.0); NEUTROPHILS # 6.2 10^3/uL (1.5-8.5); NEUTROPHILS % 74.6 % (36.0-66.0); PLATELET COUNT, AUTOMATED 157 10^3/uL (150-450); RED BLOOD COUNT 2.87 10^6/uL (4.30-6.10); WHITE BLOOD COUNT 8.3 10^3/uL (4.0-10.0)
[2021-11-06 06:56] LABS: BLOOD UREA NITROGEN 27 MG/DL (7-18); CALCIUM LEVEL 8.4 MG/DL (8.8-10.2); CARBON DIOXIDE LEVEL 33 MEQ/L (21-32); CHLORIDE LEVEL 102 MEQ/L (98-107); CREATININE FOR GFR 1.05 MG/DL (0.70-1.30); GLOMERULAR FILTRATION RATE > 60.0 (>42); GLUCOSE, FASTING 116 MG/DL (70-100); POTASSIUM SERUM 3.5 MEQ/L (3.5-5.1); SODIUM LEVEL 140 MEQ/L (136-145)
[2021-11-06] MEDS: HumaLOG INSULIN (NovoLOG) PER UNIT SC SCH ×4 (07:30→20:18)
[2021-11-06 08:00] VITALS: BP 97/53
[2021-11-06] MEDS: amLODIPine 5 MG TAB PO SCH (09:00)
[2021-11-06] MEDS: CALCIUM/VITAMIN D 500 MG TAB PO SCH (09:00)
[2021-11-06] MEDS: atenoloL 50 MG TAB PO SCH (09:00)
[2021-11-06] MEDS: MOM 30ML SUSPENSION UDC PO SCH (09:00)
--- NOTE | 2021-11-06 09:05 | REP ---
INDICATION: hemopneumothorax COMPARISON: 11/05/2021 TECHNIQUE: PA and lateral. FINDINGS: Right-sided chest tubes are in stable position. Extensive subcutaneous emphysema and suspected underlying pleuroparenchymal changes again noted and without significant change when allowing for variation in technique. No obvious new acute process appreciated. IMPRESSION: No significant change from prior examination. <Electronically signed by Dustin Padilla > 11/06/21 0901
[2021-11-06] MEDS: ADVAIR HFA 230/21MCG INHALER INH SCH ×2 (09:18→19:30)
[2021-11-06] MEDS: LIDOCAINE 5% (LIDODERM) PATCH TD SCH (10:10)
[2021-11-06] MEDS: ASPIRIN 81MG ENTERIC TABLET PO SCH (10:10)
[2021-11-06] MEDS: PANTOPRAZOLE 40MG TAB (PROTONIX) PO SCH (10:11)
[2021-11-06] MEDS: FUROSEMIDE 40 MG TAB PO SCH (10:11)
[2021-11-06] MEDS: SPIRONOLACTONE 25 MG TAB PO SCH (10:11)
[2021-11-06] MEDS: TAMSULOSIN 0.4 MG CAP PO SCH ×2 (10:11→20:38)
[2021-11-06] MEDS: VITAMIN D 1,000 INTERNATIONAL UNITS TABLET PO SCH (10:11)
[2021-11-06] MEDS: DOCUSATE SODIUM 100MG CAPSULE PO SCH ×2 (10:11→20:38)
[2021-11-06 12:00] VITALS: BP 105/55
[2021-11-06] MEDS ORDERED: FUROSEMIDE 40MG/4ML VIAL (J1940) IV ONE (12:00)
[2021-11-06] MEDS ORDERED: POTASSIUM CHLORIDE 10MEQ SR TABLET PO ONE (12:00)
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
[2021-11-06] MEDS: HEPARIN SOD (PORCINE) 5000UNITS/ML 1ML VIAL/SYRINGE SQ SCH ×2 (13:03→23:19)
[2021-11-06] MEDS: traMADol 50 MG TAB PO PRN (15:37)
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
[2021-11-06 16:00] VITALS: BP 112/52
[2021-11-06 20:00] VITALS: BP 119/57
[2021-11-06] MEDS: PRAVASTATIN 20 MG TAB PO SCH (20:38)
[2021-11-06] MEDS: **NOTE PATIENT COMMENT** MISC XX SCH (20:38)
[2021-11-06] MEDS: FENTANYL/BUPIVACAINE/NACL BAG 250 ML EPIDURAL SCH (23:19)
[2021-11-07] VITALS (19 sets, daily range): BP systolic 96–122; BP diastolic 51–59; O2SAT 88–98
[2021-11-07] MEDS: LEVALBUTEROL 1.25 MG/0.5 ML CONCENTRATE NEB NEB SCH ×4 (00:48→19:46)
[2021-11-07] MEDS: PIPERACILLIN/TAZOBACTAM SOD 3.375 GM in D5W MINI-BAG PLUS 50 ML IV SCH ×5 (03:34→22:15)
[2021-11-07] MEDS: traMADol 50 MG TAB PO PRN (06:35)
[2021-11-07 06:42] LABS: BASO % 0.4 % (0.0-1.0); EOS # 0.2 10^3/uL (0.0-0.5); EOS % 1.6 % (0.0-3.0); HEMOGLOBIN 9.1 g/dl (13.5-17.5); LYMPH # 1.4 10^3/uL (1.5-5.0); LYMPH % 13.8 % (24.0-44.0); MEAN CORPUSCULAR HEMOGLOBIN 30.2 pg (27.0-33.0); MEAN CORPUSCULAR HGB CONC 31.4 g/dl (32.0-36.5); MEAN CORPUSCULAR VOLUME 96.3 fl (80.0-96.0); MONO # 1.1 10^3/uL (0.0-0.8); MONO % 10.4 % (2.0-8.0); NEUTROPHILS # 7.3 10^3/uL (1.5-8.5); NEUTROPHILS % 72.3 % (36.0-66.0); PLATELET COUNT, AUTOMATED 175 10^3/uL (150-450); RED BLOOD COUNT 3.01 10^6/uL (4.30-6.10); WHITE BLOOD COUNT 10.1 10^3/uL (4.0-10.0)
[2021-11-07 07:09] LABS: BLOOD UREA NITROGEN 25 MG/DL (7-18); CALCIUM LEVEL 7.9 MG/DL (8.8-10.2); CARBON DIOXIDE LEVEL 32 MEQ/L (21-32); CHLORIDE LEVEL 101 MEQ/L (98-107); CREATININE FOR GFR 1.12 MG/DL (0.70-1.30); FERRITIN 240 NG/ML (26-388); GLOMERULAR FILTRATION RATE > 60.0 (>42); GLUCOSE, FASTING 129 MG/DL (70-100); IRON (FE) 26 UG/DL (65-175); LDH LACTATE DEHYDROGENASE 257 U/L (87-241); PERCENT SATURATION 10.6 % (19.7-50.0); POTASSIUM SERUM 3.4 MEQ/L (3.5-5.1); SODIUM LEVEL 140 MEQ/L (136-145); TOTAL IRON BINDING CAPACITY 245 UG/DL (250-450)
[2021-11-07] MEDS: HumaLOG INSULIN (NovoLOG) PER UNIT SC SCH ×4 (07:20→21:00)
--- NOTE | 2021-11-07 08:48 | REP ---
INDICATION: hemopneumothorax COMPARISON: 11/06/2021 TECHNIQUE: PA and lateral. FINDINGS: Right-sided chest tubes are in stable position and there appears to be a very subtle improvement with mildly decreased subcutaneous emphysema and possibly decreased pleuroparenchymal changes involving the right hemithorax and left base. No obvious visible pneumothorax identified. IMPRESSION: 1. Findings suggest very subtle minimal improvement. 2. No new acute process. No obvious pneumothorax. <Electronically signed by Dustin Padilla > 11/07/21 [id number]
--- NOTE | 2021-11-07 08:50 | REP ---
INDICATION: right foot pain COMPARISON: None. TECHNIQUE: AP, lateral, bilateral oblique views right foot. FINDINGS: Lateral view best demonstrates diffuse swelling/subcutaneous edema concerning for possible underlying infectious/inflammatory process. The osseous structures demonstrate generalized osteopenia and degenerative changes without evidence for acute fracture. No definite radiographic evidence to suggest osteomyelitis. IMPRESSION: 1. Diffuse soft tissue swelling suggesting cellulitis. 2. No evidence for acute fracture. No obvious radiographic evidence to suggest osteomyelitis. <Electronically signed by Dustin Padilla > 11/07/21 0804
--- NOTE | 2021-11-07 08:51 | REP ---
INDICATION: left foot pain COMPARISON: None. TECHNIQUE: AP, lateral, bilateral oblique views left foot. FINDINGS: Lateral view demonstrates moderate swelling/subcutaneous edema suggesting underlying infectious/inflammatory process. Generalized age-related degenerative changes are identified without obvious acute fracture or dislocation. IMPRESSION: Soft tissue swelling suggests cellulitis. No obvious acute fracture or dislocation. No definite findings to suggest osteomyelitis by radiographic evaluation. <Electronically signed by Dustin Padilla > 11/07/21 0840
[2021-11-07] MEDS: atenoloL 50 MG TAB PO SCH (09:00)
[2021-11-07] MEDS: CALCIUM/VITAMIN D 500 MG TAB PO SCH (09:00)
[2021-11-07] MEDS: amLODIPine 5 MG TAB PO SCH (09:00)
[2021-11-07] MEDS ORDERED: POTASSIUM CHLORIDE 10% LIQ 20 MEQ/15 ML UDC PO ONE (09:00)
--- NOTE | 2021-11-07 09:00 | REP ---
INDICATION: unilateral pitting edema in right leg, dvt? COMPARISON: None. TECHNIQUE: [place] scale and color Doppler evaluation using linear high frequency transducer. FINDINGS: Ultrasound examination of the right lower extremity deep venous structures from the common femoral vein through the popliteal vein demonstrates normal compressibility, flow and wave patterns in response to respiration and augmentation. Evaluation of the calf veins is limited. There is no evidence for deep venous thrombosis. Contralateral CFV is patent and normal. IMPRESSION: No evidence for deep venous thrombosis. <Electronically signed by Dustin Padilla > 11/07/21 0855
[2021-11-07] MEDS ORDERED: FUROSEMIDE 100MG/10ML VIAL (J1940) As Ordered ONE (09:16)
[2021-11-07] MEDS ORDERED: FUROSEMIDE 100MG/10ML VIAL (J1940) IV ONE (09:30)
[2021-11-07] MEDS: LIDOCAINE 5% (LIDODERM) PATCH TD SCH (09:30)
[2021-11-07] MEDS: TAMSULOSIN 0.4 MG CAP PO SCH ×2 (09:31→21:13)
[2021-11-07] MEDS: FUROSEMIDE 40 MG TAB PO SCH (09:31)
[2021-11-07] MEDS: ASPIRIN 81MG ENTERIC TABLET PO SCH (09:31)
[2021-11-07] MEDS: VITAMIN D 1,000 INTERNATIONAL UNITS TABLET PO SCH (09:31)
[2021-11-07] MEDS: PANTOPRAZOLE 40MG TAB (PROTONIX) PO SCH (09:31)
[2021-11-07] MEDS: SPIRONOLACTONE 25 MG TAB PO SCH (09:32)
[2021-11-07] MEDS: DOCUSATE SODIUM 100MG CAPSULE PO SCH ×2 (09:32→21:13)
[2021-11-07] MEDS: PERCOCET 5MG/325MG TAB PO PRN ×2 (09:36→16:39)
[2021-11-07] MEDS: MOM 30ML SUSPENSION UDC PO SCH (09:36)
[2021-11-07] MEDS: ADVAIR HFA 230/21MCG INHALER INH SCH ×2 (10:47→19:45)
[2021-11-07 11:29] LABS: URIC ACID 5.4 MG/DL (3.5-7.2)
--- NOTE | 2021-11-07 11:51 | ECHO ---
ECHOCARDIOGRAM DATE OF PROCEDURE: 11/07/2021 Age: Gender: Male Height: 68 inches Weight: 222 pounds REFERRING PHYSICIAN: Alfonso Bustillos M.D. INDICATION: Heart failure, unspecified, status post right rib fractures and clavicle fracture. MEASUREMENTS: 2D Measurements: Left atrium 4.3 cm Intraventricular septum 1.01 cm Posterior wall 1.11 cm Left ventricle diastole 4.1 cm Doppler Measurements: No aortic valve stenosis or regurgitation Aortic valve velocity 115 cm/sec LVOT velocity 117 cm/sec No mitral regurgitation Mild tricuspid regurgitation Estimated right ventricle systolic pressure 40-45 mmHg Estimated right atrial pressure of 5-10 mmHg No pulmonic regurgitation Pulmonary artery acceleration time 85 msec DESCRIPTION: Rhythm was atrial fibrillation with appropriate ventricular demand pacing. This was a moderately technically difficult echocardiogram. No useful subcostal window. CONCLUSIONS: 1. Normal left ventricle internal dimensions and wall thickness. Normal regional left ventricular (LV) wall motion and wall thickening. Normal LV systolic function. Left ventricular ejection fraction (LVEF) 60% by visual estimate. Unable to determine LV diastolic function in the setting of atrial fibrillation. 2. Normal right ventricle size and systolic function. 3. Mild left atrial dilatation. 4. No pericardial effusion. 5. Suggestive of moderate elevation of right ventricle systolic pressure (40-45 mmHg). Estimated right atrial pressure of 5-10 mmHg. 6. Presence of a ventricular pacemaker lead. Results of this study were communicated to Dr. Alfonso Bustillos, whom I was able to reach on his cell phone and spoke with just a few minutes ago.
[2021-11-07] MEDS ORDERED: VANCOMYCIN HCL 1,000 MG, VIAL MATE ADAPTER 1 EACH in NS 250 ML IV ONE ×2 (12:00→13:00)
[2021-11-07] MEDS: HEPARIN SOD (PORCINE) 5000UNITS/ML 1ML VIAL/SYRINGE SQ SCH ×2 (13:14→23:42)
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
[2021-11-07] MEDS ORDERED: POTASSIUM CHLORIDE 10MEQ SR TABLET PO ONE (17:00)
[2021-11-07] MEDS: **NOTE PATIENT COMMENT** MISC XX SCH (20:43)
[2021-11-07] MEDS: PRAVASTATIN 20 MG TAB PO SCH (21:13)
[2021-11-07] MEDS: FENTANYL/BUPIVACAINE/NACL BAG 250 ML EPIDURAL SCH (23:36)
[2021-11-08] VITALS (13 sets, daily range): BP systolic 109–126; BP diastolic 55–62; O2SAT 96–98
[2021-11-08] MEDS: VANCOMYCIN HCL 1,000 MG, VIAL MATE ADAPTER 1 EACH in NS 250 ML IV SCH ×3 (00:36→23:58)
[2021-11-08] MEDS: LEVALBUTEROL 1.25 MG/0.5 ML CONCENTRATE NEB NEB SCH ×4 (02:00→20:00)
[2021-11-08] MEDS: PIPERACILLIN/TAZOBACTAM SOD 3.375 GM in D5W MINI-BAG PLUS 50 ML IV SCH ×2 (04:55→10:26)
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
[2021-11-08 05:43] LABS: BASO % 0.3 % (0.0-1.0); EOS # 0.1 10^3/uL (0.0-0.5); EOS % 1.4 % (0.0-3.0); HEMATOCRIT 29.3 % (42.0-52.0); HEMOGLOBIN 9.2 g/dl (13.5-17.5); LYMPH # 1.3 10^3/uL (1.5-5.0); LYMPH % 13.7 % (24.0-44.0); MEAN CORPUSCULAR HEMOGLOBIN 30.2 pg (27.0-33.0); MEAN CORPUSCULAR HGB CONC 31.4 g/dl (32.0-36.5); MEAN CORPUSCULAR VOLUME 96.1 fl (80.0-96.0); MONO % 10.5 % (2.0-8.0); NEUTROPHILS # 6.8 10^3/uL (1.5-8.5); NEUTROPHILS % 72.2 % (36.0-66.0); PLATELET COUNT, AUTOMATED 185 10^3/uL (150-450); RED BLOOD COUNT 3.05 10^6/uL (4.30-6.10); WHITE BLOOD COUNT 9.4 10^3/uL (4.0-10.0)
[2021-11-08 06:15] LABS: BLOOD UREA NITROGEN 24 MG/DL (7-18); CARBON DIOXIDE LEVEL 33 MEQ/L (21-32); CHLORIDE LEVEL 100 MEQ/L (98-107); CREATININE FOR GFR 1.07 MG/DL (0.70-1.30); GLOMERULAR FILTRATION RATE > 60.0 (>42); GLUCOSE, FASTING 129 MG/DL (70-100); POTASSIUM SERUM 4.1 MEQ/L (3.5-5.1); SODIUM LEVEL 139 MEQ/L (136-145)
[2021-11-08] MEDS: ADVAIR HFA 230/21MCG INHALER INH SCH ×2 (07:15→20:46)
[2021-11-08] MEDS: HumaLOG INSULIN (NovoLOG) PER UNIT SC SCH ×4 (07:30→21:00)
--- NOTE | 2021-11-08 08:35 | REP ---
INDICATION: hemopneumothorax COMPARISON: 11/07/2021, 11/03/2021 TECHNIQUE: PA and lateral. FINDINGS: Right-sided chest tubes in stable position. Continued significant subcutaneous emphysema appears slightly improved over time. Underlying suspected left basilar and right-sided opacities are relatively unchanged. IMPRESSION: 1. No significant change from most recent prior examination,, but with mildly improved appearance as compared through 11/03/2021. <Electronically signed by Dustin Padilla > 11/08/21 [id number]
[2021-11-08] MEDS: MOM 30ML SUSPENSION UDC PO SCH (08:40)
[2021-11-08] MEDS: TAMSULOSIN 0.4 MG CAP PO SCH ×2 (08:41→21:02)
[2021-11-08] MEDS: FUROSEMIDE 40 MG TAB PO SCH (08:41)
[2021-11-08] MEDS: ASPIRIN 81MG ENTERIC TABLET PO SCH (08:41)
[2021-11-08] MEDS: atenoloL 50 MG TAB PO SCH ×3 (08:42→09:00)
[2021-11-08] MEDS: CALCIUM/VITAMIN D 500 MG TAB PO SCH (08:42)
[2021-11-08] MEDS: DOCUSATE SODIUM 100MG CAPSULE PO SCH ×2 (08:42→21:02)
[2021-11-08] MEDS: PANTOPRAZOLE 40MG TAB (PROTONIX) PO SCH (08:42)
[2021-11-08] MEDS: SPIRONOLACTONE 12.5MG PER 1/2 TABLET PO SCH (08:43)
[2021-11-08] MEDS: VITAMIN D 1,000 INTERNATIONAL UNITS TABLET PO SCH (08:43)
[2021-11-08] MEDS: LIDOCAINE 5% (LIDODERM) PATCH TD SCH (08:46)
[2021-11-08] MEDS: amLODIPine 5 MG TAB PO SCH (08:46)
[2021-11-08] MEDS: PERCOCET 5MG/325MG TAB PO PRN (10:22)
[2021-11-08] MEDS ORDERED: FUROSEMIDE 100MG/10ML VIAL (J1940) IV ONE (12:30)
[2021-11-08] MEDS: HEPARIN SOD (PORCINE) 5000UNITS/ML 1ML VIAL/SYRINGE SQ SCH ×2 (12:40→23:58)
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
[2021-11-08] MEDS: PRAVASTATIN 20 MG TAB PO SCH (21:02)
[2021-11-08] MEDS: traMADol 50 MG TAB PO PRN (21:03)
[2021-11-08] MEDS: **NOTE PATIENT COMMENT** MISC XX SCH (21:04)
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
[2021-11-08] MEDS: FENTANYL/BUPIVACAINE/NACL BAG 250 ML EPIDURAL SCH (23:57)
[2021-11-09] VITALS (21 sets, daily range): BP systolic 99–116; BP diastolic 53–70; O2SAT 95–98
[2021-11-09] MEDS: LEVALBUTEROL 1.25 MG/0.5 ML CONCENTRATE NEB NEB SCH ×4 (02:00→20:00)
[2021-11-09 05:42] LABS: BLOOD UREA NITROGEN 24 MG/DL (7-18); CALCIUM LEVEL 8.4 MG/DL (8.8-10.2); CARBON DIOXIDE LEVEL 32 MEQ/L (21-32); CHLORIDE LEVEL 101 MEQ/L (98-107); CREATININE FOR GFR 0.95 MG/DL (0.70-1.30); GLOMERULAR FILTRATION RATE > 60.0 (>42); GLUCOSE, FASTING 135 MG/DL (70-100); POTASSIUM SERUM 3.5 MEQ/L (3.5-5.1); SODIUM LEVEL 139 MEQ/L (136-145)
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
--- NOTE | 2021-11-09 08:32 | REP ---
INDICATION: hemopneumothorax COMPARISON: 11/08/2021 TECHNIQUE: PA and lateral. FINDINGS: No significant change from recent prior examination. Chest tube at the right apex again noted. Subcutaneous emphysema and primarily right-sided pleuroparenchymal changes again noted. No obvious new acute process identified. IMPRESSION: No significant change from prior examination. <Electronically signed by Dustin Padilla > 11/09/21 0848
[2021-11-09] MEDS: ADVAIR HFA 230/21MCG INHALER INH SCH ×2 (08:58→20:00)
[2021-11-09] MEDS: amLODIPine 5 MG TAB PO SCH (09:00)
[2021-11-09] MEDS: HumaLOG INSULIN (NovoLOG) PER UNIT SC SCH ×4 (09:50→21:00)
[2021-11-09] MEDS: MOM 30ML SUSPENSION UDC PO SCH (09:53)
[2021-11-09] MEDS: FUROSEMIDE 40 MG TAB PO SCH (09:54)
[2021-11-09] MEDS: PANTOPRAZOLE 40MG TAB (PROTONIX) PO SCH (09:54)
[2021-11-09] MEDS: CALCIUM/VITAMIN D 500 MG TAB PO SCH (09:54)
[2021-11-09] MEDS: DOCUSATE SODIUM 100MG CAPSULE PO SCH ×2 (09:54→21:00)
[2021-11-09] MEDS: SPIRONOLACTONE 12.5MG PER 1/2 TABLET PO SCH (09:54)
[2021-11-09] MEDS: TAMSULOSIN 0.4 MG CAP PO SCH ×2 (09:54→21:00)
[2021-11-09] MEDS: atenoloL 50 MG TAB PO SCH (09:55)
[2021-11-09] MEDS: ASPIRIN 81MG ENTERIC TABLET PO SCH (09:56)
[2021-11-09] MEDS: VITAMIN D 1,000 INTERNATIONAL UNITS TABLET PO SCH (09:56)
[2021-11-09] MEDS: LIDOCAINE 5% (LIDODERM) PATCH TD SCH (09:57)
[2021-11-09 11:10] LABS: BASO % 0.3 % (0.0-1.0); EOS # 0.2 10^3/uL (0.0-0.5); EOS % 1.5 % (0.0-3.0); HEMATOCRIT 28.9 % (42.0-52.0); LYMPH # 1.1 10^3/uL (1.5-5.0); LYMPH % 11.4 % (24.0-44.0); MEAN CORPUSCULAR HEMOGLOBIN 29.9 pg (27.0-33.0); MEAN CORPUSCULAR HGB CONC 31.1 g/dl (32.0-36.5); MONO # 0.7 10^3/uL (0.0-0.8); NEUTROPHILS # 7.7 10^3/uL (1.5-8.5); NEUTROPHILS % 78.5 % (36.0-66.0); PLATELET COUNT, AUTOMATED 197 10^3/uL (150-450); RED BLOOD COUNT 3.01 10^6/uL (4.30-6.10); WHITE BLOOD COUNT 9.8 10^3/uL (4.0-10.0)
[2021-11-09 11:28] LABS: ERYTHROCYTE SEDIMENTATION RATE 86 mm/hr (0-20)
[2021-11-09] MEDS: VANCOMYCIN HCL 1,000 MG, VIAL MATE ADAPTER 1 EACH in NS 250 ML IV SCH (13:06)
[2021-11-09] MEDS: MIDODRINE 5 MG TAB PO SCH ×2 (13:07→17:33)
[2021-11-09] MEDS: HEPARIN SOD (PORCINE) 5000UNITS/ML 1ML VIAL/SYRINGE SQ SCH (13:07)
[2021-11-09] MEDS ORDERED: NS 500 ML IV ONE (13:30)
--- NOTE | 2021-11-09 13:32 | IPNPDOC ---
Date Seen The patient was seen on 11/09/21. Progress Note addendum to progress note: RN called re: decreased urine output only 50 ml all day with hypotension [id number]. Hypotension oliguria plan: ns 500ml iv x 1 despite LE edema bc pt is intravascularly volume depleted. cxr-no chf or effusion. encourage po oral fluid intake to improve pt's urine o utput. VS, I&O, 24H, Fishbone Vital Signs/I&O Vital Signs Date Time Temp Pulse Resp B/P (MAP) Pulse Ox O2 Delivery O2 Flow Rate FiO2 11/09/21 12:00 99.3 68 18 99/58 (72) 95 Nasal Cannula 2.0 I&O- Last 24 Hours up to 6 AM 11/09/21 06:00 Intake Total 1693 ml Output Total 1895 ml Balance -202 ml Laboratory Data 24H LABS Laboratory Tests 2 11/08/21 18:10: Bedside Glucose (Misc Panel) 128H 11/08/21 21:01: Bedside Glucose (Misc Panel) 144H 11/09/21 04:57: Anion Gap 6L, Glomerular Filtration Rate > 60.0, Calcium Level 8.4L, C-Reactive Protein, Quantitative 11.50H 11/09/21 10:53: Immature Granulocyte % (Auto) 1.3, Neutrophils (%) (Auto) 78.5H, Lymphocytes (%) (Auto) 11.4L, Monocytes (%) (Auto) 7.0, Eosinophils (%) (Auto) 1.5, Basophils (%) (Auto) 0.3, Neutrophils # (Auto) 7.7, Lymphocytes # (Auto) 1.1L, Monocytes # (Auto) 0.7, Eosinophils # (Auto) 0.2, Basophils # (Auto) 0.0, Nucleated Red Blood Cells % (auto) 0.0, Erythrocyte Sedimentation Rate 86H, Procalcitonin 0.2 8, Vancomycin Level Trough 14.0 11/09/21 12:23: Bedside Glucose (Misc Panel) 166H CBC/BMP Laboratory Tests 11/09/21 04:57 11/09/21 10:53 Microbiology Microbiology 11/08/21 Blood Culture - Preliminary, Resulted No growth after 24 hours . All specim... 11/07/21 Blood Culture - Preliminary, Resulted No growth after 24 hours . All specim... 11/07/21 Blood Culture - Preliminary, Resulted No growth after 24 hours . All specim... 11/04/21 Group A Streptococcus Screen (DAFNE) - Final, Complete 11/04/21 Group A Streptococcus Screen (DAFNE) - Final, Complete 11/02/21 Acid Fast Stain, Received Pending 11/02/21 Mycobacterial Culture, Received Pending 11/02/21 Fungal Smear, Received Pending 11/02/21 Fungal Culture, Received Pending 11/02/21 Gram Stain - Final, Complete 11/02/21 Anaerobic Culture - Final, Complete 11/02/21 Body Fluid Culture - Final, Complete MEGAN GAGNON MD Nov 09, 2021 13:32
[2021-11-09] MEDS ORDERED: FUROSEMIDE 100MG/10ML VIAL (J1940) IV ONE (14:00)
[2021-11-09] MEDS ORDERED: POTASSIUM CHLORIDE 10MEQ SR TABLET PO ONE (14:00)
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
[2021-11-09] MEDS: CEPHALEXIN 500 MG CAP PO SCH ×2 (17:32→21:00)
[2021-11-09] MEDS: traMADol 50 MG TAB PO PRN (17:34)
[2021-11-09] MEDS: PRAVASTATIN 20 MG TAB PO SCH (21:00)
[2021-11-09] MEDS: **NOTE PATIENT COMMENT** MISC XX SCH (21:03)
[2021-11-10] VITALS (23 sets, daily range): BP systolic 98–120; BP diastolic 50–59; O2SAT 69–98
[2021-11-10] MEDS: HEPARIN SOD (PORCINE) 5000UNITS/ML 1ML VIAL/SYRINGE SQ SCH ×2 (00:50→12:32)
[2021-11-10] MEDS: VANCOMYCIN HCL 1,000 MG, VIAL MATE ADAPTER 1 EACH in NS 250 ML IV SCH ×2 (00:50→12:33)
[2021-11-10] MEDS: LEVALBUTEROL 1.25 MG/0.5 ML CONCENTRATE NEB NEB SCH ×4 (01:57→19:34)
[2021-11-10] MEDS: FENTANYL/BUPIVACAINE/NACL BAG 250 ML EPIDURAL SCH (05:50)
[2021-11-10] MEDS: MOM 30ML SUSPENSION UDC PO SCH (09:00)
[2021-11-10] MEDS: DOCUSATE SODIUM 100MG CAPSULE PO SCH ×2 (09:00→20:50)
[2021-11-10] MEDS: ASPIRIN 81MG ENTERIC TABLET PO SCH (09:00)
[2021-11-10] MEDS: HumaLOG INSULIN (NovoLOG) PER UNIT SC SCH ×4 (09:00→20:17)
[2021-11-10] MEDS: VITAMIN D 1,000 INTERNATIONAL UNITS TABLET PO SCH (09:01)
[2021-11-10] MEDS: TAMSULOSIN 0.4 MG CAP PO SCH ×2 (09:01→20:50)
[2021-11-10] MEDS: PANTOPRAZOLE 40MG TAB (PROTONIX) PO SCH (09:01)
[2021-11-10] MEDS: CALCIUM/VITAMIN D 500 MG TAB PO SCH (09:01)
[2021-11-10] MEDS: LIDOCAINE 5% (LIDODERM) PATCH TD SCH (09:02)
[2021-11-10] MEDS: traMADol 50 MG TAB PO PRN ×2 (09:02→20:52)
[2021-11-10] MEDS: MIDODRINE 5 MG TAB PO SCH ×3 (09:05→17:11)
--- NOTE | 2021-11-10 09:50 | REP ---
INDICATION: hemopneumothorax COMPARISON: 11/09/2021 TECHNIQUE: PA and lateral. FINDINGS: Right-sided chest tube has been removed. Pleuroparenchymal changes including right-sided subcutaneous emphysema are relatively stable. Left hemithorax is relatively clear. No new acute process identified Mediastinum and cardiac silhouette are stable. IMPRESSION: 1. Right-sided chest tube removed. Right-sided pleuroparenchymal changes remains stable. 2. No new acute process. <Electronically signed by Dustin Padilla > 11/10/21 0946
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
[2021-11-10] MEDS: ADVAIR HFA 230/21MCG INHALER INH SCH ×2 (10:09→19:34)
[2021-11-10] MEDS: DIGOXIN 0.125 MG TAB PO SCH (10:15)
[2021-11-10 10:20] LABS: BASO # 0.1 10^3/uL (0.0-0.2); BASO % 0.5 % (0.0-1.0); EOS # 0.2 10^3/uL (0.0-0.5); EOS % 1.5 % (0.0-3.0); HEMATOCRIT 30.6 % (42.0-52.0); HEMOGLOBIN 9.5 g/dl (13.5-17.5); LYMPH % 9.3 % (24.0-44.0); MEAN CORPUSCULAR VOLUME 96.5 fl (80.0-96.0); MONO # 0.7 10^3/uL (0.0-0.8); MONO % 6.9 % (2.0-8.0); NEUTROPHILS # 8.2 10^3/uL (1.5-8.5); NEUTROPHILS % 80.7 % (36.0-66.0); PLATELET COUNT, AUTOMATED 194 10^3/uL (150-450); RED BLOOD COUNT 3.17 10^6/uL (4.30-6.10); WHITE BLOOD COUNT 10.2 10^3/uL (4.0-10.0)
[2021-11-10 10:44] LABS: BLOOD UREA NITROGEN 23 MG/DL (7-18); CALCIUM LEVEL 8.5 MG/DL (8.8-10.2); CARBON DIOXIDE LEVEL 32 MEQ/L (21-32); CHLORIDE LEVEL 100 MEQ/L (98-107); CREATININE FOR GFR 0.92 MG/DL (0.70-1.30); GLOMERULAR FILTRATION RATE > 60.0 (>42); GLUCOSE, FASTING 153 MG/DL (70-100); POTASSIUM SERUM 3.9 MEQ/L (3.5-5.1); SODIUM LEVEL 140 MEQ/L (136-145)
[2021-11-10] MEDS: FUROSEMIDE injection 250 MG in D5W 225 ML IV SCH (12:32)
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
[2021-11-10] MEDS: PRAVASTATIN 20 MG TAB PO SCH (20:50)
[2021-11-10] MEDS: **NOTE PATIENT COMMENT** MISC XX SCH (20:52)
[2021-11-11] VITALS (21 sets, daily range): BP systolic 102–135; BP diastolic 54–64; O2SAT 85–98
[2021-11-11] MEDS: HEPARIN SOD (PORCINE) 5000UNITS/ML 1ML VIAL/SYRINGE SQ SCH ×2 (00:23→12:56)
[2021-11-11] MEDS: LEVALBUTEROL 1.25 MG/0.5 ML CONCENTRATE NEB NEB SCH ×4 (02:00→20:00)
[2021-11-11] MEDS: FENTANYL/BUPIVACAINE/NACL BAG 250 ML EPIDURAL SCH (06:07)
[2021-11-11 06:54] LABS: BASO # 0.1 10^3/uL (0.0-0.2); BASO % 0.5 % (0.0-1.0); EOS # 0.2 10^3/uL (0.0-0.5); EOS % 2.4 % (0.0-3.0); HEMATOCRIT 28.7 % (42.0-52.0); LYMPH # 1.3 10^3/uL (1.5-5.0); LYMPH % 13.6 % (24.0-44.0); MEAN CORPUSCULAR HEMOGLOBIN 29.7 pg (27.0-33.0); MEAN CORPUSCULAR HGB CONC 31.4 g/dl (32.0-36.5); MEAN CORPUSCULAR VOLUME 94.7 fl (80.0-96.0); MONO # 0.8 10^3/uL (0.0-0.8); MONO % 7.9 % (2.0-8.0); NEUTROPHILS # 7.1 10^3/uL (1.5-8.5); NEUTROPHILS % 73.9 % (36.0-66.0); PLATELET COUNT, AUTOMATED 188 10^3/uL (150-450); RED BLOOD COUNT 3.03 10^6/uL (4.30-6.10); WHITE BLOOD COUNT 9.7 10^3/uL (4.0-10.0)
[2021-11-11 07:25] LABS: BLOOD UREA NITROGEN 23 MG/DL (7-18); CALCIUM LEVEL 8.3 MG/DL (8.8-10.2); CARBON DIOXIDE LEVEL 34 MEQ/L (21-32); CHLORIDE LEVEL 97 MEQ/L (98-107); CREATININE FOR GFR 0.86 MG/DL (0.70-1.30); DIGOXIN LEVEL 0.2 NG/ML (0.5-2.0); GLOMERULAR FILTRATION RATE > 60.0 (>42); GLUCOSE, FASTING 115 MG/DL (70-100); POTASSIUM SERUM 3.3 MEQ/L (3.5-5.1); SODIUM LEVEL 137 MEQ/L (136-145)
[2021-11-11] MEDS: HumaLOG INSULIN (NovoLOG) PER UNIT SC SCH ×4 (07:30→21:00)
[2021-11-11] MEDS: ADVAIR HFA 230/21MCG INHALER INH SCH ×2 (07:30→20:05)
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
[2021-11-11] MEDS: POTASSIUM CHLORIDE 10MEQ SR TABLET PO SCH ×2 (10:18→21:29)
[2021-11-11] MEDS: MOM 30ML SUSPENSION UDC PO SCH (10:18)
[2021-11-11] MEDS: DOCUSATE SODIUM 100MG CAPSULE PO SCH ×2 (10:18→21:30)
[2021-11-11] MEDS: ASPIRIN 81MG ENTERIC TABLET PO SCH (10:19)
[2021-11-11] MEDS: VITAMIN D 1,000 INTERNATIONAL UNITS TABLET PO SCH (10:19)
[2021-11-11] MEDS: MIDODRINE 5 MG TAB PO SCH ×3 (10:19→17:18)
[2021-11-11] MEDS: TAMSULOSIN 0.4 MG CAP PO SCH ×2 (10:19→21:30)
[2021-11-11] MEDS: PANTOPRAZOLE 40MG TAB (PROTONIX) PO SCH (10:19)
[2021-11-11] MEDS: FUROSEMIDE injection 250 MG in D5W 225 ML IV SCH (10:20)
[2021-11-11] MEDS: DIGOXIN 0.125 MG TAB PO SCH (10:20)
[2021-11-11] MEDS: LIDOCAINE 5% (LIDODERM) PATCH TD SCH (10:20)
[2021-11-11] MEDS: CALCIUM/VITAMIN D 500 MG TAB PO SCH (10:22)
[2021-11-11] MEDS: traMADol 50 MG TAB PO PRN ×2 (10:24→21:30)
--- NOTE | 2021-11-11 12:03 | REP ---
INDICATION: hemopneumothorax. COMPARISON: Multiple the latest yesterday at 7:53 a.m. TECHNIQUE: AP and lateral views FINDINGS: The technique utilized in obtaining the radiograph has magnified the cardiac silhouette and accentuated the interstitial markings. The cardiomediastinal silhouette is unchanged. There is right CP angle blunting which may have increased from the prior exam. The lung katz are otherwise unchanged. There is subcutaneous emphysema on the right status quo. There are multiple right-sided rib fractures status quo. IMPRESSION: Possible increase right pleural effusion. Otherwise no significant change. <Electronically signed by Yony Harrison > 11/11/21 [id number]
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
--- NOTE | 2021-11-11 13:53 | REP ---
INDICATION: repeat for DVT COMPARISON: 11/07/2021. TECHNIQUE: Real time compression and duplex Doppler interrogation of the right lower extremity deep venous system is performed, including the left common femoral vein.Compression of the right peroneal and posterior tibial veins is performed. FINDINGS: The right common femoral, superficial femoral and popliteal veins are fully compressible with transducer pressure and demonstrate normal spontaneous and phasic flow, without evidence of deep venous thrombosis.The left common femoral vein demonstrates no thrombus.The right calf veins could not be visualized due to soft tissue edema. A complex Toussaint's cyst in the right popliteal fossa measures 4.7 x 1.3 x 5.3 cm. IMPRESSION: No evidence of deep venous thrombosis of the right lower extremity femoral popliteal venous system.Complex Toussaint's cyst. <Electronically signed by Micha Murrieta > 11/11/21 [id number]
[2021-11-11] MEDS: PRAVASTATIN 20 MG TAB PO SCH (21:29)
[2021-11-11] MEDS: **NOTE PATIENT COMMENT** MISC XX SCH (21:31)
[2021-11-12] VITALS (21 sets, daily range): BP systolic 117–130; BP diastolic 61–77; O2SAT 92–98
[2021-11-12] MEDS: LEVALBUTEROL 1.25 MG/0.5 ML CONCENTRATE NEB NEB SCH ×4 (02:00→20:00)
[2021-11-12 07:39] LABS: BASO # 0.1 10^3/uL (0.0-0.2); BASO % 0.5 % (0.0-1.0); EOS # 0.2 10^3/uL (0.0-0.5); HEMATOCRIT 31.4 % (42.0-52.0); HEMOGLOBIN 9.9 g/dl (13.5-17.5); LYMPH % 10.3 % (24.0-44.0); MEAN CORPUSCULAR HEMOGLOBIN 29.9 pg (27.0-33.0); MEAN CORPUSCULAR HGB CONC 31.5 g/dl (32.0-36.5); MEAN CORPUSCULAR VOLUME 94.9 fl (80.0-96.0); MONO # 0.7 10^3/uL (0.0-0.8); MONO % 6.8 % (2.0-8.0); NEUTROPHILS # 7.9 10^3/uL (1.5-8.5); NEUTROPHILS % 78.7 % (36.0-66.0); PLATELET COUNT, AUTOMATED 178 10^3/uL (150-450); RED BLOOD COUNT 3.31 10^6/uL (4.30-6.10)
[2021-11-12 08:07] LABS: BLOOD UREA NITROGEN 21 MG/DL (7-18); CALCIUM LEVEL 8.7 MG/DL (8.8-10.2); CARBON DIOXIDE LEVEL 34 MEQ/L (21-32); CHLORIDE LEVEL 97 MEQ/L (98-107); CREATININE FOR GFR 0.89 MG/DL (0.70-1.30); GLOMERULAR FILTRATION RATE > 60.0 (>42); GLUCOSE, FASTING 118 MG/DL (70-100); POTASSIUM SERUM 3.7 MEQ/L (3.5-5.1); SODIUM LEVEL 138 MEQ/L (136-145)
--- NOTE | 2021-11-12 08:29 | REP ---
INDICATION: hemopneumothorax COMPARISON: 11/11/2021 TECHNIQUE: PA and lateral. FINDINGS: Allowing for variation in technique, there appears to be decreased subcutaneous emphysema involving the right hemithorax. Further evaluation is limited by poor inspiratory effort and bibasilar opacities (left greater than right) cannot be excluded. No obvious pneumothorax. Mediastinum and cardiac silhouette are relatively stable and cardiomegaly is again suspected. IMPRESSION: Findings suggest decreased subcutaneous emphysema. Further evaluation is limited by poor inspiratory effort although basilar opacities (left greater than right) cannot be excluded. <Electronically signed by Dustin Padilla > 11/12/21 [id number]
[2021-11-12] MEDS: ADVAIR HFA 230/21MCG INHALER INH SCH ×2 (08:59→20:44)
[2021-11-12 10:29] LABS: ALBUMIN 2.5 GM/DL (3.2-5.2); ALT/SGPT 27 U/L (12-78); BILIRUBIN,DIRECT 0.3 MG/DL (0.0-0.2); BILIRUBIN,TOTAL 0.8 MG/DL (0.2-1.0); C REACTIVE PROTEIN QUANTITATIV 4.73 MG/DL (0.00-0.30); FERRITIN 456 NG/ML (26-388); LDH LACTATE DEHYDROGENASE 300 U/L (87-241)
[2021-11-12 10:51] LABS: FIBRINOGEN 584 MG/DL (268-480); INR 1.12; PARTIAL THROMBOPLASTIN TIME 25.7 SECONDS (25.9-37.0); PROTHROMBIN TIME 14.8 SECONDS (12.7-14.5)
[2021-11-12] MEDS: HumaLOG INSULIN (NovoLOG) PER UNIT SC SCH ×4 (11:12→21:00)
[2021-11-12] MEDS: POTASSIUM CHLORIDE 10MEQ SR TABLET PO SCH ×2 (11:12→21:13)
[2021-11-12] MEDS: ASPIRIN 81MG ENTERIC TABLET PO SCH (11:12)
[2021-11-12] MEDS: DIGOXIN 0.125 MG TAB PO SCH (11:13)
[2021-11-12] MEDS: PANTOPRAZOLE 40MG TAB (PROTONIX) PO SCH (11:13)
[2021-11-12] MEDS: TAMSULOSIN 0.4 MG CAP PO SCH ×2 (11:13→21:13)
[2021-11-12] MEDS: VITAMIN D 1,000 INTERNATIONAL UNITS TABLET PO SCH (11:14)
[2021-11-12] MEDS: DOCUSATE SODIUM 100MG CAPSULE PO SCH ×2 (11:16→21:13)
[2021-11-12] MEDS: MOM 30ML SUSPENSION UDC PO SCH (11:17)
[2021-11-12] MEDS: MIDODRINE 5 MG TAB PO SCH (11:17)
[2021-11-12] MEDS: LIDOCAINE 5% (LIDODERM) PATCH TD SCH (11:19)
[2021-11-12 11:23] LABS: D-DIMER QUANT > 4000 ng/ml (<500)
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
[2021-11-12] MEDS: CALCIUM/VITAMIN D 500 MG TAB PO SCH (13:19)
[2021-11-12] MEDS: HEPARIN SOD (PORCINE) 5000UNITS/ML 1ML VIAL/SYRINGE SQ SCH ×3 (13:20→23:23)
[2021-11-12] MEDS: FUROSEMIDE injection 250 MG in D5W 225 ML IV SCH (13:23)
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
[2021-11-12 19:38] LABS: BLOOD UREA NITROGEN 21 MG/DL (7-18); CARBON DIOXIDE LEVEL 36 MEQ/L (21-32); CHLORIDE LEVEL 95 MEQ/L (98-107); GLOMERULAR FILTRATION RATE > 60.0 (>42); GLUCOSE, FASTING 118 MG/DL (70-100); MAGNESIUM LEVEL 2.2 MG/DL (1.8-2.4); POTASSIUM SERUM 4.1 MEQ/L (3.5-5.1); SODIUM LEVEL 138 MEQ/L (136-145)
[2021-11-12] MEDS: **NOTE PATIENT COMMENT** MISC XX SCH (21:00)
[2021-11-12] MEDS: PRAVASTATIN 20 MG TAB PO SCH (21:12)
[2021-11-12] MEDS: PERCOCET 5MG/325MG TAB PO PRN (21:12)
[2021-11-13] VITALS (8 sets, daily range): BP systolic 124–143; BP diastolic 67–75; O2SAT 95–98
[2021-11-13] MEDS: LEVALBUTEROL 1.25 MG/0.5 ML CONCENTRATE NEB NEB SCH ×4 (02:00→20:00)
[2021-11-13 07:02] LABS: BASO # 0.1 10^3/uL (0.0-0.2); BASO % 0.6 % (0.0-1.0); EOS # 0.2 10^3/uL (0.0-0.5); EOS % 1.9 % (0.0-3.0); HEMATOCRIT 32.5 % (42.0-52.0); HEMOGLOBIN 10.4 g/dl (13.5-17.5); LYMPH # 1.5 10^3/uL (1.5-5.0); LYMPH % 14.6 % (24.0-44.0); MEAN CORPUSCULAR HEMOGLOBIN 30.1 pg (27.0-33.0); MEAN CORPUSCULAR VOLUME 93.9 fl (80.0-96.0); MONO # 0.6 10^3/uL (0.0-0.8); MONO % 6.2 % (2.0-8.0); NEUTROPHILS # 7.6 10^3/uL (1.5-8.5); NEUTROPHILS % 75.1 % (36.0-66.0); RED BLOOD COUNT 3.46 10^6/uL (4.30-6.10); WHITE BLOOD COUNT 10.1 10^3/uL (4.0-10.0)
[2021-11-13 07:35] LABS: BLOOD UREA NITROGEN 21 MG/DL (7-18); CARBON DIOXIDE LEVEL 33 MEQ/L (21-32); CHLORIDE LEVEL 95 MEQ/L (98-107); CREATININE FOR GFR 0.87 MG/DL (0.70-1.30); DIGOXIN LEVEL 0.4 NG/ML (0.5-2.0); GLOMERULAR FILTRATION RATE > 60.0 (>42); GLUCOSE, FASTING 129 MG/DL (70-100); MAGNESIUM LEVEL 2.3 MG/DL (1.8-2.4); SODIUM LEVEL 136 MEQ/L (136-145)
[2021-11-13] MEDS: ADVAIR HFA 230/21MCG INHALER INH SCH ×2 (08:00→20:00)
--- NOTE | 2021-11-13 08:30 | REP ---
INDICATION: exposure to covid , sob COMPARISON: 11/12/2021 TECHNIQUE: Portable AP view of the chest FINDINGS: Predominately right-sided subcutaneous emphysema is unchanged. Further evaluation is limited by technique and poor inspiratory effort. Perihilar and lower lobe opacities are suspected. IMPRESSION: 1. Subcutaneous emphysema unchanged. 2. Limited examination suggesting perihilar and lower lobe opacities. <Electronically signed by Dustin Padilla > 11/13/21 [id number]
[2021-11-13] MEDS: HumaLOG INSULIN (NovoLOG) PER UNIT SC SCH ×4 (08:43→20:59)
[2021-11-13] MEDS: VITAMIN D 1,000 INTERNATIONAL UNITS TABLET PO SCH (08:57)
[2021-11-13] MEDS: LIDOCAINE 5% (LIDODERM) PATCH TD SCH (08:57)
[2021-11-13] MEDS: MOM 30ML SUSPENSION UDC PO SCH (08:57)
[2021-11-13] MEDS: ASPIRIN 81MG ENTERIC TABLET PO SCH (08:58)
[2021-11-13] MEDS: DOCUSATE SODIUM 100MG CAPSULE PO SCH ×2 (08:58→20:54)
[2021-11-13] MEDS: CALCIUM/VITAMIN D 500 MG TAB PO SCH (08:58)
[2021-11-13] MEDS: DIGOXIN 0.125 MG TAB PO SCH (08:58)
[2021-11-13] MEDS: POTASSIUM CHLORIDE 10MEQ SR TABLET PO SCH ×2 (08:58→20:55)
[2021-11-13] MEDS: PANTOPRAZOLE 40MG TAB (PROTONIX) PO SCH (08:58)
[2021-11-13] MEDS: TAMSULOSIN 0.4 MG CAP PO SCH ×2 (08:59→20:54)
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
[2021-11-13] MEDS: PERCOCET 5MG/325MG TAB PO PRN ×2 (10:45→20:54)
[2021-11-13] MEDS: HEPARIN SOD (PORCINE) 5000UNITS/ML 1ML VIAL/SYRINGE SQ SCH (13:07)
[2021-11-13] MEDS: traMADol 50 MG TAB PO PRN (13:12)
[2021-11-13] MEDS ORDERED: RIVAROXABAN 10 MG TAB (XARELTO) PO SCH (18:00)
[2021-11-13] MEDS: APIXABAN 5 MG TAB (ELIQUIS) PO SCH (20:54)
[2021-11-13] MEDS: PRAVASTATIN 20 MG TAB PO SCH (20:56)
[2021-11-13] MEDS: **NOTE PATIENT COMMENT** MISC XX SCH (21:00)
[2021-11-14] VITALS: BP 137/67
[2021-11-14] MEDS: LEVALBUTEROL 1.25 MG/0.5 ML CONCENTRATE NEB NEB SCH ×4 (02:00→19:54)
[2021-11-14 04:00] VITALS: BP 119/55
[2021-11-14] MEDS: traMADol 50 MG TAB PO PRN ×2 (06:41→17:43)
[2021-11-14 06:46] LABS: BASO # 0.1 10^3/uL (0.0-0.2); BASO % 0.8 % (0.0-1.0); EOS # 0.2 10^3/uL (0.0-0.5); EOS % 1.9 % (0.0-3.0); HEMATOCRIT 32.2 % (42.0-52.0); HEMOGLOBIN 10.2 g/dl (13.5-17.5); LYMPH # 1.4 10^3/uL (1.5-5.0); LYMPH % 15.5 % (24.0-44.0); MEAN CORPUSCULAR HEMOGLOBIN 30.1 pg (27.0-33.0); MEAN CORPUSCULAR HGB CONC 31.7 g/dl (32.0-36.5); MONO # 0.6 10^3/uL (0.0-0.8); MONO % 7.1 % (2.0-8.0); NEUTROPHILS # 6.3 10^3/uL (1.5-8.5); NEUTROPHILS % 72.6 % (36.0-66.0); PLATELET COUNT, AUTOMATED 200 10^3/uL (150-450); RED BLOOD COUNT 3.39 10^6/uL (4.30-6.10); WHITE BLOOD COUNT 8.7 10^3/uL (4.0-10.0)
[2021-11-14] MEDS: ADVAIR HFA 230/21MCG INHALER INH SCH ×2 (07:23→19:54)
[2021-11-14] MEDS: HumaLOG INSULIN (NovoLOG) PER UNIT SC SCH ×4 (07:30→21:00)
[2021-11-14 08:00] VITALS: BP 133/62
[2021-11-14] MEDS ORDERED: metOLazone 2.5 MG TAB PO ONE (08:00)
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
[2021-11-14] MEDS ORDERED: FUROSEMIDE 20MG/2ML VIAL (J1940) IV ONE (08:30)
--- NOTE | 2021-11-14 08:41 | REP ---
INDICATION: COVID EXPOSURE PTX RIB FX COMPARISON: 11/13/2021 TECHNIQUE: Portable AP view of the chest FINDINGS: Improved aeration is suggested and there is continued perihilar and lower lobe opacities which may be mildly improved as compared to prior examination. Mediastinum and cardiac silhouette are stable with cardiomegaly again noted. Right-sided subcutaneous emphysema and right-sided rib fractures are again identified. No obvious pneumothorax is appreciated. IMPRESSION: 1. Findings suggest mildly improved aeration with minimally improved/decreased opacities. 2. Remainder of the examination including right-sided subcutaneous emphysema and right-sided rib fractures again noted. <Electronically signed by Dustin Padilla > 11/14/21 0851
[2021-11-14] MEDS: MOM 30ML SUSPENSION UDC PO SCH (09:06)
[2021-11-14] MEDS: CALCIUM/VITAMIN D 500 MG TAB PO SCH (09:07)
[2021-11-14] MEDS: DOCUSATE SODIUM 100MG CAPSULE PO SCH ×2 (09:07→21:43)
[2021-11-14] MEDS: ASPIRIN 81MG ENTERIC TABLET PO SCH (09:07)
[2021-11-14] MEDS: POTASSIUM CHLORIDE 10MEQ SR TABLET PO SCH ×2 (09:07→21:43)
[2021-11-14] MEDS: APIXABAN 5 MG TAB (ELIQUIS) PO SCH ×2 (09:08→21:43)
[2021-11-14] MEDS: PANTOPRAZOLE 40MG TAB (PROTONIX) PO SCH (09:08)
[2021-11-14] MEDS: TAMSULOSIN 0.4 MG CAP PO SCH ×2 (09:08→21:43)
[2021-11-14] MEDS: VITAMIN D 1,000 INTERNATIONAL UNITS TABLET PO SCH (09:08)
[2021-11-14] MEDS: DIGOXIN 0.125 MG TAB PO SCH (09:08)
[2021-11-14] MEDS: LIDOCAINE 5% (LIDODERM) PATCH TD SCH (09:12)
[2021-11-14 12:00] VITALS: BP 137/66
[2021-11-14] MEDS: HEPARIN SOD (PORCINE) 5000UNITS/ML 1ML VIAL/SYRINGE SQ SCH ×2 (12:44)
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
[2021-11-14 16:00] VITALS: BP 134/69
[2021-11-14 20:00] VITALS: BP 130/61
[2021-11-14] MEDS ORDERED: **NOTE PATIENT COMMENT** MISC XX SCH (21:00)
[2021-11-14] MEDS: **NOTE PATIENT COMMENT** MISC XX SCH (21:00)
[2021-11-14] MEDS: PRAVASTATIN 20 MG TAB PO SCH (21:42)
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
[2021-11-14] MEDS: PERCOCET 5MG/325MG TAB PO PRN (21:46)
[2021-11-15] VITALS: BP 130/66
[2021-11-15] MEDS: LEVALBUTEROL 1.25 MG/0.5 ML CONCENTRATE NEB NEB SCH ×4 (01:11→20:00)
[2021-11-15 04:00] VITALS: BP 138/65
[2021-11-15 05:34] LABS: BASO # 0.1 10^3/uL (0.0-0.2); BASO % 0.8 % (0.0-1.0); EOS # 0.2 10^3/uL (0.0-0.5); EOS % 1.7 % (0.0-3.0); HEMOGLOBIN 10.1 g/dl (13.5-17.5); LYMPH # 1.7 10^3/uL (1.5-5.0); LYMPH % 17.3 % (24.0-44.0); MEAN CORPUSCULAR HEMOGLOBIN 29.7 pg (27.0-33.0); MEAN CORPUSCULAR HGB CONC 31.6 g/dl (32.0-36.5); MEAN CORPUSCULAR VOLUME 94.1 fl (80.0-96.0); MONO # 0.7 10^3/uL (0.0-0.8); MONO % 7.6 % (2.0-8.0); NEUTROPHILS # 6.8 10^3/uL (1.5-8.5); NEUTROPHILS % 70.6 % (36.0-66.0); PLATELET COUNT, AUTOMATED 192 10^3/uL (150-450); WHITE BLOOD COUNT 9.6 10^3/uL (4.0-10.0)
[2021-11-15] MEDS: traMADol 50 MG TAB PO PRN ×2 (07:06→20:46)
[2021-11-15] MEDS: HumaLOG INSULIN (NovoLOG) PER UNIT SC SCH ×4 (07:30→20:47)
[2021-11-15] MEDS: ADVAIR HFA 230/21MCG INHALER INH SCH ×2 (07:40→20:08)
[2021-11-15 08:00] VITALS: BP 128/78
--- NOTE | 2021-11-15 08:39 | REP ---
INDICATION: rib fx, pneumothorax. COMPARISON: Multiple the latest 01/15/2021 at 8:27 a.m. TECHNIQUE: Portable FINDINGS: The technique utilized in obtaining the radiograph has magnified the cardiac silhouette and accentuated the interstitial markings. The cardiomediastinal silhouette is unchanged. There is mild cardiomegaly accentuated by technique. There is no change in the lung katz. No acute patchy parenchymal opacities or pleural effusions have developed. There are multiple right-sided rib fractures and subcutaneous emphysema status quo. IMPRESSION: No significant change <Electronically signed by Yony Harrison > 11/15/21 0835
[2021-11-15] MEDS ORDERED: HYDROMORPHONE HCL 0.5 MG/ 0.5 ML SYRINGE (J1170 PER 1) IV ONE (09:15)
[2021-11-15] MEDS: LIDOCAINE 5% (LIDODERM) PATCH TD SCH (10:16)
[2021-11-15] MEDS: MOM 30ML SUSPENSION UDC PO SCH (10:17)
[2021-11-15] MEDS: VITAMIN D 1,000 INTERNATIONAL UNITS TABLET PO SCH (10:18)
[2021-11-15] MEDS: ASPIRIN 81MG ENTERIC TABLET PO SCH (10:18)
[2021-11-15] MEDS: CALCIUM/VITAMIN D 500 MG TAB PO SCH (10:18)
[2021-11-15] MEDS: DOCUSATE SODIUM 100MG CAPSULE PO SCH ×2 (10:18→20:47)
[2021-11-15] MEDS: PERCOCET 5MG/325MG TAB PO PRN (10:19)
[2021-11-15] MEDS: APIXABAN 5 MG TAB (ELIQUIS) PO SCH ×2 (10:20→20:47)
[2021-11-15] MEDS: DIGOXIN 0.125 MG TAB PO SCH (10:20)
[2021-11-15] MEDS: PANTOPRAZOLE 40MG TAB (PROTONIX) PO SCH (10:20)
[2021-11-15] MEDS: TAMSULOSIN 0.4 MG CAP PO SCH ×2 (10:20→20:47)
[2021-11-15] MEDS ORDERED: FUROSEMIDE 40MG/4ML VIAL (J1940) IV ONE ×2 (10:20→18:20)
[2021-11-15] MEDS ORDERED: metOLazone 2.5 MG TAB PO ONE (10:20)
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
[2021-11-15 10:36] LABS: BASO # 0.1 10^3/uL (0.0-0.2); BASO % 0.8 % (0.0-1.0); EOS # 0.1 10^3/uL (0.0-0.5); EOS % 1.2 % (0.0-3.0); HEMOGLOBIN 11.1 g/dl (13.5-17.5); LYMPH # 1.2 10^3/uL (1.5-5.0); LYMPH % 13.1 % (24.0-44.0); MEAN CORPUSCULAR HGB CONC 31.7 g/dl (32.0-36.5); MEAN CORPUSCULAR VOLUME 94.6 fl (80.0-96.0); MONO # 0.6 10^3/uL (0.0-0.8); NEUTROPHILS # 6.9 10^3/uL (1.5-8.5); NEUTROPHILS % 75.8 % (36.0-66.0); PLATELET COUNT, AUTOMATED 210 10^3/uL (150-450); WHITE BLOOD COUNT 9.2 10^3/uL (4.0-10.0)
[2021-11-15 11:00] LABS: BLOOD UREA NITROGEN 21 MG/DL (7-18); CALCIUM LEVEL 9.3 MG/DL (8.8-10.2); CARBON DIOXIDE LEVEL 30 MEQ/L (21-32); CHLORIDE LEVEL 98 MEQ/L (98-107); GLOMERULAR FILTRATION RATE > 60.0 (>42); GLUCOSE, FASTING 127 MG/DL (70-100); MAGNESIUM LEVEL 2.3 MG/DL (1.8-2.4); POTASSIUM SERUM 4.4 MEQ/L (3.5-5.1); SODIUM LEVEL 135 MEQ/L (136-145)
[2021-11-15] MEDS: POTASSIUM CHLORIDE 10MEQ SR TABLET PO SCH ×2 (11:32→20:46)
[2021-11-15 12:00] VITALS: BP 133/69
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
[2021-11-15 16:00] VITALS: BP 120/62
[2021-11-15 20:00] VITALS: BP 125/69
[2021-11-15] MEDS: PRAVASTATIN 20 MG TAB PO SCH (20:45)
[2021-11-15] MEDS: **NOTE PATIENT COMMENT** MISC XX SCH (20:48)
[2021-11-16] VITALS: BP 132/63
[2021-11-16] MEDS: LEVALBUTEROL 1.25 MG/0.5 ML CONCENTRATE NEB NEB SCH ×4 (00:51→19:39)
[2021-11-16 04:00] VITALS: BP 134/78
[2021-11-16] MEDS: PERCOCET 5MG/325MG TAB PO PRN ×3 (04:09→17:58)
[2021-11-16 05:21] LABS: BASO # 0.1 10^3/uL (0.0-0.2); BASO % 0.7 % (0.0-1.0); EOS # 0.1 10^3/uL (0.0-0.5); EOS % 1.5 % (0.0-3.0); HEMATOCRIT 32.9 % (42.0-52.0); HEMOGLOBIN 10.6 g/dl (13.5-17.5); LYMPH # 1.3 10^3/uL (1.5-5.0); LYMPH % 13.8 % (24.0-44.0); MEAN CORPUSCULAR HEMOGLOBIN 29.6 pg (27.0-33.0); MEAN CORPUSCULAR HGB CONC 32.2 g/dl (32.0-36.5); MEAN CORPUSCULAR VOLUME 91.9 fl (80.0-96.0); MONO # 0.8 10^3/uL (0.0-0.8); MONO % 8.1 % (2.0-8.0); NEUTROPHILS # 7.2 10^3/uL (1.5-8.5); NEUTROPHILS % 74.8 % (36.0-66.0); PLATELET COUNT, AUTOMATED 229 10^3/uL (150-450); RED BLOOD COUNT 3.58 10^6/uL (4.30-6.10); WHITE BLOOD COUNT 9.6 10^3/uL (4.0-10.0)
[2021-11-16] MEDS: HumaLOG INSULIN (NovoLOG) PER UNIT SC SCH ×4 (07:30→21:00)
[2021-11-16 08:00] VITALS: BP 132/75
--- NOTE | 2021-11-16 08:11 | REP ---
INDICATION: hemothorax, rib fx COMPARISON: 11/15/2021 TECHNIQUE: PA and lateral. FINDINGS: Mediastinum and cardiac silhouette are relatively stable. Continued evidence for subtle but somewhat diffuse right-sided opacities with subcutaneous emphysema and right rib fractures again noted and similar to prior examination when allowing for variation in technique. Left hemithorax is relatively clear although trace left basilar/retrocardiac atelectasis cannot be excluded. No obvious effusion. No obvious pneumothorax. IMPRESSION: Relatively similar to prior examination. <Electronically signed by Dustin Padilla > 11/16/21 [id number]
[2021-11-16] MEDS: MOM 30ML SUSPENSION UDC PO SCH (09:00)
[2021-11-16] MEDS: ADVAIR HFA 230/21MCG INHALER INH SCH ×2 (09:02→19:39)
[2021-11-16] MEDS: DIGOXIN 0.125 MG TAB PO SCH (09:37)
[2021-11-16] MEDS: PANTOPRAZOLE 40MG TAB (PROTONIX) PO SCH (09:37)
[2021-11-16] MEDS: DOCUSATE SODIUM 100MG CAPSULE PO SCH ×2 (09:37→21:00)
[2021-11-16] MEDS: APIXABAN 5 MG TAB (ELIQUIS) PO SCH ×2 (09:37→21:40)
[2021-11-16] MEDS: VITAMIN D 1,000 INTERNATIONAL UNITS TABLET PO SCH (09:37)
[2021-11-16] MEDS: TAMSULOSIN 0.4 MG CAP PO SCH ×2 (09:37→21:40)
[2021-11-16] MEDS: CALCIUM/VITAMIN D 500 MG TAB PO SCH (09:37)
[2021-11-16] MEDS: ASPIRIN 81MG ENTERIC TABLET PO SCH (09:37)
[2021-11-16] MEDS: LIDOCAINE 5% (LIDODERM) PATCH TD SCH (09:38)
[2021-11-16 10:55] LABS: BLOOD UREA NITROGEN 25 MG/DL (7-18); CALCIUM LEVEL 9.5 MG/DL (8.8-10.2); CARBON DIOXIDE LEVEL 32 MEQ/L (21-32); CHLORIDE LEVEL 93 MEQ/L (98-107); CREATININE FOR GFR 1.09 MG/DL (0.70-1.30); GLOMERULAR FILTRATION RATE > 60.0 (>42); GLUCOSE, FASTING 139 MG/DL (70-100); POTASSIUM SERUM 4.5 MEQ/L (3.5-5.1); SODIUM LEVEL 133 MEQ/L (136-145)
[2021-11-16] MEDS: POTASSIUM CHLORIDE 10MEQ SR TABLET PO SCH (11:02)
[2021-11-16] MEDS ORDERED: FLOM0.4C39 PO (11:24)
[2021-11-16] MEDS ORDERED: ACET1TAB55 PO (11:24)
[2021-11-16] MEDS ORDERED: PERCOCET PO (11:24)
[2021-11-16] MEDS ORDERED: ADVA230A INH (11:24)
[2021-11-16] MEDS ORDERED: COLA100C5 PO (11:24)
[2021-11-16] MEDS ORDERED: TRAM50TA2 PO (11:24)
[2021-11-16] MEDS ORDERED: INSUHUMDS SC ×2 (11:24)
[2021-11-16] MEDS ORDERED: LEVA12INH NEB (11:24)
[2021-11-16] MEDS ORDERED: LIDO5TD TD (11:24)
[2021-11-16 12:00] VITALS: BP 160/78
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
[2021-11-16 16:00] VITALS: BP 141/65
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
[2021-11-16 20:00] VITALS: BP 135/60
[2021-11-16] MEDS: **NOTE PATIENT COMMENT** MISC XX SCH (20:48)
[2021-11-16] MEDS: traMADol 50 MG TAB PO PRN (21:39)
[2021-11-16] MEDS: PRAVASTATIN 20 MG TAB PO SCH (21:40)
[2021-11-17] VITALS: BP 126/65
[2021-11-17] MEDS: PERCOCET 5MG/325MG TAB PO PRN ×2 (00:05→09:16)
[2021-11-17] MEDS: LEVALBUTEROL 1.25 MG/0.5 ML CONCENTRATE NEB NEB SCH ×3 (02:00→13:06)
[2021-11-17 03:47] VITALS: BP 131/62
[2021-11-17] MEDS: HumaLOG INSULIN (NovoLOG) PER UNIT SC SCH ×2 (07:30→12:00)
[2021-11-17] MEDS: ADVAIR HFA 230/21MCG INHALER INH SCH (07:35)
[2021-11-17 08:00] VITALS: BP 140/66
[2021-11-17 08:28] LABS: BASO # 0.1 10^3/uL (0.0-0.2); BASO % 0.9 % (0.0-1.0); EOS # 0.1 10^3/uL (0.0-0.5); EOS % 1.6 % (0.0-3.0); HEMATOCRIT 35.7 % (42.0-52.0); HEMOGLOBIN 11.2 g/dl (13.5-17.5); LYMPH # 1.6 10^3/uL (1.5-5.0); LYMPH % 21.1 % (24.0-44.0); MEAN CORPUSCULAR HEMOGLOBIN 29.5 pg (27.0-33.0); MEAN CORPUSCULAR HGB CONC 31.4 g/dl (32.0-36.5); MEAN CORPUSCULAR VOLUME 93.9 fl (80.0-96.0); MONO # 0.7 10^3/uL (0.0-0.8); MONO % 9.4 % (2.0-8.0); NEUTROPHILS # 4.9 10^3/uL (1.5-8.5); PLATELET COUNT, AUTOMATED 270 10^3/uL (150-450); WHITE BLOOD COUNT 7.6 10^3/uL (4.0-10.0)
--- NOTE | 2021-11-17 08:34 | REP ---
INDICATION: hemothorax, rib fx COMPARISON: 11/16/2021 TECHNIQUE: PA and lateral. FINDINGS: Mediastinum and cardiac silhouette are stable. Left hemithorax is relatively clear and without obvious acute process. The right hemithorax again demonstrates subcutaneous emphysema, right rib fractures, and subtle hazy opacities which may be slightly improved from prior examination. No obvious new acute process appreciated. IMPRESSION: Questionable minimal improvement to the right hemithorax. <Electronically signed by Dustin Padilla > 11/17/21 [id number]
--- NOTE | 2021-11-17 08:40 | REP ---
INDICATION: re-eval of shoulder COMPARISON: None. TECHNIQUE: Single frontal view of the scapula FINDINGS: Single frontal view of the scapula demonstrates no definite acute scapular fracture. There appears to be grade 2/3 acromioclavicular joint separation Visualized portions of the humeral head demonstrate bulky osteophyte forming along the inferior margin along with subchondral heterogeneity and subtle cystic changes as well as irregularity to the underlying glenoid rim. Multiple right rib fractures and subcutaneous emphysema noted. IMPRESSION: Single AP view of the scapula demonstrates acromioclavicular joint separation. No obvious scapular fracture identified. <Electronically signed by Dustin Padilla > 11/17/21 [id number]
--- NOTE | 2021-11-17 08:41 | REP ---
INDICATION: re-eval of shoulder COMPARISON: None. TECHNIQUE: Internal rotation, external rotation, and Y view. FINDINGS: There appears to be grade 2/3 acromioclavicular joint separation which is of uncertain chronicity and requires correlation. 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 The subacromial space measures at best 9.3 mm. Further evaluation is somewhat limited due to overlying subcutaneous emphysema. Right rib fractures noted. 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 Acromioclavicular joint separation of uncertain chronicity <Electronically signed by Dustin Padilla > 11/17/21 0806
[2021-11-17 08:53] LABS: BLOOD UREA NITROGEN 25 MG/DL (7-18); CALCIUM LEVEL 9.5 MG/DL (8.8-10.2); CARBON DIOXIDE LEVEL 32 MEQ/L (21-32); CHLORIDE LEVEL 96 MEQ/L (98-107); CREATININE FOR GFR 0.94 MG/DL (0.70-1.30); GLOMERULAR FILTRATION RATE > 60.0 (>42); GLUCOSE, FASTING 115 MG/DL (70-100); POTASSIUM SERUM 4.1 MEQ/L (3.5-5.1); SODIUM LEVEL 136 MEQ/L (136-145)
[2021-11-17] MEDS ORDERED: FUROSEMIDE 40 MG TAB PO SCH (09:00)
[2021-11-17] MEDS ORDERED: atenoloL 50 MG TAB PO SCH (09:00)
[2021-11-17] MEDS ORDERED: SPIRONOLACTONE 12.5MG PER 1/2 TABLET PO SCH (09:00)
[2021-11-17] MEDS: MOM 30ML SUSPENSION UDC PO SCH (09:07)
[2021-11-17] MEDS: PANTOPRAZOLE 40MG TAB (PROTONIX) PO SCH (09:09)
[2021-11-17] MEDS: DOCUSATE SODIUM 100MG CAPSULE PO SCH (09:09)
[2021-11-17] MEDS: APIXABAN 5 MG TAB (ELIQUIS) PO SCH (09:09)
[2021-11-17] MEDS: TAMSULOSIN 0.4 MG CAP PO SCH (09:09)
[2021-11-17 09:10] VITALS: BP 140/66
[2021-11-17] MEDS: ASPIRIN 81MG ENTERIC TABLET PO SCH (09:10)
[2021-11-17] MEDS: CALCIUM/VITAMIN D 500 MG TAB PO SCH (09:10)
[2021-11-17] MEDS: LIDOCAINE 5% (LIDODERM) PATCH TD SCH (09:10)
[2021-11-17] MEDS: VITAMIN D 1,000 INTERNATIONAL UNITS TABLET PO SCH (09:10)
[2021-11-17 12:00] VITALS: BP 113/56
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
[2021-11-17 20:00] VITALS: BP 119/69
[2022-11-01] MEDS ORDERED: MIDAZOLAM INJ 2MG/2ML VIAL (J2250 PER 1MG) IV ONE ×3 (23:06→23:40)
[2022-11-01] MEDS ORDERED: LIDOCAINE 1% MDV 20ML VIAL SC ONE ×3 (23:09→23:41)
== END 2021-11-17 21:15 | DRG 199 ==
LOC: M ED 18:59 → M ED INP 22:59 → M PCU 10-31 01:18
PROVIDERS: ADMIT Surgery; ATTEND Internal Medicine
PROC: 0W9930Z Drainage of Right Pleural Cavity with Drainage Device, Percutaneous Approach (ICD-10-PCS; principal; 2021-11-01)
DX: S27.2XXA Traumatic hemopneumothorax, initial encounter (principal); S22.5XXA Flail chest, initial encounter for closed fracture; J96.01 Acute respiratory failure with hypoxia; J18.9 Pneumonia, unspecified organism; I50.33 Acute on chronic diastolic (congestive) heart failure; I48.20 Chronic atrial fibrillation, unspecified; N17.9 Acute kidney failure, unspecified; J98.11 Atelectasis; L03.116 Cellulitis of left lower limb; L03.115 Cellulitis of right lower limb; I11.0 Hypertensive heart disease with heart failure; Z86.73 Personal history of transient ischemic attack (TIA), and cerebral infarction without residual deficits; J45.909 Unspecified asthma, uncomplicated; G47.33 Obstructive sleep apnea (adult) (pediatric); E11.9 Type 2 diabetes mellitus without complications; E66.9 Obesity, unspecified; Z68.35 Body mass index [BMI] 35.0-35.9, adult; Z95.0 Presence of cardiac pacemaker; Z90.49 Acquired absence of other specified parts of digestive tract; Z20.822 Contact with and (suspected) exposure to COVID-19; Z79.01 Long term (current) use of anticoagulants; Z79.82 Long term (current) use of aspirin; Z79.899 Other long term (current) drug therapy; T79.7XXA Traumatic subcutaneous emphysema, initial encounter; S42.114A Nondisplaced fracture of body of scapula, right shoulder, initial encounter for closed fracture; S42.034A Nondisplaced fracture of lateral end of right clavicle, initial encounter for closed fracture; V00.831A Fall from motorized mobility scooter, initial encounter; E78.5 Hyperlipidemia, unspecified; K76.0 Fatty (change of) liver, not elsewhere classified; N40.1 Benign prostatic hyperplasia with lower urinary tract symptoms; D72.829 Elevated white blood cell count, unspecified; I27.20 Pulmonary hypertension, unspecified; M71.21 Synovial cyst of popliteal space [Baker], right knee; E87.6 Hypokalemia

== ENCOUNTER → 2021-12-14 | Outpatient (CLI) | payer MEDICARE, OTHER ==
[~2021-12-14] MED LIST changes: +ACET1TAB55 PO; +ADVA230A INH; +ALDA25TA2 PO; +ALLO10TA PO; +CALC1CAP39 PO; +COLA100C5 PO; +COLC0.6T47 PO; +D31000TA2 PO; +FLOM0.4C39 PO; +FURO40TA2 PO; +INSUHUMDS SC; +LEVA12INH NEB; +LEVAINH INH; +LIDO5TD TD; +PANT40TA29 PO; +PERCOCET PO; +PRED5TA PO; +SPIR-10 PO; +SUCR1TA PO; +TRAM50TA2 PO
== END ==
LOC: M SOG 14:35
PROVIDERS: ATTEND Orthopaedic Surgery
DX: S42.141A Displaced fracture of glenoid cavity of scapula, right shoulder, initial encounter for closed fracture (principal); M19.011 Primary osteoarthritis, right shoulder

== ENCOUNTER → 2022-01-11 | Outpatient (CLI) | payer MEDICARE, OTHER | LOC: M RAD 10:10 | PROVIDERS: ATTEND Physician Assistant Medical | DX: R22.31 Localized swelling, mass and lump, right upper limb (principal) ==

== ENCOUNTER → 2022-08-04 | Outpatient (CLI) | payer MEDICARE, OTHER ==
[~2022-08-04] MED LIST changes: -D31000TA2 PO; +VITA100093 PO
[2022-08-04 13:55] LABS: HEMATOCRIT 45.7 % (42.0-52.0); HEMOGLOBIN 14.6 g/dl (13.5-17.5); MEAN CORPUSCULAR HGB CONC 31.9 g/dl (32.0-36.5); MEAN CORPUSCULAR VOLUME 93.8 fl (80.0-96.0); PLATELET COUNT, AUTOMATED 219 10^3/uL (150-450); RED BLOOD COUNT 4.87 10^6/uL (4.30-6.10); WHITE BLOOD COUNT 9.3 10^3/uL (4.0-10.0)
[2022-08-04 14:36] LABS: HEMOGLOBIN A1c 6.8 %
[2022-08-04 14:43] LABS: ALBUMIN 4.3 GM/DL (3.2-5.2); ALT/SGPT 19 U/L (12-78); BILIRUBIN,TOTAL 0.9 MG/DL (0.2-1.0); BLOOD UREA NITROGEN 17 MG/DL (7-18); CALCIUM LEVEL 9.9 MG/DL (8.8-10.2); CARBON DIOXIDE LEVEL 33 MEQ/L (21-32); CHLORIDE LEVEL 101 MEQ/L (98-107); CHOLESTEROL LEVEL 115 MG/DL (<200); CHOLESTEROL RISK RATIO 2.169 (<5); CREATININE FOR GFR 1.21 MG/DL (0.70-1.30); GLOMERULAR FILTRATION RATE > 60.0 (>42); GLUCOSE, FASTING 133 MG/DL (70-100); HDL CHOLESTEROL 53 MG/DL (>40); LDL CHOLESTEROL 33 MG/DL (<100); NON-HDL-C 62 MG/DL; POTASSIUM SERUM 4.3 MEQ/L (3.5-5.1); SODIUM LEVEL 137 MEQ/L (136-145); TOTAL PROTEIN 7.4 GM/DL (6.4-8.2); TRIGLYCERIDES LEVEL 145 MG/DL (<150)
[2022-08-04 14:44] LABS: CREATININE, URINE 40.9 MG/DL; MALB URINE SIEMENS < 5.0 MG/L; MAU/CREAT RATIO 12.2 MCG/MG (0.0-30.0)
[2022-08-04 15:42] LABS: TOTAL 25(OH) VITAMIN D 41.3 NG/ML (30.0-100.0)
== END ==
LOC: M PLALAB 10:36
PROVIDERS: ATTEND Nurse Practitioner Adult Health
DX: I11.0 Hypertensive heart disease with heart failure (principal); I48.91 Unspecified atrial fibrillation; E78.2 Mixed hyperlipidemia; E11.9 Type 2 diabetes mellitus without complications; E55.9 Vitamin D deficiency, unspecified

== ENCOUNTER → 2023-04-24 | Outpatient (CLI) | payer MEDICARE, OTHER ==
[2023-04-24 10:54] LABS: HEMATOCRIT 43.4 % (42.0-52.0); HEMOGLOBIN 14.1 g/dl (13.5-17.5); MEAN CORPUSCULAR HEMOGLOBIN 30.9 pg (27.0-33.0); MEAN CORPUSCULAR HGB CONC 32.5 g/dl (32.0-36.5); MEAN CORPUSCULAR VOLUME 95.2 fl (80.0-96.0); PLATELET COUNT, AUTOMATED 193 10^3/uL (150-450); RED BLOOD COUNT 4.56 10^6/uL (4.30-6.10); WHITE BLOOD COUNT 8.3 10^3/uL (4.0-10.0)
[2023-04-24 11:17] LABS: HEMOGLOBIN A1c 6.5 % (4.0-6.0)
[2023-04-24 11:23] LABS: ALKALINE PHOSPHATASE 73 U/L (46-116); ALT/SGPT 15 U/L (7.0-40); AST/SGOT 9 U/L (<34); BILIRUBIN,TOTAL 0.7 MG/DL (0.3-1.2); BLOOD UREA NITROGEN 20 MG/DL (9-23); CALCIUM LEVEL 8.8 MG/DL (8.3-10.6); CARBON DIOXIDE LEVEL 31 MMOL/L (20-31); CHLORIDE LEVEL 107 MMOL/L (98-107); CHOLESTEROL LEVEL 110 MG/DL (<200); CHOLESTEROL RISK RATIO 2.65 (<5); CREATININE FOR GFR 1.04 MG/DL (0.70-1.30); GLOMERULAR FILTRATION RATE > 60.0 (>42); GLUCOSE, FASTING 101 MG/DL (74-106); HDL CHOLESTEROL 41.5 MG/DL (>40); LDL CHOLESTEROL 52.9 MG/DL (<100); NON-HDL-C 68.5 MG/DL; POTASSIUM SERUM 4.6 MMOL/L (3.5-5.1); SODIUM LEVEL 144 MMOL/L (136-145); TOTAL PROTEIN 6.6 G/DL (5.7-8.2); TRIGLYCERIDES LEVEL 78 MG/DL (<150)
== END ==
LOC: M PLALAB 09:10
PROVIDERS: ATTEND Nurse Practitioner Adult Health
DX: I48.91 Unspecified atrial fibrillation (principal); I11.0 Hypertensive heart disease with heart failure; E78.2 Mixed hyperlipidemia; I50.9 Heart failure, unspecified

== ENCOUNTER → 2023-10-05 | Outpatient (CLI) | payer MEDICARE, OTHER ==
[2023-10-05 15:47] LABS: HEMATOCRIT 43.6 % (42.0-52.0); HEMOGLOBIN 14.4 g/dl (13.5-17.5); PLATELET COUNT, AUTOMATED 190 10^3/uL (150-450); RED BLOOD COUNT 4.64 10^6/uL (4.30-6.10); WHITE BLOOD COUNT 9.3 10^3/uL (4.0-10.0)
[2023-10-05 15:58] LABS: HEMOGLOBIN A1c 6.3 % (4.0-6.0)
[2023-10-05 16:15] LABS: URIC ACID 9.2 MG/DL (3.7-9.2)
[2023-10-05 16:18] LABS: ALBUMIN 4.1 G/DL (3.2-5.2); BILIRUBIN,TOTAL 0.9 MG/DL (0.3-1.2); CALCIUM LEVEL 9.9 MG/DL (8.3-10.6); CREATININE FOR GFR 1.33 MG/DL (0.70-1.30); GLOMERULAR FILTRATION RATE 55.1 (>35); POTASSIUM SERUM 4.4 MMOL/L (3.5-5.1); TOTAL PROTEIN 6.8 G/DL (5.7-8.2)
[2023-10-05 16:19] LABS: TOTAL 25(OH) VITAMIN D 51.7 NG/ML (20.0-100.0)
== END ==
LOC: M PLALAB 11:51
PROVIDERS: ATTEND Nurse Practitioner Adult Health
DX: I48.91 Unspecified atrial fibrillation (principal); I11.0 Hypertensive heart disease with heart failure; E55.9 Vitamin D deficiency, unspecified; M10.30 Gout due to renal impairment, unspecified site; Z13.0 Encounter for screening for diseases of the blood and blood-forming organs and certain disorders involving the immune mechanism; Z79.899 Other long term (current) drug therapy

== ENCOUNTER → 2023-12-20 | Outpatient (CLI) | payer MEDICARE, OTHER | LOC: M PLAIMG 10:00 | PROVIDERS: ATTEND Nurse Practitioner Adult Health | DX: R05.9 Cough, unspecified (principal); I51.7 Cardiomegaly; I70.0 Atherosclerosis of aorta; Z95.0 Presence of cardiac pacemaker ==

== ENCOUNTER → 2024-02-27 | Outpatient (CLI) | payer MEDICARE, OTHER ==
[2024-02-27 11:30] LABS: HEMATOCRIT 45.5 % (42.0-52.0); MEAN CORPUSCULAR HEMOGLOBIN 31.1 pg (27.0-33.0); MEAN CORPUSCULAR VOLUME 94.4 fl (80.0-96.0); PLATELET COUNT, AUTOMATED 186 10^3/uL (150-450); RED BLOOD COUNT 4.82 10^6/uL (4.30-6.10); WHITE BLOOD COUNT 9.3 10^3/uL (4.0-10.0)
[2024-02-27 11:52] LABS: URIC ACID 7.7 MG/DL (3.7-9.2)
[2024-02-27 11:55] LABS: ALBUMIN 4.3 G/DL (3.2-5.2); CALCIUM LEVEL 9.9 MG/DL (8.3-10.6); CHOLESTEROL RISK RATIO 2.99 (<5); CREATININE FOR GFR 1.54 MG/DL (0.70-1.30); GLOMERULAR FILTRATION RATE 46.5 (>35); HDL CHOLESTEROL 42.4 MG/DL (>40); LDL CHOLESTEROL 62.4 MG/DL (<100); NON-HDL-C 84.6 MG/DL; POTASSIUM SERUM 4.4 MMOL/L (3.5-5.1); TOTAL PROTEIN 7.4 G/DL (5.7-8.2)
[2024-02-27 12:13] LABS: HEMOGLOBIN A1c 6.2 % (4.0-6.0)
== END ==
LOC: M PLALAB 08:45
PROVIDERS: ATTEND Nurse Practitioner Adult Health
DX: I48.91 Unspecified atrial fibrillation (principal); I11.0 Hypertensive heart disease with heart failure; E78.2 Mixed hyperlipidemia; M10.30 Gout due to renal impairment, unspecified site; R09.89 Other specified symptoms and signs involving the circulatory and respiratory systems; E11.9 Type 2 diabetes mellitus without complications

== ENCOUNTER → 2024-09-03 | Outpatient (CLI) | payer MEDICARE, OTHER ==
[2024-09-03 10:58] LABS: HEMATOCRIT 43.1 % (42.0-52.0); HEMOGLOBIN 14.1 g/dl (13.5-17.5); MEAN CORPUSCULAR HEMOGLOBIN 31.5 pg (27.0-33.0); MEAN CORPUSCULAR HGB CONC 32.7 g/dl (32.0-36.5); MEAN CORPUSCULAR VOLUME 96.2 fl (80.0-96.0); PLATELET COUNT, AUTOMATED 190 10^3/uL (150-450); RED BLOOD COUNT 4.48 10^6/uL (4.30-6.10); WHITE BLOOD COUNT 8.9 10^3/uL (4.0-10.0)
[2024-09-03 11:18] LABS: URIC ACID 6.1 MG/DL (3.7-9.2)
[2024-09-03 11:21] LABS: ALBUMIN 4.2 G/DL (3.2-5.2); BILIRUBIN,TOTAL 0.8 MG/DL (0.3-1.2); CALCIUM LEVEL 10.3 MG/DL (8.3-10.6); CHOLESTEROL RISK RATIO 3.89 (<5); CREATININE FOR GFR 1.28 MG/DL (0.70-1.30); GLOMERULAR FILTRATION RATE 57.4 (>35); HDL CHOLESTEROL 39.5 MG/DL (>40); LDL CHOLESTEROL 89.9 MG/DL (<100); NON-HDL-C 114.5 MG/DL; POTASSIUM SERUM 4.3 MMOL/L (3.5-5.1); TOTAL PROTEIN 7.3 G/DL (5.7-8.2)
[2024-09-03 11:23] LABS: FREE T4 1.38 NG/DL (0.89-1.76); THYROID STIMULATING HORMONE 2.097 uIU/ML (0.55-4.78)
== END ==
LOC: M PLALAB 08:28
PROVIDERS: ATTEND Nurse Practitioner Adult Health
DX: I48.91 Unspecified atrial fibrillation (principal); I11.0 Hypertensive heart disease with heart failure; E78.2 Mixed hyperlipidemia; M10.30 Gout due to renal impairment, unspecified site

== ENCOUNTER → 2025-09-02 | Outpatient (CLI) | payer MEDICARE, OTHER ==
[~2025-09-02] MED LIST changes: -COLC0.6T47 PO; +COLC0.6T53 PO; -FLOM0.4C39 PO; +LEVA15HF2 INH; -LEVAINH INH; -PRAV40TA2 PO; +PRAV40TA85 PO; +TAMS-18 PO
[2025-09-02 13:27] LABS: CHOLESTEROL LEVEL 130.0 MG/DL (<200); CHOLESTEROL RISK RATIO 2.64 (<5); LDL CHOLESTEROL 58.4 MG/DL (<100); NON-HDL-C 80.8 MG/DL; TRIGLYCERIDES LEVEL 112.0 MG/DL (<150)
[2025-09-02 13:31] LABS: FREE T4 1.22 NG/DL (0.89-1.76)
[2025-09-02 14:28] LABS: ESTIMATED AVERAGE GLUCOSE 146.0 MG/DL (60-110)
== END ==
LOC: M PLALAB 09:38
PROVIDERS: ATTEND Nurse Practitioner Adult Health
DX: I48.91 Unspecified atrial fibrillation (principal); E78.2 Mixed hyperlipidemia; E11.9 Type 2 diabetes mellitus without complications